=== PATIENT | female | born 1945 | race Caucasian/White ===

== ENCOUNTER 2020-05-26 14:15 | Outpatient (CLI) | payer MEDICARE, OTHER, SELFPAY ==
[2020-05-26 15:02] LABS: Basophils Absolute Auto 0.1 K/mm3 (0.0-0.1); Basophils Percent Auto 0.6 % (0.2-1.2); Eosinophils Absolute Auto 0.7 K/mm3 (0-0.3); Hematocrit 38.2 % (37.0-47.0); Hemoglobin 12.1 g/dL (12.0-15.0); Immature Granulocyte Absolute 0.02 K/mm3 (0.00-0.031); Immature Granulocyte Percent A 0.2 % (0-0.5); Lymphocytes Absolute Auto 1.88 K/mm3 (0.9-3.2); Lymphocytes Percent Auto 23.2 % (18.3-44.2); Mean Corpuscular HGB Conc 31.7 g/dl (32-36); Mean Corpuscular Hemoglobin 29.1 pg (26-34); Mean Corpuscular Volume 91.8 fl (80-100); Mean Platelet Volume 11.5 fl (7.4-10.4); Monocytes Absolute Auto 0.8 K/mm3 (0.1-0.6); Monocytes Percent Auto 9.7 % (2.6-8.5); Neutrophils Absolute Auto 4.7 K/mm3 (1.3-6.7); Neutrophils Percent Auto 58.3 % (45.5-73.1); Platelet Count Result 219 k/mm3 (150-375); Red Blood Count 4.16 M/mm3 (4.2-5.4); Red Cell Distribution Width 13.7 % (11.5-14.5); White Blood Count 8.1 K/mm3 (4.5-10.0)
[2020-05-26 15:15] LABS: Alanine Aminotransferase 10 U/L (4-35); Albumin Level 4.1 g/dL (3.5-5.1); Alkaline Phosphatase 80 U/L (38-126); Anion Gap 7 mmol/L (8-16); Aspartate Amino Transferase 21 U/L (14-36); Bilirubin,Total 0.7 mg/dL (0.2-1.3); Blood Urea Nitrogen 14 mg/dL (7-17); Calcium 9.2 mg/dL (8.4-10.2); Carbon Dioxide 33 mmol/L (22-30); Chloride 105 mmol/L (98-107); Estimated Glomerular Filt Rate > 60; Glucose 92 mg/dL (65-105); Potassium 3.7 mmol/L (3.4-5.0); Sodium 145 mmol/L (137-145)
[2020-05-26 17:27] LABS: Vitamin D 25 Hydroxy 42.5 ng/mL
== END 2020-05-26 14:16 | disposition home or self-care (01) ==
PROVIDERS: PCP Family Medicine; Visit Provider Family Medicine
DX: R53.82 Chronic fatigue, unspecified (principal); N18.30 Chronic kidney disease, stage 3 unspecified; E55.9 Vitamin D deficiency, unspecified; F32.5 Major depressive disorder, single episode, in full remission; G93.49 Other encephalopathy
CPT/HCPCS: 36415; 80048; 80076; 82306; 84443; 85025

== ENCOUNTER 2020-09-17 13:20 | Emergency (ER) | payer MEDICARE, OTHER, SELFPAY ==
[2020-09-17] VITALS (13 sets, daily range): BP systolic 101–149; BP diastolic 52–82; PULSE 53–82; RESP 14–24; TEMP 36.3–36.9; O2SAT 95–99
--- NOTE | ~2020-09-17 | XR_ITS ---
XR hip RT 1V DATE: 09/17/2020 14:31 INDICATION: Right hip dislocation TECHNIQUE: Single AP view COMPARISON: 09/13/2020 right hip FINDINGS: The right femoral head component of the right total hip replacement is now properly seated in the acetabulum on AP view. Diffuse osteopenia. IMPRESSION: Reduction of dislocated right total hip arthroplasty Reviewed, dictated and finalized at location A.
--- NOTE | ~2020-09-17 | XR_ITS ---
XR hip RT min 3V w AP pelvis DATE: 09/17/2020 13:42 INDICATION: Fall in shower. Possible dislocation. TECHNIQUE: AP pelvis. AP and lateral views of right hip COMPARISON: None FINDINGS: The right femoral head prosthesis is dislocated superiorly at the right total hip arthropla sty. No associated fracture is evident. Normal alignment at the pubic symphysis and sacroiliac joints. Osteopenia. Dextro scoliosis and degenerative disc disease of the lumbar spine. IMPRESSION: Superior dislocation of right femoral head prosthesis at the right total hip arthroplasty Reviewed, dictated and finalized at location A.
--- NOTE | 2020-09-17 13:27 | ED.LOWEXIN ---
HPI - Extremity Injury (Lower) General Chief Complaint: Extremity Injury, Lower Stated Complaint: R HIP PAIN History of Present Illness HPI Narrative: 75 yo female w/ h/o hip replacement presents with hip injury. She reports that she was lying in bed today when she rolled over and felt a pop in the right hip. This was followed by severe pain and reduced ROM. This is the hip she previously had replaced. She has never had this happen before. Related Data Home Medications Medication Instructions Recorded Confirmed aspirin 81 mg PO DAILY 01/05/19 07/07/20 Allergies Allergy/AdvReac Type Severity Reaction Status Date / Time No Known Allergies Allergy Mild Verified 09/17/20 13:26 Review of Systems Review of Systems: All systems reviewed & are unremarkable except as noted in HPI and below Constitutional: Constitutional: Denies chills and Denies fever(s) Cardiovascular: Cardiovascular: Denies chest pain Respiratory: Respiratory: Denies dyspnea Gastrointestinal: Gastrointestinal: Denies nausea Genitourinary: Genitourinary: Reports no additional female genitourinary complaints Musculoskeletal: Musculoskeletal: Denies back pain Neurologic: Denies numbness and Denies weakness PMFSH Past Medical History Medical History Anxiety Arthritis Asthma BMI 33.0-33.9,adult BMI 34.0-34.9,adult Breast cancer Bronchitis CVA (cerebral vascular accident) DDD (degenerative disc disease) Depression Encephalopathy chronic Fibrous breast lumps Gall bladder disease GERD (gastroesophageal reflux disease) Heart murmur Hypercholesterolemia Hypertension Screen for colon cancer Sepsis due to urinary tract infection Sleep apnea TIA (transient ischemic attack) Surgical History Surgical History H/O breast biopsy H/O: hysterectomy History of cholecystectomy History of right hip replacement History of tonsillectomy Hx of tubal ligation Previous section Family History Family History Mother Hypertension Family history of pancreatic cancer Father Cerebrovascular accident Social History Social History Second hand tobacco smoke exposure: Yes Alcohol intake: current Gender identity (if verbalized by the patient): Female Exam Const: General: healthy appearing and alert Nutritional Appearance: well nourished Orientation/consciousness: patient oriented x3 HENMT: Head: normal to inspection Resp: Effort & Inspection: normal respiratory effort Auscultation: clear to auscultation bilaterally Cardio: Rate: regular rate Rhythm: regular rhythm GI: GI Palp: Yes Soft to palpation and No Tenderness to palpation present (GI) Skin: General skin exam: normal color Wounds: no wounds Neuro: General: moves all extremities, no focal motor deficits and CN's II-XI intact bilaterally Speech: normal speech Other: Distal motor and sensory intact in RLE Extrem: Other: right hip help in flexion with slight internal rotation. Course Vital Signs Vital signs: Vital Signs Temperature 36.8 C 09/17/20 13:19 Pulse Rate 58 L 09/17/20 13:19 Respiratory Rate 16 09/17/20 13:19 Blood Pressure 139/78 09/17/20 13:19 Pulse Oximetry 99 09/17/20 13:19 Temperature 36.3 C L 09/17/20 14:50 Pulse Rate 55 L 09/17/20 15:20 Respiratory Rate 16 09/17/20 15:20 Blood Pressure 101/52 L 09/17/20 15:20 Pulse Oximetry 96 09/17/20 15:20 Procedures Orthopedic Joint Reduction Joint #1: Orthopedic Joint Reduction Date: 09/17/20 Time Out Performed: Yes Side: right Joint Reduction Location: hip Analgesia: procedural sedation Technique used: traction/counter-traction Post-reduction neuro exam: intact Post-reduction vascular: intact
[2020-09-17] MEDS: MORPHINE SULFATE (*CRX) 4 MG/ML INJ IV PUSH (13:44)
[2020-09-17] MEDS: SODIUM CHLORIDE 0.9% IV 1,000 ML 999 ML (14:10)
[2020-09-17] MEDS: PROPOFOL IV EMULSION 200 MG/20 ML VIAL 100 MG IV PUSH (14:16)
--- NOTE | 2020-09-17 14:41 | PC.NURSE ---
consent signed and in chart propofal given in three doses, given by dr quispe 1416 propofal 50mg 1418 propofal 20mg 1420 propofal 30mg
== END 2020-09-17 17:16 ==
PROVIDERS: Emergency Provider Emergency Medicine; PCP Family Medicine
DX: T84.020A Dislocation of internal right hip prosthesis, initial encounter (principal); Z96.641 Presence of right artificial hip joint; M19.90 Unspecified osteoarthritis, unspecified site; J45.909 Unspecified asthma, uncomplicated; Z86.73 Personal history of transient ischemic attack (TIA), and cerebral infarction without residual deficits; K21.9 Gastro-esophageal reflux disease without esophagitis; E78.00 Pure hypercholesterolemia, unspecified; I10 Essential (primary) hypertension; F41.9 Anxiety disorder, unspecified; F32.9 Major depressive disorder, single episode, unspecified; Z87.440 Personal history of urinary (tract) infections; Z79.82 Long term (current) use of aspirin; Z77.22 Contact with and (suspected) exposure to environmental tobacco smoke (acute) (chronic)
CPT/HCPCS: 27266; 73501; 73502; 96374; 99285; J2270; J2704; J7030

== ENCOUNTER 2021-11-15 11:08 | Outpatient (RCR) | payer MEDICARE, OTHER, SELFPAY ==
[2021-11-15 12:15] VITALS: BMI 33.5
== END 2022-01-29 09:48 | disposition home or self-care (01) ==
LOC: ANHWOC 11:08
PROVIDERS: PCP Family Medicine; Visit Provider Nurse Practitioner Family
DX: L72.3 Sebaceous cyst (principal)
CPT/HCPCS: 99213; G0463

== ENCOUNTER 2022-01-30 11:54 | Emergency (ER) | payer MEDICARE, OTHER, SELFPAY ==
--- NOTE | ~2022-01-30 | XR_ITS ---
EXAMINATION: XR chest 2V DATE: 01/30/2022 12:21 INDICATION: One week of cough and congestion. Malaise. TECHNIQUE: frontal and lateral views of the chest were obtained. COMPARISON: Chest radiograph dated 01/05/2019 FINDINGS: Normal lung volumes. Bilateral mild perihilar bronchial wall thickening. No focal airspace opacities, pleural effusion or pneumothorax. The cardiomediastinal silhouette is normal. Mild thoracolumbar lev ocurvature. Cholecystectomy clips in the upper abdomen. IMPRESSION: 1. Mild perihilar bronchial wall thickening without focal airspace opacities which could be seen with bronchitis or reactive airway disease/asthma. Reviewed, dictated and finalized at location A. [employer] IMPRESSION: 1. Mild perihilar bronchial wall thickening without focal airspace opacities wh ich could be seen with bronchitis or reactive airway disease/asthma.
--- NOTE | 2022-01-30 12:01 | ED.URI ---
HPI - URI/Sore Throat General Chief Complaint: Upper Respiratory Infection Stated Complaint: congestion, wheezing Time Seen by Provider: 01/30/22 12:01 Source: patient, family and RN notes reviewed History of Present Illness HPI Narrative: Patient is a 76-year-old female who presents to Urgent Care with her daughter with complaints of cough, wheezing, congestion for 1 week. Patient currently lives in assisted living and has to have an order for on medications. States that her PCP got an order for p.r.n. guaifenesin which she has only been taking once a day. Denies any known fevers, nausea, vomiting. Reports shortness of breath. Patient appears fatigued but otherwise no acute distress noted. Patient and daughter aware of the plan of care. Some parts of this dictation were generated by voice recognition software and may contain typographical and/or grammatical inaccuracies. Related Data Home Medications Medication Instructions Recorded Confirmed umeclidinium 62.5 mcg-vilanterol 1 inh inhalation DAILY 02/20/21 01/30/22 25 mcg/actuation powdr for inhalation (Anoro Ellipta) atenolol 50 mg tablet 50 mg PO DAILY 11/08/21 01/30/22 Allergies Allergy/AdvReac Type Severity Reaction Status Date / Time No Known Allergies Allergy Mild Verified 01/30/22 12:08 Review of Systems Review of Systems: CONSTITUTIONAL: Denies fever, chills, or sweats. EYES: Denies visual changes, redness, or discharge. ENT: Reports of postnasal drainage and congestion CARDIOVASCULAR: Denies chest pain, palpitations, or edema. RESPIRATORY: Reports cough, wheezing, congestion GASTROINTESTINAL: Denies abdominal pain, nausea, vomiting, or diarrhea. GENITOURINARY: Denies dysuria or hematuria. SKIN: Denies rash or itching. MUSCULOSKELETAL: Denies back pain, joint pain, or myalgia. NEUROLOGIC: Denies headache, numbness, or weakness. All other systems reviewed are negative, except as documented in HPI. [facility] Past Medical History Medical History Anxiety Arthritis Asthma BMI 33.0-33.9,adult BMI 34.0-34.9,adult BMI over 35 Breast cancer Bronchitis CVA (cerebral vascular accident) DDD (degenerative disc disease) Depression Dermatitis Encephalopathy chronic Fibrous breast lumps Gall bladder disease GERD (gastroesophageal reflux disease) Heart murmur Hip pain, bilateral Hirsutism Hypercholesterolemia Hypertension Screen for colon cancer Sepsis due to urinary tract infection Sleep apnea TIA (transient ischemic attack) Surgical History Surgical History H/O breast biopsy H/O: hysterectomy History of cholecystectomy History of right hip replacement History of tonsillectomy Hx of tubal ligation Previous section Family History Family History Mother Hypertension Family history of pancreatic cancer Father Cerebrovascular accident Sibling Heart disease Hxjbi-Xgokyotgz-Xbwjl (WPW) syndrome A-fib Low O2 saturation Social History Social History Smoking status: Never smoker Second hand tobacco smoke exposure: Yes Alcohol intake: current Substance use: never Substance use type: does not use Gender identity (if verbalized by the patient): Female Comments At the time of my signature, I reviewed and agree with the nursing past medical, surgical, social, and family history. There is no relevant family history pertinent to the patient complaint. Exam Narrative: GENERAL: This is a well-nourished, well-developed patient. Appears fatigued HEAD: normocephalic, atraumatic. EYES: PERRL. Sclera clear/white. Vision is grossly intact. EARS: External ears normal, auditory canals clear and without drainage, TMs normal without perforation. Hearing grossly intact. NOSE: External nose no
[2022-01-30 12:08] VITALS: BP 130/102; PULSE 61; RESP 20; TEMP 37.6; O2SAT 94
[2022-01-30 12:10] VITALS: BP 130/102; PULSE 61; RESP 20; TEMP 37.6; O2SAT 94
== END 2022-01-30 12:50 | disposition home or self-care (01) ==
PROVIDERS: Emergency Provider Nurse Practitioner Family; PCP Family Medicine
DX: J40 Bronchitis, not specified as acute or chronic (principal); M19.90 Unspecified osteoarthritis, unspecified site; Z86.73 Personal history of transient ischemic attack (TIA), and cerebral infarction without residual deficits; K21.9 Gastro-esophageal reflux disease without esophagitis; R01.1 Cardiac murmur, unspecified; E78.00 Pure hypercholesterolemia, unspecified; I10 Essential (primary) hypertension; Z85.3 Personal history of malignant neoplasm of breast; Z96.641 Presence of right artificial hip joint
CPT/HCPCS: 71046; 99213; G0463

== ENCOUNTER 2022-05-25 06:12 | Emergency (ER) | payer MEDICARE, OTHER, SELFPAY ==
--- NOTE | ~2022-05-25 | CT_ITS ---
CT head without contrast Indication: Head injury COMPARISON: 01/05/2019 Technique: Serial scans were obtained through the brain without the administration of contrast. Dose reduction technique was used on this scan by utilizing automated exposure control and iterative recon struction technique. The dose-length product (DLP) was 1362.00 mGy-cm. Findings: There is no evidence of intracranial hemorrhage, mass lesion, or acute infarct. The ventri cles and subarachnoid spaces are dilated, consistent with moderate atrophy. Low attenuation regions are seen within the periventricular white matter bilaterally, likely representing changes from chroni c microvascular ischemic disease. There is no evidence of edema, mass effect or midline shift. The visualized paranasal sinuses and mastoid air cells are clear. Impression: No intracranial hemorrhage, mass, or acute infarct. Atrophy and chronic white matter changes, as above. Reviewed, dictated and finalized at location . Impression: No intracranial hemorrhage, mass, or acute infarct. Atrophy and chronic white matter changes, as above.
--- NOTE | ~2022-05-25 | XR_ITS ---
AP view of the pelvis and AP and lateral views of the right hip Clinical history: Pain Findings: No acute fracture or dislocation is seen.] Hip arthroplasty in place. No hardware convocati on evident. Soft tissues are unremarkable. Impression: No acute abnormality. Right hip arthroplasty. Reviewed, dictated and finalized at location . Impression: No acute abnormality. Right hip arthroplasty.
[2022-05-25 06:09] VITALS: PULSE 75; RESP 17; TEMP 37.6; O2SAT 97
[2022-05-25 06:22] VITALS: BP 114/58; PULSE 76; RESP 20; O2SAT 94
--- NOTE | 2022-05-25 06:38 | ED.GENADULT ---
HPI - General Adult General Chief complaint: Fall <Darci Causey MD - Last Filed: 05/25/22 18:58> Stated complaint: fall <Darci Causey MD - Last Filed: 05/25/22 18:58> Time Seen by Provider: 05/25/22 06:22 <Darci Causey MD - Last Filed: 05/25/22 18:58> History of Present Illness HPI narrative: 76-year-old female presented the emergency department for evaluation after having a suspected ground-level fall. Nursing staff states that the patient was on the floor. Patient did hit her alarm for assistance. EMS was called and patient was able to have some limited ambulation to the [facility]. Patient states that she is having some right hip pain but this feels similar to her chronic right hip pain which she states is sciatica and she has had for approximately 2 years. Patient does not recall being on the floor. Patient is also unsure if she had a ground-level fall and is unsure if she struck her head. Patient denies any other pain or injury. <Darci Causey MD - Last Filed: 05/25/22 18:58> Related Data Home medications: Home Medications Medication Instructions Recorded Confirmed umeclidinium 62.5 mcg-vilanterol 1 inh inhalation DAILY 02/20/21 03/13/22 25 mcg/actuation powdr for inhalation (Anoro Ellipta) atenolol 50 mg tablet 50 mg PO DAILY 11/08/21 03/13/22 doxycycline monohydrate 100 mg 100 mg PO BID 03/13/22 03/13/22 capsule <Darci Causey MD - Last Filed: 05/25/22 18:58> Allergies/adverse reactions: Allergies Allergy/AdvReac Type Severity Reaction Status Date / Time No Known Allergies Allergy Mild Verified 05/25/22 11:43 <Darci Causey MD - Last Filed: 05/25/22 18:58> Review of Systems Review of Systems: All systems reviewed & are unremarkable except as noted in HPI and below <Darci Causey MD - Last Filed: 05/25/22 18:58> PMFSH Past Medical History Medical History: Medical History Anxiety Arthritis Asthma BMI 31.0-31.9,adult BMI 33.0-33.9,adult BMI 34.0-34.9,adult BMI over 35 Breast cancer Bronchitis CVA (cerebral vascular accident) DDD (degenerative disc disease) Depression Dermatitis Encephalopathy chronic Fibrous breast lumps Gall bladder disease GERD (gastroesophageal reflux disease) Heart murmur Hip pain, bilateral Hirsutism Hypercholesterolemia Hypertension Screen for colon cancer Sepsis due to urinary tract infection Sleep apnea TIA (transient ischemic attack) <Darci Causey MD - Last Filed: 05/25/22 18:58> Surgical History Surgical History: Surgical History H/O breast biopsy H/O: hysterectomy History of cholecystectomy History of right hip replacement History of tonsillectomy Hx of tubal ligation Previous section <Darci Causey MD - Last Filed: 05/25/22 18:58> Family History Family History: Family History Mother Hypertension Family history of pancreatic cancer Father Cerebrovascular accident Sibling Heart disease Jjdrh-Sqxejxjeq-Llans (WPW) syndrome A-fib Low O2 saturation <Darci Causey MD - Last Filed: 05/25/22 18:58> Social History Social History: Social History Smoking status: Never smoker Second hand tobacco smoke exposure: Yes Alcohol intake: current Substance use: never Substance use type: does not use Lack of Transportation: No Lack of Food: Never True Current Housing: I Have Housing Concerned About Future Housing: No Difficulty Paying Gas/Electric Bills: No Difficulty Paying for Meds: No Currently Unemployed: No Education: Associate Degree Difficulty w/ Childcare or Family Care: No Living arrangements: alone Occupation/Education: retired Gender identity (if verbalized by
[2022-05-25 07:12] VITALS: BP 107/49; PULSE 76; RESP 24; O2SAT 97
[2022-05-25 07:16] VITALS: BP 105/50; PULSE 76; RESP 22; O2SAT 94
--- NOTE | 2022-05-25 08:13 | PC.NURSE ---
patient ambulated with a limp using a walker
[2022-05-25 09:25] VITALS: BP 106/50; PULSE 76; RESP 20; O2SAT 97
== END 2022-05-25 09:25 | disposition home or self-care (01) ==
PROVIDERS: Emergency Provider Emergency Medicine; PCP Family Medicine
DX: M25.551 Pain in right hip (principal); F41.9 Anxiety disorder, unspecified; M19.90 Unspecified osteoarthritis, unspecified site; J45.909 Unspecified asthma, uncomplicated; F32.A Depression, unspecified; K21.9 Gastro-esophageal reflux disease without esophagitis; I10 Essential (primary) hypertension; G47.30 Sleep apnea, unspecified
CPT/HCPCS: 70450; 73502; 99284

== ENCOUNTER 2022-05-25 11:01 | Emergency (ER) | payer MEDICARE, OTHER, SELFPAY ==
[2022-05-25 11:32] VITALS: BP 113/59; PULSE 66; RESP 16; O2SAT 96
--- NOTE | 2022-05-25 11:41 | ED.GENADULT ---
HPI - General Adult General Chief complaint: Unspecified Stated complaint: blood in brief Time Seen by Provider: 05/25/22 11:12 History of Present Illness HPI narrative: 76-year-old female presents to the emergency room for reevaluation from an injury that occurred earlier this morning. Patient was seen here for suspected ground-level fall and was complaining of some right hip pain. Patient states that she was lying on the floor at her assisted living facility when staff found her. Patient stated that she did not remember falling on the ground at that time. Imaging showed no acute injuries to her hip and pelvis. Head CT was performed showing no acute intracranial changes or injuries. Patient was found to have scant amount of blood in her diaper upon returning to assisted living. Daughter became concerned that she might be experiencing urinary tract infection or sepsis. Patient's not complaining of any vaginal ulcers or wounds. No wounds found to her right thigh. Denies dysuria, urinary frequency or urgency. Related Data Home Medications Medication Instructions Recorded Confirmed umeclidinium 62.5 mcg-vilanterol 1 inh inhalation DAILY 02/20/21 03/13/22 25 mcg/actuation powdr for inhalation (Anoro Ellipta) atenolol 50 mg tablet 50 mg PO DAILY 11/08/21 03/13/22 doxycycline monohydrate 100 mg 100 mg PO BID 03/13/22 03/13/22 capsule Allergies Allergy/AdvReac Type Severity Reaction Status Date / Time No Known Allergies Allergy Mild Verified 05/25/22 11:43 Review of Systems Review of Systems: CONSTITUTIONAL: Denies fever, chills, or sweats. EYES: Denies visual changes, redness, or discharge. ENT: Denies rhinorrhea, congestion, sore throat, or otalgia. CARDIOVASCULAR: Denies chest pain, palpitations, or edema. RESPIRATORY: Denies cough or dyspnea. GASTROINTESTINAL: Denies abdominal pain, nausea, vomiting, or diarrhea. GENITOURINARY: Denies dysuria or hematuria. SKIN: Denies rash or itching. MUSCULOSKELETAL: Denies back pain, joint pain, or myalgia. NEUROLOGIC: Denies headache, numbness, dizziness, or weakness. PSYCHIATRIC: Denies anxiety or depression. [facility] Past Medical History Medical History Anxiety Arthritis Asthma BMI 31.0-31.9,adult BMI 33.0-33.9,adult BMI 34.0-34.9,adult BMI over 35 Breast cancer Bronchitis CVA (cerebral vascular accident) DDD (degenerative disc disease) Depression Dermatitis Encephalopathy chronic Fibrous breast lumps Gall bladder disease GERD (gastroesophageal reflux disease) Heart murmur Hip pain, bilateral Hirsutism Hypercholesterolemia Hypertension Screen for colon cancer Sepsis due to urinary tract infection Sleep apnea TIA (transient ischemic attack) Surgical History Surgical History H/O breast biopsy H/O: hysterectomy History of cholecystectomy History of right hip replacement History of tonsillectomy Hx of tubal ligation Previous section Family History Family History Mother Hypertension Family history of pancreatic cancer Father Cerebrovascular accident Sibling Heart disease Mnbmd-Izwtmlsmh-Acfzq (WPW) syndrome A-fib Low O2 saturation Social History Social History Smoking status: Never smoker Second hand tobacco smoke exposure: Yes Alcohol intake: current Substance use: never Substance use type: does not use Lack of Transportation: No Lack of Food: Never True Current Housing: I Have Housing Concerned About Future Housing: No Difficulty Paying Gas/Electric Bills: No Difficulty Paying for Meds: No Currently Unemployed: No Education: Associate Degree Difficulty w/ Childcare or Family Care: No Living arrangements: alone Occupation/Education: retired Gender identity (
[2022-05-25 11:45] LABS: Appearance Urine Clear (Clear); Bilirubin Urine Negative (Negative); Blood Urine Negative (Negative); Color Urine Yellow (Yellow); Glucose Urine UA Negative (Negative); Ketones Urine Negative (Negative); Leukocyte Esterase Ur Negative LEU/UL (Negative); Nitrate Urine Negative (Negative); Protein Urine Negative (Negative); Specific Grav Ur 1.017 (1.001-1.035); Urobilinogen Urine 0.2 mg/dL (<2.0); pH Urine 5.5 (5.0-9.0)
[2022-05-25 11:58] LABS: Add Urine Microscopic? NO
== END 2022-05-25 12:47 | disposition home or self-care (01) ==
LOC: ANHED 12:12
PROVIDERS: Emergency Provider Nurse Practitioner Family; PCP Family Medicine
DX: R31.9 Hematuria, unspecified (principal); F41.9 Anxiety disorder, unspecified; M19.90 Unspecified osteoarthritis, unspecified site; J45.909 Unspecified asthma, uncomplicated; F32.A Depression, unspecified; K21.9 Gastro-esophageal reflux disease without esophagitis; I10 Essential (primary) hypertension; G47.30 Sleep apnea, unspecified
CPT/HCPCS: 81003; 99282

== ENCOUNTER 2022-10-11 10:28 | Outpatient (CLI) | payer MEDICARE, OTHER, SELFPAY ==
--- NOTE | ~2022-10-11 | MR_ITS ---
EXAMINATION: MR brain/brain stem wo con DATE: 10/11/2022 11:35 INDICATION: Other amnesia. TECHNIQUE: Magnetic resonance imaging (MRI) of the brain and brainstem was performed without intraven ous contrast. COMPARISON: Brain MRI 02/16/2017, head CT 05/25/2022 FINDINGS: There are scattered areas of nonspecific increased T2-weighted signal intensity in the cere bral white matter and [place]. There is no intracranial hemorrhage, acute infarction, or abnormal intrac ranial mass lesion. The ventricles are normal in size. The orbits are normal. The paranasal sinuses a re clear. The mastoid air cells are normal. IMPRESSION: 1. Moderate nonspecific cerebral white matter disease and pontine disease, which likely represents ch ronic small vessel ischemic disease, worsened from 02/16/2017. Reviewed, dictated and finalized at location A. IMPRESSION: 1. Moderate nonspecific cerebral white matter disease and pontine disease, whic h likely represents chronic small vessel ischemic disease, worsened from 2016.
== END 2022-10-11 10:29 | disposition home or self-care (01) ==
LOC: ANHIMG 10:31
PROVIDERS: PCP Family Medicine; Visit Provider Nurse Practitioner Family
DX: R41.3 Other amnesia (principal); R68.89 Other general symptoms and signs
CPT/HCPCS: 70551

== ENCOUNTER 2022-11-16 15:41 | Emergency (ER) | payer MEDICARE, OTHER, SELFPAY ==
--- NOTE | ~2022-11-16 | CT_ITS ---
EXAMINATION: CT brain wo con DATE: 11/16/2022 17:48 INDICATION: Hallucinations for 3 days. Altered mental state. TECHNIQUE: Computed tomography (CT) of the head was performed without intravenous contrast. The mA wa s adjusted according to patient size. Iterative reconstruction technique was employed. Exam dose: 60 5.33 mGy-cm total exam DLP. COMPARISON: 10/11/2022 MRI brain/brainstem FINDINGS: There is central and cortical cerebral atrophy. Moderate cerebral volume loss. No intracranial mass lesion or hemorrhage, midline shift or mass effect is detected. Bilateral carotid siphon internal carotid artery calcifications are noted. There is nonspecific dimin ished attenuation of the cerebral white matter, which may be due to chronic small vessel ischemic murphy nges. No subdural or epidural hematoma. No fracture or bone destruction of the cranial vault. Included paranasal sinuses and mastoid air cells IMPRESSION: Cerebral and cerebellar atrophy; no acute intracranial finding Cerebral atherosclerosis and chronic small vessel ischemic changes of the cerebral white matter Reviewed, dictated and finalized at [facility]. Reviewed, dictated and finalized at location A. IMPRESSION: Cerebral and cerebellar atrophy; no acute intracranial finding Cerebral atherosclerosis and chronic small vessel ischemic changes of the cereb ral white matter
[2022-11-16 15:41] VITALS: BP 108/54; PULSE 56; RESP 18; O2SAT 100
[2022-11-16 15:49] VITALS: BP 108/54; PULSE 63; RESP 18; O2SAT 98
[2022-11-16 16:01] VITALS: BP 111/54; PULSE 66; RESP 18; O2SAT 100
[2022-11-16 16:25] LABS: Basophils Percent Auto 0.4 % (0.2-1.2); Eosinophils Absolute Auto 0.2 K/mm3 (0-0.3); Eosinophils Percent Auto 4.5 % (0-4.4); Hematocrit 38.7 % (37.0-47.0); Hemoglobin 11.7 g/dL (12.0-15.0); Immature Granulocyte Absolute 0.02 K/mm3 (0.00-0.031); Immature Granulocyte Percent A 0.4 % (0-0.5); Lymphocytes Absolute Auto 0.92 K/mm3 (0.9-3.2); Lymphocytes Percent Auto 17.2 % (18.3-44.2); Mean Corpuscular HGB Conc 30.2 g/dl (32-36); Mean Corpuscular Hemoglobin 28.5 pg (26-34); Mean Corpuscular Volume 94.4 fl (80-100); Mean Platelet Volume 10.9 fl (7.4-10.4); Monocytes Absolute Auto 0.6 K/mm3 (0.1-0.6); Monocytes Percent Auto 11.4 % (2.6-8.5); Neutrophils Absolute Auto 3.5 K/mm3 (1.3-6.7); Neutrophils Percent Auto 66.1 % (45.5-73.1); Platelet Count Result 123 k/mm3 (150-375); Red Cell Distribution Width 13.9 % (11.5-14.5); White Blood Count 5.3 K/mm3 (4.5-10.0)
[2022-11-16 16:26] LABS: Appearance Urine Clear (Clear); Bilirubin Urine Negative (Negative); Blood Urine Negative (Negative); Color Urine Yellow (Yellow); Glucose Urine UA Negative (Negative); Ketones Urine Negative (Negative); Leukocyte Esterase Ur Negative LEU/UL (Negative); Nitrate Urine Negative (Negative); Protein Urine Negative (Negative); Specific Grav Ur 1.011 (1.001-1.035); Urobilinogen Urine 0.2 mg/dL (<2.0); pH Urine 5.5 (5.0-9.0)
[2022-11-16 16:36] LABS: Alanine Aminotransferase 23 U/L (6-35); Albumin Level 3.8 g/dL (3.5-5.1); Alkaline Phosphatase 70 U/L (38-126); Anion Gap 6 mmol/L (8-16); Aspartate Amino Transferase 30 U/L (14-36); Bilirubin,Total 0.9 mg/dL (0.2-1.3); Blood Urea Nitrogen 18 mg/dL (7-17); Calcium 9.6 mg/dL (8.4-10.2); Carbon Dioxide 33 mmol/L (22-30); Chloride 101 mmol/L (98-107); Estimated CRCL calculation 55 ml/min; Estimated Glomerular Filt Rate > 60; Glucose 82 mg/dL (65-110); Sodium 140 mmol/L (137-145)
[2022-11-16 16:53] LABS: Add Urine Microscopic? NO
[2022-11-16 18:55] LABS: Influenza A QL RT-PCR Negative (Negative); Influenza B QL RT-PCR Negative (Negative); RSV RNA, RT-PCR Negative (Negative); SARS-CoV-2 RNA PCR Negative (Negative)
--- NOTE | 2022-11-16 19:04 | ED.GENADULT ---
HPI - General Adult General Chief complaint: Psychiatric Symptoms Stated complaint: AMS FR 3DAYS Time Seen by Provider: 11/16/22 16:17 History of Present Illness HPI narrative: 77-year-old female with history of vascular dementia presented to the ED for evaluation of increased confusion and hallucinations. Patient also stating that her son from [place] was in town. Patient now states that she is aware this was hallucination and is aware that her son is currently at a base in [place]. Patient's daughter is present with her. Related Data Allergies Allergy/AdvReac Type Severity Reaction Status Date / Time No Known Allergies Allergy Mild Verified 10/02/22 11:13 Review of Systems Review of Systems: All systems reviewed & are unremarkable except as noted in HPI and below PMFSH Past Medical History Medical History Acute bronchitis Anxiety Arthritis Asthma BMI 30.0-30.9,adult BMI 31.0-31.9,adult BMI 33.0-33.9,adult BMI 34.0-34.9,adult BMI over 35 Breast cancer Bronchitis CVA (cerebral vascular accident) DDD (degenerative disc disease) Depression Dermatitis Encephalopathy chronic Fibrous breast lumps Gall bladder disease GERD (gastroesophageal reflux disease) Heart murmur Hip pain, bilateral Hirsutism Hypercholesterolemia Hypertension Screen for colon cancer Sepsis due to urinary tract infection Sleep apnea TIA (transient ischemic attack) Surgical History Surgical History H/O breast biopsy H/O: hysterectomy History of cholecystectomy History of right hip replacement History of tonsillectomy Hx of tubal ligation Previous section Family History Family History Mother Hypertension Family history of pancreatic cancer Father Cerebrovascular accident Sibling Heart disease Gjohq-Nkfyimmjb-Cvmtm (WPW) syndrome A-fib Low O2 saturation Social History Social History Smoking status: Never smoker Second hand tobacco smoke exposure: Yes Alcohol intake: current Substance use: never Substance use type: does not use Lack of Transportation: No Lack of Food: Never True Current Housing: I Have Housing Concerned About Future Housing: No Difficulty Paying Gas/Electric Bills: No Difficulty Paying for Meds: No Currently Unemployed: No Education: Associate Degree Difficulty w/ Childcare or Family Care: No Living arrangements: alone Occupation/Education: retired Gender identity (if verbalized by the patient): Female Exam Narrative: APPEARANCE: Well appearing, no pain, no distress, well-nourished. HEAD: normocephalic, atraumatic. EYES: PERRLA/EOMI, conjunctivae clear. NOSE: Normal no drainage NECK: Supple. No adenopathy, no masses. RESPIRATORY: Airway patent, respirations nonlabored. Clear to auscultation bilaterally, no rales, rhonchi, wheezing. CARDIOVASCULAR: Regular rate and rhythm without murmurs rubs or gallops. ABDOMINAL: Soft, nontender, nondistended, normal bowel sounds MUSCULOSKELETAL: Moves all extremities. Strength/ROM intact, No edema, No calf tenderness. NEURO: Alert. Cranial nerves II through XII intact. SKIN: Warm, dry. Normal Color Grossly intact Course Course Emergency Course: 69-year-old female history of vascular dementia presented the ED for evaluation of hallucinations. Patient is afebrile with no leukocytosis and a stable hemoglobin. Patient has no significant abnormalities on her CMP. UA shows no evidence of infection and patient was negative for COVID RSV and influenza. Patient did have chronic changes on her brain CT with no acute findings. Patient's hallucinations could be secondary to the new trazodone that she started or could be secondary to worsening of the patient's vascular dementia. Patient did
[2022-11-16 19:22] VITALS: BP 140/88; PULSE 66; RESP 18; TEMP 36.7; O2SAT 100
== END 2022-11-16 19:24 ==
PROVIDERS: Emergency Provider Emergency Medicine; PCP Family Medicine
DX: F01.50 Vascular dementia, unspecified severity, without behavioral disturbance, psychotic disturbance, mood disturbance, and anxiety (principal); R44.1 Visual hallucinations; Z20.822 Contact with and (suspected) exposure to COVID-19; J45.909 Unspecified asthma, uncomplicated; E78.00 Pure hypercholesterolemia, unspecified; I10 Essential (primary) hypertension; K21.9 Gastro-esophageal reflux disease without esophagitis; M19.90 Unspecified osteoarthritis, unspecified site; Z96.641 Presence of right artificial hip joint; Z85.3 Personal history of malignant neoplasm of breast; Z86.73 Personal history of transient ischemic attack (TIA), and cerebral infarction without residual deficits; Z90.710 Acquired absence of both cervix and uterus; Z90.49 Acquired absence of other specified parts of digestive tract; Z77.22 Contact with and (suspected) exposure to environmental tobacco smoke (acute) (chronic); I67.2 Cerebral atherosclerosis
CPT/HCPCS: 36415; 70450; 80053; 81003; 85025; 87637; 99284

== ENCOUNTER 2022-11-19 09:06 | Inpatient (IN) | payer MEDICARE, OTHER, SELFPAY ==
[2022-11-19] VITALS (7 sets, daily range): BP systolic 114–147; BP diastolic 58–92; PULSE 65–73; RESP 17–20; TEMP 36.7; O2SAT 93–100; BMI 31.8
--- NOTE | ~2022-11-19 | XR_ITS ---
XR chest 1V portable 11/21/2022 12:12 Indication: Cough and shortness of breath Procedure: AP portable chest Comparison: 11/19/2022 and 01/30/2022 Findings: Significant improvement of diffuse bilateral airspace disease with residual irregular nodul arity left mid thorax. Follow-up CT chest recommended to exclude parenchymal mass. No pleural effusio n. No pneumothorax. No acute osseous abnormality. Impression: 1: Irregular soft tissue nodule left mid thorax. Recommend follow-up CT chest to assess for parenchym al nodule/mass. 2: Near complete resolution of diffuse bilateral interstitial infiltrates, likely resolving edema. Reviewed, dictated and finalized at location B. Impression: 1: Irregular soft tissue nodule left mid thorax. Recommend follow-up CT chest t o assess for parenchymal nodule/mass. 2: Near complete resolution of diffuse bilateral interstitial infiltrates, lik reginaldo resolving edema.
--- NOTE | ~2022-11-19 | CT_ITS ---
EXAMINATION: CTA chest DATE: 11/21/2022 15:10 INDICATION: Shortness of breath and cough, possible mass TECHNIQUE: Computed tomographic angiography (CTA) of the chest was performed with 100 mL Omnipque-350 intravenous contrast. Maximum intensity projection 3D-reconstructions of the aorta and other arterie s were constructed by the technologist on a separate workstation. The dose-length product (DLP) was 7 90.58 mGy-cm. Automated exposure control and iterative reconstruction technique were employed. COMPARISON: 05/17/2018 FINDINGS: No aneurysm or dissection of the thoracic aorta. Coronary artery atherosclerosis is noted. There is mild atherosclerosis of the aorta without hemodynamically significant stenosis. There is mil d atherosclerosis at the origin of the left subclavian artery without hemodynamically significant meli nosis. There is a left hilar masslike opacity with airspace opacity extending peripherally into the left low er lobe. There is bronchial wall thickening in the proximal aspect of the left lower lobe. There are trace pleural effusions. No pneumothorax is identified. The heart size is normal. There is moderate t horacic spondylosis. There is a 1.8 cm cystic lesion in the body of the pancreas with indeterminate c ommunication with the main pancreatic duct which is unchanged since the comparison examination. There is advanced osteoarthritis of the shoulders. IMPRESSION: 1. Left perihilar mass which could be infection/inflammation versus malignancy. Consider bronchoscopy . 2. No aneurysm or dissection of the thoracic aorta. 3. Cystic lesion in the body of the pancreas. The differential diagnosis includes pseudocyst, intradu ctal papillary mucinous neoplasm (IPMN), mucinous cystic neoplasm (MCN), and the less common serous c ystadenoma and neuroendocrine tumor. Correlate for history of pancreatitis. Follow-up pancreas protoc ol CT or MRI in two years is recommended. Reviewed, dictated and finalized at location F. IMPRESSION: 1. Left perihilar mass which could be infection/inflammation versus malignancy. Consider bronchoscopy. 2. No aneurysm or dissection of the thoracic aorta. 3. Cystic lesion in the body of the pancreas. The differential diagnosis includ es pseudocyst, intraductal papillary mucinous neoplasm (IPMN), mucinous cystic neoplasm (MCN), and the less common serous cystadenoma and neuroendocrine tumor . Correlate for history of pancreatitis. Follow-up pancreas protocol CT or MRI in two years is recommended.
--- NOTE | ~2022-11-19 | XR_ITS ---
XR ankle RT min 3V, XR tibia fibula RT 2V 11/19/2022 09:55 Indication: Right ankle pain after fall Procedure: 4 views right ankle and 2 views right tibia/fibula Comparison: No prior studies for comparison. Findings: Osteopenia. There are bimalleolar fractures with oblique fracture of the distal fibular met adiaphysis with approximately one cortical bone width lateral displacement. No significant angulation . There is a medial malleolus malleolar fracture with lateral displacement. Talar dome is unremarkabl e. Moderate diffuse soft tissue swelling. There are degenerative calcaneal enthesophytes. Impression: 1: Displaced bimalleolar fracture. Reviewed, dictated and finalized at location B. Impression: 1: Displaced bimalleolar fracture. Impression: 1: Displaced bimalleolar fracture.
--- NOTE | ~2022-11-19 | XR_ITS ---
EXAMINATION: XR chest 2V DATE: 11/27/2022 13:38 INDICATION: Pneumonia TECHNIQUE: frontal view of the chest was obtained. COMPARISON: Chest radiograph dated 11/21/2022 FINDINGS: Near complete interval resolution of prior patchy consolidation in the left mid to lower lung zone co nsistent with improving pneumonia. No new airspace opacities, pulmonary edema, pleural effusion or pn eumothorax. The cardiomediastinal silhouette is normal accounting for mild leftward rotation of the p atient. Severe thoracic spondylosis and mild thoracolumbar levocurvature. IMPRESSION: 1. Near complete resolution of prior patchy opacities in the left mid to lower lung zone consistent w ith improving pneumonia. Reviewed, dictated and finalized at location A. IMPRESSION: 1. Near complete resolution of prior patchy opacities in the left mid to lower lung zone consistent with improving pneumonia.
--- NOTE | ~2022-11-19 | XR_ITS ---
XR chest 1V portable 11/19/2022 16:26 Indication: Preop chest x-ray. Cough. Procedure: AP portable chest Comparison: Comparison to multiple prior studies sequentially, with oldest reviewed study dated 05/17. Findings: Heart size upper normal. There is diffuse bilateral interstitial infiltrates with peribronc hial thickening. No pleural effusion or pneumothorax. Impression: 1: Diffuse bilateral airspace disease which may represent edema or pneumonia. Reviewed, dictated and finalized at location B. Impression: 1: Diffuse bilateral airspace disease which may represent edema or pneumonia.
--- NOTE | 2022-11-19 09:28 | ED.FALL ---
HPI - Fall General Chief Complaint: Fall Stated Complaint: GLF, right ankle pain Time Seen by Provider: 11/19/22 09:08 Source: patient and EMS Mode of arrival: ambulatory Limitations: no limitations History of Present Illness HPI Narrative: Loree is a 77-year-old female patient presenting to the ER via ambulance for a ground level fall, right ankle pain, right lower leg pain that occurred sometime this morning. Last known well time was around 245 this morning. Patient was found this morning laying on the ground and EMS was called. Patient does not recall how she had fallen however she does report she is having some right lower leg and ankle pain. EMS reports that she is alert and oriented x2 this is patient has normal mental status. She denies any knowledge of hitting her head or denies any head pain or neck pain. Does not report any pain other than the distal right leg and the right ankle Related Data Allergies Allergy/AdvReac Type Severity Reaction Status Date / Time No Known Allergies Allergy Mild Verified 11/19/22 09:16 Review of Systems Review of Systems: Pertinent positives per HPI. Patient denies any fever, chills, rash, headache, visual changes, dizziness, cough, runny nose, sore throat, shortness of breath, chest pain, palpitations, nausea, vomiting, diarrhea, constipation, abdominal pain, or any urinary issues. [facility] Past Medical History Medical History (Updated 11/19/22 @ 15:42 by Jasmin Esparza PA-C) Anxiety Arthritis Asthma Chronic kidney disease, stage 3 Degenerative disc disease Dementia Depression Gastroesophageal reflux disease Hyperlipidemia Hypertension Obstructive sleep apnea No longer using CPAP following weight loss. Pulmonary emphysema Transient ischemic attack Surgical History Surgical History (Updated 11/19/22 @ 14:56 by Jasmin Esparza PA-C) History of benign breast biopsy History of cardiac catheterization (2011) Reportedly unremarkable. History of section History of cholecystectomy History of hysterectomy History of right hip replacement History of tonsillectomy History of tubal ligation Family History Family History Mother Hypertension Family history of pancreatic cancer Father Cerebrovascular accident Sibling Heart disease Zgdiu-Locsodlpq-Gpdmk (WPW) syndrome A-fib Low O2 saturation Social History Social History (Updated 11/19/22 @ 15:07 by Jasmin G Gerling, PA-C) Social History: Surrogate medical decision maker: Misael Hayes (son) or Mini Bledsoe (daughter). Code status: Full code. Smoking status: Never smoker Second hand tobacco smoke exposure: Yes Alcohol intake: never Alcohol use details: No alcohol since around age 29. Substance use: never Substance use type: does not use Lack of Transportation: No Lack of Food: Never True Current Housing: I Have Housing Concerned About Future Housing: No Difficulty Paying Gas/Electric Bills: No Difficulty Paying for Meds: No Currently Unemployed: No Education: Associate Degree Difficulty w/ Childcare or Family Care: No Additional living arrangements comments: . Lives in assisted living. She has 7 children, 5 biologic and 2 adopted. 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 Comments At the time of my signature, I reviewed and agree with the nursing past medical, surgical, social, and family history. There is no relevant family history pertinent to the patient complaint. Exam Narrative: General: Well-developed, well nourished, in no apparent distress Head: Normocephalic, atraumatic. Cardio: Regular rate and rhythm, s1 and s2 normal, no murmur appreciated. Resp: Clear to auscultation bilaterally, no rhonchi, rales, wheezing or rubs. Musculoskeletal: No deformity, bruising and swelling noted
--- NOTE | 2022-11-19 09:29 | ECG_ITS ---
Measurements Intervals [place] Rate: 63 P: -34 PA: 113 QRS: 73 QRSD: 92 T: 61 QT: 375 QTc: 385 Interpretive Statements SINUS RHYTHM WITH SHORT PA INTERVAL BORDERLINE ST-T WAVE ABNORMALITY- DIFFUSE LEADS BASELINE ARTIFACT- I, II, III, AVR, AVL, AVF, V1-V6 BORDERLINE ECG COMPARED TO ECG 01/05/2019 13:11:31 NO SIGNIFICANT CHANGES Electronically Signed On 11-19-2022 11:21:01 CDT by Jonh Peters D.O.
[2022-11-19 10:30] LABS: Basophils Percent Auto 0.4 % (0.2-1.2); Eosinophils Absolute Auto 0.2 K/mm3 (0-0.3); Eosinophils Percent Auto 2.4 % (0-4.4); Hematocrit 43.1 % (37.0-47.0); Hemoglobin 13.1 g/dL (12.0-15.0); Immature Granulocyte Absolute 0.02 K/mm3 (0.00-0.031); Immature Granulocyte Percent A 0.3 % (0-0.5); Immature Platelet Fraction Pct 7.3 % (0.9-11.2); Lymphocytes Absolute Auto 0.84 K/mm3 (0.9-3.2); Lymphocytes Percent Auto 11.4 % (18.3-44.2); Mean Corpuscular HGB Conc 30.4 g/dl (32-36); Mean Corpuscular Volume 95.4 fl (80-100); Mean Platelet Volume 11.4 fl (7.4-10.4); Monocytes Absolute Auto 0.7 K/mm3 (0.1-0.6); Monocytes Percent Auto 9.1 % (2.6-8.5); Neutrophils Absolute Auto 5.6 K/mm3 (1.3-6.7); Neutrophils Percent Auto 76.4 % (45.5-73.1); Platelet Count Result 118 k/mm3 (150-375); Red Blood Count 4.52 M/mm3 (4.2-5.4); Red Cell Distribution Width 13.9 % (11.5-14.5); White Blood Count 7.4 K/mm3 (4.5-10.0)
[2022-11-19 10:38] LABS: Alanine Aminotransferase 23 U/L (6-35); Albumin Level 4.2 g/dL (3.5-5.1); Alkaline Phosphatase 88 U/L (38-126); Anion Gap 4 mmol/L (8-16); Aspartate Amino Transferase 34 U/L (14-36); Bilirubin,Total 1.3 mg/dL (0.2-1.3); Blood Urea Nitrogen 20 mg/dL (7-17); Calcium 9.3 mg/dL (8.4-10.2); Carbon Dioxide 32 mmol/L (22-30); Chloride 101 mmol/L (98-107); Estimated CRCL calculation 55 ml/min; Estimated Glomerular Filt Rate > 60; Glucose 103 mg/dL (65-110); Potassium 4.1 mmol/L (3.4-5.0); Sodium 137 mmol/L (137-145)
[2022-11-19 11:36] LABS: Free T4 Free Thyroxine 1.24 ng/mL (0.78-2.19)
[2022-11-19 12:09] LABS: Appearance Urine Clear (Clear); Bilirubin Urine Negative (Negative); Blood Urine Negative (Negative); Color Urine Yellow (Yellow); Glucose Urine UA Negative (Negative); Ketones Urine Negative (Negative); Leukocyte Esterase Ur Negative LEU/UL (Negative); Nitrate Urine Negative (Negative); Protein Urine Negative (Negative); Specific Grav Ur 1.011 (1.001-1.035); Urobilinogen Urine 0.2 mg/dL (<2.0)
[2022-11-19 12:20] LABS: Add Urine Microscopic? NO
--- NOTE | 2022-11-19 14:51 | PM.IMHP ---
H&P: HPI History of Present Illness Date/Time: 11/19/22 13:00 Chief Complaint: Right ankle pain after unwitnessed fall. Narrative: This is a 77-year-old female with dementia, hypertension, dyslipidemia, depression, and anxiety who presented to the emergency department via EMS from [facility] for evaluation of right ankle pain after an unwitnessed fall. She is not a great historian and thus some of the following is supplemented via a review of her EMR. Staff found her at about 03:00 on the floor complaining of ankle pain. Imaging on arrival to the ED showed a bimalleolar fracture. Initially family members wanted transfer to [facility] where her orthopedic surgeon is however they declined. She is being admitted in this setting for pain control and orthopedic consultation with Dr. Parekh with plans for repair, possibly on Saturday. She reports no loss of consciousness or head trauma in the fall and has no other complaints aside from mild discomfort in the right ankle. She denies numbness and tingling in the right foot. Review of Systems Review of Systems: 12 systems were reviewed. No syncope or near syncope. She denies headache and neck pain. No fever, chills, or sweats. No recent cold or flu symptoms though she endorses a mild cough. No chest pain or shortness of breath. No nausea, vomiting, diarrhea, or dysuria. Except as documented, all other systems were reviewed and are negative. [facility] Past Medical History Medical History Anxiety Arthritis Asthma Chronic kidney disease, stage 3 Degenerative disc disease Dementia Depression Gastroesophageal reflux disease Hyperlipidemia Hypertension Obstructive sleep apnea No longer using CPAP following weight loss. Pulmonary emphysema Transient ischemic attack Surgical History Surgical History History of benign breast biopsy History of cardiac catheterization (2011) Reportedly unremarkable. History of section History of cholecystectomy History of hysterectomy History of right hip replacement History of tonsillectomy History of tubal ligation Family History Family History Mother Hypertension Family history of pancreatic cancer Father Cerebrovascular accident Sibling Heart disease Utans-Tliyvurew-Jmqdo (WPW) syndrome A-fib Low O2 saturation Social History Social History Social History: Surrogate medical decision maker: Misael Hayes (son) or Mini Bledsoe (daughter). Code status: Full code. Smoking status: Never smoker Second hand tobacco smoke exposure: Yes Alcohol intake: never Alcohol use details: No alcohol since around age 29. Substance use: never Substance use type: does not use Lack of Transportation: No Lack of Food: Never True Current Housing: I Have Housing Concerned About Future Housing: No Difficulty Paying Gas/Electric Bills: No Difficulty Paying for Meds: No Currently Unemployed: No Education: Associate Degree Difficulty w/ Childcare or Family Care: No Additional living arrangements comments: . Lives in assisted living. She has 7 children, 5 biologic and 2 adopted. 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 Spiritual care concerns: No Meds Home Medications and Allergies Home Medications Medication Instructions Recorded Confirmed Type acetaminophen 500 mg tablet 1,000 mg PO Q8H PRN fever or pain 08/04/20 11/19/22 Rx (Tylenol Extra Strength) #90 tabs albuterol sulfate 90 mcg/actuation 2 puff inhalation QID PRN 01/30/22 11/19/22 Rx aerosol inhaler shortness of breath or wheezing #8 grams sertraline 100 mg tablet 100 mg PO DAILY #90 tabs 02/25
[2022-11-19] MEDS: SODIUM CHLORIDE 0.9% IV 1,000 ML 125 ML IV CONT ×2 (15:14→22:36)
--- NOTE | 2022-11-19 15:44 | ECG_ITS ---
Measurements Intervals [place] Rate: 71 P: 89 MI: 161 QRS: 82 QRSD: 83 T: 70 QT: 357 QTc: 389 Interpretive Statements SINUS RHYTHM ST-T WAVE ABNORMALITY IN ANTERIOR LEADS- CONSIDER ISCHEMIA BASELINE ARTIFACT- I, II, III, AVR ABNORMAL ECG COMPARED TO ECG 11/19/2022 10:42:09 NO SIGNIFICANT CHANGES Electronically Signed On 11-19-2022 18:50:07 CDT by Jonh Peters D.O.
--- NOTE | 2022-11-19 16:43 | ADMGEN ---
This patient, Loree Hayes, was admitted to 2 Medical Room 256-01. Patient/family oriented to hospital policies and general routines including ID bracelet, bed and alarms, visiting hours, pain management, procedures, bathroom and other care routines, personal items, smoking policy, room service/diet, and visiting hours. Information on how to activate the Rapid Response Team has been discussed. Patient/Family are encouraged to report perceived risks to care and to ask questions if they do not understand what they are told or what they should do.
[2022-11-19] MEDS: ACETAMINOPHEN 325 MG TABLET 650 MG PO (16:51)
[2022-11-19] MEDS: GABAPENTIN 300 MG CAPSULE PO (20:00)
[2022-11-19] MEDS: buPROPion HCL 100 MG TABLET PO (20:00)
[2022-11-20] VITALS (7 sets, daily range): BP systolic 100–120; BP diastolic 52–78; PULSE 67–73; RESP 18–20; TEMP 36.4–36.8; O2SAT 93–99
[2022-11-20] MEDS: SODIUM CHLORIDE 0.9% IV 1,000 ML 125 ML IV CONT (04:49)
--- NOTE | 2022-11-20 08:02 | PM.IMPN ---
Progress Note: A&P Assessment and Plan (1) Closed bimalleolar fracture of right ankle: Code(s): S82.841A - Displaced bimalleolar fracture of right lower leg, initial encounter for closed fracture Status: Acute Assessment and Plan: Ankle XR, right Displaced bimalleolar fracture after unwitnessed fall RLE casted Orthopedics consult is appreciated Possible repair scheduled for Saturday Bed rest for now Will need PT/OT orders post op DVT prophylaxis enoxaparin--on hold per ortho for surgery, however now we are hearing that the family does not want surgery. NPO at [place] Family states they are not interested in surgical intervention. They would like to discuss non-surgical options with orthopedics. (2) Unwitnessed fall: Code(s): R29.6 - Repeated falls Status: Acute Assessment and Plan: Fall precautions Bed alarm, chair alarm (3) Essential (primary) hypertension: Code(s): I10 - Essential (primary) hypertension Status: Acute Assessment and Plan: Blood pressures reviewed SBP ranging 140-110/50-60, HR 70's Atenolol restarted (4) Chronic kidney disease, stage 3: Code(s): N18.30 - Chronic kidney disease, stage 3 unspecified Status: Acute Assessment and Plan: Cr baseline is essentially normal at 0.8-1.0 Cr 0.9 on admission. GFR >60 with estimated CC of 55. (5) Dementia: Code(s): F03.90 - Unspecified dementia, unspecified severity, without behavioral disturbance, psychotic disturbance, mood disturbance, and anxiety Status: Acute Assessment and Plan: Alert and orientated 2-3 at baseline but daughter states her dementia has been getting worse. She has been hallucinating and sometimes forgetting who certain family members are. Lives at [facility] Does not appear to be on any pharmacological agents. 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 Plan Feeding:Regular diet and NPO at [place] Analgesia:Acetaminophen Thromboembolic prophylaxis: Lovenox---holding Ulcer prophylaxis: N/a Glycemic control: N/a Bowel regimen: Miralax BID scheduled Lines: PIV Antibiotics: N/A Subjective Date/time seen: 11/20/22 08:02 Interval history: HPI obtained from chart, This is a 77-year-old female with dementia, hypertension, dyslipidemia, depression, and anxiety who presented to the emergency department via EMS from [facility] for evaluation of right ankle pain after an unwitnessed fall. She is not a great historian and thus some of the following is supplemented via a review of her EMR. Staff found her at about 03:00 on the floor complaining of ankle pain. Imaging on arrival to the ED showed a bimalleolar fracture. Initially family members wanted transfer to [facility] where her orthopedic surgeon is however they declined due to their facility being nearly full. She is being admitted in this setting for pain control and orthopedic consultation with Dr. Parekh with plans for repair, possibly on Saturday. She reports no loss of consciousness or head trauma no fall and has no other complaints aside from mild discomfort in the right ankle. She also denies numbness and tingling in the right foot. 11/20-I spoke with daughter at bedside today regarding Mrs Hayes. The daughter tells me that the family will like to discuss nonsurgical options for her right ankle fracture. They are not entertaining surgery at this time. Apparently the patient only transfers to wheelchair at baseline and is not ambulatory. I discussed with the daughter patient's baseline orientation. She says that normally she knows where she is but she does not know the date. She has periods of intermittent confusion and needs reorientate. For my exam she can tell me her name, date of , and that she is at [place]. However she thinks that the month is February and she thinks that the president is Josemanuel Live. Over the last couple weeks th
[2022-11-20 08:58] LABS: Troponin I < 0.012 ng/mL (0.000-0.034)
--- NOTE | 2022-11-20 09:21 | PM.CNOR ---
Assessment and Plan Assessment and plan (1) Closed bimalleolar fracture of right ankle: Qualifiers: Encounter type: initial encounter Qualified Code(s): S82.841A - Displaced bimalleolar fracture of right lower leg, initial encounter for closed fracture Code(s): S82.841A - Displaced bimalleolar fracture of right lower leg, initial encounter for closed fracture Status: Acute Assessment and Plan: History, exam and radiographs reviewed with the patient. Radiographs of the right ankle reveal a displaced bimalleolar ankle fracture. The fracture type and injury as well as radiographs discussed with the patient. Operative and nonoperative treatment options reviewed. The patients questions were answered. The patient desires operative treatment. Discussed ORIF Right Ankle Fracture Risks of surgery including but not limited to neurovascular damage, wound complications, blood clot, pulmonary embolus, stroke, myocardial infarction, anesthetic risks up to and including were reviewed. Continued pain and possible dysfunction were explained. No guarantees were offered. The patient understands and wishes to proceed. Plan: ORIF Right Ankle Fracture Obtain Consent. Pain control. Ice. Elevate RLE. HOLD Anticoagulation. Incentive spirometry. Dispo: Patient may require more assistance postoperatively than Assisted Living can provide. Would recommend CC consult for possible rehab placement. (2) Unwitnessed fall: Code(s): R29.6 - Repeated falls Status: Acute Plan Reviewed history, exam and radiographic findings with attending physician consult to surgeon, Dr. Parekh. Agrees with current plan as indicated above. No further recommendations at this time. History of Present Illness HPI Consult date: 11/20/22 Chief complaint: Altered Mental Status/Right Bimallelar Ankle Fract Narrative: 77-year-old female admitted after a ground level fall with right lower extremity pain. Patient lives in an assisted living facility and was found on the ground. She is a poor historian regards to the nature of her fall. Radiographic findings in the emergency room revealed a bimalleolar right ankle fracture. Patient was admitted for further evaluation and possible surgical intervention. Orthopedic consult requested by the emergency room physician. To note, the patient has a history of vascular dementia and was in the emergency room the day prior to the fall with hallucinations. She has an appointment upcoming with the [facility] neurologist. Review of Systems Constitutional: Constitutional: Denies chills, Denies fatigue, Denies fever(s) and Denies headache(s) Eyes: Eyes: Denies change in vision ENT: Reports Normal hearing present and Denies headache(s) Cardiovascular: Cardiovascular: Denies chest pain and Denies dyspnea Respiratory: Respiratory: Denies cough, Denies dyspnea and Denies wheezing Gastrointestinal: Gastrointestinal: Denies constipation, Denies diarrhea, Denies nausea and Denies vomiting Genitourinary: Genitourinary: Denies hematuria, Denies dysuria and Denies urinary urgency Musculoskeletal: Musculoskeletal: Reports as per HPI, Denies numbness and Denies tingling Integumentary/Breasts: Skin/Breast: Reports as per HPI Neurologic: Reports as per HPI, Reports Normal hearing present, Denies headache(s), Denies numbness, Denies tingling and Denies weakness Psychiatric: Psychiatric: Reports no additional psychiatric complaints Endocrine: Endocrine: Reports no additional endocrine complaints and Denies fatigue Hematologic/Lymphatic: Hematologic/Lymphatic: Reports no additional hematologic/lymphatic complaints Allergic/Immunologic: Allergic/Immunologic: Reports no additional allergic/immunologic complaints and Denies wheezing [facility] Past Medical History Medical History Anxiety Arthritis Asthma Chronic kidney disease, stage 3
[2022-11-20] MEDS: SERTRALINE HCL 50 MG TABLET 100 MG PO (09:55)
[2022-11-20] MEDS: ENOXAPARIN 40 MG/0.4 ML SYRINGE SUB-Q (09:56)
[2022-11-20] MEDS: atenoloL 50 MG TABLET PO (09:56)
[2022-11-20] MEDS: GABAPENTIN 300 MG CAPSULE PO ×2 (09:56→17:00)
[2022-11-20] MEDS: ATORVASTATIN 20 MG TABLET BY MOUTH (09:56)
[2022-11-20] MEDS: buPROPion HCL 100 MG TABLET PO ×2 (09:56→17:01)
[2022-11-20] MEDS: polyethylene glycoL 3350 17 GM POWD.PACK PO (09:56)
[2022-11-20 11:41] LABS: Troponin I < 0.012 ng/mL (0.000-0.034)
[2022-11-20] MEDS: ACETAMINOPHEN 325 MG TABLET 650 MG PO (11:48)
--- NOTE | 2022-11-20 14:11 | PC.NURSE ---
On 11/20/22, the student, [Natali Hays], provided care and completed [facility] documentation on this patient. I have reviewed the student's documentation and agree with the findings.
[2022-11-20 14:52] LABS: Troponin I < 0.012 ng/mL (0.000-0.034)
[2022-11-20] MEDS: SODIUM CHLORIDE 0.9% IV 1,000 ML 50 ML IV CONT (17:02)
[2022-11-21 05:22] VITALS: BP 119/78; PULSE 75; RESP 18; TEMP 36.7; O2SAT 97
[2022-11-21 06:43] LABS: Basophils Percent Auto 0.3 % (0.2-1.2); Eosinophils Absolute Auto 0.2 K/mm3 (0-0.3); Eosinophils Percent Auto 3.1 % (0-4.4); Hematocrit 35.1 % (37.0-47.0); Hemoglobin 10.7 g/dL (12.0-15.0); Immature Granulocyte Absolute 0.02 K/mm3 (0.00-0.031); Immature Granulocyte Percent A 0.3 % (0-0.5); Immature Platelet Fraction Pct 7.3 % (0.9-11.2); Lymphocytes Absolute Auto 1.01 K/mm3 (0.9-3.2); Mean Corpuscular HGB Conc 30.5 g/dl (32-36); Mean Corpuscular Hemoglobin 28.8 pg (26-34); Mean Corpuscular Volume 94.4 fl (80-100); Mean Platelet Volume 11.9 fl (7.4-10.4); Monocytes Absolute Auto 0.7 K/mm3 (0.1-0.6); Monocytes Percent Auto 10.4 % (2.6-8.5); Neutrophils Absolute Auto 4.8 K/mm3 (1.3-6.7); Neutrophils Percent Auto 70.9 % (45.5-73.1); Platelet Count Result 112 k/mm3 (150-375); Red Blood Count 3.72 M/mm3 (4.2-5.4); White Blood Count 6.7 K/mm3 (4.5-10.0)
[2022-11-21 06:52] LABS: Alanine Aminotransferase 19 U/L (6-35); Albumin Level 3.7 g/dL (3.5-5.1); Alkaline Phosphatase 74 U/L (38-126); Anion Gap 6 mmol/L (8-16); Aspartate Amino Transferase 27 U/L (14-36); Bilirubin,Total 1.1 mg/dL (0.2-1.3); Blood Urea Nitrogen 15 mg/dL (7-17); Calcium 8.7 mg/dL (8.4-10.2); Carbon Dioxide 27 mmol/L (22-30); Chloride 105 mmol/L (98-107); Estimated CRCL calculation 61 ml/min; Estimated Glomerular Filt Rate > 60; Glucose 96 mg/dL (65-110); Phosphorus 3.1 mg/dL (2.5-4.5); Potassium 3.8 mmol/L (3.4-5.0); Sodium 138 mmol/L (137-145)
[2022-11-21 06:53] LABS: INR 1.1; Prothrombin Time 14.8 Seconds (11.1-14.7)
[2022-11-21 06:54] LABS: Partial Thromboplastin Time 38.5 SECONDS (22.3-36.8)
--- NOTE | 2022-11-21 07:16 | WPDHPUPDATE1 ---
History and Physical Update Update Date/Time: 11/21/22 07:16 History and Physical has been reviewed, including an updated exam of the patient. There are NO changes in the patient's condition. Risks, benefits, and alternatives have been discussed and questions answered. Patient agrees to proceed with procedure.
[2022-11-21 08:00] VITALS: PULSE 100; RESP 18; O2SAT 97
[2022-11-21 09:16] VITALS: PULSE 100
[2022-11-21] MEDS: ATORVASTATIN 20 MG TABLET BY MOUTH (09:16)
[2022-11-21] MEDS: GABAPENTIN 300 MG CAPSULE PO ×2 (09:16→17:44)
[2022-11-21] MEDS: atenoloL 50 MG TABLET PO (09:16)
[2022-11-21] MEDS: SERTRALINE HCL 50 MG TABLET 100 MG PO (09:16)
[2022-11-21] MEDS: polyethylene glycoL 3350 17 GM POWD.PACK PO ×2 (09:17→17:44)
[2022-11-21] MEDS: buPROPion HCL 100 MG TABLET PO ×2 (09:17→17:44)
[2022-11-21 14:00] VITALS: BP 127/64; PULSE 57; RESP 12; TEMP 36.8; O2SAT 96
--- NOTE | 2022-11-21 14:04 | PM.IMPN ---
Progress Note: A&P Assessment and Plan (1) Closed bimalleolar fracture of right ankle: Qualifiers: Encounter type: initial encounter Qualified Code(s): S82.841A - Displaced bimalleolar fracture of right lower leg, initial encounter for closed fracture Code(s): S82.841A - Displaced bimalleolar fracture of right lower leg, initial encounter for closed fracture Status: Acute Assessment and Plan: Ankle XR, right displaced bimalleolar fracture after unwitnessed fall RLE casted Orthopedics consult is appreciated Bed rest for now Will need PT/OT orders post op DVT prophylaxis enoxaparin--on hold per ortho for surgery, however now we are hearing that the family does not want surgery. (2) Unwitnessed fall: Code(s): R29.6 - Repeated falls Status: Acute Assessment and Plan: Fall precautions Bed alarm, chair alarm (3) Essential (primary) hypertension: Code(s): I10 - Essential (primary) hypertension Status: Acute Assessment and Plan: Blood pressures reviewed SBP ranging 140-110/50-60, HR 70's Atenolol restarted (4) Chronic kidney disease, stage 3: Code(s): N18.30 - Chronic kidney disease, stage 3 unspecified Status: Acute Assessment and Plan: Cr baseline is essentially normal at 0.8-1.0 Cr 0.9 on admission. GFR >60 with estimated CC of 55. (5) Dementia: Code(s): F03.90 - Unspecified dementia, unspecified severity, without behavioral disturbance, psychotic disturbance, mood disturbance, and anxiety Status: Acute Assessment and Plan: Alert and orientated 2-3 at baseline but daughter states her dementia has been getting worse. She has been hallucinating and sometimes forgetting who certain family members are. Lives at [place] Does not appear to be on any pharmacological agents. 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 Plan Subjective Date/time seen: 11/21/22 14:04 Interval history: Patient doing well today with no new complaints at this time. She denies any right ankle pain. Doing member still trying to make decision on surgery. They are awaiting further discussion with orthopedic surgeon. Patient is resting comfortably although she does mention that she would prefer the surgery. She is a and O x2. Exam Narrative: GENERAL: Comfortable, no acute distress HENMT: moist mucous membranes EYES: EOM intact b/l NECK: no lymphadenopathy RESPIRATORY: Diffuse crackles CARDIO: RRR GI: soft, nontender, bowel sounds present SKIN: no rashes EXTREMITIES: Right ankle fracture with cast in place Objective Data Vital Signs Vital Signs: Vital Signs - 24 hr 11/20/22 20:47 11/20/22 20:00 11/21/22 05:22 Temperature 97.7 F 98.1 F Pulse Rate 73 75 Respiratory Rate 18 18 Blood Pressure 120/56 L 119/78 Pulse Oximetry 97 97 Oxygen Delivery Room Air 11/21/22 09:16 Temperature Pulse Rate 100 Respiratory Rate Blood Pressure Pulse Oximetry Oxygen Delivery Intake/Output Intake/Output: Intake & Output 11/18/22 11/19/22 11/20/22 11/21/22 23:59 23:59 23:59 23:59 Intake Total 1150 2720 Output Total 950 Balance 1150 1770 Meds/Results Medications: Active Medications Generic Name Dose Route Start Last Admin Trade Name Freq PRN Reason Stop Dose Admin Acetaminophen 650 mg 11/19/22 15:44 11/20/22 11:48 Acetaminophen 325 Mg Tablet PO 650 mg Q6H PRN Administration Mild Pain (1-3) or Fever Albuterol 2 puff 11/19/22 17:56 Albuterol Sulfate (*Sp) Aerosol 1 Puff INHALATION QID PRN shortness of breath or wheezing Atenolol 50 mg 11/20/22 09:00 11/21/22 09:16 Atenolol 50 Mg Tablet PO 50 mg DAILY MARGARET Administration Atorvastatin Calcium 20 mg 11/20/22 09:00 11/21/22 09:16 Atorvastatin 20 Mg Tablet BY MOUTH 20 mg DAILY MARGARET Administration B
--- NOTE | 2022-11-21 17:11 | PM.PNORT ---
Progress Note: A&P Assessment and Plan (1) Closed bimalleolar fracture of right ankle: Qualifiers: Encounter type: initial encounter Qualified Code(s): S82.841A - Displaced bimalleolar fracture of right lower leg, initial encounter for closed fracture Code(s): S82.841A - Displaced bimalleolar fracture of right lower leg, initial encounter for closed fracture Status: Acute Assessment and Plan: S/P RIGHT ANKLE BIMALLEOLAR FRACTURE WITH SWELLING AND THE INITIAL SIGNS OF FRACTURE BLISTERING. I HAD A LONG CONVERSATION WITH THE FAMILY REGARDING THE OPTIONS OR NON OPERATIVE TREATMENT VS OPERATIVE TREATMENT. WE DISCUSSED THE COMPLICATIONS OF NON UNION AND MAL UNION WITH EVENTUAL COLLAPSE OF THE ANKLE JOINT MAKING IT MUCH MORE DIFFICULT TO AMBULATE. SHE IS CURRENTLY A WHEEL CHAIR AMBULATOR ACCORDING TO FAMILY BUT SHE DOES GET UP TO THE BATHROOM WITH THE USE OF A WALKER AND LIMITED DISTANCE. THE FAMILY IS CONCERNED ABOUT THE PATIENT RECEIVING GENERAL ANESTHESIA. SHE MAY NOT BE A CANDIDATE FOR SPINAL ANESTHESIA DUE TO HER SEVERE LOWER LUMBAR ARTHRITIS AND STENOSIS. CURRENTLY SHE IS NOT A CANDIDATE FOR SURGERY UNTIL HER SWELLING AND ECCHYMOSIS IMPROVES. SHE ALSO HAS A HISTORY OF CHRONIC KIDNEY DISEASE 9WHICH MAY ALSO CONTRIBUTE TO POSTOPERATIVE COMPLICATIONS AND PROBLEMS WITH ANESTHESIA. PLAN IS TO HAVE HER F/U IN 1 WEEK FOR INSPECTION OF THE SKIN AND FOR MORE DISCUSSION REGARDING SURGICAL VS NON SURGICAL TREATMENT. DISCUSSED NONOPERATIVE AND OPERATIVE TREATMENT OPTIONS WITH THE PATIENT. THE PATIENT'S QUESTIONS WERE ANSWERED. THE PATIENT DESIRES OPERATIVE TREATMENT. RISKS OF SURGERY INCLUDING BUT NOT LIMITED TO NEUROVASCULAR DAMAGE, WOUND COMPLICATIONS, BLOOD CLOT, PULMONARY EMBOLUS, STROKE, UT, ANESTHETIC RISKS UP TO AND INCLUDING WERE REVIEWED. CONTINUED PAIN AND POSSIBLE DYSFUNCTION WERE EXPLAINED. NO GUARANTEES WERE OFFERED. THE PATIENT AND FAMILY UNDERSTAND. THEY WILL SEE ME IN THE OFFICE FOR MORE DISCUSSION IN 1 WEEK. Subjective Subjective Date/Time Seen: 11/21/22 17:11 Interval history: S/P RIGHT BIMALLEOLAR ANKLE FRACTURE. HER PAIN IS WELL CONTROLLED. SHE IS TRANSFERRING BED TO CHAIR. SHE DENIES ANY OTHER INJURIES AT THIS TIME. FAMILY WAS PRESENT FOR DISCUSSION REGARDING TREATMENT OPTIONS. SHE DENIES ANY CALF KNEE, OR HIP PAIN. SHE DENIES ANY NEW BACK PROBLEMS. PATIENT IS ADMITTED FOR NEW ONSET DELIRIUM WELL. HER SYMPTOMS HAVE IMPROVED. SHE IS OX3. SHE UNDERSTANDS ALL. SHE SPEAKS APPROPRIATELY. Exam Extrem: Right lower extremity: hip/thigh Details: normal to inspection and normal ROM; no tenderness and no swelling, knee Details: normal to inspection and normal ROM; no tenderness and no swelling, lower leg Details: normal to inspection and palpable cord; no tenderness, ankle Details: abnormal to inspection, tenderness, swelling, edema, abnormal ROM, warmth, ecchymosis and crepitus; no abrasions, no lacerations and no penetrating wound and foot Details: normal capillary refill, toes with normal ROM, vascular exam Details: dorsalis pedis pulse present and posterior tibial pulse present, tendon exam Details: active flexion normal and active extension normal and motor-sensory exam Details: light-touch normal; no tenderness Other: RIGHT ANKLE SPLINT REMOVED. THE MEDIAL SIDE OF THE ANKLE HAS ECCHYMOSIS AND THE BEGINNING OF FRACTURE BLISTERING MAY BE OBSERVED. THE LATERAL SKIN IS INTACT WITHOUT BLISTERING Psych: Appearance: grossly normal Mental Status: mental status grossly normal Speech and movement: Normal speech and movement present Affect: normal affect Attitude: cooperative Thought process: Normal thought process present Thought content: Yes Normal thought content present Insight: Good insight present (Psych) Judgement: Good judgement present (Psych) Objective Data Vital Signs Vital Signs: Vital Signs - 24 hr 11/20/22 20:47 11/20/22 20:00 11/21/22 05:22 Temperature 36.5 C 36.7 C Pu
[2022-11-21] MEDS: SODIUM CHLORIDE 0.9% IV 1,000 ML 50 ML IV CONT (17:45)
[2022-11-21 20:30] VITALS: BP 117/59; PULSE 61; RESP 18; TEMP 36.7; O2SAT 96
[2022-11-21 23:48] VITALS: O2SAT 96
[2022-11-22] VITALS (13 sets, daily range): BP systolic 109–139; BP diastolic 52–80; PULSE 58–127; RESP 16–18; TEMP 36.4–37.1; O2SAT 92–99
[2022-11-22 05:36] LABS: Basophils Percent Auto 0.4 % (0.2-1.2); Eosinophils Absolute Auto 0.3 K/mm3 (0-0.3); Eosinophils Percent Auto 5.3 % (0-4.4); Hematocrit 33.2 % (37.0-47.0); Hemoglobin 10.3 g/dL (12.0-15.0); Immature Granulocyte Absolute 0.02 K/mm3 (0.00-0.031); Immature Granulocyte Percent A 0.4 % (0-0.5); Immature Platelet Fraction Pct 5.9 % (0.9-11.2); Lymphocytes Absolute Auto 1.01 K/mm3 (0.9-3.2); Lymphocytes Percent Auto 19.2 % (18.3-44.2); Mean Corpuscular Hemoglobin 29.1 pg (26-34); Mean Corpuscular Volume 93.8 fl (80-100); Mean Platelet Volume 10.8 fl (7.4-10.4); Monocytes Absolute Auto 0.5 K/mm3 (0.1-0.6); Monocytes Percent Auto 9.5 % (2.6-8.5); Neutrophils Absolute Auto 3.4 K/mm3 (1.3-6.7); Neutrophils Percent Auto 65.2 % (45.5-73.1); Platelet Count Result 122 k/mm3 (150-375); Red Blood Count 3.54 M/mm3 (4.2-5.4); Red Cell Distribution Width 13.9 % (11.5-14.5); White Blood Count 5.3 K/mm3 (4.5-10.0)
[2022-11-22 05:53] LABS: Alanine Aminotransferase 18 U/L (6-35); Albumin Level 3.5 g/dL (3.5-5.1); Alkaline Phosphatase 70 U/L (38-126); Anion Gap 3 mmol/L (8-16); Aspartate Amino Transferase 26 U/L (14-36); Bilirubin,Total 1.1 mg/dL (0.2-1.3); Blood Urea Nitrogen 16 mg/dL (7-17); Calcium 9.2 mg/dL (8.4-10.2); Carbon Dioxide 30 mmol/L (22-30); Chloride 104 mmol/L (98-107); Estimated CRCL calculation 55 ml/min; Estimated Glomerular Filt Rate > 60; Glucose 98 mg/dL (65-110); Potassium 3.9 mmol/L (3.4-5.0); Sodium 137 mmol/L (137-145)
[2022-11-22] MEDS: ATORVASTATIN 20 MG TABLET BY MOUTH (09:17)
[2022-11-22] MEDS: buPROPion HCL 100 MG TABLET PO ×2 (09:17→17:49)
[2022-11-22] MEDS: GABAPENTIN 300 MG CAPSULE PO ×2 (09:17→17:47)
[2022-11-22] MEDS: ENOXAPARIN 40 MG/0.4 ML SYRINGE SUB-Q (09:19)
[2022-11-22] MEDS: polyethylene glycoL 3350 17 GM POWD.PACK PO ×2 (09:26→17:47)
[2022-11-22] MEDS: SERTRALINE HCL 50 MG TABLET 100 MG PO (09:26)
--- NOTE | 2022-11-22 09:34 | PM.CNPUL ---
Assessment and Plan Assessment and plan (1) Lung nodule: Code(s): R91.1 - Solitary pulmonary nodule Status: Acute Assessment and Plan: I reviewed the CT scan with Radiology and the patient has a left lower lobe nodule level of superior segment with infiltrate/mass distally. There is no mediastinal, subcarinal, paratracheal, subclavian nodes. No liver or adrenal masses. Low yield for percutaneous biopsy. Patient does have cough, production of green phlegm at this time. I spoke with the JEFF Bledsoe and explained that the etiology of this nodule could be infection, mucus or cancer. At this time family will decide how aggressive to be with obtaining a diagnosis. Options at this time include treating for infection and repeat imaging in 4-6 weeks to reassess the nodule, bronchoscopic biopsy which ideally would be performed with an EBUS procedure which cannot be performed at [facility]. Bronchoscopy would require sedation and/or general anesthesia and the family is concerned about general anesthesia because in her words a takes the patient forever to wake up and she is very delirious for after any type of anesthesia. She will discuss with the 6 other siblings and let us know the family's plans later. I would treat aggressively for postobstructive pneumonia with Zosyn and Levaquin while she is in the hospital. On discharge would complete 14 days treatment with Augmentin and Levaquin. Will follow with you. (2) Asthma: Code(s): J45.909 - Unspecified asthma, uncomplicated Status: Acute Assessment and Plan: The daughter tells me that for the last 50 years the patient has had bronchitis-breathing issues. She has been on an albuterol for approximately 30 years with a questionable history of asthma. Today she has rhonchorous breath sounds with a few end-expiratory wheezes and I will initiate albuterol, ipratropium and inhaled budesonide. I will avoid systemic steroids as I am treating for an infection as above. History of Present Illness History of Present Illness Consult date: 11/22/22 Chief complaint: Altered Mental Status/Right Bimallelar Ankle Fract Narrative: 11/22/2022: This is a new pulmonary consult for left lung mass. 77-year-old with a history of hypertension, hyperlipidemia, TIA, vascular dementia, and asthma. PCP note on 10/02/2022 lists that she has asthma. The patient is on albuterol p.r.n.. Her room air saturations were 96%. Patient had a fall on 05/25/2022. Patient was recently seen in the emergency room on 11/16/2022 for hallucinations with room air saturations 100%. Etiology was thought to be related to trazodone. On 11/19/2022 the patient was found at her [place] facility on the ground after a fall complaining of right ankle pain. She presented to the emergency room with room air saturations 98-100%, her lungs were clear to auscultation with admission H&P stating she had expiratory rhonchi. Her creatinine was 0.9, white blood cell count was 7.4 with 2.4% eosinophils. Chest x-ray on 11/19 demonstrated diffuse bilateral airspace disease. Patient had a by malleolar fracture and was placed in a cast. Orthopedic surgery was consulted and recommended general anesthesia for surgical repair but the family was hesitant with administration of general anesthesia. 11/21/22: Patient was seen by Orthopedic surgery and states she was not a surgical candidate due to swelling and ecchymosis and that she would follow-up in the office in 1 week. Patient had a repeat chest x-ray demonstrating a left mid lung opacity and a CT scan of the chest showed a left perihilar mass extending to the left lower lobe. Previous chest x-ray on 01/30/2022 demonstrated no left mid lung field opacity. 11/22/22: Patient is unable to tell me her name and spell her last name, she does not know what building she is in, she knows that is October 2022 and states the [place] part of the month. She knows president tamia is a
[2022-11-22] MEDS: HYDROcodone/acetaminophen (*CRX) 5-325 MG TABLET 1 TAB PO (11:33)
[2022-11-22] MEDS: levoFLOXacin 750 MG/D5W 150 ML 750 MG/150 ML BAG 100 MG IVPB (11:35)
[2022-11-22] MEDS: IPRATROPIUM BR 0.02% INH SOLN 0.5 MG/2.5 ML VIAL INHALATION ×3 (12:03→20:08)
[2022-11-22] MEDS: ALBUTEROL SULFATE NEB 2.5 MG/3 ML INH INHALATION ×3 (12:03→20:08)
[2022-11-22] MEDS: BUDESONIDE RESPULE NEB 0.5 MG/2 ML AMP INHALATION ×2 (12:03→20:08)
[2022-11-22] MEDS: PIPERACILLN/TAZ 3.375GM/NS50ML 3.375 GM/50 ML BAG IVPB ×2 (13:18→17:49)
--- NOTE | 2022-11-22 13:52 | PM.IMPN ---
Progress Note: A&P Assessment and Plan (1) Closed bimalleolar fracture of right ankle: Qualifiers: Encounter type: initial encounter Qualified Code(s): S82.841A - Displaced bimalleolar fracture of right lower leg, initial encounter for closed fracture Code(s): S82.841A - Displaced bimalleolar fracture of right lower leg, initial encounter for closed fracture Status: Acute Assessment and Plan: Ankle XR, right displaced bimalleolar fracture after unwitnessed fall RLE casted Orthopedics consult is appreciated Bed rest for now Will need PT/OT orders post op DVT prophylaxis enoxaparin--on hold per ortho for surgery, however now we are hearing that the family does not want surgery. Plan to follow up with Izabella in 1 week. (2) Unwitnessed fall: Code(s): R29.6 - Repeated falls Status: Acute Assessment and Plan: Fall precautions Bed alarm, chair alarm (3) Essential (primary) hypertension: Code(s): I10 - Essential (primary) hypertension Status: Acute Assessment and Plan: Blood pressures reviewed SBP ranging 140-110/50-60, HR 70's Atenolol restarted (4) Chronic kidney disease, stage 3: Code(s): N18.30 - Chronic kidney disease, stage 3 unspecified Status: Acute Assessment and Plan: Cr baseline is essentially normal at 0.8-1.0 Cr 0.9 on admission. GFR >60 with estimated CC of 55. (5) Dementia: Code(s): F03.90 - Unspecified dementia, unspecified severity, without behavioral disturbance, psychotic disturbance, mood disturbance, and anxiety Status: Acute Assessment and Plan: Alert and orientated 2-3 at baseline but daughter states her dementia has been getting worse. She has been hallucinating and sometimes forgetting who certain family members are. Lives at [place] Does not appear to be on any pharmacological agents. 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 (6) Lung nodule: Code(s): R91.1 - Solitary pulmonary nodule Status: Acute Assessment and Plan: Chest x-ray performed due to patient having persistent cough. Patient had chest x-ray that was concerning for a pulmonary nodule. CTA performed and this showed a left perihilar mass which could be infection/ inflammation versus malignancy. Pulmonology consulted. Patient started on Zosyn and Levaquin for possible infection. Nebulizer/ inhaler treatment initiated Recommending repeat CT scan in 6 months. Patient may need possible bronchoscopy. Plan Subjective Date/time seen: 11/22/22 13:52 Interval history: Patient doing well today. They have decided to go nonsurgical route for now enter going to follow-up with orthopedic surgery and 1 week. Patient was evaluated by pulmonology due to lung nodule seen on chest CT. Plan to treat patient for infection for right now and repeat scan in approximately 6 months. She continues to have cough but does not require any oxygen. Exam Narrative: GENERAL: Comfortable, no acute distress HENMT: moist mucous membranes EYES: EOM intact b/l NECK: no lymphadenopathy RESPIRATORY: Diffuse expiratory crackles CARDIO: RRR GI: soft, nontender, bowel sounds present SKIN: no rashes EXTREMITIES: Right ankle fracture with cast in place Objective Data Vital Signs Vital Signs: Vital Signs - 24 hr 11/21/22 14:00 11/21/22 20:00 11/21/22 20:30 Temperature 98.3 F 98.0 F Pulse Rate 57 L 61 Respiratory Rate 12 18 Blood Pressure 127/64 117/59 L Pulse Oximetry 96 96 Oxygen Delivery Room Air 11/21/22 23:48 11/22/22 05:29 11/22/22 09:14 Temperature 98.8 F Pulse Rate 63 63 Respiratory Rate 17 Blood Pressure 131/80 118/52 L Pulse Oximetry 96 95 Oxygen Delivery Room Air 11/22/22 09:27 11/22/22 12:06 11/22/22 12:07 Temperature Pulse Rate 63 68 68 Respiratory Rate 16 16 Bloo
[2022-11-22] MEDS: ASPIRIN 81 MG CHEWABLE TABLET PO (17:47)
[2022-11-23] VITALS (16 sets, daily range): BP systolic 110–140; BP diastolic 56–78; PULSE 68–87; RESP 16–20; TEMP 36.4–36.8; O2SAT 92–99
[2022-11-23] MEDS: PIPERACILLN/TAZ 3.375GM/NS50ML 3.375 GM/50 ML BAG IVPB ×4 (00:44→17:38)
[2022-11-23] MEDS: ALBUTEROL SULFATE NEB 2.5 MG/3 ML INH INHALATION ×5 (03:27→19:56)
[2022-11-23] MEDS: IPRATROPIUM BR 0.02% INH SOLN 0.5 MG/2.5 ML VIAL INHALATION ×5 (03:27→19:56)
[2022-11-23] MEDS: HYDROcodone/acetaminophen (*CRX) 5-325 MG TABLET 1 TAB PO (04:40)
--- NOTE | 2022-11-23 07:45 | PM.PNPUL ---
Progress Note: A&P Assessment and Plan (1) Lung nodule: Code(s): R91.1 - Solitary pulmonary nodule Status: Acute Assessment and Plan: 11/22/22: I reviewed the CT scan with Radiology and the patient has a left lower lobe nodule level of superior segment with infiltrate/mass distally. There is no mediastinal, subcarinal, paratracheal, subclavian nodes. No liver or adrenal masses. Low yield for percutaneous biopsy. Patient does have cough, production of green phlegm at this time. I spoke with the POAsim Bledsoe and explained that the etiology of this nodule could be infection, mucus or cancer. At this time family will decide how aggressive to be with obtaining a diagnosis. Options at this time include treating for infection and repeat imaging in 4-6 weeks to reassess the nodule, bronchoscopic biopsy which ideally would be performed with an EBUS procedure which cannot be performed at [facility]. Bronchoscopy would require sedation and/or general anesthesia and the family is concerned about general anesthesia because in her words a takes the patient forever to wake up and she is very delirious for after any type of anesthesia. She will discuss with the 6 other siblings and let us know the family's plans later. I would treat aggressively for postobstructive pneumonia with Zosyn and Levaquin while she is in the hospital. On discharge would complete 14 days treatment with Augmentin and Levaquin. 11/23 patient says she slept last night. States she is breathing normally. States the nebulizers help her but is unable to state how they help her. Room air saturations currently 93%. Coarse breath sounds have improved and there is no wheezing today. I spoke with the daughters JEFF Hayes ([phone]) and Nellie Bledsoe ([phone]) and at this time the family wishes for treatment of infection and repeat a CT scan in 6-8 weeks to reassess the pulmonary nodule. Plan: Patient states she is improved on nebulized albuterol, ipratropium and budesonide. Today is day 2 of Zosyn and Levaquin. From a pulmonary perspective patient is ready to be discharged on these pulmonary medications: Levaquin 750 mg p.o. q.day times 12 days. Augmentin 875-125 at 1 tab b.i.d. times 12 days Long-acting beta agonist and inhaled corticosteroid (Advair discus 500/50 at 1 puff BID, Advair HFA 230/21 at 2 puffs BID, Breo Ellipts 200/25 at 1 puff Q day, Dulera 200/5 at 2 puffs BID, or symbicort 160/4.5 at 2 puffs BID whichever insurance will cover). Rescue albuterol 2 puffs q.4 hours p.r.n. shortness of breath or wheezing. Follow-up in the Pulmonary Clinic in 4 weeks. I gave the patient our business card and the phone numbers to her POA. Discussed with Mirella James, will sign off (2) Asthma: Code(s): J45.909 - Unspecified asthma, uncomplicated Status: Acute Assessment and Plan: 11/22: The daughter tells me that for the last 50 years the patient has had bronchitis-breathing issues. She has been on an albuterol for approximately 30 years with a questionable history of asthma. Today she has rhonchorous breath sounds with a few end-expiratory wheezes and I will initiate albuterol, ipratropium and inhaled budesonide. I will avoid systemic steroids as I am treating for an infection as above. 08/13/2014: PFTs demonstrate a moderate obstructive abnormality (FEV1 1.58, 67% predicted, FEV1: FVC ratio 66%), no bronchodilator response, normal lung volumes and DLCO that normalizes when adjusted for alveolar volume. 11/23 States the nebulizers help her but is unable to state how they help her. When prompted she said that the nebulizers help her cough, expectorates and take deeper breaths. Coarse breath sounds have improved and there is no wheezing today. Plan: I will treat patient for possible asthma and will initiate step 5 therapy with a long-acting beta agonist and inhaled corticosteroid (Advair discus 500/50 at 1 puff BID, Advair HFA 230/
[2022-11-23] MEDS: BUDESONIDE RESPULE NEB 0.5 MG/2 ML AMP INHALATION ×2 (07:54→19:55)
--- NOTE | 2022-11-23 09:46 | PM.PNORT ---
Progress Note: A&P Assessment and Plan (1) Closed bimalleolar fracture of right ankle: Qualifiers: Encounter type: initial encounter Qualified Code(s): S82.841A - Displaced bimalleolar fracture of right lower leg, initial encounter for closed fracture Code(s): S82.841A - Displaced bimalleolar fracture of right lower leg, initial encounter for closed fracture Status: Acute Assessment and Plan: Patient resplinted by Dr. Parekh. Unable to perform surgery due to family concerns with general anesthesia and significant ecchymosis. Follow up appt scheduled in the outpatient orthopedic clinic for 1 week. Pain control. DVT prophylaxis resumed. PT/OT. NWB RLE. (2) Lung nodule: Code(s): R91.1 - Solitary pulmonary nodule Status: Acute Assessment and Plan: Following with Pulmonolgy. Subjective Subjective Date/Time Seen: 11/23/22 09:46 Interval history: Patient sitting up in chair. States her right ankle pain is better than yesterday but in general she feels out of it today . No new concerns regarding her ankle. Review of Systems Review of Systems: ROS unobtainable: Yes unobtainable due to mental status Exam Const: General: comfortable and no acute distress HENMT: Mouth: Yes moist mucous membranes Eyes: General: appearance normal, both eyes and all related structures Neck: Neck: supple and no JVD Resp: Effort & Inspection: normal respiratory effort Cardio: Rate: regular rate Rhythm: regular rhythm GI: Inspection: non-distended GI Palp: Yes Soft to palpation and No Tenderness to palpation present (GI) Neuro: General: gait normal Speech: normal speech Extrem: Right lower extremity: normal to inspection ( splint in place), hip/thigh Details: normal to inspection and normal ROM; no tenderness and no swelling, knee Details: normal to inspection and normal ROM; no tenderness and no swelling, ankle ( Splint material in place from below the knee to the toes, unable to asses) and foot ( moves toes, sensation intact) Details: normal capillary refill; no cyanosis Psych: Affect: normal affect Objective Data Vital Signs Vital Signs: Vital Signs - 24 hr 11/22/22 12:06 11/22/22 12:07 11/22/22 12:18 Temperature Pulse Rate 68 68 72 Respiratory Rate 16 16 16 Blood Pressure Pulse Oximetry 92 Oxygen Delivery Room Air 11/22/22 14:00 11/22/22 16:25 11/22/22 16:34 Temperature 36.4 C Pulse Rate 92 69 72 Respiratory Rate 16 16 16 Blood Pressure 139/71 Pulse Oximetry 99 Oxygen Delivery 11/22/22 20:01 11/22/22 20:08 11/22/22 20:39 Temperature 36.4 C Pulse Rate 58 L 127 H 127 H Respiratory Rate 18 18 Blood Pressure 109/60 Pulse Oximetry 94 92 Oxygen Delivery Room Air 11/22/22 20:40 11/23/22 03:28 11/22/22 22:10 Temperature Pulse Rate 116 H 81 Respiratory Rate 18 18 Blood Pressure Pulse Oximetry Oxygen Delivery Room Air 11/23/22 04:34 11/23/22 07:54 11/23/22 07:57 Temperature 36.4 C Pulse Rate 87 71 71 Respiratory Rate 20 16 16 Blood Pressure 121/56 L Pulse Oximetry 95 92 Oxygen Delivery Room Air 11/23/22 08:08 11/23/22 08:19 Temperature Pulse Rate 78 Respiratory Rate 16 Blood Pressure Pulse Oximetry Oxygen Delivery Room Air Intake/Output Intake/Output: Intake & Output 11/20/22 11/21/22 11/22/22 11/23/22 23:59 23:59 23:59 23:59 Intake Total 2720 1270 1093 630 Output Total 452 205 4203 800 Balance 9404 238 -4 -449 Meds/Results Medications: Active Medications Generic Name Dose Route Start Last Admin Trade Name Freq PRN Reason Stop Dose Admin Acetaminophen 650 mg 11/19/22 15:44 11/20/22 11:48 Acetaminophen 325 Mg Tablet PO 650 mg Q6H PRN Administration Mild Pain (1-3) or Fever Hydrocodone Bitart/Acetaminophen 1 tab 11/21/22 16:34 11/23/22 04:40 Hydrocodone/Acetaminophen (*Crx) 5-325 Mg Tablet PO 1 tab Q6H PRN Administration Pain R
[2022-11-23] MEDS: buPROPion HCL 100 MG TABLET PO ×2 (10:16→17:38)
[2022-11-23] MEDS: ASPIRIN 81 MG CHEWABLE TABLET PO (10:16)
[2022-11-23] MEDS: GABAPENTIN 300 MG CAPSULE PO ×2 (10:16→17:38)
[2022-11-23] MEDS: atenoloL 50 MG TABLET PO (10:16)
[2022-11-23] MEDS: ATORVASTATIN 20 MG TABLET BY MOUTH (10:16)
[2022-11-23] MEDS: ENOXAPARIN 40 MG/0.4 ML SYRINGE SUB-Q (10:16)
[2022-11-23] MEDS: SERTRALINE HCL 50 MG TABLET 100 MG PO (10:16)
[2022-11-23] MEDS: polyethylene glycoL 3350 17 GM POWD.PACK PO ×2 (10:16→17:39)
[2022-11-23] MEDS: levoFLOXacin 750 MG/D5W 150 ML 750 MG/150 ML BAG 100 MG IVPB (11:44)
--- NOTE | 2022-11-23 14:05 | PM.IMPN ---
Progress Note: A&P Assessment and Plan (1) Closed bimalleolar fracture of right ankle: Qualifiers: Encounter type: initial encounter Qualified Code(s): S82.841A - Displaced bimalleolar fracture of right lower leg, initial encounter for closed fracture Code(s): S82.841A - Displaced bimalleolar fracture of right lower leg, initial encounter for closed fracture Status: Acute Assessment and Plan: Ankle XR, right displaced bimalleolar fracture after unwitnessed fall RLE casted Orthopedics consult is appreciated Bed rest for now Will need PT/OT orders post op DVT prophylaxis enoxaparin--on hold per ortho for surgery, however now we are hearing that the family does not want surgery. Plan to follow up with [facility] in 1 week. (2) Unwitnessed fall: Code(s): R29.6 - Repeated falls Status: Acute Assessment and Plan: Fall precautions Bed alarm, chair alarm (3) Essential (primary) hypertension: Code(s): I10 - Essential (primary) hypertension Status: Acute Assessment and Plan: Blood pressures reviewed SBP ranging 140-110/50-60, HR 70's Atenolol restarted (4) Chronic kidney disease, stage 3: Code(s): N18.30 - Chronic kidney disease, stage 3 unspecified Status: Acute Assessment and Plan: Cr baseline is essentially normal at 0.8-1.0 Cr 0.9 on admission. GFR >60 with estimated CC of 55. (5) Dementia: Code(s): F03.90 - Unspecified dementia, unspecified severity, without behavioral disturbance, psychotic disturbance, mood disturbance, and anxiety Status: Acute Assessment and Plan: Alert and orientated 2-3 at baseline but daughter states her dementia has been getting worse. She has been hallucinating and sometimes forgetting who certain family members are. Lives at [place] Does not appear to be on any pharmacological agents. 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 (6) Lung nodule: Code(s): R91.1 - Solitary pulmonary nodule Status: Acute Assessment and Plan: Chest x-ray performed due to patient having persistent cough. Patient had chest x-ray that was concerning for a pulmonary nodule. CTA performed and this showed a left perihilar mass which could be infection/ inflammation versus malignancy. Pulmonology consulted. Patient started on Zosyn and Levaquin for possible infection. Treat for 14 days. Nebulizer/ inhaler treatment initiated Recommending repeat CT scan in 6 months. Pulmonology recommending follow-up with them in 4, repeat scan in 6-8 weeks Plan Subjective Date/time seen: 11/23/22 14:05 Interval history: patient stable at this time and no new complaints. Awaiting on place. Exam Narrative: GENERAL: Comfortable, no acute distress HENMT: moist mucous membranes EYES: EOM intact b/l NECK: no lymphadenopathy RESPIRATORY: Diffuse expiratory crackles CARDIO: RRR GI: soft, nontender, bowel sounds present SKIN: no rashes EXTREMITIES: Right ankle fracture with cast in place Objective Data Vital Signs Vital Signs: Vital Signs - 24 hr 11/22/22 16:25 11/22/22 16:34 11/22/22 20:01 Temperature 97.6 F Pulse Rate 69 72 58 L Respiratory Rate 16 16 18 Blood Pressure 109/60 Pulse Oximetry 94 Oxygen Delivery 11/22/22 20:08 11/22/22 20:39 11/22/22 20:40 Temperature Pulse Rate 127 H 127 H 116 H Respiratory Rate 18 18 Blood Pressure Pulse Oximetry 92 Oxygen Delivery Room Air 11/23/22 03:28 11/22/22 22:10 11/23/22 04:34 Temperature 97.6 F Pulse Rate 81 87 Respiratory Rate 18 20 Blood Pressure 121/56 L Pulse Oximetry 95 Oxygen Delivery Room Air 11/23/22 07:54 11/23/22 07:57 11/23/22 08:08 Temperature Pulse Rate 71 71 78 Respiratory Rate 16 16 16 Blood Pressure Pulse Oximetry 92 Oxygen Delivery Room Air 11/23/22 08
[2022-11-24] VITALS (16 sets, daily range): BP systolic 108–121; BP diastolic 52–65; PULSE 64–82; RESP 16–18; TEMP 36.4–37.4; O2SAT 90–98
[2022-11-24] MEDS: PIPERACILLN/TAZ 3.375GM/NS50ML 3.375 GM/50 ML BAG IVPB ×5 (00:09→23:59)
[2022-11-24] MEDS: IPRATROPIUM BR 0.02% INH SOLN 0.5 MG/2.5 ML VIAL INHALATION ×6 (03:22→22:53)
[2022-11-24] MEDS: ALBUTEROL SULFATE NEB 2.5 MG/3 ML INH INHALATION ×6 (03:23→22:53)
[2022-11-24 05:47] LABS: Basophils Percent Auto 0.6 % (0.2-1.2); Eosinophils Absolute Auto 0.1 K/mm3 (0-0.3); Eosinophils Percent Auto 3.3 % (0-4.4); Hematocrit 33.7 % (37.0-47.0); Hemoglobin 10.4 g/dL (12.0-15.0); Immature Granulocyte Absolute 0.02 K/mm3 (0.00-0.031); Immature Granulocyte Percent A 0.6 % (0-0.5); Lymphocytes Absolute Auto 0.68 K/mm3 (0.9-3.2); Lymphocytes Percent Auto 20.5 % (18.3-44.2); Mean Corpuscular HGB Conc 30.9 g/dl (32-36); Mean Corpuscular Hemoglobin 28.8 pg (26-34); Mean Corpuscular Volume 93.4 fl (80-100); Mean Platelet Volume 11.2 fl (7.4-10.4); Monocytes Absolute Auto 0.6 K/mm3 (0.1-0.6); Monocytes Percent Auto 16.6 % (2.6-8.5); Neutrophils Absolute Auto 1.9 K/mm3 (1.3-6.7); Neutrophils Percent Auto 58.4 % (45.5-73.1); Platelet Count Result 156 k/mm3 (150-375); Red Blood Count 3.61 M/mm3 (4.2-5.4); Red Cell Distribution Width 14.1 % (11.5-14.5); White Blood Count 3.3 K/mm3 (4.5-10.0)
[2022-11-24 05:52] LABS: Alanine Aminotransferase 19 U/L (6-35); Albumin Level 3.6 g/dL (3.5-5.1); Alkaline Phosphatase 60 U/L (38-126); Anion Gap 6 mmol/L (8-16); Aspartate Amino Transferase 35 U/L (14-36); Bilirubin,Total 1.3 mg/dL (0.2-1.3); Blood Urea Nitrogen 20 mg/dL (7-17); Calcium 9.3 mg/dL (8.4-10.2); Carbon Dioxide 28 mmol/L (22-30); Chloride 103 mmol/L (98-107); Estimated CRCL calculation 45 ml/min; Estimated Glomerular Filt Rate 48; Glucose 91 mg/dL (65-110); Sodium 137 mmol/L (137-145)
[2022-11-24] MEDS: BUDESONIDE RESPULE NEB 0.5 MG/2 ML AMP INHALATION ×2 (07:20→20:46)
[2022-11-24] MEDS: atenoloL 50 MG TABLET PO (09:04)
[2022-11-24] MEDS: buPROPion HCL 100 MG TABLET PO ×2 (09:05→18:55)
[2022-11-24] MEDS: ASPIRIN 81 MG CHEWABLE TABLET PO (09:05)
[2022-11-24] MEDS: GABAPENTIN 300 MG CAPSULE PO ×2 (09:05→18:55)
[2022-11-24] MEDS: SERTRALINE HCL 50 MG TABLET 100 MG PO (09:05)
[2022-11-24] MEDS: polyethylene glycoL 3350 17 GM POWD.PACK PO ×2 (09:05→18:55)
[2022-11-24] MEDS: ATORVASTATIN 20 MG TABLET BY MOUTH (09:05)
[2022-11-24] MEDS: ENOXAPARIN 40 MG/0.4 ML SYRINGE SUB-Q (09:05)
[2022-11-24] MEDS: levoFLOXacin 750 MG/D5W 150 ML 750 MG/150 ML BAG 100 MG IVPB (11:52)
[2022-11-24] MEDS: HYDROcodone/acetaminophen (*CRX) 5-325 MG TABLET 1 TAB PO (12:55)
--- NOTE | 2022-11-24 13:04 | PM.IMPN ---
Progress Note: A&P Assessment and Plan (1) Closed bimalleolar fracture of right ankle: Qualifiers: Encounter type: initial encounter Qualified Code(s): S82.841A - Displaced bimalleolar fracture of right lower leg, initial encounter for closed fracture Code(s): S82.841A - Displaced bimalleolar fracture of right lower leg, initial encounter for closed fracture Status: Acute Assessment and Plan: Ankle XR, right displaced bimalleolar fracture after unwitnessed fall RLE casted Orthopedics consult is appreciated Bed rest for now Will need PT/OT orders post op DVT prophylaxis enoxaparin--on hold per ortho for surgery, however now we are hearing that the family does not want surgery. Plan to follow up with [facility] in 1 week. (2) Unwitnessed fall: Code(s): R29.6 - Repeated falls Status: Acute Assessment and Plan: Fall precautions Bed alarm, chair alarm (3) Essential (primary) hypertension: Code(s): I10 - Essential (primary) hypertension Status: Acute Assessment and Plan: Blood pressures reviewed SBP ranging 140-110/50-60, HR 70's Atenolol restarted (4) Chronic kidney disease, stage 3: Code(s): N18.30 - Chronic kidney disease, stage 3 unspecified Status: Acute Assessment and Plan: Cr baseline is essentially normal at 0.8-1.0 Cr 0.9 on admission. GFR >60 with estimated CC of 55. (5) Dementia: Code(s): F03.90 - Unspecified dementia, unspecified severity, without behavioral disturbance, psychotic disturbance, mood disturbance, and anxiety Status: Acute Assessment and Plan: Alert and orientated 2-3 at baseline but daughter states her dementia has been getting worse. She has been hallucinating and sometimes forgetting who certain family members are. Lives at [place] Does not appear to be on any pharmacological agents. 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 (6) Lung nodule: Code(s): R91.1 - Solitary pulmonary nodule Status: Acute Assessment and Plan: Chest x-ray performed due to patient having persistent cough. Patient had chest x-ray that was concerning for a pulmonary nodule. CTA performed and this showed a left perihilar mass which could be infection/ inflammation versus malignancy. Pulmonology consulted. Patient started on Zosyn and Levaquin for possible infection. Treat for 14 days. Nebulizer/ inhaler treatment initiated Recommending repeat CT scan in 6 months. Pulmonology recommending follow-up with them in 4, repeat scan in 6-8 weeks Subjective Date/time seen: 11/24/22 13:04 Interval history: Continue to wait for placement. Patient stable at this time. Exam Narrative: GENERAL: Comfortable, no acute distress HENMT: moist mucous membranes EYES: EOM intact b/l NECK: no lymphadenopathy RESPIRATORY: Diffuse expiratory crackles CARDIO: RRR GI: soft, nontender, bowel sounds present SKIN: no rashes EXTREMITIES: Right ankle fracture with cast in place Objective Data Vital Signs Vital Signs: Vital Signs - 24 hr 11/23/22 13:21 11/23/22 13:33 11/23/22 14:35 Temperature 98.3 F Pulse Rate 68 74 73 Respiratory Rate 16 16 19 Blood Pressure 110/78 Pulse Oximetry 99 Oxygen Delivery Fraction of Inspired Oxygen 11/23/22 16:25 11/23/22 16:39 11/23/22 19:56 Temperature Pulse Rate 70 71 75 Respiratory Rate 16 16 16 Blood Pressure Pulse Oximetry Oxygen Delivery Fraction of Inspired Oxygen 11/23/22 19:59 11/23/22 20:07 11/23/22 20:15 Temperature 97.8 F Pulse Rate 75 76 73 Respiratory Rate 16 16 Blood Pressure 140/58 L Pulse Oximetry 93 93 Oxygen Delivery Room Air Fraction of Inspired Oxygen 11/23/22 21:32 11/24/22 03:23 11/24/22 03:31 Temperature Pulse Rate 77 74 Respiratory Rate 16 16 Blood Pressure Pulse O
[2022-11-25] VITALS (18 sets, daily range): BP systolic 102–115; BP diastolic 58–61; PULSE 66–80; RESP 16–20; TEMP 36.2–37.1; O2SAT 91–100
[2022-11-25] MEDS: IPRATROPIUM BR 0.02% INH SOLN 0.5 MG/2.5 ML VIAL INHALATION ×6 (04:30→23:02)
[2022-11-25] MEDS: ALBUTEROL SULFATE NEB 2.5 MG/3 ML INH INHALATION ×6 (04:30→23:02)
[2022-11-25] MEDS: HYDROcodone/acetaminophen (*CRX) 5-325 MG TABLET 1 TAB PO ×3 (04:32→17:16)
[2022-11-25] MEDS: PIPERACILLN/TAZ 3.375GM/NS50ML 3.375 GM/50 ML BAG IVPB ×4 (05:01→23:13)
[2022-11-25 05:41] LABS: Hematocrit 33.8 % (37.0-47.0); Hemoglobin 10.6 g/dL (12.0-15.0); Mean Corpuscular HGB Conc 31.4 g/dl (32-36); Mean Corpuscular Volume 92.6 fl (80-100); Platelet Count Result 159 k/mm3 (150-375); Red Blood Count 3.65 M/mm3 (4.2-5.4); Red Cell Distribution Width 14.4 % (11.5-14.5)
[2022-11-25 05:50] LABS: Anion Gap 7 mmol/L (8-16); Blood Urea Nitrogen 19 mg/dL (7-17); Carbon Dioxide 27 mmol/L (22-30); Chloride 103 mmol/L (98-107); Estimated CRCL calculation 45 ml/min; Estimated Glomerular Filt Rate 48; Glucose 102 mg/dL (65-110); Potassium 3.8 mmol/L (3.4-5.0); Sodium 137 mmol/L (137-145)
[2022-11-25] MEDS: BUDESONIDE RESPULE NEB 0.5 MG/2 ML AMP INHALATION ×2 (07:48→19:36)
[2022-11-25] MEDS: ATORVASTATIN 20 MG TABLET BY MOUTH (08:26)
[2022-11-25] MEDS: ASPIRIN 81 MG CHEWABLE TABLET PO (08:26)
[2022-11-25] MEDS: SERTRALINE HCL 50 MG TABLET 100 MG PO (08:26)
[2022-11-25] MEDS: GABAPENTIN 300 MG CAPSULE PO ×2 (08:26→17:15)
[2022-11-25] MEDS: polyethylene glycoL 3350 17 GM POWD.PACK PO ×2 (08:26→17:15)
[2022-11-25] MEDS: atenoloL 50 MG TABLET PO (08:28)
[2022-11-25] MEDS: buPROPion HCL 100 MG TABLET PO ×2 (08:30→17:18)
[2022-11-25] MEDS: ENOXAPARIN 40 MG/0.4 ML SYRINGE SUB-Q (08:30)
[2022-11-25] MEDS: ACETAMINOPHEN 325 MG TABLET 650 MG PO (09:19)
[2022-11-25] MEDS: levoFLOXacin 750 MG/D5W 150 ML 750 MG/150 ML BAG 100 MG IVPB (10:34)
--- NOTE | 2022-11-25 12:44 | PM.IMPN ---
Progress Note: A&P Assessment and Plan (1) Closed bimalleolar fracture of right ankle: Qualifiers: Encounter type: initial encounter Qualified Code(s): S82.841A - Displaced bimalleolar fracture of right lower leg, initial encounter for closed fracture Code(s): S82.841A - Displaced bimalleolar fracture of right lower leg, initial encounter for closed fracture Status: Acute Assessment and Plan: Ankle XR, right displaced bimalleolar fracture after unwitnessed fall RLE casted Orthopedics consult is appreciated Nonweightbearing on right foot Will need PT/OT orders post op DVT prophylaxis enoxaparin--on hold per ortho for surgery, however now we are hearing that the family does not want surgery. 11/21 Plan to follow up with Izabella in 1 week. (2) Unwitnessed fall: Code(s): R29.6 - Repeated falls Status: Acute Assessment and Plan: Fall precautions Bed alarm, chair alarm (3) Essential (primary) hypertension: Code(s): I10 - Essential (primary) hypertension Status: Acute Assessment and Plan: Blood pressures reviewed SBP ranging 140-110/50-60, HR 70's Atenolol restarted (4) Chronic kidney disease, stage 3: Code(s): N18.30 - Chronic kidney disease, stage 3 unspecified Status: Acute Assessment and Plan: Cr baseline is essentially normal at 0.8-1.0 Cr 0.9 on admission. GFR >60 with estimated CC of 55. (5) Dementia: Code(s): F03.90 - Unspecified dementia, unspecified severity, without behavioral disturbance, psychotic disturbance, mood disturbance, and anxiety Status: Acute Assessment and Plan: Alert and orientated 2-3 at baseline but daughter states her dementia has been getting worse. She has been hallucinating and sometimes forgetting who certain family members are. Lives at [place] Does not appear to be on any pharmacological agents. 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 (6) Lung nodule: Code(s): R91.1 - Solitary pulmonary nodule Status: Acute Assessment and Plan: Chest x-ray performed due to patient having persistent cough. Patient had chest x-ray that was concerning for a pulmonary nodule. CTA performed and this showed a left perihilar mass which could be infection/ inflammation versus malignancy. Pulmonology consulted. Patient started on Zosyn and Levaquin for possible infection. Treat for 14 days. Nebulizer/ inhaler treatment initiated Recommending repeat CT scan in 6 months. Pulmonology recommending follow-up with them in 4, repeat scan in 6-8 weeks Subjective Date/time seen: 11/25/22 12:44 Interval history: Patient is stable. Waiting on placement. Exam Narrative: GENERAL: Comfortable, no acute distress HENMT: moist mucous membranes EYES: EOM intact b/l NECK: no lymphadenopathy RESPIRATORY: Diffuse expiratory crackles CARDIO: RRR GI: soft, nontender, bowel sounds present SKIN: no rashes EXTREMITIES: Right ankle fracture with cast in place Objective Data Vital Signs Vital Signs: Vital Signs - 24 hr 11/24/22 14:31 11/24/22 16:16 11/24/22 16:29 Temperature 98.8 F Pulse Rate 65 68 67 Respiratory Rate 18 18 18 Blood Pressure 118/52 L Pulse Oximetry 90 Oxygen Delivery 11/24/22 20:39 11/24/22 20:49 11/24/22 20:49 Temperature 99.3 F Pulse Rate 82 67 Respiratory Rate 16 16 Blood Pressure 108/65 Pulse Oximetry 98 94 Oxygen Delivery Room Air 11/24/22 20:59 11/24/22 22:55 11/24/22 21:28 Temperature Pulse Rate 70 77 Respiratory Rate 16 18 Blood Pressure Pulse Oximetry Oxygen Delivery Room Air 11/25/22 04:32 11/25/22 04:48 11/24/22 23:05 Temperature Pulse Rate 74 75 78 Respiratory Rate 16 16 18 Blood Pressure Pulse Oximetry Oxygen Delivery 11/25/22 05:17 11/25/22 07:48 11/25/22 07:48 Temperat
--- NOTE | 2022-11-25 23:33 | PM.EVENT ---
Event Note Event Note Event Note: Cross Coverage Patient complained of lower abdominal pain despite urinating to staff. Post void residual was measured. Patient was still retaining 465 mL of urine. Andrade ordered and placed. Per chart review no prior history of urinary retention.
[2022-11-26] VITALS (12 sets, daily range): BP systolic 90–116; BP diastolic 54–66; PULSE 64–80; RESP 16–18; TEMP 35.8–36.8; O2SAT 93–97
[2022-11-26] MEDS: PIPERACILLN/TAZ 3.375GM/NS50ML 3.375 GM/50 ML BAG IVPB ×4 (05:02→23:05)
[2022-11-26] MEDS: IPRATROPIUM BR 0.02% INH SOLN 0.5 MG/2.5 ML VIAL INHALATION ×5 (05:06→19:55)
[2022-11-26] MEDS: ALBUTEROL SULFATE NEB 2.5 MG/3 ML INH INHALATION ×5 (05:07→19:56)
[2022-11-26 05:45] LABS: Hematocrit 33.2 % (37.0-47.0); Hemoglobin 10.3 g/dL (12.0-15.0); Mean Corpuscular Hemoglobin 28.9 pg (26-34); Platelet Count Result 146 k/mm3 (150-375); Red Blood Count 3.57 M/mm3 (4.2-5.4); Red Cell Distribution Width 14.3 % (11.5-14.5); White Blood Count 3.3 K/mm3 (4.5-10.0)
[2022-11-26 05:56] LABS: Alanine Aminotransferase 19 U/L (6-35); Albumin Level 3.3 g/dL (3.5-5.1); Alkaline Phosphatase 62 U/L (38-126); Anion Gap 4 mmol/L (8-16); Aspartate Amino Transferase 34 U/L (14-36); Bilirubin,Total 0.9 mg/dL (0.2-1.3); Blood Urea Nitrogen 16 mg/dL (7-17); Calcium 8.7 mg/dL (8.4-10.2); Carbon Dioxide 31 mmol/L (22-30); Chloride 106 mmol/L (98-107); Estimated CRCL calculation 45 ml/min; Estimated Glomerular Filt Rate 48; Glucose 99 mg/dL (65-110); Potassium 3.6 mmol/L (3.4-5.0); Sodium 141 mmol/L (137-145)
[2022-11-26] MEDS: BUDESONIDE RESPULE NEB 0.5 MG/2 ML AMP INHALATION ×2 (08:17→19:55)
[2022-11-26] MEDS: ASPIRIN 81 MG CHEWABLE TABLET PO (08:55)
[2022-11-26] MEDS: ATORVASTATIN 20 MG TABLET BY MOUTH (08:55)
[2022-11-26] MEDS: GABAPENTIN 300 MG CAPSULE PO ×2 (08:55→16:53)
[2022-11-26] MEDS: buPROPion HCL 100 MG TABLET PO ×2 (08:56→16:59)
[2022-11-26] MEDS: polyethylene glycoL 3350 17 GM POWD.PACK PO ×2 (08:56→16:54)
[2022-11-26] MEDS: ENOXAPARIN 40 MG/0.4 ML SYRINGE SUB-Q (08:56)
[2022-11-26] MEDS: SERTRALINE HCL 50 MG TABLET 100 MG PO (08:56)
[2022-11-26] MEDS: atenoloL 50 MG TABLET PO (08:56)
[2022-11-26] MEDS: HYDROcodone/acetaminophen (*CRX) 5-325 MG TABLET 1 TAB PO (10:20)
[2022-11-26] MEDS: levoFLOXacin 750 MG/D5W 150 ML 750 MG/150 ML BAG 100 MG IVPB (10:37)
--- NOTE | 2022-11-26 10:50 | PCNWS ---
Weekly nutritional screen. Patient is tolerating current Regular diet with adequate intake most meals at 50+-100%, also noted Ensure compact ordered TID for supplementation. No weight loss reported. Waiting on placement. No nutritional recommendations at this time.
--- NOTE | 2022-11-26 13:14 | PM.IMPN ---
Progress Note: A&P Assessment and Plan (1) Closed bimalleolar fracture of right ankle: Qualifiers: Encounter type: initial encounter Qualified Code(s): S82.841A - Displaced bimalleolar fracture of right lower leg, initial encounter for closed fracture Code(s): S82.841A - Displaced bimalleolar fracture of right lower leg, initial encounter for closed fracture Status: Acute Assessment and Plan: Ankle XR, right displaced bimalleolar fracture after unwitnessed fall RLE casted Orthopedics consult is appreciated Nonweightbearing on right foot Will need PT/OT orders post op DVT prophylaxis enoxaparin--on hold per ortho for surgery, however now we are hearing that the family does not want surgery. 11/21 Plan to follow up with Izabella in 1 week. (2) Unwitnessed fall: Code(s): R29.6 - Repeated falls Status: Acute Assessment and Plan: Fall precautions Bed alarm, chair alarm (3) Essential (primary) hypertension: Code(s): I10 - Essential (primary) hypertension Status: Acute Assessment and Plan: Blood pressures reviewed SBP ranging 140-110/50-60, HR 70's Atenolol restarted (4) Chronic kidney disease, stage 3: Code(s): N18.30 - Chronic kidney disease, stage 3 unspecified Status: Acute Assessment and Plan: Cr baseline is essentially normal at 0.8-1.0 Cr 0.9 on admission. GFR >60 with estimated CC of 55. (5) Dementia: Code(s): F03.90 - Unspecified dementia, unspecified severity, without behavioral disturbance, psychotic disturbance, mood disturbance, and anxiety Status: Acute Assessment and Plan: Alert and orientated 2-3 at baseline but daughter states her dementia has been getting worse. She has been hallucinating and sometimes forgetting who certain family members are. Lives at [place] Does not appear to be on any pharmacological agents. 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 (6) Lung nodule: Code(s): R91.1 - Solitary pulmonary nodule Status: Acute Assessment and Plan: Chest x-ray performed due to patient having persistent cough. Patient had chest x-ray that was concerning for a pulmonary nodule. CTA performed and this showed a left perihilar mass which could be infection/ inflammation versus malignancy. Pulmonology consulted. Patient started on Zosyn and Levaquin for possible infection. Treat for 14 days. Nebulizer/ inhaler treatment initiated Recommending repeat CT scan in 6 months. Pulmonology recommending follow-up with them in 4, repeat scan in 6-8 weeks Subjective Date/time seen: 11/26/22 13:14 Interval history: Waiting on placement. Patient is stable at this time. Exam Narrative: GENERAL: Comfortable, no acute distress HENMT: moist mucous membranes EYES: EOM intact b/l NECK: no lymphadenopathy RESPIRATORY: Diffuse expiratory crackles CARDIO: RRR GI: soft, nontender, bowel sounds present SKIN: no rashes EXTREMITIES: Right ankle fracture with cast in place Objective Data Vital Signs Vital Signs: Vital Signs - 24 hr 11/25/22 14:00 11/25/22 15:39 11/25/22 15:55 Temperature 97.2 F L Pulse Rate 66 72 76 Respiratory Rate 20 18 18 Blood Pressure 102/58 L Pulse Oximetry 91 Oxygen Delivery Fraction of Inspired Oxygen 11/25/22 19:38 11/25/22 19:39 11/25/22 19:49 Temperature Pulse Rate 74 76 Respiratory Rate 18 18 Blood Pressure Pulse Oximetry 94 Oxygen Delivery Room Air Fraction of Inspired Oxygen 11/25/22 20:31 11/25/22 20:15 11/25/22 23:05 Temperature 97.8 F Pulse Rate 72 78 Respiratory Rate 18 18 Blood Pressure 114/59 L Pulse Oximetry 100 Oxygen Delivery Room Air Fraction of Inspired Oxygen 11/25/22 23:09 11/26/22 05:09 11/26/22 05:33 Temperature 97.7 F Pulse Rate 78 80 64 Respiratory Rate 18 18 18
--- NOTE | 2022-11-26 20:13 | PC.NURSE ---
Spoke with daughter Zonia today RE: patient's discharge & surgical clearance with shipping associate, Dr Berger. Zonia requested that I speak with Dr Berger's office to have them provide pulmonary clearance in a physician's note, so that patient may have ankle surgery with Dr Parekh. I tried to explain to Zonia that Dr Berger gives clearance based on his specialty expertise, not when I call him. She said that she wants her to have Dr Berger clear her mother for surgery before she is discharged, so that she will not have to come back to his office for clearance. Another person from the care team stated that Ms. Hayes wasn't cleared because she didn't tolerate anesthesia on a prior surgery and that was the reason she was not cleared. By the time I had a chance to call the pulmonology office to speak about the aforementioned issues (which Zonia had already talked with them about), the office was closed. I was not able to speak with anyone to resolve her wishes.
[2022-11-27] VITALS (11 sets, daily range): BP systolic 104–106; BP diastolic 50–65; PULSE 68–75; RESP 16–18; TEMP 37–37.1; O2SAT 94–97
[2022-11-27] MEDS: ALBUTEROL SULFATE NEB 2.5 MG/3 ML INH INHALATION ×4 (00:17→19:41)
[2022-11-27] MEDS: IPRATROPIUM BR 0.02% INH SOLN 0.5 MG/2.5 ML VIAL INHALATION ×4 (00:17→19:40)
[2022-11-27] MEDS: PIPERACILLN/TAZ 3.375GM/NS50ML 3.375 GM/50 ML BAG IVPB ×2 (05:03→14:42)
[2022-11-27 05:48] LABS: Hematocrit 33.6 % (37.0-47.0); Hemoglobin 10.4 g/dL (12.0-15.0); Mean Corpuscular Hemoglobin 29.1 pg (26-34); Mean Corpuscular Volume 93.9 fl (80-100); Mean Platelet Volume 10.8 fl (7.4-10.4); Platelet Count Result 159 k/mm3 (150-375); Red Blood Count 3.58 M/mm3 (4.2-5.4); Red Cell Distribution Width 14.2 % (11.5-14.5)
[2022-11-27 05:55] LABS: Anion Gap 8 mmol/L (8-16); Blood Urea Nitrogen 14 mg/dL (7-17); Calcium 8.8 mg/dL (8.4-10.2); Carbon Dioxide 27 mmol/L (22-30); Chloride 104 mmol/L (98-107); Estimated CRCL calculation 49 ml/min; Estimated Glomerular Filt Rate 54; Glucose 111 mg/dL (65-110); Potassium 3.4 mmol/L (3.4-5.0); Sodium 139 mmol/L (137-145)
[2022-11-27] MEDS: BUDESONIDE RESPULE NEB 0.5 MG/2 ML AMP INHALATION ×2 (07:42→19:41)
[2022-11-27 07:50] LABS: Amorphous Sediment Urine Present; Appearance Urine Turbid (Clear); Bacteria Urine None Seen /hpf; Bilirubin Urine Negative (Negative); Blood Urine 3+ (Negative); Calcium Oxalate Crystals Urine Present /hpf; Glucose Urine UA Negative (Negative); Ketones Urine Negative (Negative); Leukocyte Esterase Ur 2+ LEU/UL (Negative); Nitrate Urine Negative (Negative); Protein Urine 1+ mg/dL (Negative); RBC Urine >100 /hpf (0-2); Squamous Epithelial Cell Urine None seen /hpf (Few); Urobilinogen Urine 0.2 mg/dL (<2.0); pH Urine 6.5 (5.0-9.0)
--- NOTE | 2022-11-27 07:51 | PM.DS ---
DS: Admitting Diagnosis Discharge Date 11/27/22 Admitting Diagnosis Right ankle fracture DS: Discharge Diagnosis Discharge Diagnosis (1) Closed bimalleolar fracture of right ankle: Qualifiers: Encounter type: initial encounter Qualified Code(s): S82.841A - Displaced bimalleolar fracture of right lower leg, initial encounter for closed fracture Code(s): S82.841A - Displaced bimalleolar fracture of right lower leg, initial encounter for closed fracture Status: Acute (2) Unwitnessed fall: Code(s): R29.6 - Repeated falls Status: Acute (3) Essential (primary) hypertension: Code(s): I10 - Essential (primary) hypertension Status: Acute (4) Chronic kidney disease, stage 3: Code(s): N18.30 - Chronic kidney disease, stage 3 unspecified Status: Acute (5) Dementia: Code(s): F03.90 - Unspecified dementia, unspecified severity, without behavioral disturbance, psychotic disturbance, mood disturbance, and anxiety Status: Acute (6) Lung nodule: Code(s): R91.1 - Solitary pulmonary nodule Status: Acute DS: Summary Hospital Course Hospital Course: This is a 77-year-old female with a past medical history of dementia, hypertension, dyslipidemia, depression anxiety the presented to the ED on 11/19/2022 due to right ankle pain after an unwitnessed fall. Imaging in the ED showed by malleolar fracture. Orthopedics consulted and patient was admitted for pain control and possible surgery. Family was worried about surgery due to patient undergoing anesthesia. Decision to undergo surgery was delayed and by that time patient's foot had too much edema to perform surgery. Orthopedics recommended that patient follow-up in their office and possibly undergo surgery after edema has improved. Patient had developed a cough in her lung sounds were quite coarse and a chest x-ray was performed. Chest x-ray revealed irregular soft tissue nodule in the mid thorax and CT was recommended. There was diffuse bilateral interstitial Infiltrates likely resolving edema. CT of the chest performed revealing a perihilar mass which could be infections /Inflammation versus malignancy. pulmonology consulted and recommended 2 weeks worth Of aggressive antibiotic therapy. Patient's symptoms slightly improved with antibiotic therapy. Patient never required any increased oxygen Demand. Pulmonology recommend following up with a repeat scan in 4 weeks and following up with them in the office in 6-8. Is discussed with the family that her cough and breath sounds potentially not improve. Patient was accepted to facility until she can undergo possible ankle surgery. on day of discharge patient COVID swab which came back positive. Patient's overall health has not changed since she was admitted into the facility. It is hard to say whether she was COVID positive prior to ED presentation, Although she did have a cough present at that time. Her labs and vital signs are stable and she is medically clear for discharge at this time Time Spent with Patient Time attestation: Total time spent providing and/or coordinating discharge services: Exam Narrative: GENERAL: Comfortable, no acute distress HENMT: moist mucous membranes EYES: EOM intact b/l NECK: no lymphadenopathy RESPIRATORY: Diffuse expiratory crackles CARDIO: RRR GI: soft, nontender, bowel sounds present SKIN: no rashes EXTREMITIES: Right ankle fracture with cast in place DS: Data Data Completed and Pending Labs on day of discharge: Labs from last 24 hours 11/27/22 11/27/22 07:32 05:15 WBC 5.0 RBC 3.58 L Hgb 10.4 L Hct 33.6 L MCV 93.9 MCH 29.1 MCHC 31.0 L RDW 14.2 Plt Count 159 MPV 10.8 H Sodium 139 Potassium 3.4 Chloride 104 Carbon Dioxide 27 Anion Gap 8 BUN 14 Creatinine 1.00 Estim Creat Clear Calc 49 Estimated GFR 54 L Glucose 111 H Calcium 8.8 Urine Color Pending Ur
[2022-11-27 07:53] LABS: Add Urine Microscopic? YES; Color Urine Light Orange (Yellow)
[2022-11-27] MEDS: SERTRALINE HCL 50 MG TABLET 100 MG PO (08:16)
[2022-11-27] MEDS: atenoloL 50 MG TABLET PO (08:17)
[2022-11-27] MEDS: polyethylene glycoL 3350 17 GM POWD.PACK PO (08:19)
[2022-11-27] MEDS: ATORVASTATIN 20 MG TABLET BY MOUTH (08:19)
[2022-11-27] MEDS: buPROPion HCL 100 MG TABLET PO ×2 (08:19→18:27)
[2022-11-27] MEDS: GABAPENTIN 300 MG CAPSULE PO ×2 (08:19→18:27)
[2022-11-27] MEDS: ASPIRIN 81 MG CHEWABLE TABLET PO (08:19)
[2022-11-27] MEDS: ENOXAPARIN 40 MG/0.4 ML SYRINGE SUB-Q (08:20)
[2022-11-27 10:24] LABS: SARS-CoV-2 RNA PCR Positive (Negative)
--- NOTE | 2022-11-27 13:45 | PC.NURSE ---
On 11/27/22, the student, [Magda Olmos], provided care and completed [facility] documentation on this patient. I have reviewed the student's documentation and agree with the findings.
[2022-11-28] VITALS (14 sets, daily range): BP systolic 98–112; BP diastolic 54–80; PULSE 60–77; RESP 16–18; TEMP 36.5–36.8; O2SAT 90–100
[2022-11-28] MEDS: PIPERACILLN/TAZ 3.375GM/NS50ML 3.375 GM/50 ML BAG IVPB ×4 (00:01→18:23)
[2022-11-28] MEDS: IPRATROPIUM BR 0.02% INH SOLN 0.5 MG/2.5 ML VIAL INHALATION ×3 (08:13→20:44)
[2022-11-28] MEDS: ALBUTEROL SULFATE NEB 2.5 MG/3 ML INH INHALATION ×2 (08:13→13:52)
[2022-11-28] MEDS: BUDESONIDE RESPULE NEB 0.5 MG/2 ML AMP INHALATION ×2 (08:14→20:44)
[2022-11-28] MEDS: SERTRALINE HCL 50 MG TABLET 100 MG PO (09:24)
[2022-11-28] MEDS: ASPIRIN 81 MG CHEWABLE TABLET PO (09:24)
[2022-11-28] MEDS: ATORVASTATIN 20 MG TABLET BY MOUTH (09:24)
[2022-11-28] MEDS: GABAPENTIN 300 MG CAPSULE PO ×2 (09:24→17:34)
[2022-11-28] MEDS: atenoloL 50 MG TABLET PO (09:25)
[2022-11-28] MEDS: buPROPion HCL 100 MG TABLET PO ×2 (09:28→17:34)
[2022-11-28] MEDS: ENOXAPARIN 40 MG/0.4 ML SYRINGE SUB-Q (09:28)
--- NOTE | 2022-11-28 10:19 | PM.IMPN ---
Progress Note: A&P Assessment and Plan (1) Closed bimalleolar fracture of right ankle: Qualifiers: Encounter type: initial encounter Qualified Code(s): S82.841A - Displaced bimalleolar fracture of right lower leg, initial encounter for closed fracture Code(s): S82.841A - Displaced bimalleolar fracture of right lower leg, initial encounter for closed fracture Status: Acute Assessment and Plan: Ankle XR, right displaced bimalleolar fracture after unwitnessed fall RLE splinted Orthopedics consult is appreciated Nonweightbearing on right foot Will need PT/OT orders post op DVT prophylaxis enoxaparin--on hold per ortho for surgery, however now we are hearing that the family does not want surgery. Patient to follow-up with Dr. Kelly after discharge (2) Unwitnessed fall: Code(s): R29.6 - Repeated falls Status: Acute Assessment and Plan: Fall precautions Bed alarm, chair alarm (3) Essential (primary) hypertension: Code(s): I10 - Essential (primary) hypertension Status: Acute Assessment and Plan: Blood pressures reviewed SBP ranging 140-110/50-60, HR 70's Atenolol restarted 11/28: Blood pressure on the lower side last pressure 101/59, asymptomatic (4) Chronic kidney disease, stage 3: Code(s): N18.30 - Chronic kidney disease, stage 3 unspecified Status: Acute Assessment and Plan: 11/28: Estimated gFR 54 creatinine 1 BUN 14 estimated creatinine clearance 49 (5) Dementia: Code(s): F03.90 - Unspecified dementia, unspecified severity, without behavioral disturbance, psychotic disturbance, mood disturbance, and anxiety Status: Acute Assessment and Plan: Alert and orientated 2-3 at baseline but daughter states her dementia has been getting worse. She has been hallucinating and sometimes forgetting who certain family members are. Lives at [place] Does not appear to be on any pharmacological agents. 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 (6) Lung nodule: Code(s): R91.1 - Solitary pulmonary nodule Status: Acute Assessment and Plan: Chest x-ray performed due to patient having persistent cough. Patient had chest x-ray that was concerning for a pulmonary nodule. CTA performed and this showed a left perihilar mass which could be infection/ inflammation versus malignancy. Pulmonology consulted. Patient started on Zosyn and Levaquin for possible infection. Treat for 14 days. Nebulizer/ inhaler treatment initiated Recommending repeat CT scan in 6 months. Pulmonology recommending follow-up with them in 4, repeat scan in 6-8 weeks Plan Patient should discharge tomorrow to [place] [facility] Time Spent With Patient Time with patient: 25 - 35 minutes Subjective Date/time seen: 11/28/22 10:19 Interval history: Waiting on placement. Patient is stable at this time. She only complains of feeling like the splint on her right leg is a little tight. Patient did have to be placed on 0.5 liter/minute nasal cannula for room air saturation of 88% but was taken back to room air at 90%. No dyspnea. Mild cough. Review of Systems Review of Systems: All systems reviewed & are unremarkable except as noted in HPI and below Exam Narrative: GENERAL: Comfortable, no acute distress HENMT: moist mucous membranes EYES: EOM intact b/l NECK: no lymphadenopathy RESPIRATORY: Diffuse expiratory crackles CARDIO: RRR GI: soft, nontender, bowel sounds present SKIN: no rashes EXTREMITIES: Right ankle fracture with cast in place Objective Data Vital Signs Vital Signs: Vital Signs - 24 hr 11/27/22 13:46 11/27/22 15:07 11/27/22 19:41 Temperature 37.0 C Pulse Rate 74 70 69 Respiratory Rate 18 16 18 Blood Pressure 106/65 Pulse Oximetry 95 Oxygen Delivery 11/27/22 21:24 11/27/22 20:00 11/28/22 01
[2022-11-28] MEDS: levoFLOXacin 750 MG TABLET PO (11:13)
[2022-11-29] VITALS (12 sets, daily range): BP systolic 108–115; BP diastolic 51–75; PULSE 67–77; RESP 14–18; TEMP 36.9–37; O2SAT 90–94
[2022-11-29] MEDS: PIPERACILLN/TAZ 3.375GM/NS50ML 3.375 GM/50 ML BAG IVPB ×3 (00:24→12:08)
[2022-11-29] MEDS: ALBUTEROL SULFATE NEB 2.5 MG/3 ML INH INHALATION ×3 (02:24→12:41)
[2022-11-29] MEDS: IPRATROPIUM BR 0.02% INH SOLN 0.5 MG/2.5 ML VIAL INHALATION ×3 (02:24→12:41)
[2022-11-29] MEDS: BUDESONIDE RESPULE NEB 0.5 MG/2 ML AMP INHALATION (07:57)
--- NOTE | 2022-11-29 08:23 | PM.DS ---
DS: Admitting Diagnosis Discharge Date 11/29/2022 Admitting Diagnosis right ankle fracture DS: Discharge Diagnosis Discharge Diagnosis (1) Closed bimalleolar fracture of right ankle: Qualifiers: Encounter type: initial encounter Qualified Code(s): S82.841A - Displaced bimalleolar fracture of right lower leg, initial encounter for closed fracture Code(s): S82.841A - Displaced bimalleolar fracture of right lower leg, initial encounter for closed fracture Status: Acute (2) Unwitnessed fall: Code(s): R29.6 - Repeated falls Status: Acute (3) Essential (primary) hypertension: Code(s): I10 - Essential (primary) hypertension Status: Acute (4) Chronic kidney disease, stage 3: Code(s): N18.30 - Chronic kidney disease, stage 3 unspecified Status: Acute (5) Dementia: Code(s): F03.90 - Unspecified dementia, unspecified severity, without behavioral disturbance, psychotic disturbance, mood disturbance, and anxiety Status: Acute (6) Lung nodule: Code(s): R91.1 - Solitary pulmonary nodule Status: Acute (7) COVID: Code(s): U07.1 - COVID-19 Status: Acute DS: Summary Hospital Course Hospital Course: This is a 77-year-old female with a past medical history of dementia, hypertension, dyslipidemia, depression anxiety the presented to the ED on 11/19/2022 due to right ankle pain after an unwitnessed fall.? Imaging in the ED showed displaced bimalleolar fracture.? Orthopedics consulted and patient was admitted for pain control and possible surgery.? Family was worried about surgery due to patient undergoing anesthesia.? Decision to undergo surgery was delayed and by that time patient's foot had too much edema to perform surgery.? Orthopedics recommended that patient follow-up in their office and possibly undergo surgery after edema has improved.? Patient had developed a cough in her lung sounds were quite coarse and a chest x-ray was performed.? Chest x-ray revealed irregular soft tissue nodule in the mid thorax and CT was recommended.? There was? diffuse bilateral interstitial ? Infiltrates likely resolving edema. CT of the chest performed revealing a perihilar mass which could be infections /Inflammation versus malignancy. pulmonology consulted and recommended 2 weeks worth? Of aggressive antibiotic therapy.? Patient's symptoms slightly improved with antibiotic therapy.? Pulmonology recommend following up with a repeat scan in 4 weeks and following up with them in the office in 6-8.? Is discussed with the family that her cough and breath sounds potentially not improve.? Patient was accepted to facility until she can undergo possible ankle surgery.? on day of anticipated discharge patient's COVID swab which came back positive.? Patient's overall health has not changed since she was admitted into the facility.? It is hard to say whether she was COVID positive prior to ED presentation,? Although she did have a cough present at that time. Her labs and vital signs are stable. She did require oxygen at 0.5 liters/minute which will be continued at SNF. Status at Discharge Cognitive/behavioral status at discharge: awake, alert, confused per baseline Functional status at discharge: wheelchair bound Overall status at discharge: patient is not back to baseline Time Spent with Patient Time attestation: Total time spent providing and/or coordinating discharge services: 35 Time spent: Greater than 30 minutes Exam Narrative: GENERAL: Comfortable, no acute distress HENMT: moist mucous membranes EYES: EOM intact b/l NECK: no lymphadenopathy RESPIRATORY: Diffuse expiratory crackles, periodic cough, supplemental oxygen in place CARDIO: RRR GI: soft, nontender, bowel sounds present SKIN: no rashes EXTREMITIES: Right ankle fracture with splint in place, toes warm to touch with adequate capillary refill. DS: Data Procedures/Treatments: Splint replacement by Orthopedic
[2022-11-29] MEDS: GABAPENTIN 300 MG CAPSULE PO (09:40)
[2022-11-29] MEDS: buPROPion HCL 100 MG TABLET PO (09:40)
[2022-11-29] MEDS: ENOXAPARIN 40 MG/0.4 ML SYRINGE SUB-Q (09:40)
[2022-11-29] MEDS: ASPIRIN 81 MG CHEWABLE TABLET PO (09:40)
[2022-11-29] MEDS: ATORVASTATIN 20 MG TABLET BY MOUTH (09:41)
[2022-11-29] MEDS: SERTRALINE HCL 50 MG TABLET 100 MG PO (09:41)
[2022-11-29] MEDS: atenoloL 50 MG TABLET PO (09:41)
--- NOTE | 2022-11-29 13:04 | PCOTNOTE ---
Attempted to see Patient for OT treatment session. Patient declined, stating she is waiting on her boot to arrive and then she will be discharged.
--- NOTE | 2022-11-29 13:06 | PC.NURSE ---
On 11/29/22, the student, [Fidel Ingram], provided care and completed [facility] documentation on this patient. I have reviewed the student's documentation and agree with the findings.
== END 2022-11-29 18:25 | DRG 562 ==
LOC: ANHED 14:29 → ANH2MED 15:39
PROVIDERS: Internal Medicine Critical Care Medicine; Nurse Practitioner Acute Care; Admitting Provider Internal Medicine; Emergency Provider Nurse Practitioner Family; PCP Family Medicine; Visit Provider Nurse Practitioner
DX: S82.841A Displaced bimalleolar fracture of right lower leg, initial encounter for closed fracture (principal); J18.9 Pneumonia, unspecified organism; U07.1 COVID-19; I12.9 Hypertensive chronic kidney disease with stage 1 through stage 4 chronic kidney disease, or unspecified chronic kidney disease; N18.30 Chronic kidney disease, stage 3 unspecified; J43.9 Emphysema, unspecified; J45.909 Unspecified asthma, uncomplicated; K21.9 Gastro-esophageal reflux disease without esophagitis; E78.5 Hyperlipidemia, unspecified; M19.90 Unspecified osteoarthritis, unspecified site; R91.1 Solitary pulmonary nodule; G47.33 Obstructive sleep apnea (adult) (pediatric); F41.9 Anxiety disorder, unspecified; F32.A Depression, unspecified; W19.XXXA Unspecified fall, initial encounter; Z96.641 Presence of right artificial hip joint; Z86.73 Personal history of transient ischemic attack (TIA), and cerebral infarction without residual deficits; Z79.82 Long term (current) use of aspirin; Z99.3 Dependence on wheelchair
CPT/HCPCS: 36415; 70450; 71045; 71046; 71275; 73590; 73610; 80048; 80053; 81001; 81003; 82607; 84100; 84439; 84443; 84484; 85025; 85027; 85055; 85610; 85730; 87086; 87635; 87637; 93005; 94640; 96360; 96361; 97110; 97161; 97165; 97530; 97535; 99285; A9270; J1650; J1956; J2543; J7030; Q9967

== ENCOUNTER 2023-01-09 12:36 | Outpatient (CLI) | payer MEDICARE, OTHER, SELFPAY ==
--- NOTE | ~2023-01-09 | CT_ITS ---
CT Scan of the Chest without Contrast: Clinical Indication: Pulmonary nodule Technique: Contiguous sections were acquired throughout the chest without intravenous contrast. Dose reduction technique was used on this scan by utilizing automated exposure control and iterative recon struction technique. The dose-length product (DLP) was 138.15 mGy-cm. COMPARISON: 11/21/2022 Findings: There is no evidence of any significant mediastinal, hilar or axillary lymphadenopathy. The mediastin al soft tissues appear normal. There is no evidence of pleural or pericardial effusion. Previously noted left perihilar patchy consolidation/masslike lesion is essentially completely resolv ed. There is a residual circumscribed 5 mm left lower lobe pulmonary nodule (axial image 45). There i s minimal residual focal groundglass opacities in this region, compatible residual postinflammatory c hange. Images through the upper abdomen reveal no abnormalities. Impression: Previously noted left perihilar consolidation is nearly completely resolved, consistent with near com plete interval resolution of infectious/inflammatory process. Residual 5 mm circumscribed left lower lobe pulmonary nodule and minimal groundglass opacities present. Cystic lesion of the pancreas seen on prior exam is not well appreciated on the current noncontrast e xam. Reviewed, dictated and finalized at location . RUMENT STERILIZER Impression: Previously noted left perihilar consolidation is nearly completely resolved, co nsistent with near complete interval resolution of infectious/inflammatory proc ess. Residual 5 mm circumscribed left lower lobe pulmonary nodule and minimal g roundglass opacities present. Cystic lesion of the pancreas seen on prior exam is not well appreciated on the current noncontrast exam.
--- NOTE | 2023-01-09 13:36 | PCRCNOTE ---
PT CAME IN FOR PFT, PT IS NON WEIGHT BEARING. UNABLE TO GET PT INTO BODY BOX. HER WHEELCHAIR WAS TOO WIDE AND THE MOUTHPIECE WOULD NOT LOWER ENOUGH FOR PT TO DO TESTING OUTSIDE OF THE BOX. PT TO RESCHEDULE WHEN SHE IS WEIGHT BEARING. CAIT AT DR. HO OFFICE NOTIFIED.
== END 2023-01-09 12:37 | disposition home or self-care (01) ==
PROVIDERS: PCP Family Medicine; Visit Provider Internal Medicine Pulmonary Disease
DX: R91.1 Solitary pulmonary nodule (principal); K86.2 Cyst of pancreas
CPT/HCPCS: 71250

== ENCOUNTER 2023-01-18 12:10 | Emergency (ER) | payer MEDICARE, OTHER, SELFPAY ==
--- NOTE | ~2023-01-18 | CT_ITS ---
EXAMINATION: CT cervical spine wo con DATE: 01/18/2023 13:00 INDICATION: Head injury TECHNIQUE: Computed tomography (CT) of the cervical spine was performed without intravenous contrast. The dose-length product (DLP) was 448.83 mGy-cm. Automated exposure control and iterative reconstruc tion technique were employed. COMPARISON: None FINDINGS: There are 2 mm of retrolisthesis of C6 on C7. The vertebral body heights are maintained. Th ere is moderate loss of intervertebral disc space height at C3-4, C4-5, and C5-6. The odontoid proces s is intact. Small degenerative osteophytes project from the anterior endplates of multiple vertebral bodies. There is multilevel severe facet and uncovertebral joint osteoarthritis. IMPRESSION: 1. Severe cervical spondylosis without acute findings. Reviewed, dictated and finalized at location F. GN ENGINEERING MANAGER
--- NOTE | ~2023-01-18 | CT_ITS ---
EXAMINATION: CT brain wo con INDICATION: Head injury COMPARISON: 11/16/2022 TECHNIQUE: Standard unenhanced head CT. The dose-length product (DLP) was 681.00 mGy-cm. The mA was a djusted according to patient size. Iterative reconstruction technique was employed. FINDINGS: No acute intraparenchymal hemorrhage. No evidence of mass lesion. No evidence of acute infa rction. There is mild periventricular and subcortical hypodensity probably related to small vessel is chemic disease. There is moderate prominence of the sulci and ventricles related to cerebral atrophy. Intracranial calcified cerebral atherosclerosis is noted. No extra-axial collections. No mass effect or midline shift. The orbits are unremarkable. There are a left posterior scalp hematoma and lacerat ion. There is mild mucosal thickening of the paranasal sinuses. IMPRESSION: 1. Left posterior scalp hematoma and laceration without acute intracranial abnormality. 2. Age related findings. Reviewed, dictated and finalized at location F. CTOR OF PLANNING IMPRESSION: 1. Left posterior scalp hematoma and laceration without acute intracranial abno rmality. 2. Age related findings.
[2023-01-18 12:12] VITALS: BP 113/56; PULSE 58; RESP 18; TEMP 36.4; O2SAT 100
--- NOTE | 2023-01-18 13:27 | ED.FALL ---
HPI - Fall General Chief Complaint: Fall Stated Complaint: fall Time Seen by Provider: 01/18/23 12:40 Source: patient Mode of arrival: EMS Limitations: no limitations History of Present Illness HPI Narrative: Patient is a 77 y/o female who presents to the ED via EMS with report of a fall. Patient is currently residing at [facility] for rehab. She recently underwent surgery for a bimalleolar right ankle fracture. She is currently in a walking boot and unable to bear full weight on her right leg. She attempted to ambulate and transfer by herself in the bathroom today and fell. She fell backwards, hitting her posterior head on the ground. She sustained a small lac to her posterior scalp. Denied any LOC. Denies any other areas of pain. Tetanus unknown. Related Data Allergies Allergy/AdvReac Type Severity Reaction Status Date / Time No Known Allergies Allergy Mild Verified 01/18/23 12:26 Review of Systems Review of Systems: CONSTITUTIONAL: Denies fever, chills, or sweats. SKIN: See HPI. MUSCULOSKELETAL: See HPI. NEUROLOGIC: See HPI. All systems reviewed & are unremarkable except as noted in HPI and below PMFSH Past Medical History Medical History Anxiety Arthritis Asthma Chronic kidney disease, stage 3 Degenerative disc disease Dementia Depression Gastroesophageal reflux disease Hyperlipidemia Hypertension Obstructive sleep apnea No longer using CPAP following weight loss. Pulmonary emphysema Transient ischemic attack Surgical History Surgical History History of benign breast biopsy History of cardiac catheterization (2011) Reportedly unremarkable. History of section History of cholecystectomy History of hysterectomy History of right hip replacement History of tonsillectomy History of tubal ligation Family History Family History Mother Hypertension Family history of pancreatic cancer Father Cerebrovascular accident Sibling Heart disease Jpoay-Ciuoeecwl-Wvxpx (WPW) syndrome A-fib Low O2 saturation Social History Social History Social History: Surrogate medical decision maker: Misael Hayes (son) or Mini Bledsoe (daughter). Code status: Full code. Smoking status: Never smoker Second hand tobacco smoke exposure: Yes Alcohol intake: never Alcohol use details: No alcohol since around age 29. Substance use: never Substance use type: does not use Lack of Transportation: No Lack of Food: Never True Current Housing: I Have Housing Concerned About Future Housing: No Difficulty Paying Gas/Electric Bills: No Difficulty Paying for Meds: No Currently Unemployed: No Education: Associate Degree Difficulty w/ Childcare or Family Care: No Additional living arrangements comments: . Lives in assisted living. She has 7 children, 5 biologic and 2 adopted. 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 Spiritual care concerns: No Exam Narrative: GENERAL: Well appearing, obese with BMI of 33.4, non-toxic, in no acute distress. HEAD: Normocephalic. 1.5 cm linear laceration to the left posterior scalp, no active bleeding. No significant surrounding contusion. NECK: Supple. No adenopathy, no masses. No midline cervical spinal tenderness. RESPIRATORY: Airway patent, respirations nonlabored. Clear to auscultation bilaterally, no rales, rhonchi, wheezing. CARDIOVASCULAR: Regular rate and rhythm without murmurs, rubs, or gallops. Radial pulses 2+ and equal bilaterally. MUSCULOSKELETAL: Moves all extremities. Strength/ROM intact without gross deformities. Right lower leg in long walking boot. Good capillary refill. Able to wiggle toes.
[2023-01-18] MEDS: TETANUS,DIPHTHERIA,AC PERTUSSIS ADULT (0.5 ML) BOOSTRIX IM (14:28)
[2023-01-18 15:00] VITALS: BP 104/80; PULSE 60; RESP 18; TEMP 36.6; O2SAT 99
== END 2023-01-18 15:21 ==
PROVIDERS: Emergency Provider Physician Assistant; PCP Family Medicine
DX: S01.01XA Laceration without foreign body of scalp, initial encounter (principal); Z23 Encounter for immunization; S82.841D Displaced bimalleolar fracture of right lower leg, subsequent encounter for closed fracture with routine healing; I12.9 Hypertensive chronic kidney disease with stage 1 through stage 4 chronic kidney disease, or unspecified chronic kidney disease; N18.30 Chronic kidney disease, stage 3 unspecified; F03.90 Unspecified dementia, unspecified severity, without behavioral disturbance, psychotic disturbance, mood disturbance, and anxiety; J43.9 Emphysema, unspecified; J45.909 Unspecified asthma, uncomplicated; E78.5 Hyperlipidemia, unspecified; G47.33 Obstructive sleep apnea (adult) (pediatric); K21.9 Gastro-esophageal reflux disease without esophagitis; M19.90 Unspecified osteoarthritis, unspecified site; Z96.641 Presence of right artificial hip joint; Z86.73 Personal history of transient ischemic attack (TIA), and cerebral infarction without residual deficits; Z90.49 Acquired absence of other specified parts of digestive tract; Z90.710 Acquired absence of both cervix and uterus; W18.39XA Other fall on same level, initial encounter; X58.XXXD Exposure to other specified factors, subsequent encounter
CPT/HCPCS: 12001; 70450; 72125; 90471; 90715; 99284

== ENCOUNTER 2023-07-10 09:40 | Outpatient (CLI) | payer MEDICARE, OTHER, SELFPAY ==
--- NOTE | ~2023-07-10 | CT_ITS ---
CT Scan of the Chest without Contrast: Clinical Indication: Pulmonary nodule Technique: Contiguous sections were acquired throughout the chest without intravenous contrast. Dose reduction technique was used on this scan by utilizing automated exposure control and iterative recon struction technique. The dose-length product (DLP) was 234.29 mGy-cm. COMPARISON: 01/09/2023 Findings: There is no evidence of any significant mediastinal, hilar or axillary lymphadenopathy. The mediastin al soft tissues appear normal. There is no evidence of pleural or pericardial effusion. Stable 6 mm left lower lobe pulmonary nodule. Stable focal scarring left upper lobe. Images through the upper abdomen reveal cholecystectomy clips. Impression: Stable 6 mm left lower lobe pulmonary nodule. Reviewed, dictated and finalized at location . Impression: Stable 6 mm left lower lobe pulmonary nodule.
== END 2023-07-10 09:41 | disposition home or self-care (01) ==
PROVIDERS: PCP Family Medicine; Visit Provider Internal Medicine Pulmonary Disease
DX: R91.1 Solitary pulmonary nodule (principal)
CPT/HCPCS: 71250

== ENCOUNTER 2024-06-11 14:15 | Outpatient (CLI) | payer MEDICARE, OTHER, SELFPAY ==
--- NOTE | ~2024-06-11 | CT_ITS ---
CT of the Abdomen and Pelvis: Indication: Hematuria Technique: 2.5 mm axial scans were obtained through the abdomen and pelvis prior to and following in travenous administration of 130 cc of Omnipaque 350. Dose reduction technique was used on this scan b y utilizing automated exposure control and iterative reconstruction technique. The dose-length produc t (DLP) was 2452.55 mGy-cm. Findings: Scans through the lung bases are unremarkable. The liver, spleen, pancreas, adrenals and kidneys are within normal limits. Cholecystectomy clips are present. There are atherosclerotic calcifications of the aorta. No lymphadenopathy. No bowel obstruction or bowel wall thickening. There is no evidence to suggest acute appendicitis. Images through the pelvis were performed. Possible mild urinary bladder wall thickening. No pelvic ma ss seen. No ascites. There is advanced degenerative spondylosis throughout the visualized thoracolumbar spine. Impression: Possible cystitis. Correlate with urinalysis. Reviewed, dictated and finalized at [facility]. Impression: Possible cystitis. Correlate with urinalysis.
--- OUTSIDE RECORDS SUMMARY | 2024-06-11 14:31 | XMS_ITS ---
Author Name [place], Cindy Woodruff Address [address] [place] [address] Phone [phone] Organization [facility] Address [address] [place] [address] Phone [phone] Care Team Providers Care Music Educator Name Role Phone Jordin Maherdhaval Woodruff Unavailable Jim Lu Unavailable [phone] Newton Lee Unavailable Functional Status No Results Mental Status No Results Allergies and Intolerances Name Onset Date Reaction Severity No Known Allergies (Allergy) SatNov 29 15:47:00 EDT 2022 Encounters Program Name Primary Diagnosis Admission Date/Time Dis charge Date/Time [facility] SatMar 10 19:00:00 EST 2023 Assisted Living Area Emphysema, unspecified SatJan 18 11:00:00 EST 2022 Immunizations Name Dates Status influenza, trivalent, adjuvanted Massiel Dec 04 01:0 0:00 EDT 2023 Completed Medications Medication Directions Start Date End Date Acidophilus capsule 1 capsule CAPSULE Or al 1 Time Daily Indication: diarrhea [employer]ER supervision x2 SatMay 20 23:46:00 EDT 2024 Acidophilus capsule 1 capsule CAPSULE Or al 1 Time Daily Indication: diarrhea [employer]ER supervision x1 SatMay 19 01:00:00 EDT 2024May 20 23:48:00 EDT 2024 loperamide 2 mg tablet 1 TABLET Oral PRN Indication: diarrhea 1 tab PO after each episode of diarrhea, not to exceed 16mg in a 24-hour period SatMar 23 01:00:00 EST 2024 gabapentin 300 mg capsule 1 capsule CAPS ULE Oral 3 Times Daily Indication: neuropathy [employer] DES[employer]ER supervision 0800, 1600, & 0000 SatFeb 17 07:00:00 EST 2023 Blood Pressure Kit na KIT Other 2 Times Daily for 5 Days Indication: COVID symptom COVID monitoring SatDec 08 14:00:00 EDT 2023Dec 13 13:59:00 EDT 2023 Fluad Triv (65y up)(PF) 45 mcg (15 mcg x 3)/0.5 mL IM syringe 1 SYRINGE (ML) Intramuscular 1 Time Daily for 1 Day Indication: Vaccine SatDec 04 01:00:00 EDT 2023Dec 05 00:59:00 EDT 2023 ibuprofen 600 mg tablet 1 TABLET Oral WA N Every 6 Hours Indication: Pain/ discomfort [employer]ER supervision Sun Nov 16 01:00:00 EDT 2023 estradioL 0.01% (0.1 mg/gram) vaginal cream thin layer CREAM WITH APPLICATOR Topical 3 Times Weekly Indication: vaginal atrophy Apply cream externally to labia in a thin layer. SatOct 08 01:00:00 EDT 2023 nitrofurantoin monohydrate/macrocrystals 100 mg capsule 1 capsule CAPSULE Oral 2 Times Daily for 7 Days Indication: UTI [employer]ER supervision x1, x4 SatApr 26 17:30:00 EST 2023May 03 17:29:00 EST 2023 buPROPion HCL 100 mg tablet 1 tablet TABLET Oral 2 Times Daily Indication: Depression [employer] DES[employer]ER supervision x2, x4 SatApr 04 06:30:00 EST 2023 gabapentin 300 mg capsule 1 capsule CAPS ULE Oral 2 Times Daily Indication: Neuropathy [employer] DES[employer]ER supervision x2, x4 SatApr 04 06:34:00 EST 2023Feb 17 05:04:00 EST 2023 Daily Multivitamin-Minerals tablet 1 tab TABLET Oral 1 Time Daily Indication: MVI P[employer] DESIGNER Supervision x2 SatApr 04 06:40:00 EST 2023May 18 11:01:00 EDT 2024 aspirin 325 mg tablet 1 tablet TABLET Or al 1 Time Daily Indication: DVT prophCNA supervision x2 SatApr 04 06:41:00 EST 2023 atenoloL 50 mg tablet 1 tablet TABLET Or al 1 Time Daily Indication: HTN [employer]ER supervision x2 SatApr 04 06:41:00 EST 2023 Vitamin D3 125 mcg (5,000 unit) tablet 1 tablet TABLET Oral 1 Time Daily Indication: vitamin d deficiency [employer]ER supervision x2 SatApr 04 06:43:00 EST 2023 doxycycline hyclate 100 mg capsule 1 cap CAPSULE Oral 2 Times Daily for 65 Days Indication: ABT for MRSA wound [employer] DES[employer]ER Supervision X2 X4 SatApr 04 01:00:00 EST 2023Jun 07 00:59:00 EDT 2023 Acidophilus capsule 1 cap CAPSULE Oral 2 Times Daily for 70 Days Indication: ProbioticCNA Supervision x2 x4 SatApr 04 01:00:00 EST 2023Jun 12 00:59:00 EDT 2023 sertraline 100 mg tablet 1 tablet TABLET Oral 1 Time Daily Indication: Depression [employer]ER supervision x4 SatApr 04 01:00:00 EST 2023 tamsulosin 0.4 mg capsule 1 capsule CAPS ULE Oral 1 Time Daily Indication: urinary retention [employer] DES[employer]ER supervision x2 SatApr 03 18:40:00 EST 2023 Vitamin D3 125 mcg (5,000 unit) tablet 1 tablet TABLET Oral 1 Time Daily Indication: vitamin d deficiency [employer]ER supervision x1 SatMar 21 13:30:00 EST 2023Apr 04 06:45:00 EST 2023 Mucinex 600 mg tablet, extended release 1 tablet TABLET, EXTENDED RELEASE 12 HR Oral 2 Times Daily for 7 Days Indication: congestion [employer]ER supervision x1, x4 SatMar 19 13:00:00 EST 2023Mar 26 12:59:00 EST 2023 Acidophilus capsule 1 cap CAPSULE Oral 2 Times Daily for 90 Days Indication: Probiotic [employer] DESIGNER Supervision x1 x4 SatMar 15 01:00:00 EST 2023Apr 04 10:10:00 EST 2023 atenoloL 50 mg tablet 1 tablet TABLET Or al 1 Time Daily Indication: HTN [employer] DES[employer]ER supervision x1 SatMar 10 01:00:00 EST 2023Apr 04 06:43:00 EST 2023 doxycycline hyclate 100 mg capsule 1 cap CAPSULE Oral 2 Times Daily for 90 Days Indication: ABT for MRSA wound P[employer] DES[employer]ER Supervision X1 X4 SatMar 10 01:00:00 EST 2023Apr 04 10:08:00 EST 2023 acetaminophen 500 mg tablet 1 tablet TABLET Oral Every 8 Hours Indication: pain Do not exceed 3GM in a day.PLASTIC PARTS DESIGNER supervision 8am , 4pm, 12 am SatMar 09 15:46:00 2023 aspirin 325 mg tablet 1 tablet TABLET Or al 1 Time Daily Indication: DVT prophCNA supervision x1, SatMar 10 01:00:00 EST 2023Apr 04 06:42:00 2023 Pro-Stat AWC 17 gram-100 kcal/30 mL oral liquid in packet 30 cc LIQUID IN PACKET (ML) Oral 1 Time Daily Indication: For wound healing [employer] DESIGNER Supervision X1 SatMar 10 07:00:00 2023Apr 03 18:33:00 2023 Daily Multivitamin-Minerals tablet 1 tab TABLET Oral 1 Time Daily Indication: MVI P[employer] DES[employer]ER Supervision x1 SatMar 10 07:00:00 EST 2023Apr 04 06:41:00 2023 Arginaid 4.5 gram-156 mg/9.2 gram oral powder packet 1 packet POWDER IN PACKET (EA) Oral 1 Time Daily Indication: wound healingCNA Supervision x1 SatMar 10 07:00:00 2023Apr 03 18:33:00 2023 heparin lock flush (porcine) 10 unit/mL intravenous solution 5 mL VIAL (ML) Intravenous 2 Times Daily Indication: PICC flush SatFeb 27 00:00:00 2023Mar 09 01:00:00 2023 nystatin 100,000 unit/gram topical powder 1 APPLICATION POWDER (GRAM) Topical 2 Times Daily Indication: Cleanse abd folds, groin tyrone area and apply fungal powder. SatFeb 04 21:00:00 2022Mar 09 01:00:00 2023 heparin Lock Flush (Porcine) (PF) 10 unit/mL intravenous syringe 5 mL SYRINGE (ML) Intravenous 2 Times Daily Indication: PICC flush SatFeb 02 01:00:00 2022Feb 27 00:04:00 2023 Normal Saline Flush 0.9 % injection syringe 10 mL SYRINGE (ML) Intravenous 3 Times Daily Indication: PICC flush after medication admin SatFeb 02 01:00:00 2022Mar 09 01:00:00 2023 Pro-Stat AWC 17 gram-100 kcal/30 mL oral liquid 30 cc LIQUID (ML) Oral 1 Time Daily Indication: For wound healing SatFeb 01 19:00:00 2022Mar 09 01:00:00 2023 Daily Multivitamin-Minerals tablet 1 tab TABLET Oral 1 Time Daily Indication: MVI SatFeb 02 09:00:00 EST 2022Mar 09 01:00:00 EST 2023 Arginaid 4.5 gram-156 mg/9.2 gram oral powder packet as directed POWDER IN PACKET (EA) Oral 1 Time Daily Indication: wound healing SatFeb 02 09:00:00 EST 2022Mar 09 01:00:00 EST 2023 heparin Lock Flush (Porcine) (PF) 10 unit/mL intravenous syringe 5 mL SYRINGE (ML) Intravenous 2 Times Daily Indication: PICC flush SatFeb 01 21:00:00 EST 2022Feb 02:41:00 EST 2022 Normal Saline Flush 0.9 % injection syringe 10 mL SYRINGE (ML) Intravenous 2 Times Daily Indication: PICC flush SatFeb 01 21:00:00 EST 2022Feb 02 06:42:00 EST 2022 heparin Lock Flush (Porcine) (PF) 10 unit/mL intravenous syringe 5 mL SYRINGE (ML) Intravenous 1 Time Daily Indication: PICC flush after medication admin SatFeb 01 21:00:00 EST 2022Feb 02:41:00 EST 2022 Normal Saline Flush 0.9 % injection syringe 10 mL SYRINGE (ML) Intravenous 1 Time Daily Indication: PICC flush after medication admin SatFeb 01 21:00:00 EST 2022Feb 02:42:00 EST 2022 vancomycin 1.5 gram/250 mL in 0.9 % sodium chloride intravenous 244ML PLASTIC BAG, INJECTION (ML) Intravenous 1 Time Daily for 35 Days Indication: SKIN/SOFT TISSUEINFECTION INFUSE 244ML (1464MG) INTO A VENOUS CATHETER DAILYTOTAL 7,320 mL SatFeb 01 21:00:00 EST 2022Mar 08 20:59:00 EST 2023 tamsulosin 0.4 mg capsule 1 CAP CAPSULE Oral 1 Time Daily Indication: Urinary retention SatFeb 01 21:00:00 EST 2022Mar 09 01:00:00 EST 2023 vancomycin 1.5 gram/250 mL in 0.9 % sodium chloride intravenous 244ML PLASTIC BAG, INJECTION (ML) Intravenous 1 Time Daily for 37 Days Indication: SKIN/SOFT TISSUEINFECTION INFUSE 244ML (1464MG) INTO A VENOUS CATHETER DAILYTOTAL 7,320 mL SatJan 31 12:00:00 2022Feb 01 23:12:00 EST 2022 TubersoL 5 tub. unit/0.1 mL intradermal injection solution 0.1 ml VIAL (ML) Intradermal 1 Time Weekly for 2 Weeks Indication: TB 1st injection on admission, then one week after. Read between 48 and 72 hours SatJan 30 17:34:00 EST 2022Feb 13 17:33:00 EST 2022 TubersoL 5 tub. unit/0.1 mL intradermal injection solution Read Results VIAL (ML) Other 1 Time Weekly for 2 Weeks Indication: TB Read results between 48-72 hours after 1st and 2nd (1 week apart). If positive do chest x-ray. SatJan 30 09:00:00 EST 2022Feb 13 08:59:00 EST 2022 vancomycin 1.5 gram/250 mL in 0.9 % sodium chloride intravenous 244ML PLASTIC BAG, INJECTION (ML) Intravenous 1 Time Daily for 37 Days Indication: SKIN/SOFT TISSUEINFECTION INFUSE 244ML (1464MG) INTO A VENOUS CATHETER DAILYTOTAL 7,320 mL SatJan 30 11:00:00 EST 2022Jan 31 13:03:00 EST 2022 acetaminophen 500 mg tablet 1 TAB TABLET Oral Every 8 Hours Indication: Pain *DO NOT EXCEED 3GM/DAY APAP FROM ALL SOURCES* SatJan 30 11:00:00 EST 2022Mar 09 01:00:00 EST 2023 albuterol sulfate HFA 90 mcg/actuation aerosol inhaler 2 PUFFS HFA AEROSOL WITH ADAPTER (GRAM) Inhalation Every 6 Hours Indication: Asthma SatJan 30 11:00:00 EST 2022Jan 31 17:16:00 EST 2022 aspirin 325 mg tablet,delayed release 1 TAB TABLET, DELAYED RELEASE (ENTERIC COATED) Oral 1 Time Daily Indication: Blood thinner SatJan 30 11:00:00 EST 2022Mar 09 01:00:00 EST 2023 atenoloL 50 mg tablet 1 TAB TABLET Oral 1 Time Daily Indication: HTN SatJan 30 11:00:00 2022Mar 09 01:00:00 EST 2023 atorvastatin 40 mg tablet 1 TAB TABLET O ral 1 Time Daily Indication: HLD SatJan 30 11:00:00 EST 2022Mar 09 01:00:00 EST 2023 buPROPion HCL SR 100 mg tablet,12 hr sustained-release 1 TAB TABLET,SUSTAINED-RELEASE 12 HR Oral 2 Times Daily Indication: Depression SatJan 30 11:00:00 EST 2022Mar 09 01:00:00 EST 2023 fluticasone 500 mcg-salmeteroL 50 mcg/dose blistr powdr for inhalation 1 PUFF BLISTER, WITH INHALATION DEVICE Inhalation 2 Times Daily Indication: Asthma RINSE MOUTH WITH WATER AFTER USE. DO NOT SWALLOW SatJan 30 12:00:00 EST 2022Jan 31 17:16:00 EST 2022 gabapentin 300 mg capsule 1 TAB CAPSULE Oral 2 Times Daily Indication: Neuropathy SatJan 30 11:00:00 EST 2022Mar 09 01:00:00 EST 2023 HYDROcodone 5 mg-acetaminophen 325 mg tablet 1 TAB TABLET Oral PRN Every 4 Hours Indication: Pain *DO NOT EXCEED 3GM/DAY APAP FROM ALL SOURCES* SatJan 30 11:00:00 2022Mar 09 01:00:00 EST 2023 nystatin 100,000 unit/gram topical powder 1 APPLICATION POWDER (GRAM) Topical PRN 4 Times Daily Indication: Cleanse abd folds and groin. Apply powder as needed. SatJan 30 11:00:00 EST 2022Feb 04 14:58:00 EST 2022 sertraline 100 mg tablet 1 TAB TABLET Or al 1 Time Daily Indication: Depression SatJan 30 11:00:00 EST 2022Mar 09 01:00:00 EST 2023 tamsulosin 0.4 mg capsule 1 CAP CAPSULE Oral 1 Time Daily Indication: Urinary retention BEFORE BREAKFAST SatJan 30 11:00:00 EST 2022Feb 01 23:13:00 EST 2022 Normal Saline Flush 0.9 % injection syringe 1 flush SYRINGE (ML) Intravenous 2 Times Daily Indication: PICC Indication: PICC SatJan 30 08:00:00 EST 2022Feb 01 23:07:00 EST 2022 mupirocin 2 % topical ointment BID OINTMENT (GRAM) Topical 2 Times Daily for 7 Days Indication: surgical incision nurse admin x1 x4 for 7 days to RLE incision SatJan 20 01:00:00 EST 2022Jan 27 00:59:00 EST 2022 fluticasone 500 mcg-salmeteroL 50 mcg/dose blistr powdr for inhalation 1 puff BLISTER, WITH INHALATION DEVICE Inhalation 2 Times Daily Indication: Asthma Nurse to administer SatJan 18 17:00:00 EST 2022Mar 09 16:01:00 EST 2023 tamsulosin 0.4 mg capsule 1 capsule CAPS ULE Oral 1 Time Daily Indication: urinary retention P[employer] DESIGNER supervision x1 SatJan 18 17:00:00 EST 2022Apr 03 18:43:00 EST 2023 albuterol sulfate HFA 90 mcg/actuation aerosol inhaler 2 puffs HFA AEROSOL WITH ADAPTER (GRAM) Inhalation PRN 4 Times Daily Indication: Asthma Nurse to administer. SatJan 18 17:00:00 EST 2022 acetaminophen 500 mg tablet 2 tablets TABLET Oral PRN Every 8 Hours Indication: pain Do not exceed 3GM in a day.Nurse to administer. SatJan 18 17:00:00 EST 2022 atenoloL 50 mg tablet 1 tablet TABLET Or al 1 Time Daily Indication: HTN P[employer] DESIGNER supervision x1 SatJan 18 17:00:00 EST 2022Mar 10 10:25:00 EST 2023 buPROPion HCL 100 mg tablet 1 tablet TABLET Oral 2 Times Daily Indication: Depression P[employer] DESIGNER supervision x1, x4 SatJan 18 17:00:00 EST 2022Apr 04 06:34:00 EST 2023 gabapentin 300 mg capsule 1 capsule CAPS ULE Oral 2 Times Daily Indication: Neuropathy P[employer] DESIGNER supervision x1, x4 SatJan 18 17:00:00 EST 2022Apr 04 06:37:00 EST 2023 sertraline 100 mg tablet 1 tablet TABLET Oral 1 Time Daily Indication: Depression P[employer] DESIGNER supervision x1 SatJan 18 17:00:00 EST 2022Apr 03 18:36:00 EST 2023 HYDROcodone 5 mg-acetaminophen 325 mg tablet 1 tablet TABLET Oral PRN Every 4 Hours Indication: pain Nurse to administer. SatJan 18 17:00:00 EST 2022 aspirin 325 mg tablet 1 tablet TABLET Or al 2 Times Daily Indication: DVT prophCNA supervision x1, x4 SatJan 18 17:00:00 EST 2022Mar 09 15:49:00 EST 2023 atorvastatin 40 mg tablet 1 tablet TABLE T Oral 1 Time Daily Indication: HLD P[employer] DESIGNER supervision x4 SatJan 18 17:00:00 EST 2022 nystatin 100,000 unit/gram topical powder 1 application POWDER (GRAM) Topical PRN 4 Times Daily Indication: Fungal rash Apply powder to abdomen folds & groin. SatJan 18 17:00:00 EST 2022 Blood Pressure Kit 1 KIT Other 2 Times Monthly Indication: Vital signs P[employer]S DESIGNER to obtain. SatJan 18 17:00:00 EST 2022 aspirin 325 mg tablet 1 tablet TABLET Or al 2 Times Daily Indication: DVT proph SatDec 25 15:00:00 EDT 2022Jan 18 01:00:00 EST 2022 atorvastatin 40 mg tablet 1 tablet TABLE T Oral 1 Time Daily Indication: HLD SatDec 25 15:00:00 EDT 2022Jan 18 01:00:00 EST 2022 nystatin 100,000 unit/gram topical powder 1 application POWDER (GRAM) Topical 2 Times Daily Indication: Apply powder to abdomen folds & groin BID d/t fungal rash SatDec 25 16:00:00 EDT 2022Dec 26 00:42:00 EDT 2022 nystatin 100,000 unit/gram topical powder 1 application POWDER (GRAM) Topical PRN 4 Times Daily Indication: Apply powder to abdomen folds & groin BID d/t fungal rash SatDec 26 02:00:00 EDT 2022Jan 18 01:00:00 EST 2022 nystatin 100,000 unit/gram topical powder 1 powder POWDER (GRAM) Topical PRN Indication: antifungal Sun Dec 02 13:50:00 EDT 2022Dec 25 16:33:00 EDT 2022 TubersoL 5 tub. unit/0.1 mL intradermal injection solution 0.1 ml VIAL (ML) Intradermal 1 Time Weekly for 2 Weeks Indication: tb test 1st injection on admission, then one week after. Read between 48 and 72 hours SatNov 30 15:00:00 EDT 2022Dec 14 14:59:00 EDT 2022 TubersoL 5 tub. unit/0.1 mL intradermal injection solution Read Results VIAL (ML) Other 1 Time Weekly for 2 Weeks Indication: tb test Read results between 48-72 hours after 1st and 2nd (1 week apart). If positive do chest x-ray. SatNov 30 15:00:00 EDT 2022Dec 14 14:59:00 EDT 2022 amoxicillin 875 mg-potassium clavulanate 125 mg tablet 1 TABLET TABLET Oral Every 12 Hours for 9 Days Indication: Pneumonia SatNov 29 15:50:00 EDT 2022Dec 08 15:49:00 EDT 2022 fluticasone 500 mcg-salmeteroL 50 mcg/dose blistr powdr for inhalation 1 PUFF BLISTER, WITH INHALATION DEVICE Inhalation Every 12 Hours Indication: Asthma SatNov 29 15:50:00 EDT 2022Jan 18:00: EST 2022 tamsulosin 0.4 mg capsule 1 CAPSULE CAPS ULE Oral 1 Time Daily Indication: Urinary Retention SatNov 29 15:50:00 EDT 2022Jan 18:00: EST 2022 albuterol sulfate HFA 90 mcg/actuation aerosol inhaler 2 PUFFS HFA AEROSOL WITH ADAPTER (GRAM) Inhalation PRN 4 Times Daily Indication: Asthma SatNov 29 15:50:00 EDT 2022Jan 18:00:00 EST 2022 levoFLOXacin 750 mg tablet 1 TABLET TABL ET Oral 1 Time Daily for 4 Days Indication: Pneumonia Massiel Nov 29 15:50:00 EDT 2022Nov 29 18:37:00 EDT 2022 acetaminophen 500 mg tablet 2 TABLETS TABLET Oral PRN Every 8 Hours Indication: PAIN/FEVER (2TABLETS= 1000MG)*DO NOT EXCEED 3GM APAP/DAY FROM ALL SOURCES* SatNov 29 15:50:00 EDT 2022Jan 18:00:00 EST 2022 atenoloL 50 mg tablet 1 TABLET TABLET Or al 1 Time Daily Indication: HTN SatNov 29 15:50:00 EDT 2022Jan 18:00:00 EST 2022 aspirin 81 mg chewable tablet 1 TABLET TABLET,CHEWABLE Oral 1 Time Daily Indication: DVT prophylactic SatNov 29 15:50:00 EDT 2022Dec 18 07:07:00 EDT 2022 atorvastatin 20 mg tablet 1 TABLET TABLE T Oral 1 Time Daily Indication: Hyperlipidemia SatNov 29 15:50:00 EDT 2022Dec 25 15:58:00 EDT 2022 buPROPion HCL 100 mg tablet 1 TABLET TABLET Oral 2 Times Daily Indication: Depression SatNov 29 15:50:00 EDT 2022Jan 18:00:00 EST 2022 gabapentin 300 mg capsule 1 CAPSULE CAPS ULE Oral 2 Times Daily Indication: Neuropathy SatNov 29 15:50:00 EDT 2022Jan 18:00:00 EST 2022 sertraline 100 mg tablet 1 TABLET TABLET Oral 1 Time Daily Indication: Depression SatNov 29 15:50:00 EDT 2022Jan 18 01:00:00 EST 2022 levoFLOXacin 750 mg tablet 1 tablet TABL ET Oral Every 2 Days for 7 Days Indication: PNA SatNov 30 07:00:00 EDT 2022Dec 07 06:59:00 EDT 2022 HYDROcodone 5 mg-acetaminophen 325 mg tablet 5-325 mg TABLET Oral PRN Every 4 Hours Indication: Severe pain SatNov 30 00:30:00 EDT 2022Jan 18 01:00:00 2022 Problems Active Concerns * Presence of urogenital implants* Code: * Start Date: SatNov 29 00:00:00 EDT 2022 * End Date: * Text: * Retention of urine, unspecified* Code: * Start Date: SatNov 29 00:00:00 EDT 2022 * End Date: * Text: * Hyperlipidemia, unspecified* Code: * Start Date: SatNov 29 00:00:00 EDT 2022 * End Date: * Text: * Depression, unspecified* Code: * Start Date: SatNov 29 00:00:00 EDT 2022 * End Date: * Text: * Anxiety disorder, unspecified* Code: * Start Date: SatNov 29 00:00:00 EDT 2022 * End Date: * Text: * Chronic kidney disease, stage 3 unspecified* Code: * Start Date: SatNov 29 00:00:00 EDT 2022 * End Date: * Text: * Gastro-esophageal reflux disease without esophagitis* Code: * Start Date: SatNov 29 00:00:00 EDT 2022 * End Date: * Text: * Obstructive sleep apnea (adult) (pediatric)* Code: * Start Date: SatNov 29 00:00:00 EDT 2022 * End Date: * Text: * Emphysema, unspecified* Code: * Start Date: SatNov 29 00:00:00 EDT 2022 * End Date: * Text: * Personal history of transient ischemic attack (TIA), and cerebral infarction without residual deficits* Code: * Start Date: SatNov 29 00:00:00 EDT 2022 * End Date: * Text: * Presence of right artificial hip joint* Code: * Start Date: SatNov 29 00:00:00 EDT 2022 * End Date: * Text: * Hypertensive chronic kidney disease with stage 1 through stage 4 chronic kidney disease, or unspecified chronic kidney disease* Code: * Start Date: SatNov 29 00:00:00 EDT 2022 * End Date: * Text: * Presence of other bone and tendon implants* Code: * Start Date: SatNov 29 00:00:00 EDT 2022 * End Date: * Text: * Chronic obstructive pulmonary disease with (acute) lower respiratory infection * Code: * Start Date: SatNov 29 00:00:00 EDT 2022 * End Date: * Text: * Ataxia, unspecified* Code: * Start Date: SatNov 29 00:00:00 EDT 2022 * End Date: * Text: * Personal history of COVID-19* Code: * Start Date: SatDec 25 00:00:00 EDT 2022 * End Date: * Text: * retirement (current) use of aspirin* Code: * Start Date: SatDec 25 00:00:00 EDT 2022 * End Date: * Text: * Solitary pulmonary nodule* Code: * Start Date: SatDec 25 00:00:00 EDT 2022 * End Date: * Text: * Neuromuscular dysfunction of bladder, unspecified* Code: * Start Date: SatDec 25 00:00:00 EDT 2022 * End Date: * Text: * retirement (current) use of opiate analgesic* Code: * Start Date: SatDec 25 00:00:00 EDT 2022 * End Date: * Text: * Subluxation of left ankle joint, subsequent encounter* Code: * Start Date: SatJan 30 00:00:00 EST 2022 * End Date: * Text: * Other specified postprocedural states* Code: * Start Date: SatJan 30 00:00:00 EST 2022 * End Date: * Text: * retirement (current) use of antibiotics* Code: * Start Date: SatJan 30 00:00:00 EST 2022 * End Date: * Text: * Presence of other specified devices* Code: * Start Date: SatJan 30 00:00:00 EST 2022 * End Date: * Text: * Anemia, unspecified* Code: * Start Date: SatJan 30 00:00:00 EST 2022 * End Date: * Text: * Unspecified dementia, mild, with mood disturbance* Code: * Start Date: SatMar 09 00:00:00 EST 2023 * End Date: * Text: * Unspecified osteoarthritis, unspecified site* Code: * Start Date: SatMar 09 00:00:00 EST 2023 * End Date: * Text: * Postmenopausal atrophic vaginitis* Code: * Start Date: SatMar 09 00:00:00 EST 2023 * End Date: * Text: * Personal history of (healed) traumatic fracture* Code: * Start Date: SatMar 09 00:00:00 EST 2023 * End Date: * Text: Resolved Concerns * Problem Displaced bimalleolar fracture of right lower leg, subsequent encounter for closed fracturewith routine healing* Code: * Start Date: SatNov 29 00:00:00 EDT 2022 * End Date: SatFeb 09 00:00:00 EST 2023 * Problem Unspecified fall, subsequent encounter* Code: * Start Date: SatNov 29 00:00:00 EDT 2022 * End Date: SatFeb 09 00:00:00 EST 2023 * Problem Pneumonia, unspecified organism* Code: * Start Date: SatNov 29 00:00:00 EDT 2022 * End Date: SatFeb 09 00:00:00 EST 2023 * Problem Weakness* Code: * Start Date: SatNov 29 00:00:00 EDT 2022 * End Date: SatSep 09 00:00:00 EDT 2023 * Problem Polyneuropathy, unspecified* Code: * Start Date: SatDec 25 00:00:00 EDT 2022 * End Date: SatSep 09 00:00:00 EDT 2023 * Problem Infection following a procedure, other surgical site, subsequent encounter* Code: * Start Date: SatJan 30 00:00:00 EST 2022 * End Date: SatAug 24 00:00:00 EDT 2023 * Problem Methicillin resistant Staphylococcus aureus infection as the cause of diseases classified elsewhere* Code: * Start Date: SatJan 30 00:00:00 EST 2022 * End Date: SatFeb 09 00:00:00 EST 2023 * Problem Encounter for adjustment and management of vascular access device* Code: * Start Date: SatJan 30 00:00:00 EST 2022 * End Date: SatFeb 09 00:00:00 EST 2023 * Problem Unspecified dementia, unspecified severity, with mood disturbance* Code: * Start Date: SatJan 30 00:00:00 EST 2022 * End Date: SatFeb 09 00:00:00 EST 2023 * Problem Cellulitis of right lower limb* Code: * Start Date: SatJan 30 00:00:00 EST 2022 * End Date: SatFeb 09 00:00:00 EST 2023 * Problem Unspecified dementia, unspecified severity, with anxiety* Code: * Start Date: SatMar 09 00:00:00 EST 2023 * End Date: SatFeb 09 00:00:00 EST 2023 * Problem Pain in right hip* Code: * Start Date: SatMar 11 00:00:00 EST 2023 * End Date: SatFeb 09 00:00:00 EST 2023 * Problem Cognitive communication deficit* Code: * Start Date: SatMar 11 00:00:00 EST 2023 * End Date: SatFeb 09 00:00:00 EST 2023 * Problem Muscle weakness (generalized)* Code: * Start Date: SatMar 11 00:00:00 EST 2023 * End Date: SatFeb 09 00:00:00 EST 2023 * Problem Other fatigue* Code: * Start Date: SatMar 11 00:00:00 EST 2023 * End Date: SatFeb 09 00:00:00 EST 2023 * Problem Need for assistance with personal care* Code: * Start Date: SatMar 11 00:00:00 EST 2023 * End Date: SatFeb 09 00:00:00 EST 2023 Vital Signs Vital Sign Measurement Date Systolic Blood Pressure 144.00 mm[Hg] SatMay 29 14:22:59 EDT 2024 Diastolic Blood Pressure 85.00 mm[Hg] SatMay 29 14:22:59 EDT 2024 Body weight 221.60 [lb_av] SatMay 29 14:22 :59 EDT 2024 Heart Rate 77.00 /min SatMay 29 14:22 :59 EDT 2024 Body temperature 97.90 [degF] SatMay 29 14:2 2:59 EDT 2024 Respiratory rate 18.00 /min SatMay 29 14:2 2:59 EDT 2024 Systolic Blood Pressure 136.00 mm[Hg] SatMay 12 11:25:07 EDT 2024 Diastolic Blood Pressure 70.00 mm[Hg] SatMay 12 11:25:07 EDT 2024 Body weight 221.00 [lb_av] SatMay 12 11:25 :07 EDT 2024 Heart Rate 58.00 /min SatMay 12 11:25 :07 EDT 2024 Body temperature 97.50 [degF] SatMay 12 11:2 5:07 EDT 2024 Respiratory rate 18.00 /min SatMay 12 11:2 5:07 EDT 2024 Systolic Blood Pressure 113.00 mm[Hg] SatApr 28 15:43:00 EST 2024 Diastolic Blood Pressure 65.00 mm[Hg] SatApr 28 15:43:00 EST 2024 Heart Rate 70.00 /min SatApr 28 15:43 :00 EST 2024 Body temperature 97.30 [degF] SatApr 28 15:4 3:00 EST 2024 Respiratory rate 18.00 /min SatApr 28 15:4 3:00 EST 2024 Pulse Oximetry 92.00 % SatApr 28 15:43 :00 EST 2024 Systolic Blood Pressure 110.00 mm[Hg] SatApr 28 12:09:43 EST 2024 Diastolic Blood Pressure 60.00 mm[Hg] SatApr 28 12:09:43 EST 2024 Body weight 215.80 [lb_av] SatApr 28 12:09 :43 EST 2024 Heart Rate 64.00 /min SatApr 28 12:09 :43 EST 2024 Body temperature 97.90 [degF] SatApr 28 12:0 9:43 EST 2024 Respiratory rate 18.00 /min SatApr 28 12:0 9:43 EST 2024 Systolic Blood Pressure 131.00 mm[Hg] SatApr 20 13:51:00 EST 2024 Diastolic Blood Pressure 56.00 mm[Hg] SatApr 20 13:51:00 EST 2024 Heart Rate 62.00 /min SatApr 20 13:51 :00 EST 2024 Body temperature 97.60 [degF] SatApr 20 13:5 1:00 EST 2024 Respiratory rate 20.00 /min SatApr 20 13:5 1:00 EST 2024 Pulse Oximetry 97.00 % SatApr 20 13:51 :00 EST 2024 Systolic Blood Pressure 134.00 mm[Hg] Sat b 17:31:07 EST 2024 Diastolic Blood Pressure 72.00 mm[Hg] Sat b 22 17:31:07 EST 2024 Heart Rate 64.00 /min Sat b 22 17:31 :07 EST 2024 Body temperature 98.10 [degF] [facility] b 22 17:3 1:07 EST 2024 Respiratory rate 18.00 /min Sat b 17:3 1:07 EST 2024 Pulse Oximetry 95.00 % Sat b 17:31 :07 EST 2024 Systolic Blood Pressure 131.00 mm[Hg] Sat 18 11:35:04 EST 2024 Diastolic Blood Pressure 71.00 mm[Hg] e b 18 11:35:04 EST 2024 Body weight 222.20 [lb_av] Sat 18 11:35 :04 EST 2024 Heart Rate 61.00 /min Sat 18 11:35 :04 EST 2024 Body temperature 97.70 [degF] SatApr 14 11:3 5:04 EST 2024 Respiratory rate 18.00 /min SatApr 14 11:3 5:04 EST 2024 Systolic Blood Pressure 97.00 mm[Hg] Sun Apr 05 14:50:00 EST 2024 Diastolic Blood Pressure 54.00 mm[Hg] Sun Apr 05 14:50:00 EST 2024 Heart Rate 56.00 /min [place] Apr 05 14:50 :00 EST 2024 Body temperature 98.00 [degF] [place] Apr 05 14:5 0:00 EST 2024 Respiratory rate 18.00 /min [place] Apr 05 14:5 0:00 EST 2024 Pulse Oximetry 96.00 % [place] Apr 05 14:50 :00 EST 2024 Systolic Blood Pressure 147.00 mm[Hg] SatMar 31 11:13:10 EST 2024 Diastolic Blood Pressure 79.00 mm[Hg] SatMar 31 11:13:10 EST 2024 Body weight 219.20 [lb_av] SatMar 31 11:13 :10 EST 2024 Heart Rate 61.00 /min SatMar 31 11:13 :10 EST 2024 Body temperature 97.70 [degF] SatMar 31 11:1 3:10 EST 2024 Respiratory rate 18.00 /min SatMar 31 11:1 3:10 EST 2024 Systolic Blood Pressure 111.00 mm[Hg] Sat Mar 14 14:05:07 EST 2024 Diastolic Blood Pressure 66.00 mm[Hg] Sat Mar 14 14:05:07 EST 2024 Body weight 218.00 [lb_av] Sat Mar 14 14:05 :07 EST 2024 Heart Rate 59.00 /min SatMar 14 14:05 :07 EST 2024 Body temperature 97.20 [degF] SatMar 14 14:0 5:07 EST 2024 Respiratory rate 20.00 /min SatMar 14 14:0 5:07 EST 2024 Systolic Blood Pressure 105.00 mm[Hg] SatFeb 28 13:19:03 EST 2024 Diastolic Blood Pressure 57.00 mm[Hg] SatFeb 28 13:19:03 EST 2024 Body weight 214.60 [lb_av] [facility] Feb 28 13:19 :03 EST 2024 Heart Rate 59.00 /min SatFeb 28 13:19 :03 EST 2024 Body temperature 97.30 [degF] SatFeb 28 13:1 9:03 EST 2024 Respiratory rate 20.00 /min SatFeb 28 13:1 9:03 EST 2024 Systolic Blood Pressure 137.00 mm[Hg] SatJan 28 14:49:49 EST 2023 Diastolic Blood Pressure 82.00 mm[Hg] SatJan 28 14:49:49 EST 2023 Body weight 207.20 [lb_av] SatJan 28 14:49 :49 EST 2023 Heart Rate 64.00 /min SatJan 28 14:49 :49 EST 2023 Body temperature 98.40 [degF] SatJan 28 14:4 9:49 EST 2023 Respiratory rate 18.00 /min SatJan 28 14:4 9:49 EST 2023 Systolic Blood Pressure 122.00 mm[Hg] SatJan 12 15:22:38 EST 2023 Diastolic Blood Pressure 76.00 mm[Hg] SatJan 12 15:22:38 EST 2023 Body weight 201.80 [lb_av] SatJan 12 15:22 :38 EST 2023 Heart Rate 67.00 /min SatJan 12 15:22 :38 EST 2023 Body temperature 97.80 [degF] SatJan 12 15:2 2:38 EST 2023 Respiratory rate 18.00 /min SatJan 12 15:2 2:38 EST 2023 Systolic Blood Pressure 110.00 mm[Hg] SatDec 29 14:55:29 EST 2023 Diastolic Blood Pressure 58.00 mm[Hg] SatDec 29 14:55:29 EST 2023 Body weight 202.30 [lb_av] SatDec 29 14:55 :29 EST 2023 Heart Rate 57.00 /min SatDec 29 14:55 :29 EST 2023 Body temperature 98.30 [degF] SatDec 29 14:5 5:29 EST 2023 Respiratory rate 18.00 /min SatDec 29 14:5 5:29 EST 2023 Systolic Blood Pressure 134.00 mm[Hg] Sat Oct 19 14:39:36 EDT 2023 Diastolic Blood Pressure 69.00 mm[Hg] [facility] Oct 19 14:39:36 EDT 2023 Heart Rate 60.00 /min [facility] Oct 19 14:39 :36 EDT 2023 Body temperature 97.90 [degF] [facility] Oct 19 14:3 9:36 EDT 2023 Respiratory rate 18.00 /min [facility] 19 14:3 9:36 EDT 2023 Pulse Oximetry 95.00 % [facility] 19 14:39 :36 EDT 2023 Systolic Blood Pressure 137.00 mm[Hg] Fri Oct 18 22:17:19 EDT 2023 Diastolic Blood Pressure 84.00 mm[Hg] Fri Oct 18 22:17:19 EDT 2023 Heart Rate 55.00 /min Fri Oct 18 22:17 :19 EDT 2023 Body temperature 97.80 [degF] Fri Oct 18 22:1 7:19 EDT 2023 Respiratory rate 20.00 /min Fri Oct 18 22:1 7:19 EDT 2023 Pulse Oximetry 95.00 % Fri Oct 18 22:17 :19 EDT 2023 Systolic Blood Pressure 127.00 mm[Hg] Sat Oct 18 13:30:57 EDT 2023 Diastolic Blood Pressure 66.00 mm[Hg] Sat Oct 18 13:30:57 EDT 2023 Body weight 205.60 [lb_av] Sat Oct 18 13:30 :57 EDT 2023 Heart Rate 69.00 /min Sat Oct 18 13:30 :57 EDT 2023 Body temperature 97.60 [degF] Sat Oct 18 13:3 0:57 EDT 2023 Respiratory rate 20.00 /min Sat Oct 18 13:3 0:57 EDT 2023 Systolic Blood Pressure 127.00 mm[Hg] Sat Oct 18 13:25:09 EDT 2023 Diastolic Blood Pressure 66.00 mm[Hg] Sat Oct 18 13:25:09 EDT 2023 Heart Rate 69.00 /min Fri Oct 18 13:25 :09 EDT 2023 Body temperature 97.60 [degF] Fri Oct 18 13:2 5:09 EDT 2023 Respiratory rate 20.00 /min Fri Oct 18 13:2 5:09 EDT 2023 Pulse Oximetry 97.00 % Fri Oct 18 13:25 :09 EDT 2023 Systolic Blood Pressure 128.00 mm[Hg] [facility] Oct 17 14:33:06 EDT 2023 Diastolic Blood Pressure 58.00 mm[Hg] [facility] Oct 17 14:33:06 EDT 2023 Heart Rate 64.00 /min [facility] Oct 17 14:33 :06 EDT 2023 Body temperature 98.10 [degF] [facility] Oct 17 14:3 3:06 EDT 2023 Respiratory rate 18.00 /min [facility] Oct 17 14:3 3:06 EDT 2023 Pulse Oximetry 94.00 % [facility] Oct 17 14:33 :06 EDT 2023 Systolic Blood Pressure 127.00 mm[Hg] Wed Oct 16 21:01:40 EDT 2023 Diastolic Blood Pressure 53.00 mm[Hg] Wed Oct 16 21:01:40 EDT 2023 Systolic Blood Pressure 130.00 mm[Hg] Wed Oct 16 21:01:40 EDT 2023 Diastolic Blood Pressure 58.00 mm[Hg] Wed Oct 16 21:01:40 EDT 4 Heart Rate 57.00 /min Wed Oct 16 21:01 :40 EDT 4 Heart Rate 66.00 /min Wed Oct 16 21:01 :40 EDT 2023 Body temperature 98.10 [degF] Wed Oct 16 21:0 1:40 EDT 2023 Body temperature 98.40 [degF] Wed Oct 16 21:0 1:40 EDT 4 Respiratory rate 18.00 /min Wed Oct 16 21:0 1:40 EDT 4 Respiratory rate 18.00 /min Wed Oct 16 21:0 1:40 EDT 2023 Pulse Oximetry 96.00 % Wed Oct 16 21:01 :40 EDT 2023 Pulse Oximetry 93.00 % Wed Oct 16 21:01 :40 EDT 2023 Systolic Blood Pressure 109.00 mm[Hg] Wed Oct 16 01:18:40 EDT 2023 Diastolic Blood Pressure 56.00 mm[Hg] Wed Oct 16 01:18:40 EDT 2023 Heart Rate 57.00 /min Wed Oct 16 01:18 :40 EDT 2023 Body temperature 97.50 [degF] Wed Oct 16 01:1 8:40 EDT 4 Respiratory rate 18.00 /min [facility] Nov 16 01:1 8:40 EDT 2023 Pulse Oximetry 96.00 % [facility] 16 01:18 :40 EDT 2023 Systolic Blood Pressure 144.00 mm[Hg] [facility] 15 14:50:15 EDT 4 Diastolic Blood Pressure 82.00 mm[Hg] [facility] 15 14:50:15 EDT 2023 Heart Rate 77.00 /min [facility] 15 14:50 :15 EDT 2023 Body temperature 98.40 [degF] [facility] 15 14:5 0:15 EDT 2023 Pulse Oximetry 93.00 % [facility] 15 14:50 :15 EDT 2023 Respiratory rate 18.00 /min [facility] 15 14:4 8:59 EDT 2023 Systolic Blood Pressure 144.00 mm[Hg] [facility] 15 09:00:00 EDT 2023 Diastolic Blood Pressure 82.00 mm[Hg] [facility] 15 09:00:00 EDT 2023 Heart Rate 77.00 /min [facility] 15 09:00 :00 EDT 2023 Body temperature 98.40 [degF] [facility] 15 09:0 0:00 EDT 2023 Respiratory rate 18.00 /min [facility] 15 09:0 0:00 EDT 2023 Pulse Oximetry 93.00 % [facility] 15 09:00 :00 EDT 2023 Systolic Blood Pressure 102.00 mm[Hg] [facility] Nov 14 22:51:05 EDT 4 Diastolic Blood Pressure 51.00 mm[Hg] [facility] Nov 14 22:51:05 EDT 2023 Heart Rate 58.00 /min [facility] Nov 14 22:51 :05 EDT 2023 Body temperature 97.90 [degF] [facility] Nov 14 22:5 1:05 EDT 2023 Respiratory rate 18.00 /min [facility] Nov 14 22:5 1:05 EDT 2023 Pulse Oximetry 94.00 % [facility] Nov 14 22:51 :05 EDT 2023 Body temperature 97.80 [degF] [place] Oct 13 12:1 1:47 EDT 2023 Body temperature 97.30 [degF] [facility] Oct 12 16:1 3:35 EDT 2023 Body temperature 98.10 [degF] [facility] Nov 12 15:5 4:55 EDT 2023 Body temperature 97.50 [degF] SatDec 05 17:1 1:24 EDT 2023 Body temperature 98.10 [degF] SatDec 05 14:4 0:21 EDT 2023 Body temperature 98.30 [degF] SatDec 05 03:0 2:38 EDT 2023 Systolic Blood Pressure 130.00 mm[Hg] SatNov 28 13:13:01 EDT 2023 Diastolic Blood Pressure 68.00 mm[Hg] SatNov 28 13:13:01 EDT 2023 Body weight 207.60 [lb_av] SatNov 28 13:13 :01 EDT 2023 Heart Rate 58.00 /min SatNov 28 13:13 :01 EDT 2023 Body temperature 97.60 [degF] SatNov 28 13:1 3:01 EDT 2023 Respiratory rate 20.00 /min SatNov 28 13:1 3:01 EDT 2023 Systolic Blood Pressure 125.00 mm[Hg] Sat 18 11:53:30 EDT 2023 Diastolic Blood Pressure 69.00 mm[Hg] [facility] Oct 18 11:53:30 EDT 2023 Body weight 208.40 [lb_av] [facility] Oct 18 11:53 :30 EDT 2023 Heart Rate 59.00 /min [facility] Sep 18 11:53 :30 EDT 2023 Body temperature 98.10 [degF] [facility] Sep 18 11:5 3:30 EDT 2023 Respiratory rate 18.00 /min [facility] Sep 18 11:5 3:30 EDT 2023 Systolic Blood Pressure 133.00 mm[Hg] [facility] Sep 04 12:04:17 EDT 2023 Diastolic Blood Pressure 66.00 mm[Hg] [facility] Sep 04 12:04:17 EDT 2023 Body weight 210.60 [lb_av] [facility] Sep 04 12:04 :17 EDT 2023 Heart Rate 58.00 /min [facility] Sep 04 12:04 :17 EDT 2023 Body temperature 97.60 [degF] [facility] Sep 04 12:0 4:17 EDT 2023 Respiratory rate 18.00 /min [facility] Sep 04 12:0 4:17 EDT 2023 Systolic Blood Pressure 127.00 mm[Hg] SatOct 12 16:20:50 EDT 2023 Diastolic Blood Pressure 57.00 mm[Hg] SatOct 12 16:20:50 EDT 2023 Body weight 214.00 [lb_av] SatOct 12 16:20 :50 EDT 2023 Heart Rate 83.00 /min [place] Oct 12 16:20 :50 EDT 2023 Body temperature 97.20 [degF] [place] Oct 12 16:2 0:50 EDT 2023 Respiratory rate 18.00 /min [place] Oct 12 16:2 0:50 EDT 2023 Systolic Blood Pressure 111.00 mm[Hg] SatOct 06 19:06:00 EDT 2023 Diastolic Blood Pressure 58.00 mm[Hg] SatOct 06 19:06:00 EDT 2023 Heart Rate 66.00 /min SatOct 06 19:06 :00 EDT 2023 Body temperature 98.50 [degF] SatOct 06 19:0 6:00 EDT 2023 Respiratory rate 18.00 /min SatOct 06 19:0 6:00 EDT 2023 Pulse Oximetry 96.00 % SatOct 06 19:06 :00 EDT 2023 Systolic Blood Pressure 147.00 mm[Hg] [place] Sep 28 12:43:03 EDT 2023 Diastolic Blood Pressure 70.00 mm[Hg] [place] Sep 28 12:43:03 EDT 2023 Body weight 213.80 [lb_av] [place] Sep 28 12:43 :03 EDT 2023 Heart Rate 61.00 /min [place] Sep 28 12:43 :03 EDT 2023 Body temperature 97.70 [degF] [place] Sep 28 12:4 3:03 EDT 2023 Respiratory rate 18.00 /min [place] Sep 28 12:4 3:03 EDT 2023 Systolic Blood Pressure 138.00 mm[Hg] [facility] Sep 11 14:15:52 EDT 2023 Diastolic Blood Pressure 73.00 mm[Hg] [facility] Sep 11 14:15:52 EDT 2023 Body weight 213.00 [lb_av] SatSep 11 14:15 :52 EDT 2023 Heart Rate 62.00 /min SatSep 11 14:15 :52 EDT 2023 Body temperature 98.30 [degF] SatSep 11 14:1 5:52 EDT 2023 Respiratory rate 18.00 /min SatSep 11 14:1 5:52 EDT 2023 Systolic Blood Pressure 130.00 mm[Hg] SatAug 28 15:11:32 EDT 2023 Diastolic Blood Pressure 72.00 mm[Hg] [facility] Aug 28 15:11:32 EDT 2023 Body weight 218.60 [lb_av] SatAug 28 15:11 :32 EDT 2023 Heart Rate 64.00 /min SatAug 28 15:11 :32 EDT 2023 Body temperature 97.80 [degF] SatAug 28 15:1 1:32 EDT 2023 Respiratory rate 18.00 /min SatAug 28 15:1 1:32 EDT 2023 Systolic Blood Pressure 144.00 mm[Hg] SatAug 12 14:32:39 EDT 2023 Diastolic Blood Pressure 77.00 mm[Hg] SatAug 12 14:32:39 EDT 2023 Body weight 217.20 [lb_av] SatAug 12 14:32 :39 EDT 2023 Heart Rate 63.00 /min SatAug 12 14:32 :39 EDT 2023 Body temperature 97.70 [degF] SatAug 12 14:3 2:39 EDT 2023 Respiratory rate 18.00 /min SatAug 12 14:3 2:39 EDT 2023 Systolic Blood Pressure 141.00 mm[Hg] SatJul 29 14:15:22 EDT 2023 Diastolic Blood Pressure 68.00 mm[Hg] SatJul 29 14:15:22 EDT 2023 Body weight 247.50 [lb_av] SatJul 29 14:15 :22 EDT 2023 Heart Rate 98.00 /min SatJul 29 14:15 :22 ED2023 Body temperature 98.60 [degF] SatJul 29 14:1 5:22 ED2023 Respiratory rate 18.00 /min SatJul 29 14:1 5:22 EDT 2023 Systolic Blood Pressure 134.00 mm[Hg] SatJuly 16 15:31:00 EDT 2023 Diastolic Blood Pressure 65.00 mm[Hg] SatJuly 16 15:31:00 EDT 2023 Heart Rate 69.00 /min SatJuly 16 15:31 :00 EDT 2023 Body temperature 97.40 [degF] SatJuly 16 15:3 1:00 EDT 2023 Respiratory rate 18.00 /min SatJuly 16 15:3 1:00 EDT 2023 Systolic Blood Pressure 119.00 mm[Hg] SatJuly 12 14:20:42 EDT 2023 Diastolic Blood Pressure 70.00 mm[Hg] SatJuly 12 14:20:42 EDT 2023 Body weight 247.20 [lb_av] [facility] July 12 14:20 :42 EDT 2023 Heart Rate 95.00 /min SatJuly 12 14:20 :42 EDT 2023 Body temperature 98.40 [degF] [facility] July 12 14:2 0:42 EDT 2023 Respiratory rate 18.00 /min [facility] July 12 14:2 0:42 EDT 2023 Systolic Blood Pressure 125.00 mm[Hg] [facility] June 28 14:27:00 EDT 2023 Diastolic Blood Pressure 72.00 mm[Hg] [facility] June 28 14:27:00 EDT 2023 Body weight 222.80 [lb_av] [facility] June 28 14:27 :00 EDT 2023 Heart Rate 61.00 /min [facility] June 28 14:27 :00 EDT 2023 Body temperature 97.90 [degF] [facility] June 28 14:2 7:00 EDT 2023 Respiratory rate 18.00 /min [facility] June 28 14:2 7:00 EDT 2023 Systolic Blood Pressure 128.00 mm[Hg] SatJun 12 11:39:22 EDT 2023 Diastolic Blood Pressure 73.00 mm[Hg] SatJun 12 11:39:22 EDT 2023 Body weight 206.00 [lb_av] SatJun 12 11:39 :22 EDT 2023 Heart Rate 18.00 /min SatJun 12 11:39 :22 EDT 2023 Body temperature 97.60 [degF] SatJun 12 11:3 9:22 EDT 2023 Respiratory rate 18.00 /min SatJun 12 11:3 9:22 EDT 2023 Reason for Referral Past Medical History Resolved Concerns * Problem Displaced bimalleolar fracture of right lower leg, subsequent encounter for closed fracturewith routine healing* Code: * Start Date: SatNov 29 00:00:00 EDT 2022 * End Date: SatFeb 09 00:00:00 EST 2023 * Problem Unspecified fall, subsequent encounter* Code: * Start Date: SatNov 29 00:00:00 EDT 2022 * End Date: SatFeb 09 00:00:00 EST 2023 * Problem Unspecified dementia, unspecified severity, without behavioral disturbance, psychotic disturbance, mood disturbance, and anxiety* Code: * Start Date: SatNov 29 00:00:00 EDT 2022 * End Date: SatJan 31 00:00:00 EST 2022 * Problem Essential (primary) hypertension* Code: * Start Date: SatNov 29 00:00:00 EDT 2022 * End Date: SatNov 30 00:00:00 EDT 2022 * Problem Pneumonia, unspecified organism* Code: * Start Date: SatNov 29 00:00:00 EDT 2022 * End Date: SatFeb 09 00:00:00 EST 2023 * Problem Weakness* Code: * Start Date: SatNov 29 00:00:00 EDT 2022 * End Date: SatSep 09 00:00:00 EDT 2023 * Problem Polyneuropathy, unspecified* Code: * Start Date: SatDec 25 00:00:00 EDT 2022 * End Date: SatSep 09 00:00:00 EDT 2023 * Problem Infection following a procedure, other surgical site, subsequent encounter* Code: * Start Date: SatJan 30 00:00:00 EST 2022 * End Date: SatAug 24 00:00:00 EDT 2023 * Problem Methicillin resistant Staphylococcus aureus infection as the cause of diseases classified elsewhere* Code: * Start Date: SatJan 30 00:00:00 EST 2022 * End Date: SatFeb 09 00:00:00 EST 2023 * Problem Encounter for adjustment and management of vascular access device* Code: * Start Date: SatJan 30 00:00:00 EST 2022 * End Date: SatFeb 09 00:00:00 EST 2023 * Problem Unspecified dementia, unspecified severity, with mood disturbance* Code: * Start Date: SatJan 30 00:00:00 EST 2022 * End Date: SatFeb 09 00:00:00 EST 2023 * Problem Cellulitis of right lower limb* Code: * Start Date: SatJan 30 00:00:00 EST 2022 * End Date: SatFeb 09 00:00:00 EST 2023 * Problem Unspecified dementia, unspecified severity, with anxiety* Code: * Start Date: SatMar 09 00:00:00 EST 2023 * End Date: SatFeb 09 00:00:00 EST 2023 * Problem Pain in right hip* Code: * Start Date: SatMar 11 00:00:00 EST 2023 * End Date: SatFeb 09 00:00:00 EST 2023 * Problem Cognitive communication deficit* Code: * Start Date: SatMar 11 00:00:00 EST 2023 * End Date: SatFeb 09 00:00:00 EST 2023 * Problem Muscle weakness (generalized)* Code: * Start Date: SatMar 11 00:00:00 EST 2023 * End Date: SatFeb 09 00:00:00 EST 2023 * Problem Other fatigue* Code: * Start Date: SatMar 11 00:00:00 EST 2023 * End Date: SatFeb 09 00:00:00 EST 2023 * Problem Need for assistance with personal care* Code: * Start Date: SatMar 11 00:00:00 EST 2023 * End Date: SatFeb 09 00:00:00 EST 2023
--- OUTSIDE RECORDS SUMMARY | 2024-06-11 14:31 | XMS_ITS | Clinical Summary ---
Author Organization [facility] Address [address] [place] [address] Care Team Providers Care Car Trimmer Name Role Phone Jim Lu MD Primary Care Provider [phone] Telly Muro MD Unavailable [phone] Mariam Ross MD, Malachi Cook Unavailable [phone] Allergies No known active allergies Medications albuterol HFA (PROVENTIL HFA,VENTOLIN HFA,PROAIR HFA) 90 mcg/actuation inhaler Inhale 2 puffs every 6 hours Active atenolol (TENORMIN) 50 mg tablet Take 1 tablet (50 mg total) by mouth daily Active sertraline (ZOLOFT) 100 mg tablet TK 1 T PO QD 1 9 Active atorvastatin (LIPITOR) 40 mg tablet Take 1 tablet (40 mg total) by mouth daily 30 tablet 11 9 Active acetaminophen (TYLENOL) 500 mg tablet every 8 hours Active fluticasone propion-salmete roL (ADVAIR DISKUS) 500-50 mcg/dose diskus inhaler Inhale 1 puff 2 (two) times a day Rinse mouth with water after use. Do not swallow. Active tamsulosin (FLOMAX) 0.4 mg extended release capsule Take 1 capsule (0.4 mg total) by mouth exerciser horse before breakfast Active buPROPion SR (WELLBUTRIN SR) 100 mg 12 hr tablet Take 1 tablet (100 mg total) by mouth 2 (two) times a day Active gabapentin (NEURONTIN) 300 mg capsule Take 1 capsule (300 mg total) by mouth 2 (two) times a day Active nystatin powder Apply 1 Application topically 4 (four) times a day as needed Active HYDROcodone-zach taminophen (NORCO) 5-325 mg per tabletIndicatio ns:Pain Take 1 tablet by mouth every 4 (four) hours as needed for pain 30 tablet 3 Active aspirin 325 mg enteric coated tabletIndicatio ns:Deep Vein Thrombosis Prevention,prev ention of thrombosis Take 1 tablet (325 mg total) by mouth daily 30 tablet 3 Active doxycycline 100 mg tablet 4 Active Acidophilus Probiotic Blend 175 mg capsule Take 1 capsule by mouth 2 (two) times a day 4 Active memantine (NAMENDA) 5 mg tablet Take 1 tablet (5 mg total) by mouth 2 (two) times a day Active multivitamin tablet Take 1 tablet by mouth daily 4 Active Active Problems Problem Noted Date Diagnosed Date Recurrent major depressive disorder 01/22/2023 Neuropathy 01/22/2023 Closed displaced fracture of lateral malleolus of right fibula with routine healing, subsequent encounter 01/21/2023 Bimalleolar ankle fracture, right, closed, with malunion, subsequent encounter 12/23/2022 Displaced bimalleolar fractu re of right ankle, closed, with malunion, subsequent encounter 12/21/2022 Closed displaced bimalleolar fracture of right lower leg with routine healing 12/10/2022 Assessment & Plan (12/10/2022 11:45 AM CDT): Patient has a trimalleolar ankle fracture with displacement and angulation. It is produced a valgus deformity of the leg. This is likely to alter her weight- bearing mechanics and most likely open reduction internal fixation would be required. In our group Dr. Becerra's a foot ankle specialist who has expertise in percutaneous techniques it may be beneficial in this patient that otherwise is likely to have some poor wound healing. I would defer to his expertise pending pulmonary clearance later this week Anterior dislocation of right hip 11/01/2020 Assessment & Plan (11/01/2020 5:33 PM CDT): Patient sustained acute dislocation of the right hip. She most likely should not use electronic bed with waist flexed as it may predispose her to further dislocations. It is better to keep the body and poor neutral alignment. She may also find the use of a pillow when side lying to be helpful. Physical therapy was prescribed a worked on strengthening any of the hip muscles that had been strained in the dislocation and reinforced her posterior hip precautions Avulsion fracture of distal end of fibula 2020 Assessment & Plan (12/22/2020 4:01 PM CDT): Patient's avulsion fracture is essentially healed. At this stage she can discontinue use of the ankle support. She may find support hose helpful is a counter measure for swelling however and have insurance sales assistant therapy six more sessions. She is return the office on an as-needed basis. Assessment & Plan (11/22/2020 4:17 PM CDT): Patient has sufficient stability the ankle she would likely be well protected with a lace-up ankle support which was issued. She should work on [id number] exercises. Like to reassess her and four weeks Assessment & Plan (11/01/2020 4:02 PM CDT): Patient has a minimally displaced avulsion fracture of the tip of the fibula. There is no talar shifting. The patient was fitted for a short cast boot. She should check the skin daily and may weightbear as tolerated on the leg. She is return the office for follow-up films in three weeks and likely conversion to a lesser support Mild cognitive disorder 02/26/2020 Osteoarthritis of multiple joints 12/31/2019 Neuropathy 12/11/2019 Hyperlipidemia 12/09/2019 Mixed dementia 07/09/2019 Recurrent major depressive disorder 07/08/2019 Memory deficits 07/08/2019 Coronary artery disease invo lving [place] coronary artery of [place] heart without angina pectoris 12/19/2018 Dyslipidemia 11/06/2018 H/O TIA (transient ischemic attack) and stroke 0 11/06/2018 Chronic left-sided low back pain with left-sided sciatica 11/25/2017 Lumbosacral spondylosis without myelopathy 11/25 Assessment & Plan (08/30/2020 3:17 PM CDT): Patient is likely developing some sciatica. She may try a short course of nonsteroidals and Mobic was prescribed. The patient was also given referral to pain management in the event she is not making improvements with lesser measures. Assessment & Plan (09/01/2018 4:55 PM CDT): Patient's symptoms there is suggestive of neurogenic claudication. She has minimal arthritis in the hip. An concerned that some of her urinary incontinence could be from her spine as well and would recommend an MRI to evaluate her for spinal stenosis Sacroiliitis 11/25/2017 Primary osteoarthritis of left shoulder 09/18/19 18 Assessment & Plan (09/01/2018 4:55 PM CDT): Patient has advanced arthritis of left shoulder. It may be part of a cuff arthropathy pattern. She is not getting lasting relief with cortisone injections and would recommend evaluation by Dr. Salinas who performs shoulder replacement and reverse total shoulders as his expertise is likely needed Assessment & Plan (09/17/2017 3:05 PM CDT): Patient has advanced arthritis of the shoulder is likely facing shoulder replacement surgery in the not too distant future Rotator cuff tendinitis, left 09/17/2017 Assessment & Plan (09/17/2017 3:05 PM CDT): Patient was given a cortisone injection through a sterile field in the subacromial space after reviewing the treatment options she elected undergo a cortisone injection. She wants to avoid surgery for arthritic shoulder Arthritis of left hip 09/17/2017 Assessment & Plan (09/01/2018 4:56 PM CDT): Patient has mild arthritis on the left hip and does not likely account for the pains radiating down the leg or weakness that she gets in both of her legs. She likely has neurogenic claudication Assessment & Plan (09/17/2017 3:04 PM CDT): Patient has moderate arthritic changes of the hip. Typically hip arthritis is experience in the groin not over the outer aspect of the hip. She may have radicular symptoms from her lumbar spine in conjunction with her trochanteric bursitis Trochanteric bursitis of left hip 09/17/2017 Assessment & Plan (09/17/2017 3:04 PM CDT): Patient is having recurring trochanteric bursitis. After reviewing the treatment options she elected undergo cortisone injection for her bursitis. Her arthritis of the hip does not look severe enough to warrant hip replacement surgery as of yet Degenerative spondylolisthesis 09/17/2017 Assessment & Plan (09/17/2017 3:03 PM CDT): Patient has lumbar scoliosis with degenerative disc disease most pronounced at the L5-S1 level with a grade 1 spondylo at L4-5 and hypertrophic osteophytes. Patient was offered physical therapy but declined. A pain management referral was given. Long-term weight loss would likely be beneficial RLS (restless legs syndrome) 09/12/2017 Mild cognitive impairment 06/14/2017 Stage 3 chronic kidney disease 08/08/2015 Obstructive sleep apnea syndrome 09/14/2014 Overview (05/31/2016): HARSHAL on CPAP Chronic obstructive pulmonary disease 09/14/2014 Overview (05/31/2016): COPD (chronic obstructive pulmonary disease) Adiposity 09/14/2014 Overview (05/31/2016): Obesity Dyspnea on exertion 09/14/2014 Overview (05/31/2016): SOUTH (dyspnea on exertion) Osteoarthritis of hip 04/11/2012 Overview (09/12/2017): Overview: Assessment & Plan (11/22/2020 4:18 PM CDT): Intermittent catching the hip is likely secondary to her arthritis. It is not improving with conservative measures pain management or other consideration for hip replacement may be needed sooner S/P hip replacement 02/08/2012 Abnormal cardiovascular stress test 12/10/2011 Overview (05/31/2016): Abnormal stress test Abnormal electrocardiography 12/10/2011 Overview (05/31/2016): Abnormal EKG Primary hypertension 12/10/2011 Overview (05/31/2016): BENIGN HYPERTENSION Other chest pain 12/10/2011 Overview (06/01/2016): PRECORDIAL PAIN Preoperative state 12/10/2011 Overview (06/01/2016): Preop cardiovascular exam Pure hypercholesterolemia 12/10/2011 Overview (06/01/2016): PURE HYPERCHOLESTEROLEM Posterior calcaneal exostosis 07/11/2011 Overview (09/12/2017): Overview: Immunizations Immunization Administration Dates Next Due Influenza, Quadrivalent, Hig h Dose, Preservative Free, Intrr 12/24/2022 Influenza, Quadrivalent, Spl it, Preservative Free, Intramuscular 12/04/2019 Influenza, Trivalent, High D ose, Split, Preservative Free, Intramuscular 05/01/2019,12/16/2017 Pneumococcal Polysaccharide PPV23 01/25/2012 Tdap 05/01/2019 Surgical History Surgery Date Site/Laterality Comments OTHER SURGICAL HISTORY 02/25/2007 - 02/25/2008 : Cholecystectomy HYSTERECTOMY 02/25/1997 - 02/24/1998 Hysterectomy OTHER SURGICAL HISTORY 02/25/2011 - 02/25/2012 Achilles tendon and heel surgery TOTAL HIP ARTHROPLASTY Hip Replacement - (Added by TW Conv) CHOLECYSTECTOMY Cholecystectomy - (Added by TW Conv) HYSTERECTOMY Hysterectomy - (Added by TW Conv) SECTION JOINT REPLACEMENT ORIF ANKLE FRACTURE 12/21/2022 Right Medical History Medical History Date Comments Depression Depression Postcholecystectomy syndrome Pos t Cholecystectomy Syndrome - (Added by TW Conv) Reflux esophagitis Chronic Reflu x Esophagitis - (Added by TW Conv) Cerebral infarction (HCC) Stroke syndrome - (Added by TW Conv) Hypertension Stroke (HCC) Hyperlipidemia Anxiety Arthritis Asthma Obstructive sleep apnea syndrome 09/14/2014 Family History Medical History Relation Name Comments Cerebral aneurysm Father Srinivas Cerebral a neurysm; Cause of : Cerebral aneurysm Stroke Father Srinivas Cancer Mother Pancreatic Hypertension Mother Pancreatic Other Mother Pancreatic Pancreatic Canc er; Cause of : Pancreatic Cancer Other Sister 2 WPW; Relation Name Status Comments Father Srinivas Mother Pancreatic Sister 1 Alive Sister 2 Social History Tobacco Use Types Packs/Day Years Used Date Smoking Tobacco: Never Smokeless Tobacco: Never Tobacco Cessation:Counseling Given: Not Answered Alcohol Use Standard Drinks/Week Comments Not Currently 0 (1 standard drink = 0.6 oz pur e alcohol) occassionally [facility] Utilities Answer Date Recorded In the past 12 months has th e electric, gas, oil, or water company threatened to shut off services in your home? No 01/24/2023 Social Connection and Isolation Panel [NHANES] A nswer Date Recorded In a typical week, how many times do you talk on the phone with family, friends, or neighbors? Twice a week 12/26/19 How often do you get togethe r with friends or relatives? Twice a week 12/25/2022 How often do you attend [facility] ch or christianity services? 1 to 4 times per year 12/25/2022 Do you belong to any clubs o r organizations such as islam groups, unions, fraternal or athletic groups, or school groups? Yes 12/25/2022 How often do you attend meet ings of the clubs or organizations you belong to? Never 12/25/2022 Are you , , di vorced, , never , or living with a partner? 12/25/2022 AUDIT-C Answer Date Recorded Q1: How often do you have a drink containing alc ohol? Never 12/21/2022 Average Number of Drinks Not on file 023 Frequency of Binge Drinking Not on file 11/26 Overall Financial Resource Strain (CARDIA) Answe r Date Recorded How hard is it for you to pa y for the very basics like food, housing, medical care, and heating? Not hard at all 01/24/2023 PHQ-2 Answer Date Recorded PHQ-2 Score 0 05/03/2018 Hunger Vital Sign Answer Date Recorded Within the past 12 months, y ou worried that your food would run out before you got the money to buy more. Never true 10/31/20 23 Within the past 12 months, t he food you bought just didn't last and you didn't have money to get more. Never true 12/25/2022 PRAPARE - Transportation Answer Date Re corded In the past 12 months, has l ack of transportation kept you from medical appointments or from getting medications? No 12/28 In the past 12 months, has l ack of transportation kept you from meetings, work, or from getting things needed for daily living? No 01/24/2023 Housing Stability Vital Sign Answer Carlos e Recorded In the last 12 months, was t here a time when you were not able to pay the mortgage or rent on time? No 12/25/2022 In the last 12 months, how many places have you lived? 1 12/25/2022 In the last 12 months, was t here a time when you did not have a steady place to sleep or slept in a penitentiary (including now)? No 12/25/2022 Personal Safety Answer Date Recorded Have you ever been in or are you currently in a harmful physical or emotional relationship or is someone making you feel afraid or unsafe? Denies 01/21/2023 Comments No Sex and Gender Information Value Date Recorded Sex Assigned at Not on file Legal Sex Female 8:34 AM HOSPITALIST MEDICAL DIRECTOR Gender Identity Not on file Sexual Orientation Not on file Occupation Industry Job Start Date Job End Date retired Not on file Not on file Not on file Obstetrics History Last Filed Vital Signs Vital Sign Reading Time Taken Comments Blood Pressure 96/67 06/12/2023 2:58 PM CDT Pulse 61 06/12/2023 2:58 PM CDT Temperature 36.8 C (98.3 F) 01/30/2023 8:00 AM HOSPITALIST MEDICAL DIRECTOR Respiratory Rate 18 01/30/2023 8:00 AM HOSPITALIST MEDICAL DIRECTOR Oxygen Saturation 95% 01/30/2023 8:00 AM HOSPITALIST MEDICAL DIRECTOR Inhaled Oxygen Concentration - - Weight 93.6 kg (206 lb 6.4 oz) 06/12/2023 2:58 P M CDT Height 160 cm (5' 3 ) 06/12/2023 2:58 PM CDT Body Mass Index 36.56 06/12/2023 2:58 PM CDT Plan of Treatment Health Maintenance Due Date Last Done Comments Depression Screening 1944 Hepatitis B Screening 1962 Zoster Vaccine (1 of 2) 1994 Well Visit 65+ 2009 Pneumococcal vaccine 65+ (2 of 2 - PCV) 01/24/2013 01/25/2012 Osteoporosis Screening-Bone Density Scan 11/06/2015 11/05/2013 Fall Risk Assessment 01/31/2024 01/30/2023 Influenza Vaccine (Season Ended) 2024 12/24/2022, 12/08/2020, 12/04/2019, Additional history exists DTaP/Tdap/Td Vaccine (2 - Td or Tdap) 04/30/2029 05/01/2019 Medical Devices Implanted Type Area Hot Top Liner Helper Device Identifier Shelf Expiration Date Model / Serial / Lot [employer] 98mm 8 Hole Lock Ankle 1/3 Tube Plate Bone Stainless Steel [id number]-08 - [id number] Implanted:Qty: 1 on 12/21/2022 by Malachi Becerra Jr., MD at [facility] Right: Ankle [employer] AR-8943T-08 / / [employer] Low Profile Screws 3.5mm 12mm Modular Solid Hexalobe Self Tap Ar-8835-12 - [id number] Implanted:Qty: 1 on 12/21/2022 by Malachi Becerra Jr., MD at [facility] Right: Ankle [employer] AR-8835-12 / / [employer] Screw Kreulock Compression Ss 3.5x14mm [id number] - [id number] Implanted:Qty: 2 on 12/21/2022 by Malachi Becerra Jr., MD at [facility] Right: Ankle [employer] AR-8835CL-1 4 / / [employer] Screw Kreulock Compression Ss 3.5x20mm [id number] - [id number] Implanted:Qty: 1 on 12/21/2022 by Malachi Becerra Jr., MD at [facility] Right: Ankle [employer] AR-8835CL-2 0 / / [employer] 98mm 5 Hole Avulsion Hook Lock Ankle Lateral Plate Bone Stainless [id number] - [id number] Implanted:Qty: 1 on 12/21/2022 by Malachi Becerra Jr., MD at [facility] Right: Ankle [employer] AR-8943TH-0 5 / / [employer] Low Profile Screws 3.5mm 18mm Modular Solid Hexalobe Self Tap Ar-8835-18 - [id number] Implanted:Qty: 1 on 12/21/2022 by Malachi Becerra Jr., MD at [facility] Right: Ankle [employer] AR-8835-18 / / [employer] Low Profile Screws 3.5mm 50mm Self Drill Solid Modular Ankle Ar-8835-50 - [id number] Implanted:Qty: 2 on 12/21/2022 by Malachi Becerra Jr., MD at [facility] Right: Ankle [employer] AR-8835-50 / / [employer] Low Profile Screws 3.5mm 40mm Modular Solid Hexalobe Self Tap Ar-8835-40 - [id number] Implanted:Qty: 1 on 12/21/2022 by Malachi Becerra Jr., MD at [facility] Right: Ankle [employer] AR-8835-40 / / [employer] Low Profile Screws 3.5mm 26mm Modular Solid Hexalobe Self Tap Ar-8835-26 - [id number] Implanted:Qty: 1 on 12/21/2022 by Malachi Becerra Jr., MD at [facility] Right: Ankle [employer] AR-8835-26 / / [employer] Low Profile Screws 3.5mm 30mm Modular Solid Hexalobe Self Tap Ar-8835-30 - [id number] Implanted:Qty: 1 on 12/21/2022 by Malachi Becerra Jr., MD at [facility] Right: Ankle [employer] AR-8835-30 / / [employer] Screw Kreulock Compression Ss 3.5x28mm [id number] - [id number] Implanted:Qty: 1 on 12/21/2022 by Malachi Becerra Jr., MD at [facility] Right: Ankle [employer] AR-8835CL-2 8 / / [employer] Screw Kreulock Compression Ss 3.5x36mm [id number] - [id number] Implanted:Qty: 1 on 12/21/2022 by Malachi Becerra Jr., MD at [facility] Right: Ankle [employer] AR-8835CL-3 6 / / Procedures Procedure Name Priority Date/Time Associated Diagnosis Comments DEXA AXIAL SKELETON BONE DENSITY 1 OR MORE SITES Routine 11/05/2013 1:48 PM CDT from Last 3 Months or Most Recently Relevant to Health Maintenance Results * Dexa Axial Skeleton Bone Density 1 or 2 Site (11/05/2013 1:48 PM CDT) Anatomical Region Laterality Modality Body N/A Radiographic Debby ging 11/05/2013 1:48 PM CDT Narrative 11/05/2013 5:15 PM CDT EVAN CISSE M.D. MIGUEL ESTRADA, FINAL REPORT The radiology attending physician has personally reviewed this study, and has reviewed and/or edited this written report and agrees with it. ACC# Date Time Exam [id number] Nov 05, 2013 13:48:00 [id number] BONE DEXA (2 sites) EXAMINATION: BONE DENSITOMETRY OF THE SPINE AND HIP DATE OF STUDY: 11/05/2013 HISTORY: 68-year-old postmenopausal woman with hysterectomy and bilateral oophorectomy at age 36. She is not on anti-resorptive therapy. Evaluate bone mineral density. Additional risk factors for fracture: none. FINDINGS (SPINE): The bone mineral density of L1, L4 was assessed by dual-energy x-ray absorptiometry. The average bone mineral density within this region is 1.113 gm/sq-cm. This is 2.7 standard deviations above the mean of the average bone mineral density for age- and gender-matched subjects (the Z-score). It is 0.7 standard deviations above the mean peak bone mineral density in young adults (the T-score). FINDINGS (FEMORAL NECK): The bone mineral density of the left femoral neck was assessed by dual-energy x-ray absorptiometry. The average bone mineral density within the femoral neck region is 0.783 gm/sq-cm. This is 1.2 standard deviations above the mean of the average bone mineral density for age- and gender-matched subjects (the Z-score). It is 0.6 standard deviations below the mean peak bone mineral density in young adults (the T-score). FINDINGS (TOTAL HIP): The bone mineral density of the left hip was assessed by dual-energy x-ray absorptiometry. The average bone mineral density within the total hip region is 0.867 gm/sq-cm. This is 0.9 standard deviations above the mean of the average bone mineral density for age- and gender-matched subjects (the Z-score). It is 0.6 standard deviations below the mean peak bone mineral density in young adults (the T-score). SUMMARY OF CURRENT RESULTS: Region BMD T-score Z-score AP Spine (L1, L4) 1.113 0.7 2.7 Femoral Neck (Left) 0.783 -0.6 1.2 Total Hip (Left) 0.867 -0.6 0.9 IMPRESSION: - 1. The bone mineral density of the lumbar spine is normal. 2. The bone mineral density of the left femoral neck is normal. 3. The bone mineral density of the left total hip is normal. 4. Overall, the above findings are normal by WHO criteria. 5. Calculation of fracture risk using the FRAX model is not appropriate in certain settings. It was not performed in this patient because the patient met the following condition(s): normal bone density. General comments regarding interpretation of bone density measurements: a) In children, premenopausal woman and males under age 50 not at increased risk for fractures only Z-scores, not T-scores are used to indicate risk. A Z-score above -2.0 is defined as within the expected range for age and Z-score at or less than -2.0 is below the expected range for age . A Z-score below the expected range for age in a patient with recent fractures and/or chronic corticosteroid treatment is consistent with a diagnosis of osteoporosis. b) In post menopausal women and males over 50, comparison of the measured bone mineral density with the average value in young normal subjects (the T-score ) has been found to be useful in assessing fracture risk. Fracture risk approximately doubles for each 1.0 standard deviation (SD) in individual's hip or spine bone mineral density is below the average value of young normal subjects. The World Health Organization (WHO) has defined T-scores of -1.0 to -2.5 as diagnostic of low bone mass (OSTEOPENIA), and T-scores of -2.5 or lower to be diagnostic of OSTEOPOROSIS, based on the site of lowest bone density. Note that there will be a change in reporting format and reference databases as patients move from the younger population (group a) to the older population (group b) The National Osteoporosis Foundation (www.nof.org) recommends adequate intake of calcium and vitamin D and regular weight-bearing exercise in all patients. They recommend pharmacologic treatment in postmenopausal women and men age 50 and older presenting with any of the followin) Osteoporosis, after appropriate evaluation to exclude secondary causes. 2) A hip or vertebral (clinical or radiographic) fracture, regardless of the bone density. 3) Low bone mass (Osteopenia) and one or more of: other prior fractures, secondary causes associated with high risk of fracture (such as glucocorticoid use or total immobilization), or computed high risk of fracture (10-yr probability of hip fracture >= 3% or a 10-yr probability of any major osteoporosis-related fracture >= 20% based on the [place].-adapted WHO algorithm), available at http://www.shef.ac.uk/FRAX). Requested By: Dictated By: MIGUEL ESTRADA on Nov 05 2013 1:48P This document has been electronically signed by: EVAN CISSE M.D. on Nov 05 2013 5:15P [id number] Procedure Note Provider, MD Santana - 06/28/2016 EVAN CISSE M.D. MIGUEL ESTRADA, FINAL REPORT The radiology attending physician has personally reviewed this study, and has reviewed and/or edited this written report and agrees with it. ACC# Date Time Exam [id number] Nov 05, 2013 13:48:00 [id number] BONE DEXA (2 sites) EXAMINATION: BONE DENSITOMETRY OF THE SPINE AND HIP DATE OF STUDY: 11/05/2013 HISTORY: 68-year-old postmenopausal woman with hysterectomy and bilateral oophorectomy at age 36. She is not on anti-resorptive therapy. Evaluate bone mineral density. Additional risk factors for fracture: none. FINDINGS (SPINE): The bone mineral density of L1, L4 was assessed by dual-energy x-ray absorptiometry. The average bone mineral density within this region is 1.113 gm/sq-cm. This is 2.7 standard deviations above the mean of the average bone mineral density for age- and gender-matched subjects (the Z-score). It is 0.7 standard deviations above the mean peak bone mineral density in young adults (the T-score). FINDINGS (FEMORAL NECK): The bone mineral density of the left femoral neck was assessed by dual-energy x-ray absorptiometry. The average bone mineral density within the femoral neck region is 0.783 gm/sq-cm. This is 1.2 standard deviations above the mean of the average bone mineral density for age- and gender-matched subjects (the Z-score). It is 0.6 standard deviations below the mean peak bone mineral density in young adults (the T-score). FINDINGS (TOTAL HIP): The bone mineral density of the left hip was assessed by dual-energy x-ray absorptiometry. The average bone mineral density within the total hip region is 0.867 gm/sq-cm. This is 0.9 standard deviations above the mean of the average bone mineral density for age- and gender-matched subjects (the Z-score). It is 0.6 standard deviations below the mean peak bone mineral density in young adults (the T-score). SUMMARY OF CURRENT RESULTS: Region BMD T-score Z-score AP Spine (L1, L4) 1.113 0.7 2.7 Femoral Neck (Left) 0.783 -0.6 1.2 Total Hip (Left) 0.867 -0.6 0.9 IMPRESSION: - 1. The bone mineral density of the lumbar spine is normal. 2. The bone mineral density of the left femoral neck is normal. 3. The bone mineral density of the left total hip is normal. 4. Overall, the above findings are normal by WHO criteria. 5. Calculation of fracture risk using the FRAX model is not appropriate in certain settings. It was not performed in this patient because the patient met the following condition(s): normal bone density. General comments regarding interpretation of bone density measurements: a) In children, premenopausal woman and males under age 50 not at increased risk for fractures only Z-scores, not T-scores are used to indicate risk. A Z-score above -2.0 is defined as within the expected range for age and Z-score at or less than -2.0 is below the expected range for age . A Z-score below the expected range for age in a patient with recent fractures and/or chronic corticosteroid treatment is consistent with a diagnosis of osteoporosis. b) In post menopausal women and males over 50, comparison of the measured bone mineral density with the average value in young normal subjects (the T-score ) has been found to be useful in assessing fracture risk. Fracture risk approximately doubles for each 1.0 standard deviation (SD) in individual's hip or spine bone mineral density is below the average value of young normal subjects. The World Health Organization (WHO) has defined T-scores of -1.0 to -2.5 as diagnostic of low bone mass (OSTEOPENIA), and T-scores of -2.5 or lower to be diagnostic of OSTEOPOROSIS, based on the site of lowest bone density. Note that there will be a change in reporting format and reference databases as patients move from the younger population (group a) to the older population (group b) The National Osteoporosis Foundation (www.nof.org) recommends adequate intake of calcium and vitamin D and regular weight-bearing exercise in all patients. They recommend pharmacologic treatment in postmenopausal women and men age 50 and older presenting with any of the followin) Osteoporosis, after appropriate evaluation to exclude secondary causes. 2) A hip or vertebral (clinical or radiographic) fracture,regardless of the bone density. 3) Low bone mass (Osteopenia) and one or more of: other prior fractures, secondary causes associated with high risk of fracture (such as glucocorticoid use or total immobilization), or computed high risk of fracture (10-yr probability of hip fracture >= 3% or a 10-yr probability of any major osteoporosis-related fracture >= 20% based on the [place].-adapted WHO algorithm), available at http://www.shef.ac.uk/FRAX). Requested By: Dictated By: MIGUEL ESTRADA on Nov 05 2013 1:48P This document has been electronically signed by: EVAN CISSE M.D. on Nov 05 2013 5:15P [id number] Historical Provider MD DIAZ DXA PROCEDURES Final Result from Last 3 Months or Most Recently Relevant to Health [place] [address] [employer] MEDICARE FOR LIFE MEDICARE FOR LIFE Advance Directives For more information, please contact: [phone] * Full Code (Latest Code Status on File) Date Activated Date Inactivated Comments 01/22/2023 4:24 PM 01/30/2023 5:33 PM * Full Code Date Activated Date Inactivated Comments 01/21/2023 2:25 PM 01/22/2023 4:24 PM * Full Code Date Activated Date Inactivated Comments 12/21/2022 5:30 PM 12/25/2022 5:22 PM Healthcare Agents on File Name Relationship Healthcare Agent [facility] Communication Misael Haskins Daughter Health Care Agent Care Teams Car Trimmer Relationship Specialty Start Date End Date Jim Lu MD PCP - General Family Medicine 08/15/17 Telly Muro MD [address] [place] [address] Referring Physician Neurology 08/15/17 [place] [id number] [facility] [address] [place] [address] Surgeon Orthopedic Surgery 01/30/23
--- OUTSIDE RECORDS SUMMARY | 2024-06-11 14:31 | XMS_ITS | Clinical Summary ---
Author Organization [facility] Address [address] [place] [id number] Phone Care Team Providers Care Nurse Practitioner Manager Name Role Phone Unavailable Primary Care Provider Unavailabl e Medications citalopram (CELEXA) 20 MG tablet 1 daily 0 08/06/2015 Active albuterol HFA (PROAIR HFA) 108 (90 Base) MCG/ACT inhaler as needed 0 08/06/2015 Act terence lansoprazole (PREVACID) [address] capsule 1 daily 0 08/06/2015 Active simvastatin (ZOCOR) 40 MG tablet 1 daily 0 08/06/2015 Active buPROPion XL (WELLBUTRIN XL) 300 MG 24 hr tablet 1 qhs 0 08/06/2015 Active armodafinil (NUVIGIL) 150 MG tablet 1 daily as needed 0 08/06/2015 Active atenolol (TENORMIN) 50 MG tablet 2 daily 0 08/06/2015 Active traMADol (ULTRAM) 50 MG tablet 1 prn 0 08/06/2015 Active umeclidinium-tamiko anterol (ANORO ELLIPTA) 62.5-25 MCG/INH aerosol powder 1 daily 0 08/06/2015 Active Active Problems Problem Noted Date Diagnosed Date Chronic kidney disease, stage 3 (moderate) 08/07 Essential (primary) hypertension 08/08/2015 Other hyperlipidemia 08/08/2015 Overview (05/10/2018): Converted unresolved ICD9, potential mismatch. 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 08/08/2015 Family History Medical History Relation Comments Malignant neoplastic disease Mother Kidney disease Neg Hx Kidney stone Neg Hx Relation Status Comments Mother Social History Tobacco Use Types Packs/Day Years Used Date Smoking Tobacco: Never Assessed Comments Unknown Sex and Gender Information Value Date Recorded Sex Assigned at Not on file Legal Sex Female 9:27 AM MST Gender Identity Not on file Sexual Orientation Not on file Last Filed Vital Signs Vital Sign Reading Time Taken Comments Blood Pressure 120/70 11/19/2016 12:01 AM CDT Sitting, Right Pulse 60 08/08/2015 12:01 AM CDT Temperature 36.6 C (97.8 F) 11/19/2016 12:01 AM CDT Respiratory Rate - - Oxygen Saturation - - Inhaled Oxygen Concentration - - Weight 101 kg (222 lb) 11/19/2016 12:01 AM CDT Height 165.1 cm (5' 5 ) 11/19/2016 12:0 1 AM CDT Body Mass Index 36.94 11/19/2016 12:01 AM CDT Plan of Treatment Not on file
--- OUTSIDE RECORDS SUMMARY | 2024-06-11 14:31 | XMS_ITS | Encounter Summary ---
Author Organization [facility] Address [address] [place] [address] Phone Care Team Providers Care Real Estate Intern Name Role Phone Jim Lu MD Primary Care Provider + [phone] Jim Lu MD Primary Care Provider + [phone] Telly Muro MD Unavailable [phone] Mariam Ross MD, Malachi Cook Unavailable + [phone] Encounter Details Date Type Department Care Team (Latest Contact Info) Description 02/16/2017 Orders Only [facility] Scanning, Provider Social History Tobacco Use Types Packs/Day Years Used Date Smoking Tobacco: Never Alcohol Use Standard Drinks/Week Comments Yes 0 (1 standard drink = 0.6 oz pur e alcohol) Comments Unknown Sex and Gender Information Value Date Recorded Sex Assigned at Not on file Legal Sex Female 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 Gender Identity Not on file Sexual Orientation Not on file documented as of this encounter Plan of Treatment Not on file documented as of this encounter Procedures Procedure Name Priority Date/Time Associated Diagnosis Comments SCAN - RADIOLOGY/IMAGING 02/16/2017 documented in this encounter Results * SCAN - RADIOLOGY/IMAGING (02/16/2017) Anatomical Region Laterality Modality Other us Provider Scanning Final Result documented in this encounter Visit Diagnoses Not on filedocumented in this encounter Additional Health Concerns Infection Onset Date Last Indicated Resolved Time COVID19 Comment:Called radha GARNETT and no prior (prior to 12/21/22) record of positive covid testing recorded. H & P notes indicate she had covid prior to this date however no testing is found. Pt needs to stay on COVID percautions (airborne and contact) and can be re-evaluated to be recovered on 12/31/22. Darío BEAR IP 12/21/2022 12/21/2022 01/04/2023 3:[address] COVID: Recovered Comment:Added based on recent COVID infection. 01/04/2023 01/07/2023 04/04/2023 3:[address] MRSA Comment:Wound R Ankle - 01/22/2023 01/22/2023 01/22/202307/20 3:05 AM CDT documented as of this encounter Care Teams Real Estate Intern Relationship Specialty Start Date End Date Jim Lu MD PCP - General 12/10/11 08/14/17 Jim Lu MD PCP - General Family Medicine 08/15/17 Telly Muro MD [address] [place] [address] Referring Physician Neurology 08/15/17 [place] [id number] [facility] [address] [place] [address] Surgeon Orthopedic Surgery 01/30/23 documented as of this encounter
--- OUTSIDE RECORDS SUMMARY | 2024-06-11 14:31 | XMS_ITS | Referral Summary ---
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 She is return the office on an as-needed basis. Assessment & Plan (11/22/2020 4:17 PM CDT): Patient has sufficient stability the ankle she would likely be well protected with a lace-up ankle support which was issued. She should work on [id number]-[id number] exercises. Like to reassess her and four [...] deficits 07/08/2019 Coronary artery disease invo lving lime coronary artery of lime heart without angina pectoris 12/19/2018 Dyslipidemia 11/06/2018 [...] 05/01/2019,12/16/2017 Pneumococcal Polysaccharide PPV23 01/25/2012 Tdap 05/01/2019 Social History Tobacco Use Types Packs/Day Years Used Date Smoking Tobacco: Never Smokeless Tobacco: Never Tobacco Cessation:Counseling Given: Not Answered Alcohol Use Standard Drinks/Week Comments Not Currently 0 (1 standard drink = 0.6 oz pur e alcohol) occassionally [facility] Utilities Answer Date Recorded In the past 12 months has th [employer], gas, oil, or water [employer] threatened to shut off services in your home? No 01/24/2023 Social Connection and Isolation Panel [NHANES] A nswer Date Recorded In a typical week, how many times do you talk on the phone with family, friends, or neighbors? Twice a week 12/26/19 How often do you get togethe r with friends or relatives? Twice a week 12/25/2022 How often do you attend [facility] or restorationism services? 1 to 4 times per year 12/25/2022 Do you belong to any clubs o r organizations such as congregation groups, unions, fraternal or athletic groups, or [...] the money to buy more. Never true 12/26/19 23 Within the past 12 months, t [...] place to sleep or slept in a chcf (including now)? No 12/25/2022 Personal Safety Answer Date Recorded Have you ever been in or are you currently in a harmful physical or emotional relationship or is someone making you feel afraid or unsafe? 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 Gender Identity Not on file Sexual Orientation Not on file Occupation Industry Job Start Date Job End Date retired Not on file Not on file Not on file Last Filed Vital Signs Vital Sign Reading Time Taken Comments Blood Pressure 96/67 06/12/2023 2:58 PM CDT Pulse 61 06/12/2023 2:58 PM CDT Temperature 36.8 C (98.3 F) 01/30/2023 8:00 AM BEAM BUILDER HELPER Respiratory Rate 18 01/30/2023 8:00 AM BEAM BUILDER HELPER Oxygen Saturation 95% 01/30/2023 8:00 AM BEAM BUILDER HELPER Inhaled Oxygen Concentration - - Weight 93.6 kg (206 lb 6.4 oz) 06/12/2023 2:58 P M CDT Height 160 cm (5' 3 ) 06/12/2023 2:58 PM CDT Body Mass Index 36.56 06/12/2023 2:58 PM CDT Plan of Treatment Not on file Medical Devices Implanted Type Area Manager Sharepoint Device Identifier Shelf Expiration Date Model / Serial / Lot [employer] 98mm 8 Hole Lock Ankle /3 Tube Plate Bone Stainless Steel [id number]-[id number]-08 - [id number] Implanted:Qty: 1 on 12/21/2022 by Malachi Becerra Jr., MD at [facility] Right: Ankle [employer] AR-8943T-08 / / [employer] Low Profile Screws 3.5mm 12mm Modular Solid Hexalobe Self Tap Ar-8835-12 - [id number] Implanted:Qty: 1 on 12/21/2022 by Malachi Becerra Jr., MD at [facility] Right: Ankle [employer] AR-8835-12 / / [employer] Screw Kreulock Compression Ss 3.5x14mm [id number] - [id number] Implanted:Qty: 2 on 12/21/2022 by Malachi Becerra Jr., MD at [facility] Right: Ankle [employer] AR-8835CL-1 4 / / [employer] Screw Kreulock Compression Ss 3.5x20mm [id number] - [id number] Implanted:Qty: 1 on 12/21/2022 by Malachi Becerra Jr., MD at [facility] Right: Ankle [employer] AR-8835CL-2 0 / / [employer] 98mm 5 Hole Avulsion Hook Lock Ankle Lateral Plate Bone Stainless [id number] - [id number] Implanted:Qty: 1 on 12/21/2022 by Malachi Becerra Jr., MD at [facility] Right: Ankle [employer] AR-8943TH-0 5 / / [employer] Low Profile Screws 3.5mm 18mm Modular Solid Hexalobe Self Tap Ar-8835-18 - [id number] Implanted:Qty: 1 on 12/21/2022 by Malachi Becerra Jr., MD at [facility] Right: Ankle [employer] AR-8835-18 / / [employer] Low Profile Screws 3.5mm 50mm Self Drill Solid Modular Ankle Ar-8835-50 - [id number] Implanted:Qty: 2 on 12/21/2022 by Malachi Becerra Jr., MD at [facility] Right: Ankle [employer] AR-8835-50 / / [employer] Low Profile Screws 3.5mm 40mm Modular Solid Hexalobe Self Tap Ar-8835-40 - [id number] Implanted:Qty: 1 on 12/21/2022 by Malachi Becerra Jr., MD at [facility] Right: Ankle [employer] AR-8835-40 / / [employer] Low Profile Screws 3.5mm 26mm Modular Solid Hexalobe Self Tap Ar-8835-26 - [id number] Implanted:Qty: 1 on 12/21/2022 by Malahci Becerra Jr., MD at [facility] Right: Ankle [employer] AR-8835-26 / / [employer] Low Profile Screws 3.5mm 30mm Modular Solid Hexalobe Self Tap Ar-8835-30 - [id number] Implanted:Qty: 1 on 12/21/2022 by Malachi Becerra Jr., MD at [facility] Right: Ankle [employer] AR-8835-30 / / [employer] Screw Kreulock Compression Ss 3.5x28mm [id number] - [id number] Implanted:Qty: 1 on 12/21/2022 by Malachi Becerra Jr., MD at [facility] Right: Ankle [employer] AR-8835CL-2 8 / / [employer] Screw Kreulock Compression Ss 3.5x36mm [id number] - [id number] Implanted:Qty: 1 on 12/21/2022 by Malachi Becerra Jr., MD at [facility] Right: Ankle [employer] AR-8835CL-3 6 / [...] agrees with it. ACC# Date Time Exam [id number] Nov 05, 2013 13:48:00 [id number] BONE DEXA (2 sites) EXAMINATION: BONE DENSITOMETRY [...] CISSE M.D. on Nov 05 2013 5:15P [id number] Procedure Note Provider, MD Santana - 06/28/2016 EVAN CISSE M.D. MIGUEL ESTRADA, FINAL REPORT The radiology attending physician has personally reviewed this study, and has reviewed and/or edited this written report and agrees with it. ACC# Date Time Exam [id number] Nov 05, 2013 13:48:00 [id number] BONE DEXA (2 sites) EXAMINATION: BONE DENSITOMETRY [...] CISSE M.D. on Nov 05 2013 5:15P [id number] Historical Provider MD DIAZ DXA PROCEDURES Final Result from Last 3 Months or Most Recently Relevant to Health Maintenance Insurance MEDICARE FOR LIFE MEDICARE FOR LIFE MEDICARE FOR LIFE Advance Directives For more information, please contact: [phone] * Full Code (Latest Code Status on File) Date Activated Date Inactivated Comments 01/22/2023 4:24 PM 01/30/2023 5:33 PM * Full Code Date Activated Date Inactivated Comments 01/21/2023 2:25 PM 01/22/2023 4:24 PM * Full Code Date Activated Date Inactivated Comments 12/21/2022 5:30 PM 12/25/2022 5:22 PM Healthcare Agents on File Name Relationship Healthcare Agent Relationshi p Communication Misael Haskins Daughter Health Care Agent Care Teams Manager Database Administration Relationship Specialty Start Date End Date Jim Lu MD PCP - General Family Medicine 08/15/17 Telly Muro MD [address] [place] [address] Referring Physician Neurology 08/15/17 [place] [id number] [facility] [address] [place] [address] Surgeon Orthopedic Surgery 01/30/23
[2024-06-11 14:49] LABS: Estimated Glomerular Filt Rate 43
== END 2024-06-11 14:16 | disposition home or self-care (01) ==
PROVIDERS: PCP Family Medicine; Visit Provider Nurse Practitioner Adult Health
DX: R31.29 Other microscopic hematuria (principal)
CPT/HCPCS: 74178; Q9967

== ENCOUNTER 2024-10-23 11:11 | Inpatient (IN) | payer MEDICARE, OTHER, SELFPAY ==
[2024-10-23] VITALS (8 sets, daily range): BP systolic 107–155; BP diastolic 53–98; PULSE 52–56; RESP 12–20; TEMP 36.1–36.7; O2SAT 93–100; BMI 35.0
--- NOTE | ~2024-10-23 | XR_ITS ---
EXAMINATION: XR chest 1V 10/23/2024 12:37 INDICATION: Confusion TECHNIQUE:A single AP sitting frontal image of the chest was obtained. COMPARISON: 11/21/2022 FINDINGS: The lungs are clear. The cardiomediastinal silhouette is within normal limits. There are no pleural effusions. There is no pneumothorax suspected. Lung volumes are low. IMPRESSION: 1: NO ACUTE CARDIOPULMONARY DISEASE. Reviewed, dictated and finalized at location Q.
--- NOTE | ~2024-10-23 | CT_ITS ---
EXAMINATION: CT brain wo con DATE: 10/23/2024 12:36 INDICATION: Confusion TECHNIQUE: Computed tomography (CT) of the head was performed without intravenous contrast. The dose-length product was 681.00 mGy-cm. COMPARISON: 01/18/2023 FINDINGS: No acute intracranial hemorrhage. No mass effect. No midline shift. No hydrocephalus. There are several low density regions scattered throughout the periventricular and deep white matter which are favored to represent chronic ischemic white matter change. Cerebral atrophy appropriate for the patient's age. No skull fracture. Visualized paranasal sinuses and mastoid air cells are clear. IMPRESSION: 1. No acute intracranial hemorrhage. No mass effect. 2. Probable chronic ischemic white matter change. 3. Cerebral atrophy appropriate for the patient's age. Reviewed, dictated and finalized at location Q.
--- OUTSIDE RECORDS SUMMARY | 2024-10-23 11:13 | XMS_ITS ---
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 Name Role Phone Cindy Maher Nurse Practitioner Newton Lee Nurse Practitioner Jim Lu Primary Physician Allergies and Intolerances Name Onset Reaction Severity No Known Allergies 2022-11-29 19:47:00 Care Team Name Role NPI Start Date Cindy Maher Nurse Practitioner [id number] 2024-05 00:00:00 Newton Lee Nurse Practitioner [id number] 2022-0205 00:00:00 Jim Lu Primary Physician [id number] 5 00:00:00 Encounters Admissions Program Name Primary Diagnosis Admission Date Discharg e Date Assisted Living Area Emphysema, unspecified 2023-01-18 16:00:00 [facility] 2023-03-11 00:00:00 Past Medical History Active Concerns Problem Code Start Date End Date Displaced bimalleolar fracture of right lower leg, subsequent encounter for closed fracture with routine healing Displaced bimalleolar fracture of right lower leg, subsequent encounter for closed fracture with routine healing 2022-11-29 00:00:00 2024-02-10 00:00:00 Unspecified fall, subsequent encounter Unspecified fall, subsequent encounter 2022-11-29 00:00:00 2024-02-10 00:00:00 Presence of urogenital implants Presence of urogenital implants 2022-11-29 00:00:00 Retention of urine, unspecified Retention of urine, unspecified 2022-11-29 00:00:00 Unspecified dementia, unspecified severity, without behavioral disturbance, psychotic disturbance, mood disturbance, and anxiety Unspecified dementia, unspecified severity, without behavioral disturbance, psychotic disturbance, mood disturbance, and anxiety 2022-11-29 00:00:00 2023-01-31 00:00:00 Essential (primary) hypertension Essential (primary) hypertension 2022-11-29 00:00:00 2022-11-30 00:00:00 Hyperlipidemia, unspecified Hyperlipidemia, unspecified 2022-11-29 00:00:00 Depression, unspecified Depression, unspecified 2022-11-29 00:00:00 Anxiety disorder, unspecified Anxiety disorder, unspecified 2022-11-29 00:00:00 Chronic kidney disease, stage 3 unspecified Chronic kidney disease, stage 3 unspecified 2022-11-29 00:00:00 Gastro-esophageal reflux disease without esophagitis Gastro-esophageal reflux disease without esophagitis 2022-11-29 00:00:00 Obstructive sleep apnea (adult) (pediatric) Obstructive sleep apnea (adult) (pediatric) 2022-11-29 00:00:00 Emphysema, unspecified Emphysema, unspecified 17-12-04 00:00:00 Personal history of transient ischemic attack (TIA), and cerebral infarction without residual deficits Personal history of transient ischemic attack (TIA), and cerebral infarction without residual deficits 2022-11-29 00:00:00 Presence of right artificial hip joint Presence of right artificial hip joint 2022-11-29 00:00:00 Hypertensive chronic kidney disease with stage 1 through stage 4 chronic kidney disease, or unspecified chronic kidney disease Hypertensive chronic kidney disease with stage 1 through stage 4 chronic kidney disease, or unspecified chronic kidney disease 2022-11-29 00:00:00 Presence of other bone and tendon implants Presence of other bone and tendon implants 2022-11-29 00:00:00 Pneumonia, unspecified organism Pneumonia, unspecified organism 2022-11-29 00:00:00 2024-02-10 00:00:00 Chronic obstructive pulmonary disease with (acute) lower respiratory infection Chronic obstructive pulmonary disease with (acute) lower respiratory infection 2022-11-29 00:00:00 Ataxia, unspecified Ataxia, unspecified 00:00:00 Weakness Weakness 2022-11-29 00:00:00 Personal history of COVID-19 Personal history of COVID-19 2022-12-25 00:00:00 snf (current) use of aspirin snf (current) use of aspirin 2022-12-25 00:00:00 Solitary pulmonary nodule Solitary pulmonary nod ule 2022-12-25 00:00:00 Neuromuscular dysfunction of bladder, unspecified Neuromuscular dysfunction of bladder, unspecified 2022-12-25 00:00:00 Polyneuropathy, unspecified Polyneuropathy, unspecified 2022-12-25 00:00:00 2023-09-10 00:00:00 emt intermediate (current) use of opiate analgesic emt intermediate (current) use of opiate analgesic 2022-12-25 00:00:00 Subluxation of left ankle joint, subsequent encounter Subluxation of left ankle joint, subsequent encounter 2023-01-30 00:00:00 Infection following a procedure, other surgical site, subsequent encounter Infection following a procedure, other surgical site, subsequent encounter 2023-01-30 00:00:00 2023-08-25 00:00:00 Other specified postprocedural states Other specified postprocedural states 2023-01-30 00:00:00 Methicillin resistant Staphylococcus aureus infection as the cause of diseases classified elsewhere Methicillin resistant Staphylococcus aureus infection as the cause of diseases classified elsewhere 2023-01-30 00:00:00 2024-02-10 00:00:00 Encounter for adjustment and management of vascular access device Encounter for adjustment and management of vascular access device 2023-01-30 00:00:00 2024-02-10 00:00:00 emt intermediate (current) use of antibiotics emt intermediate (current) use of antibiotics 2023-01-30 00:00:00 Unspecified dementia, unspecified severity, with mood disturbance Unspecified dementia, unspecified severity, with mood disturbance 2023-01-30 00:00:00 2024-02-10 00:00:00 Presence of other specified devices Presence of other specified devices 2023-01-30 00:00:00 Cellulitis of right lower limb Cellulitis of right lower limb 2023-01-30 00:00:00 2024-02-10 00:00:00 Anemia, unspecified Anemia, unspecified 00:00:00 Unspecified dementia, unspecified severity, with anxiety Unspecified dementia, unspecified severity, with anxiety 2023-03-09 00:00:00 2024-02-10 00:00:00 Pain in right hip Pain in right hip 2023-03-11 00:00:00 Cognitive communication deficit Cognitive communication deficit 2023-03-11 00:00:00 Muscle weakness (generalized) Muscle weakness (generalized) 2023-03-11 00:00:00 Other fatigue Other fatigue 2023-03-11 00:00:00 Need for assistance with personal care Need for assistance with personal care 2023-03-11 00:00:00 Unspecified dementia, mild, with mood disturbance Unspecified dementia, mild, with mood disturbance 2023-03-09 00:00:00 Unspecified osteoarthritis, unspecified site Unspecified osteoarthritis, unspecified site 2023-03-09 00:00:00 Postmenopausal atrophic vaginitis Postmenopausal atrophic vaginitis 2023-03-09 00:00:00 Personal history of (healed) traumatic fracture Personal history of (healed) traumatic fracture 2023-03-09 00:00:00 Other abnormalities of gait and mobility Other abnormalities of gait and mobility 2023-03-11 00:00:00 [facility]_Social Services- Loree will be involved in goal development to the best of his or her ability. 2022-12-04 00:00:00 [facility]_Social Services- Loree has family/friends who are supportive. 2022-12-04 00:00:00 [facility]_Social Services- Loree has a dx of depression and is currently on an antidepressant. 2022-12-04 00:00:00 [facility]_Social Services- Loree has a diagnosis of dementia. 2022-12-04 00:00:00 [facility]_Social Services- Loree will be involved in discharge planning. 2022-12-04 00:00:00 [id number] Sole is receiving antidepressant drugs on a regular basis (11, 17) 2022-12-13 00:00:00 [facility]_Urinary Incontinence2 - Sole is frequentlyincontinent. 2022-12-13 00:00:00 [facility]_Pain - Sole is experiencing pain or is at highrisk for pain. 2022-12-13 00:00:00 [facility]_Skin Integrity - (Potential Alteration of)- Nancys at risk for developing impaired skin integrity. 2022-12-13 00:00:00 [facility]_ADLs - Sole has ADL selfcare deficit related to decreased mobility and muscle weakness 2022-12-13 00:00:00 [facility]_Falls - Sole is at risk for falls/injury asevidenced by: history of falls, cognitivestatus/behavior, vision status, continence,mobility, balance. 2022-12-13 00:00:00 [facility]_Social Services- Loree's mobility level is different than prior level due to current medical condition. 2022-12-04 00:00:00 [facility]_Social Services- Loree's wishes will be followed (Advanced Directive/Code Status). 2022-12-04 00:00:00 Alteration in nutrition/hydration R/T:Inadequate fluid intake-Required IV hydration during hospital stay 2022-11-30 00:00:00 [facility]_Skin Integrity - Sole has alteration in skinintegrity. Wound type:_surgical , woundlocation:_right ankle . 2023-02-28 00:00:00 [facility]_Infection - Sole is presenting with infection brittany at risk for infection. 2023-02-28 00:00:00 [facility]_IV Therapy - Sole is receiving IV therapy d/t _osteomyelitis .IV access: PICC line (X ), peripheral IV ( ), peripherallock ( ), central line ( ), medi-port ( ), midline ( ). 2023-02-28 00:00:00 [facility]_Pain - Sole is experiencing pain or is at highrisk for pain. 2023-02-12 00:00:00 [facility]_Skin Integrity - (Potential Alteration of)- Keyeis at risk for developing impaired skin integrity. 2023-02-12 00:00:00 [facility]_ADLs - Sole has ADL selfcare deficit related to decreased mobility and muscle weakness 2023-02-12 00:00:00 [facility]_Falls - Sole is at risk for falls/injury asevidenced by: history of falls, cognitivestatus/behavior, vision status, continence,mobility, balance. 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 2023-11-17 05:00:00 2024-10-15 20:10:00 Fluad Triv (65y up)(PF) 45 mcg (15 mcg x 3)/0.5 mL IM syringe 1 SYRINGE (ML) Intramuscular 1 Time Daily for 1 Day Indication: Vaccine 2023-12-05 05:00:00 2023-12-06 04:59:00 Blood Pressure Kit na KIT Other 2 Times Daily for 5 Days Indication: COVID symptom COVID monitoring 2023-12-09 18:00:00 2023-12-14 17:59:00 gabapentin 300 mg capsule 1 capsule CAPS ULE Oral 3 Times Daily Indication: neuropathy [employer]AG CUTTING MACHINE [employer]EDER supervision 0800, 1600, & 0000 2024-02-18 12:00:00 loperamide 2 mg tablet 1 TABLET Oral PRN Indication: diarrhea 1 tab PO after each episode of diarrhea, not to exceed 16mg in a 24-hour period 2024-03-23 06:00:00 Acidophilus capsule 1 capsule CAPSULE Or al 1 Time Daily Indication: diarrhea [employer]AG CUTTING MACHINE FE[employer]ER supervision x1 2024-05-19 05:00:00 2024-05-21 03:48:00 Acidophilus capsule 1 capsule CAPSULE Or al 1 Time Daily Indication: diarrhea RAG CUTTING MACHINE FEEDER supervision x2 2024-05-21 03:46:00 Comirnaty (12y up)(PF) 30 mcg/0.3 mL intramuscular syringe 0.3 ML SYRINGE (ML) Intramuscular 1 Time Daily for 1 Day Indication: vaccine 2024-06-29 11:00:00 2024-06-29 21:54:00 nitrofurantoin macrocrystaL 100 mg capsule 1 cap CAPSULE Oral 2 Times Daily for 7 Days Indication: ABT UTICNA supervision x1 x4 2024-07-18 05:00:00 2024-07-18 03:57:00 nitrofurantoin monohydrate/macrocrystals 100 mg capsule 1 capsule CAPSULE Oral 2 Times Daily for 7 Days Indication: ABT UTI [employer]AG CUTTING MACHINE FEEDER Supervision x1 x4 Give 1 capsule BID x 7 days 2024-07-18 11:00:00 2024-07-25 10:59:00 Comirnaty (12y up)(PF) 30 mcg/0.3 mL intramuscular syringe 1 SYRINGE (ML) Intramuscular 1 Time Daily for 1 Day Indication: COVID vaccination 2024-08-10 05:00:00 2024-08-09 11:27:00 Blood Pressure Cuff 1 EACH Other 2 Times Daily for 2 Days Indication: Vaccination monitoring 2024-08-10 17:00:00 2024-08-09 04:17:00 Blood Pressure Cuff 1 EACH Other 2 Times Daily for 3 Days Indication: Vaccination monitoring 2024-08-11 04:16:00 2024-08-09 13:39:00 Comirnaty (12y up)(PF) 30 mcg/0.3 mL intramuscular syringe 1 SYRINGE (ML) Intramuscular 1 Time Daily for 1 Day Indication: COVID vaccination 2024-08-09 11:24:00 2024-08-10 11:23:00 Blood Pressure Cuff 1 EACH Other 2 Times Daily for 3 Days Indication: Vaccination monitoring 2024-08-10 17:00:00 2024-08-13 16:59:00 nitrofurantoin macrocrystaL 100 mg capsule 1 capsule CAPSULE Oral 2 Times Daily for 7 Days Indication: UTI [employer]AG C[employer]TING MACHINE FE[employer]ER supervision x1, x4 2024-09-05 15:00:00 2024-09-12 14:59:00 Acidophilus capsule 1 capsule CAPSULE Or al 1 Time Daily for 14 Days Indication: probioticCNA supervision x4 2024-09-05 15:00:00 2024-09-19 14:59:00 ibuprofen 600 mg tablet 1 TABLET Oral Ev deepti 6 Hours for 3 Weeks Indication: Pain/ discomfort RAG C[employer]TING MACHINE [employer]ER supervision 2024-10-15 20:08:00 2024-10-22 23:52:00 ibuprofen 600 mg tablet 1 TABLET Oral VA N Every 6 Hours Indication: Pain/ discomfort 2024-11-05 05:00:00 2024-10-22 23:52:00 Problems Active Concerns Problem Code Start Date End Date Text Displaced bimalleolar fracture of right lower leg, subsequent encounter for closed fracture with routine healing Displaced bimalleolar fracture of right lower leg, subsequent encounter for closed fracture with routine healing 2022-11-29 00:00:00 2024-02-10 00:00:00 Unspecified fall, subsequent encounter Unspecified fall, subsequent encounter 2022-11-29 00:00:00 2024-02-10 00:00:00 Presence of urogenital implants Presence of urogenital implants 2022-11-29 00:00:00 Retention of urine, unspecified Retention of urine, unspecified 2022-11-29 00:00:00 Hyperlipidemia, unspecified Hyperlipidemia, unspecified 2022-11-29 00:00:00 Depression, unspecified Depression, unspecified 2022-11-29 00:00:00 Anxiety disorder, unspecified Anxiety disorder, unspecified 2022-11-29 00:00:00 Chronic kidney disease, stage 3 unspecified Chronic kidney disease, stage 3 unspecified 2022-11-29 00:00:00 Gastro-esophageal reflux disease without esophagitis Gastro-esophageal reflux disease without esophagitis 2022-11-29 00:00:00 Obstructive sleep apnea (adult) (pediatric) Obstructive sleep apnea (adult) (pediatric) 2022-11-29 00:00:00 Emphysema, unspecified Emphysema, unspecified 17-12-04 00:00:00 Personal history of transient ischemic attack (TIA), and cerebral infarction without residual deficits Personal history of transient ischemic attack (TIA), and cerebral infarction without residual deficits 2022-11-29 00:00:00 Presence of right artificial hip joint Presence of right artificial hip joint 2022-11-29 00:00:00 Hypertensive chronic kidney disease with stage 1 through stage 4 chronic kidney disease, or unspecified chronic kidney disease Hypertensive chronic kidney disease with stage 1 through stage 4 chronic kidney disease, or unspecified chronic kidney disease 2022-11-29 00:00:00 Presence of other bone and tendon implants Presence of other bone and tendon implants 2022-11-29 00:00:00 Pneumonia, unspecified organism Pneumonia, unspecified organism 2022-11-29 00:00:00 2024-02-10 00:00:00 Chronic obstructive pulmonary disease with (acute) lower respiratory infection Chronic obstructive pulmonary disease with (acute) lower respiratory infection 2022-11-29 00:00:00 Ataxia, unspecified Ataxia, unspecified 00:00:00 Weakness Weakness 2022-11-29 00:00:00 Personal history of COVID-19 Personal history of COVID-19 2022-12-25 00:00:00 emt intermediate (current) use of aspirin emt intermediate (current) use of aspirin 2022-12-25 00:00:00 Solitary pulmonary nodule Solitary pulmonary nod ule 2022-12-25 00:00:00 Neuromuscular dysfunction of bladder, unspecified Neuromuscular dysfunction of bladder, unspecified 2022-12-25 00:00:00 snf (current) use of opiate analgesic snf (current) use of opiate analgesic 2022-12-25 00:00:00 Subluxation of left ankle joint, subsequent encounter Subluxation of left ankle joint, subsequent encounter 2023-01-30 00:00:00 Other specified postprocedural states Other specified postprocedural states 2023-01-30 00:00:00 Methicillin resistant Staphylococcus aureus infection as the cause of diseases classified elsewhere Methicillin resistant Staphylococcus aureus infection as the cause of diseases classified elsewhere 2023-01-30 00:00:00 2024-02-10 00:00:00 Encounter for adjustment and management of vascular access device Encounter for adjustment and management of vascular access device 2023-01-30 00:00:00 2024-02-10 00:00:00 emt intermediate (current) use of antibiotics emt intermediate (current) use of antibiotics 2023-01-30 00:00:00 Unspecified dementia, unspecified severity, with mood disturbance Unspecified dementia, unspecified severity, with mood disturbance 2023-01-30 00:00:00 2024-02-10 00:00:00 Presence of other specified devices Presence of other specified devices 2023-01-30 00:00:00 Cellulitis of right lower limb Cellulitis of right lower limb 2023-01-30 00:00:00 2024-02-10 00:00:00 Anemia, unspecified Anemia, unspecified 00:00:00 Unspecified dementia, unspecified severity, with anxiety Unspecified dementia, unspecified severity, with anxiety 2023-03-09 00:00:00 2024-02-10 00:00:00 Pain in right hip Pain in right hip 2023-03-11 00:00:00 Cognitive communication deficit Cognitive communication deficit 2023-03-11 00:00:00 Muscle weakness (generalized) Muscle weakness (generalized) 2023-03-11 00:00:00 Other fatigue Other fatigue 2023-03-11 00:00:00 Need for assistance with personal care Need for assistance with personal care 2023-03-11 00:00:00 Unspecified dementia, mild, with mood disturbance Unspecified dementia, mild, with mood disturbance 2023-03-09 00:00:00 Unspecified osteoarthritis, unspecified site Unspecified osteoarthritis, unspecified site 2023-03-09 00:00:00 Postmenopausal atrophic vaginitis Postmenopausal atrophic vaginitis 2023-03-09 00:00:00 Personal history of (healed) traumatic fracture Personal history of (healed) traumatic fracture 2023-03-09 00:00:00 Other abnormalities of gait and mobility Other abnormalities of gait and mobility 2023-03-11 00:00:00 Social History Observation Description Date Sex Female 1945 00:00 :00 Sex Female Vital Signs Vital Sign Measurement Date Systolic Blood Pressure 111.0 mm[Hg] 20:17:51 Diastolic Blood Pressure 78.0 mm[Hg] 2024-09 20:17:51 Body weight 218.0 [lb_av] 2024-10-13 01:17 :51 Heart Rate 61.0 /min 2024-10-13 01:17 :51 Body temperature 97.5 [degF] 2024-10-13 01:1 7:51 Respiratory rate 18.0 /min 2024-10-13 01:1 7:51 Systolic Blood Pressure 126.0 mm[Hg] 20:34:32 Diastolic Blood Pressure 60.0 mm[Hg] 2024-09 20:34:32 Heart Rate 54.0 /min 2024-09-29 01:34 :32 Body weight 216.8 [lb_av] 2024-09-29 01:34 :32 Body temperature 97.3 [degF] 2024-09-29 01:3 4:32 Respiratory rate 18.0 /min 2024-09-29 01:3 4:32 Systolic Blood Pressure 129.0 mm[Hg] 13:57:58 Diastolic Blood Pressure 69.0 mm[Hg] 2024-08 13:57:58 Body weight 216.4 [lb_av] 2024-09-11 18:57 :58 Heart Rate 55.0 /min 2024-09-11 18:57 :58 Body temperature 97.6 [degF] 2024-09-11 18:5 7:58 Respiratory rate 18.0 /min 2024-09-11 18:5 7:58 Systolic Blood Pressure 107.0 mm[Hg] 13:42:05 Diastolic Blood Pressure 60.0 mm[Hg] 2024-08 13:42:05 Pulse Oximetry 90.0 % 2024-09-06 13:42 :05 Heart Rate 77.0 /min 2024-09-06 18:42 :05 Body temperature 98.1 [degF] 2024-09-06 18:4 2:05 Respiratory rate 18.0 /min 2024-09-06 18:4 2:05 Systolic Blood Pressure 126.0 mm[Hg] 13:37:03 Diastolic Blood Pressure 67.0 mm[Hg] 2024-08 13:37:03 Body weight 220.6 [lb_av] 2024-08-28 18:37 :03 Heart Rate 57.0 /min 2024-08-28 18:37 :03 Body temperature 97.4 [degF] 2024-08-28 18:3 7:03 Respiratory rate 20.0 /min 2024-08-28 18:3 7:03 Body temperature 98.4 [degF] 2024-08-13 13:4 1:04 Body temperature 98.9 [degF] 2024-08-13 02:4 1:23 Systolic Blood Pressure 108.0 mm[Hg] 12:53:44 Diastolic Blood Pressure 65.0 mm[Hg] 2024-07 12:53:44 Body weight 218.4 [lb_av] 2024-08-12 17:53 :44 Heart Rate 67.0 /min 2024-08-12 17:53 :44 Body temperature 97.9 [degF] 2024-08-12 17:5 3:44 Body temperature 97.9 [degF] 2024-08-12 17:5 3:44 Respiratory rate 18.0 /min 2024-08-12 17:5 3:44 Body temperature 97.3 [degF] 2024-08-12 01:3 0:31 Body temperature 97.9 [degF] 2024-08-11 15:0 7:22 Body temperature 97.2 [degF] 2024-08-11 02:4 4:51 Systolic Blood Pressure 110.0 mm[Hg] 13:17:40 Diastolic Blood Pressure 65.0 mm[Hg] 2024-07 13:17:40 Body weight 219.6 [lb_av] 2024-07-29 18:17 :40 Heart Rate 55.0 /min 2024-07-29 18:17 :40 Body temperature 98.5 [degF] 2024-07-29 18:1 7:40 Respiratory rate 18.0 /min 2024-07-29 18:1 7:40 Systolic Blood Pressure 124.0 mm[Hg] 15:40:28 Diastolic Blood Pressure 72.0 mm[Hg] 2024-06 15:40:28 Pulse Oximetry 92.0 % 2024-07-23 15:40 :28 Heart Rate 64.0 /min 2024-07-23 20:40 :28 Body temperature 98.2 [degF] 2024-07-23 20:4 0:28 Respiratory rate 18.0 /min 2024-07-23 20:4 0:28 Systolic Blood Pressure 144.0 mm[Hg] 12:35:44 Diastolic Blood Pressure 72.0 mm[Hg] 2024-06 12:35:44 Body weight 221.4 [lb_av] 2024-07-12 17:35 :44 Heart Rate 62.0 /min 2024-07-12 17:35 :44 Body temperature 98.0 [degF] 2024-07-12 17:3 5:44 Respiratory rate 18.0 /min 2024-07-12 17:3 5:44 Systolic Blood Pressure 158.0 mm[Hg] 16:04:00 Diastolic Blood Pressure 85.0 mm[Hg] 2024-06 16:04:00 Pulse Oximetry 97.0 % 2024-07-09 16:04 :00 Heart Rate 59.0 /min 2024-07-09 21:04 :00 Body temperature 97.9 [degF] 2024-07-09 21:0 4:00 Respiratory rate 18.0 /min 2024-07-09 21:0 4:00 Systolic Blood Pressure 150.0 mm[Hg] 13:32:03 Diastolic Blood Pressure 63.0 mm[Hg] 2024-06 13:32:03 Body weight 221.0 [lb_av] 2024-06-28 18:32 :03 Heart Rate 61.0 /min 2024-06-28 18:32 :03 Body temperature 98.4 [degF] 2024-06-28 18:3 2:03 Respiratory rate 18.0 /min 2024-06-28 18:3 2:03 Systolic Blood Pressure 148.0 mm[Hg] 18:23:48 Diastolic Blood Pressure 69.0 mm[Hg] 2024-05 18:23:48 Pulse Oximetry 95.0 % 2024-06-23 18:23 :48 Heart Rate 72.0 /min 2024-06-23 23:23 :48 Body temperature 98.6 [degF] 2024-06-23 23:2 3:48 Respiratory rate 18.0 /min 2024-06-23 23:2 3:48 Systolic Blood Pressure 131.0 mm[Hg] 10:46:35 Diastolic Blood Pressure 78.0 mm[Hg] 2024-05 10:46:35 Body weight 221.8 [lb_av] 2024-06-12 15:46 :35 Heart Rate 93.0 /min 2024-06-12 15:46 :35 Body temperature 98.1 [degF] 2024-06-12 15:4 6:35 Respiratory rate 20.0 /min 2024-06-12 15:4 6:35 Systolic Blood Pressure 144.0 mm[Hg] 13:22:59 Diastolic Blood Pressure 85.0 mm[Hg] 2024-05 13:22:59 Body weight 221.6 [lb_av] 2024-05-29 18:22 :59 Heart Rate 77.0 /min 2024-05-29 18:22 :59 Body temperature 97.9 [degF] 2024-05-29 18:2 2:59 Respiratory rate 18.0 /min 2024-05-29 18:2 2:59 Systolic Blood Pressure 136.0 mm[Hg] 10:25:07 Diastolic Blood Pressure 70.0 mm[Hg] 2024-04 10:25:07 Body weight 221.0 [lb_av] 2024-05-12 15:25 :07 Heart Rate 58.0 /min 2024-05-12 15:25 :07 Body temperature 97.5 [degF] 2024-05-12 15:2 5:07 Respiratory rate 18.0 /min 2024-05-12 15:2 5:07 Systolic Blood Pressure 113.0 mm[Hg] 14:43:00 Diastolic Blood Pressure 65.0 mm[Hg] 2024-04 14:43:00 Pulse Oximetry 92.0 % 2024-04-28 14:43 :00 Heart Rate 70.0 /min 2024-04-28 20:43 :00 Body temperature 97.3 [degF] 2024-04-28 20:4 3:00 Respiratory rate 18.0 /min 2024-04-28 20:4 3:00 Systolic Blood Pressure 110.0 mm[Hg] 11:09:43 Diastolic Blood Pressure 60.0 mm[Hg] 2024-04 11:09:43 Body weight 215.8 [lb_av] 2024-04-28 17:09 :43 Heart Rate 64.0 /min 2024-04-28 17:09 :43 Body temperature 97.9 [degF] 2024-04-28 17:0 9:43 Respiratory rate 18.0 /min 2024-04-28 17:0 9:43 Systolic Blood Pressure 131.0 mm[Hg] 12:51:00 Diastolic Blood Pressure 56.0 mm[Hg] 2024-03 12:51:00 Pulse Oximetry 97.0 % 2024-04-20 12:51 :00 Heart Rate 62.0 /min 2024-04-20 18:51 :00 Body temperature 97.6 [degF] 2024-04-20 18:5 1:00 Respiratory rate 20.0 /min 2024-04-20 18:5 1:00 Systolic Blood Pressure 134.0 mm[Hg] 16:31:07 Diastolic Blood Pressure 72.0 mm[Hg] 2024-03 16:31:07 Pulse Oximetry 95.0 % 2024-04-18 16:31 :07 Heart Rate 64.0 /min 2024-04-18 22:31 :07 Body temperature 98.1 [degF] 2024-04-18 22:3 1:07 Respiratory rate 18.0 /min 2024-04-18 22:3 1:07 Systolic Blood Pressure 131.0 mm[Hg] 10:35:04 Diastolic Blood Pressure 71.0 mm[Hg] 2024-03 10:35:04 Body weight 222.2 [lb_av] 2024-04-14 16:35 :04 Heart Rate 61.0 /min 2024-04-14 16:35 :04 Body temperature 97.7 [degF] 2024-04-14 16:3 5:04 Respiratory rate 18.0 /min 2024-04-14 16:3 5:04 Systolic Blood Pressure 97.0 mm[Hg] 13:50:00 Diastolic Blood Pressure 54.0 mm[Hg] 2024-03 13:50:00 Pulse Oximetry 96.0 % 2024-04-05 13:50 :00 Heart Rate 56.0 /min 2024-04-05 19:50 :00 Respiratory rate 18.0 /min 2024-04-05 19:5 0:00 Body temperature 98.0 [degF] 2024-04-05 19:5 0:00 Systolic Blood Pressure 147.0 mm[Hg] 10:13:10 Diastolic Blood Pressure 79.0 mm[Hg] 2024-03 10:13:10 Body weight 219.2 [lb_av] 2024-03-31 16:13 :10 Heart Rate 61.0 /min 2024-03-31 16:13 :10 Body temperature 97.7 [degF] 2024-03-31 16:1 3:10 Respiratory rate 18.0 /min 2024-03-31 16:1 3:10 Systolic Blood Pressure 111.0 mm[Hg] 13:05:07 Diastolic Blood Pressure 66.0 mm[Hg] 2024-02 13:05:07 Body weight 218.0 [lb_av] 2024-03-14 19:05 :07 Heart Rate 59.0 /min 2024-03-14 19:05 :07 Body temperature 97.2 [degF] 2024-03-14 19:0 5:07 Respiratory rate 20.0 /min 2024-03-14 19:0 5:07 Systolic Blood Pressure 105.0 mm[Hg] 12:19:03 Diastolic Blood Pressure 57.0 mm[Hg] 2024-02 12:19:03 Body weight 214.6 [lb_av] 2024-02-29 18:19 :03 Heart Rate 59.0 /min 2024-02-29 18:19 :03 Body temperature 97.3 [degF] 2024-02-29 18:1 9:03 Respiratory rate 20.0 /min 2024-02-29 18:1 9:03 Systolic Blood Pressure 137.0 mm[Hg] 13:49:49 Diastolic Blood Pressure 82.0 mm[Hg] 2024-01 13:49:49 Body weight 207.2 [lb_av] 2024-01-29 19:49 :49 Heart Rate 64.0 /min 2024-01-29 19:49 :49 Body temperature 98.4 [degF] 2024-01-29 19:4 9:49 Respiratory rate 18.0 /min 2024-01-29 19:4 9:49 Systolic Blood Pressure 122.0 mm[Hg] 14:22:38 Diastolic Blood Pressure 76.0 mm[Hg] 2023-12 14:22:38 Body weight 201.8 [lb_av] 2024-01-13 20:22 :38 Heart Rate 67.0 /min 2024-01-13 20:22 :38 Body temperature 97.8 [degF] 2024-01-13 20:2 2:38 Respiratory rate 18.0 /min 2024-01-13 20:2 2:38 Systolic Blood Pressure 110.0 mm[Hg] 13:55:29 Diastolic Blood Pressure 58.0 mm[Hg] 2023-12 13:55:29 Body weight 202.3 [lb_av] 2023-12-30 19:55 :29 Heart Rate 57.0 /min 2023-12-30 19:55 :29 Body temperature 98.3 [degF] 2023-12-30 19:5 5:29 Respiratory rate 18.0 /min 2023-12-30 19:5 5:29 Systolic Blood Pressure 134.0 mm[Hg] 13:39:36 Diastolic Blood Pressure 69.0 mm[Hg] 2023-11 13:39:36 Pulse Oximetry 95.0 % 2023-12-14 13:39 :36 Heart Rate 60.0 /min 2023-12-14 18:39 :36 Body temperature 97.9 [degF] 2023-12-14 18:3 9:36 Respiratory rate 18.0 /min 2023-12-14 18:3 9:36 Systolic Blood Pressure 137.0 mm[Hg] 21:17:19 Diastolic Blood Pressure 84.0 mm[Hg] 2023-11 21:17:19 Pulse Oximetry 95.0 % 2023-12-13 21:17 :19 Heart Rate 55.0 /min 2023-12-14 02:17 :19 Body temperature 97.8 [degF] 2023-12-14 02:1 7:19 Respiratory rate 20.0 /min 2023-12-14 02:1 7:19 Systolic Blood Pressure 127.0 mm[Hg] 12:30:57 Diastolic Blood Pressure 66.0 mm[Hg] 2023-11 12:30:57 Body weight 205.6 [lb_av] 2023-12-13 17:30 :57 Heart Rate 69.0 /min 2023-12-13 17:30 :57 Body temperature 97.6 [degF] 2023-12-13 17:3 0:57 Respiratory rate 20.0 /min 2023-12-13 17:3 0:57 Systolic Blood Pressure 127.0 mm[Hg] 12:25:09 Diastolic Blood Pressure 66.0 mm[Hg] 2023-11 12:25:09 Pulse Oximetry 97.0 % 2023-12-13 12:25 :09 Heart Rate 69.0 /min 2023-12-13 17:25 :09 Body temperature 97.6 [degF] 2023-12-13 17:2 5:09 Respiratory rate 20.0 /min 2023-12-13 17:2 5:09 Systolic Blood Pressure 128.0 mm[Hg] 13:33:06 Diastolic Blood Pressure 58.0 mm[Hg] 2023-11 13:33:06 Pulse Oximetry 94.0 % 2023-12-12 13:33 :06 Heart Rate 64.0 /min 2023-12-12 18:33 :06 Body temperature 98.1 [degF] 2023-12-12 18:3 3:06 Respiratory rate 18.0 /min 2023-12-12 18:3 3:06 Systolic Blood Pressure 127.0 mm[Hg] 20:01:40 Diastolic Blood Pressure 53.0 mm[Hg] 2023-11 20:01:40 Systolic Blood Pressure 130.0 mm[Hg] 20:01:40 Diastolic Blood Pressure 58.0 mm[Hg] 2023-11 20:01:40 Pulse Oximetry 96.0 % 2023-12-11 20:01 :40 Pulse Oximetry 93.0 % 2023-12-11 20:01 :40 Body temperature 98.4 [degF] 2023-12-12 01:0 1:40 Heart Rate 57.0 /min 2023-12-12 01:01 :40 Heart Rate 66.0 /min 2023-12-12 01:01 :40 Body temperature 98.1 [degF] 2023-12-12 01:0 1:40 Respiratory rate 18.0 /min 2023-12-12 01:0 1:40 Respiratory rate 18.0 /min 2023-12-12 01:0 1:40 Systolic Blood Pressure 109.0 mm[Hg] 00:18:40 Diastolic Blood Pressure 56.0 mm[Hg] 2023-11 00:18:40 Pulse Oximetry 96.0 % 2023-12-11 00:18 :40 Heart Rate 57.0 /min 2023-12-11 05:18 :40 Body temperature 97.5 [degF] 2023-12-11 05:1 8:40 Respiratory rate 18.0 /min 2023-12-11 05:1 8:40 Systolic Blood Pressure 144.0 mm[Hg] 13:50:15 Diastolic Blood Pressure 82.0 mm[Hg] 2023-11 13:50:15 Pulse Oximetry 93.0 % 2023-12-10 13:50 :15 Heart Rate 77.0 /min 2023-12-10 18:50 :15 Body temperature 98.4 [degF] 2023-12-10 18:5 0:15 Respiratory rate 18.0 /min 2023-12-10 18:4 8:59 Systolic Blood Pressure 144.0 mm[Hg] 08:00:00 Diastolic Blood Pressure 82.0 mm[Hg] 2023-11 08:00:00 Pulse Oximetry 93.0 % 2023-12-10 08:00 :00 Heart Rate 77.0 /min 2023-12-10 13:00 :00 Body temperature 98.4 [degF] 2023-12-10 13:0 0:00 Respiratory rate 18.0 /min 2023-12-10 13:0 0:00 Systolic Blood Pressure 102.0 mm[Hg] 21:51:05 Diastolic Blood Pressure 51.0 mm[Hg] 2023-11 21:51:05 Pulse Oximetry 94.0 % 2023-12-09 21:51 :05 Heart Rate 58.0 /min 2023-12-10 02:51 :05 Body temperature 97.9 [degF] 2023-12-10 02:5 1:05 Respiratory rate 18.0 /min 2023-12-10 02:5 1:05 Body temperature 97.8 [degF] 2023-12-08 16:1 1:47 Body temperature 97.3 [degF] 2023-12-07 20:1 3:35 Body temperature 98.1 [degF] 2023-12-07 19:5 4:55 Body temperature 97.5 [degF] 2023-12-06 21:1 1:24 Body temperature 98.1 [degF] 2023-12-06 18:4 0:21 Body temperature 98.3 [degF] 2023-12-06 07:0 2:38 Systolic Blood Pressure 130.0 mm[Hg] 12:13:01 Diastolic Blood Pressure 68.0 mm[Hg] 2023-11 12:13:01 Body weight 207.6 [lb_av] 2023-11-29 17:13 :01 Heart Rate 58.0 /min 2023-11-29 17:13 :01 Body temperature 97.6 [degF] 2023-11-29 17:1 3:01 Respiratory rate 20.0 /min 2023-11-29 17:1 3:01 Systolic Blood Pressure 125.0 mm[Hg] 10:53:30 Diastolic Blood Pressure 69.0 mm[Hg] 2023-10 10:53:30 Body weight 208.4 [lb_av] 2023-11-13 15:53 :30 Heart Rate 59.0 /min 2023-11-13 15:53 :30 Body temperature 98.1 [degF] 2023-11-13 15:5 3:30 Respiratory rate 18.0 /min 2023-11-13 15:5 3:30 Systolic Blood Pressure 133.0 mm[Hg] 11:04:17 Diastolic Blood Pressure 66.0 mm[Hg] 2023-10 11:04:17 Body weight 210.6 [lb_av] 2023-10-30 16:04 :17 Heart Rate 58.0 /min 2023-10-30 16:04 :17 Body temperature 97.6 [degF] 2023-10-30 16:0 4:17 Respiratory rate 18.0 /min 2023-10-30 16:0 4:17
--- OUTSIDE RECORDS SUMMARY | 2024-10-23 11:13 | XMS_ITS ---
Author Name Auto Generated, Auto Generated Organization [facility] ices Address [address] [place] [address] Care Team Providers Care Partner Manager Name Role Phone Cindy Maher Nurse Practitioner Newton Lee Nurse Practitioner [phone] Jim Lu Primary Physician Allergies and Intolerances Name Onset Reaction Severity No Known Allergies 2022-11-29 19:47:00 Care Team Name Role NPI Start Date Cindy Maher Nurse Practitioner [id number] 2024-05 00:00:00 Newton Lee Nurse Practitioner [id number] 2022-0205 00:00:00 Jim Lu Primary Physician [id number] 00:00:00 Encounters Admissions Program Name Primary [...] COVID-19 Personal history of COVID-19 2022-12-25 00:00:00 longterm (current) use of aspirin longterm (current) use of aspirin 2022-12-25 00:00:00 Solitary pulmonary nodule Solitary pulmonary nod ule 2022-12-25 00:00:00 Neuromuscular dysfunction of bladder, unspecified Neuromuscular dysfunction of bladder, unspecified 2022-12-25 00:00:00 Polyneuropathy, unspecified Polyneuropathy, unspecified 2022-12-25 00:00:00 2023-09-10 00:00:00 manager terminal (current) use of opiate analgesic manager terminal (current) use of opiate analgesic 2022-12-25 00:00:00 [...] vascular access device 2023-01-30 00:00:00 2024-02-10 00:00:00 manager terminal (current) use of antibiotics manager terminal (current) use of antibiotics 2023-01-30 00:00:00 Unspecified [...] abnormalities of gait and mobility 2023-03-11 00:00:00 Alteration in nutrition/hydration R/T:Inadequate fluid intake-Required IV hydration during hospital stay 2022-11-30 00:00:00 [facility]_Social Services- Loree's wishes will be followed (Advanced Directive/Code Status). 2022-12-04 00:00:00 [facility]_Social Services- Loree will be involved in goal development to the best of his or her ability. 2022-12-04 00:00:00 [facility]Social Services- Loree has family/friends who are supportive. 2022-12-04 00:00:00 [facility]Social Services- Loree has a dx of depression and is currently on an antidepressant. 2022-12-04 00:00:00 [facility]Social Services- Loree has a diagnosis of dementia. 2022-12-04 00:00:00 [facility]Social Services- Loree will be involved in discharge planning. 2022-12-04 00:00:00 [facility]Social Services- Loree's mobility level is different than prior level due to current medical condition. 2022-12-04 00:00:00 [facility]_Falls - Sole is at risk for falls/injury asevidenced by: history of falls, cognitivestatus/behavior, vision status, continence,mobility, balance. 2022-12-13 00:00:00 [facility]_ADLs Bhavik Whipple has ADL selfcare deficit related to decreased mobility and muscle weakness 2022-12-13 00:00:00 [facility]_Skin Integrity - (Potential Alteration of)- Magmarioeis at risk for developing impaired skin integrity. 2022-12-13 00:00:00 [facility]_Pain - Sole is experiencing pain or is at highrisk for pain. 2022-12-13 00:00:00 [facility]_Urinary Incontinence2 - Sole is frequentlyincontinent. 2022-12-13 00:00:00 [id number] Sole is receiving antidepressant drugs on a regular basis (11, 17) 2022-12-13 00:00:00 Alteration in nutrition/hydration R/T:Pressure injuries to Lorne buttocks & surgical incisions to R ankle 2023-02-01 00:00:00 [facility]_Falls - Sole is at risk for falls/injury asevidenced by: history of falls, cognitivestatus/behavior, vision status, continence,mobility, balance. 2023-02-12 00:00:00 [facility]_ADLs - Sole has ADL selfcare deficit related to decreased mobility and muscle weakness 2023-02-12 00:00:00 [facility]_Skin Integrity - (Potential Alteration of)- Maggieis at risk for developing impaired skin integrity. 2023-02-12 00:00:00 [facility]_Pain - Sole is experiencing pain or is at highrisk for pain. 2023-02-12 00:00:00 [facility]_IV Therapy - Sole is receiving IV therapy d/t _osteomyelitis .IV access: PICC line (X ), peripheral IV ( ), peripherallock ( ), central line ( ), medi-port ( ), midline ( ). 2023-02-28 00:00:00 [facility]_Infection - Sole is presenting with infection brittany at risk for infection. 2023-02-28 00:00:00 [facility]_Skin Integrity - Sole has alteration in skinintegrity. Wound type:_surgical , woundlocation:_right ankle . 2023-02-28 00:00:00 Immunizations Name Date Status influenza, trivalent, adjuvanted 2023-12-05 05:0 0:00 Completed COVID-19, mRNA, LNP-S, PF, lolis-sucrose, 30 mcg/ 0.3 mL 2024-06-29 05:00:00 Completed COVID-19, mRNA, LNP-S, PF, lolis-sucrose, 30 mcg/ 0.3 mL 2024-08-10 05:00:00 Completed Medications Medication Instructions Start Date End Date ibuprofen 600 mg tablet 1 TABLET Oral SC N Every 6 Hours Indication: Pain/ discomfort WOOD PATTERNMAKER supervision 2023-11-17 05:00:00 2024-10-15 20:10:00 Fluad Triv [...] ULE Oral 3 Times Daily Indication: neuropathy WOOD PATTERNMAKER supervision 0800, 1600, & 0000 2024-02-18 12:00:00 loperamide 2 mg tablet 1 TABLET Oral PRN Indication: diarrhea 1 tab PO after each episode of diarrhea, not to exceed 16mg in a 24-hour period 2024-03-23 06:00:00 Acidophilus capsule 1 capsule CAPSULE Or al 1 Time Daily Indication: diarrhea WOOD PATTERNMAKER supervision x1 2024-05-19 05:00:00 2024-05-21 03:48:00 Acidophilus capsule 1 capsule CAPSULE Or al 1 Time Daily Indication: diarrhea WOOD PATTERNMAKER supervision x2 2024-05-21 03:46:00 Comirnaty (12y up)(PF) [...] Daily for 7 Days Indication: ABT UTI WOOD PATTERNMAKER Supervision x1 x4 Give 1 capsule BID [...] Times Daily for 7 Days Indication: UTI WOOD PATTERNMAKER supervision x1, x4 2024-09-05 15:00:00 2024-09-12 14:59:00 Acidophilus capsule 1 capsule CAPSULE Or al 1 Time Daily for 14 Days Indication: probioticCNA supervision x4 2024-09-05 15:00:00 2024-09-19 14:59:00 ibuprofen 600 mg tablet 1 TABLET Oral Ev deepti 6 Hours for 3 Weeks Indication: Pain/ discomfort WOOD PATTERNMAKER supervision 2024-10-15 20:08:00 2024-10-22 23:52:00 ibuprofen 600 mg tablet 1 TABLET Oral SC N Every 6 Hours Indication: Pain/ discomfort [...] COVID-19 Personal history of COVID-19 2022-12-25 00:00:00 manager terminal (current) use of aspirin manager terminal (current) use of aspirin 2022-12-25 00:00:00 Solitary pulmonary nodule Solitary pulmonary nod ule 2022-12-25 00:00:00 Neuromuscular dysfunction of bladder, unspecified Neuromuscular dysfunction of bladder, unspecified 2022-12-25 00:00:00 longterm (current) use of opiate analgesic longterm (current) use of opiate analgesic 2022-12-25 00:00:00 [...] vascular access device 2023-01-30 00:00:00 2024-02-10 00:00:00 manager terminal (current) use of antibiotics manager terminal (current) use of antibiotics 2023-01-30 00:00:00 Unspecified [...]
--- OUTSIDE RECORDS SUMMARY | 2024-10-23 11:15 | XMS_ITS | Clinical Summary ---
Author Organization [facility] Address [address] [place] [id number] Phone Care Team Providers Care Languages And Literature Instructor Name Role Phone Unavailable Primary Care Provider [...] 12:01 AM CDT Height 165.1 cm (5' 5) 11/19/2016 12:0 1 AM CDT Body Mass Index 36.94 11/19/2016 12:01 AM CDT Plan of Treatment Not on file
--- OUTSIDE RECORDS SUMMARY | 2024-10-23 11:15 | XMS_ITS | Clinical Summary ---
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 She is return the office on an as-needed basis. Assessment & Plan (11/22/2020 4:17 PM CDT): Patient has sufficient stability the ankle she would likely be well protected with a lace-up ankle support which was issued. She should work on mhmeq-id-dwbacx exercises. Like to reassess her and four [...] deficits 07/08/2019 Coronary artery disease invo lving flandreau coronary artery of flandreau heart without angina pectoris 12/19/2018 Dyslipidemia 11/06/2018 [...] - (Added by TW Conv) Cerebral infarction Stroke syndr ome - (Added by TW Conv) Hypertension Stroke [...] = 0.6 oz pur e alcohol) occassionally [facility] Utilities Answer Date Recorded In the past 12 months has th e electric, gas, oil, or water [employer] threatened to shut off services in your home? No 01/24/2023 Social Connection and Isolation Panel Answer Date Recorded In a typical week, how many times do you talk on the phone with family, friends, or neighbors? Twice a week 12/26/19 How often do you get togethe r with friends or relatives? Twice a week 12/25/2022 How often do you attend caro center or islam services? 1 to 4 times per year 12/25/2022 Do you belong to any clubs o r organizations such as yazdanism groups, unions, fraternal or athletic groups, or [...] place to sleep or slept in a custodial (including now)? No 12/25/2022 Personal Safety Answer Date Recorded Have you ever been in or are you currently in a harmful physical or emotional relationship or is someone making you feel afraid or unsafe? 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 Gender Identity Not on file Sexual Orientation Not on file Occupation Industry Job Start Date Job End Date retired Not on file Not on file Not on file Obstetrics History Last Filed Vital Signs Vital Sign Reading Time Taken Comments Blood Pressure 96/67 06/12/2023 2:58 PM CDT Pulse 61 06/12/2023 2:58 PM CDT Temperature 36.8 C (98.3 F) 01/30/2023 8:00 AM GRINDER TENDER Respiratory Rate 18 01/30/2023 8:00 AM GRINDER TENDER Oxygen Saturation 95% 01/30/2023 8:00 AM GRINDER TENDER Inhaled Oxygen Concentration - - Weight 93.6 kg (206 lb 6.4 oz) 06/12/2023 2:58 P M CDT Height 160 cm (5' 3) 06/12/2023 2:58 PM CDT Body Mass Index 36.56 06/12/2023 2:58 PM CDT Plan of Treatment Health Maintenance Due Date Last Done Comments Depression Screening 1944 Hepatitis B Screening 1962 Zoster Vaccine (1 of 2) 1994 Well Visit 65+ 2009 Pneumococcal vaccine 65+ (2 of 2 - PCV) 01/24/2013 01/25/2012 Osteoporosis Screening-Bone Density Scan 11/06/2015 11/05/2013 Fall Risk Assessment 01/31/2024 01/30/2023 Influenza Vaccine (#1) 2024 3, 12/08/2020, 12/04/2019, Additional history exists DTaP/Tdap/Td Vaccine (2 - Td or Tdap) 04/30/2029 05/01/2019 Medical Devices Implanted Type Area Computer Systems Designer Device Identifier Shelf Expiration Date Model / Serial / Lot [employer] 98mm 8 Hole Lock Ankle 1/3 Tube Plate Bone Stainless Steel [id number]-[id number]-08 - [id number] Implanted:Qty: 1 on 12/21/2022 by Malachi Becerra Jr., MD at [facility] Right: Ankle [employer] AR-8943T-08 / / [employer] Low Profile Screws 3.5mm 12mm Modular Solid Hexalobe Self Tap Ar-8835-12 - [id number] Implanted:Qty: 1 on 12/21/2022 by Malachi Becerra Jr., MD at [facility] Right: Ankle [employer] AR-8835-12 / / [employer] Screw Kreulock Compression Ss 3.5x14mm [id number] - [id number] Implanted:Qty: 2 on 12/21/2022 by Malachi Becerra Jr., MD at [facility] Right: Ankle [employer] AR-8835CL-1 4 / / [employer] Screw Kreulock Compression Ss 3.5x20mm [id number] - [id number] Implanted:Qty: 1 on 12/21/2022 by Malachi Becerra Jr., MD at [facility] Right: Ankle [employer] AR-8835CL-2 0 / / [employer] 98mm 5 Hole Avulsion Hook Lock Ankle Lateral Plate Bone Stainless [id number] - [id number] Implanted:Qty: 1 on 12/21/2022 by Malachi Becerra Jr., MD at [facility] Right: Ankle [employer] AR-8943TH-0 5 / / [employer] Low Profile Screws 3.5mm 18mm Modular Solid Hexalobe Self Tap Ar-8835-18 - [id number] Implanted:Qty: 1 on 12/21/2022 by Malachi Becerra Jr., MD at [facility] Right: Ankle [employer] AR-8835-18 / / [employer] Low Profile Screws 3.5mm 50mm Self Drill Solid Modular Ankle Ar-8835-50 - [id number] Implanted:Qty: 2 on 12/21/2022 by Malachi Becerra Jr., MD at [facility] Right: Ankle [employer] AR-8835-50 / / [employer] Low Profile Screws 3.5mm 40mm Modular Solid Hexalobe Self Tap Ar-8835-40 - [id number] Implanted:Qty: 1 on 12/21/2022 by Malachi Becerra Jr., MD at [facility] Right: Ankle [employer] AR-8835-40 / / [employer] Low Profile Screws 3.5mm 26mm Modular Solid Hexalobe Self Tap Ar-8835-26 - [id number] Implanted:Qty: 1 on 12/21/2022 by Malachi Becerra Jr., MD at [facility] Right: Ankle [employer] AR-8835-26 / / [employer] Low Profile Screws 3.5mm 30mm Modular Solid Hexalobe Self Tap Ar-8835-30 - [id number] Implanted:Qty: 1 on 12/21/2022 by Malachi Becerra Jr., MD at [facility] Right: Ankle [employer] AR-8835-30 / / [employer] Screw Kreulock Compression Ss 3.5x28mm [id number] - [id number] Implanted:Qty: 1 on 12/21/2022 by Malachi Becerra Jr., MD at [facility] Right: Ankle [employer] AR-8835CL-2 8 / / [employer] Screw Kreulock Compression Ss 3.5x36mm [id number] - [id number] Implanted:Qty: 1 on 12/21/2022 by Malachi Becerra Jr., MD at [facility] Right: Ankle [employer] AR-8835CL-3 6 [...] agrees with it. ACC# Date Time Exam [id number] Nov 05, 2013 13:48:00 [id number] BONE DEXA (2 sites) EXAMINATION: BONE DENSITOMETRY [...] -2.0 is below the expected range for age. A Z-score below the expected range for age in a patient with recent fractures and/or chronic corticosteroid treatment is consistent with a diagnosis of osteoporosis. b) In post menopausal women and males over 50, comparison of the measured bone mineral density with the average value in young normal subjects (the T-score) has been found to be useful in [...] CISSE M.D. on Nov 05 2013 5:15P [id number] Procedure Note Provider, MD Santana - 06/28/2016 EVAN CISSE M.D. MIGUEL ESTRADA, FINAL REPORT The radiology attending physician has personally reviewed this study, and has reviewed and/or edited this written report and agrees with it. ACC# Date Time Exam [id number] Nov 05, 2013 13:48:00 [id number] BONE DEXA (2 sites) EXAMINATION: BONE DENSITOMETRY [...] -2.0 is below the expected range for age. A Z-score below the expected range for age in a patient with recent fractures and/or chronic corticosteroid treatment is consistent with a diagnosis of osteoporosis. b) In post menopausal women and males over 50, comparison of the measured bone mineral density with the average value in young normal subjects (the T-score) has been found to be useful in [...] CISSE M.D. on Nov 05 2013 5:15P [id number] [facility] Provider MD DIAZ DXA PROCEDURES Final Result from Last 3 Months or Most Recently Relevant to Health Maintenance [place] [address] [employer] MEDICARE FOR LIFE MEDICARE FOR LIFE Advance Directives For more information, please contact: [phone] * Full Code (Latest Code Status on [...] Haskins Daughter Health Care Agent Care Teams Palliative Senior Np Relationship Specialty Start Date End Date Jim Lu MD PCP - General Family Medicine 08/15/17 Telly Muro MD [address] [place] [address] Referring Physician Neurology 08/15/17 [place] [id number] [facility] [address] [place] [address] Surgeon Orthopedic Surgery 01/30/23
--- OUTSIDE RECORDS SUMMARY | 2024-10-23 11:15 | XMS_ITS | Encounter Summary ---
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 [address] [place] [address] Surgeon Orthopedic Surgery 01/30/23 documented as of this encounter
--- NOTE | 2024-10-23 11:25 | ECG_ITS ---
Test Date: 2024-10-23 11:26:47 Measurements Intervals [place] Rate: 53 P: 53 GA: 166 QRS: 49 QRSD: 90 T: 54 QT: 399 QTc: 377 Interpretive Statements SINUS BRADYCARDIA BORDERLINE ST-T WAVE ABNORMALITY- ANT/HIGH LAT LEADS BORDERLINE ECG No previous ECG available for comparison Electronically Signed On 10-23-2024 12:08:02 CDT by Jonh Peters D.O.
[2024-10-23 11:45] LABS: Hematocrit 40.2 % (37.0-47.0); Hemoglobin 12.4 g/dL (12.0-15.0); Immature Granulocyte Percent A 0.3 % (0-0.5); Lymphocytes Absolute Auto 1.45 K/mm3 (0.9-3.2); Mean Corpuscular HGB Conc 30.8 g/dl (32-36); Mean Corpuscular Hemoglobin 29.2 pg (26-34); Mean Corpuscular Volume 94.8 fl (80-100); Nucleated Red Blood Cells Absolute Auto 0.000 K/mm3 (0.0-0.012); Nucleated Red Blood Cells Perc 0.0 % (0.0-0.2); Platelet Count Result 152 k/mm3 (150-375); Red Blood Count 4.24 M/mm3 (4.2-5.4); White Blood Count 7.0 K/mm3 (4.5-10.0)
[2024-10-23 11:57] LABS: INR 1.0; Prothrombin Time 13.8 Seconds (11.1-14.7)
[2024-10-23 11:58] LABS: Partial Thromboplastin Time 29.4 Seconds (22.3-36.8)
[2024-10-23 12:13] LABS: Alanine Aminotransferase 20 U/L (6-35); Albumin Level 4.0 g/dL (3.5-5.1); Alkaline Phosphatase 63 U/L (38-126); Anion Gap 13 mmol/L (4-12); Aspartate Amino Transferase 36 U/L (14-36); Bilirubin,Total 0.6 mg/dL (0.2-1.3); Blood Urea Nitrogen 48 mg/dL (7-17); Calcium 10.1 mg/dL (8.4-10.2); Carbon Dioxide 21 mmol/L (22-30); Chloride 108 mmol/L (98-107); Estimated CRCL calculation 20 ml/min; Estimated Glomerular Filt Rate 19; Glucose 110 mg/dL (65-110); Potassium 4.5 mmol/L (3.4-5.0); Sodium 142 mmol/L (137-145); Total Protein 7.2 g/dL (6.3-8.2)
--- NOTE | 2024-10-23 12:13 | ED.AMS ---
HPI - Altered Mental Status General Chief Complaint: Altered Mental Status Stated Complaint: AMS x 3 days Time Seen by Provider: 10/23/24 12:04 Source: patient Mode of arrival: ambulatory Limitations: altered mental status History of Present Illness HPI narrative: 79 years old white female came from prison with an more confusion than usual for the last 3 days. Associated with nausea and intermittent vomiting. Patient's daughter at the bedside who provided the history. Related Data Allergies Allergy/AdvReac Type Severity Reaction Status Date / Time No Known Allergies Allergy Mild Verified 10/23/24 13:05 Review of Systems Review of Systems: All systems reviewed & are unremarkable except as noted in HPI and below PMFSH Past Medical History Medical History Microhematuria Dementia Chronic kidney disease, stage 3 Transient ischemic attack Obstructive sleep apnea No longer using CPAP following weight loss. Gastroesophageal reflux disease Hyperlipidemia Degenerative disc disease Pulmonary emphysema Anxiety Arthritis Asthma Hypertension Depression Surgical History Surgical History History of cardiac catheterization (2011) Reportedly unremarkable. History of section History of tubal ligation History of hysterectomy History of benign breast biopsy History of right hip replacement History of cholecystectomy History of tonsillectomy Family History Family History Mother Hypertension Family history of pancreatic cancer Father Cerebrovascular accident Sibling Heart disease Bdqbh-Pizgddxaz-Ptvpr (WPW) syndrome A-fib Low O2 saturation Social History Social History Social History: Surrogate medical decision maker: Misael Garrettt (son) or Mini Bledsoe (daughter). Code status: Full code. Smoking status: Never smoker Second hand tobacco smoke exposure: Yes Alcohol intake: never Alcohol use details: No alcohol since around age 29. Substance use: never Substance use type: does not use Lack of Transportation: No Lack of Food: Never True Current Housing: I Have Housing Concerned About Future Housing: No Difficulty Paying Gas/Electric Bills: No Difficulty Paying for Meds: No Currently Unemployed: No Education: Associate Degree Difficulty w/ Childcare or Family Care: No Additional living arrangements comments: . Lives in assisted living. She has 7 children, 5 biologic and 2 adopted. 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 Spiritual care concerns: No Exam Narrative: General appearance: Well-developed, well-nourished Skin: Normal color Head: Normocephalic, nontraumatic Eyes: Clear conjunctiva ENT: Oropharynx normal, ears normal, nose normal Neck: Supple, nontender Chest and respiratory: Airway patent, no respiratory distress, no accessory muscle use Heart: Bradycardia Abdomen: Soft, nontender, no organomegaly, quiet bowel sounds Vascular: Normal peripheral pulses, normal capillary refill. Musculoskeletal: Normal range of motion, nontender back Neurologic: Alert and oriented to her name and the name of the president only otherwise disoriented Course Vital Signs Vital signs: Vital Signs Temperature 36.7 C 10/23/24 11:25 Pulse Rate 52 L 10/23/24 11:25 Respiratory Rate 18 10/23/24 11:25 Blood Pressure 107/66 10/23/24 11:25 Pulse Oximetry 93 10/23/24 11:25 Oxygen Delivery Room Air 10/23/24 11:25 Temperature 36.7 C 10/23/24 11:25 Pulse Rate 52 L 10/23/24 12:42 Respiratory Rate 12 10/23/24 12:42 Blood Pressure 120/75 10/23/24 12:42 Pulse Oximetry 94 10/23/24 12:42 Oxygen Delivery Room Air 10/23/24 12:14 MDM - Altered Mental Status MDM Narrative Medical decision making narrative: Patient came to the ED with more confusion than usual Vital signs showing a I heart rate of 52 per minute Physical examination is remarkable for disorientation otherwise insignificant Differential diagnosis include electrolyte imbalance, dehydration, urinary tract infection, CVA Blood workup today showed creatinine of 2.4, BUN 48 which is new compared to the previous readings Urinalysis positive for infection Chest x-ray showed no acute abnormality Differential Diagnosis Differential diagnosis: Likely other (As above) Medical Records Attestation: I reviewed the patient's medical records. Lab Data Attestation: I reviewed the patient's lab results. 10/23/24 11:40 10/23/24 11:40 Labs: Lab Results 10/23/24 10/23/24 Range/Units 11:40 12:12 WBC 7.0 (4.5-10.0) K/mm3 RBC 4.24 (4.2-5.4) M/mm3 Hgb 12.4 (12.0-15.0) g/dL Hct 40.2 (37.0-47.0) % MCV 94.8 (80-100) fl MCH 29.2 (26-34) pg MCHC 30.8 L (32-36) g/dl RDW 13.2 (11.5-14.5) % Plt Count 152 (150-375) k/mm3 MPV 11.5 H (7.4-10.4) fl Immature Gran % (Auto) 0.3 (0-0.5) % Neut % (Auto) 64.1 (45.5-73.1) % Lymph % (Auto) 20.8 (18.3-44.2) % Preston % (Auto) 8.7 H (2.6-8.5) % Eos % (Auto) 5.7 H (0-4.4) % Baso % (Auto) 0.4 (0.2-1.2) % Lymph # (Auto) 1.45 (0.9-3.2) K/mm3 Preston # (Auto) 0.6 (0.1-0.6) K/mm3 Eos # (Auto) 0.4 H (0-0.3) K/mm3 Baso # (Auto) 0.0 (0.0-0.1) K/mm3 Abs Immat Gran (auto) 0.02 (0.00-0.031) K/mm3 Absolute Neuts (auto) 4.5 (1.3-6.7) K/mm3 Absolute Nucleated RBC 0.000 (0.0-0.012) K/mm3 Nucleated RBC % 0.0 (0.0-0.2) % PT 13.8 (11.1-14.7) Seconds INR 1.0 APTT 29.4 (22.3-36.8) Seconds Sodium 142 (137-145) mmol/L Potassium 4.5 (3.4-5.0) mmol/L Chloride 108 H (98-107) mmol/L Carbon Dioxide 21 L (22-30) mmol/L Anion Gap 13 H (4-12) mmol/L BUN 48 H D (7-17) mg/dL Creatinine 2.45 H (0.7-1.0) mg/dL Estim Creat Clear Calc 20 ml/min Estimated GFR 19 L (59 - ) Glucose 110 (65-110) mg/dL Lactic Acid 2.2 H (0.7-2.0) mmol/L Calcium 10.1 (8.4-10.2) mg/dL Total Bilirubin 0.6 (0.2-1.3) mg/dL AST 36 (14-36) U/L ALT 20 (6-35) U/L Alkaline Phosphatase 63 (38-126) U/L Total Protein 7.2 (6.3-8.2) g/dL Albumin 4.0 (3.5-5.1) g/dL Urine Color Yellow (Yellow) Urine Appearance Turbid H (Clear) Urine pH 5.5 (5.0-9.0) Ur Specific Pipestem 1.014 (1.001-1.035) Urine Protein 2+ H (Negative) mg/dL Urine Glucose (UA) Negative (Negative) mg/dL Urine Ketones Negative (Negative) mg/dL Ur Blood (Man) 1+ H (Negative) Urine Nitrate Negative (Negative) Urine Bilirubin Negative (Negative) Urine Urobilinogen 0.2 (<2.0) mg/dL Add Ur Microanalysis Reviewed Leukocyte Esterase Rfl 3+ H (Negative) KIRILL/UL Urine RBC 0-2 (0-2) /hpf Urine WBC >100 H (0-3) /hpf Ur Squamous Epith Cells Occasional (Few) /hpf Urine Bacteria None seen /hpf Urine Casts 3-5 Discharge Plan Discharge Clinical Impression: DEMETRIO (acute kidney injury), Urinary tract infection Patient Disposition: Still a Patient Condition: Stable Patient Language: Malay Prescriptions: No Action budesonide-formoterol 80-4.5 mcg/actuation HFA aerosol inhaler 2 puff inhalation Q12H PRN (Reason: sob or wheezing) Qty: 10.2 3RF tiotropium bromide 2.5 mcg/actuation mist 1 inh inhalation .twice a day Qty: 4 0RF nystatin 100,000 unit/gram powder 1 applic topical QID PRN (Reason: rash) Qty: 60 0RF Pro-Stat AWC 17-100 gram-kcal/30 mL liquid 30 ea PO DAILY Qty: 3548 2RF Rx Instructions: 30ml daily Arginaid 4.5 gram-156 mg/9.2 gram powder in packet See Rx Instructions PO DAILY Qty: 56 2RF Rx Instructions: 1 pack daily orally daily; multivitamin Tablet 1 tablet PO DAILY Qty: 90 2RF albuterol sulfate 90 mcg/actuation HFA aerosol inhaler 1 inh inhalation Q6H PRN (Reason: shortness of breath or wheezing) Qty: 8.5 2RF gabapentin 300 mg capsule 300 mg PO TID Qty: 270 1RF L.acidoph,saliva-B.bif-S.therm [Acidophilus Probiotic Blend] 175 mg capsule 1 cap PO DAILY Qty: 90 1RF atorvastatin 40 mg tablet 40 mg PO DAILY Qty: 90 2RF acetaminophen [Tylenol Extra Strength] 500 mg tablet 500 mg PO Q8H 90 Days Qty: 270 2RF atenolol 50 mg tablet 50 mg PO DAILY Qty: 90 2RF sertraline 100 mg tablet 100 mg PO DAILY Qty: 90 2RF tamsulosin 0.4 mg capsule 0.4 mg PO DAILY Qty: 90 2RF aspirin 325 mg tablet 325 mg PO DAILY Qty: 90 2RF bupropion HCl 100 mg tablet 100 mg PO BID Qty: 180 2RF estradiol 0.01 % (0.1 mg/gram) cream 1 g vaginal 3XW Qty: 42.5 3RF nystatin 100,000 unit/gram powder 1 applic topical BID Qty: 60 1RF hydrocodone-acetaminophen 5-325 mg tablet 1 tablet PO Q4H PRN (Reason: severe pain (scale score 7-10)) Qty: 30 0RF Follow-up/Referrals: Jim Lu MD [Primary Care Provider, Family Practice]
--- OUTSIDE RECORDS SUMMARY | 2024-10-23 12:20 | XMS_ITS ---
Author Name Auto Generated, Auto Generated Organization [facility] ices Address [address] [place] [address] Care Team Providers Care Meteorology Professor Name Role Phone Cindy Maher Nurse Practitioner [phone] [place] Lee Nurse Practitioner Jim Lu Primary Physician Allergies and Intolerances Name Onset Reaction Severity No Known Allergies 2022-11-29 19:47:00 Care Team Name Role NPI Start Date Cindy Maher Nurse Practitioner [id number] 2024-05 00:00:00 Newton Lee Nurse Practitioner [id number] 2022-0205 00:00:00 Jim Lu Primary Physician [id number] 00:00:00 Encounters Admissions Program Name Primary [...] COVID-19 Personal history of COVID-19 2022-12-25 00:00:00 prison (current) use of aspirin prison (current) use of aspirin 2022-12-25 00:00:00 Solitary pulmonary nodule Solitary pulmonary nod ule 2022-12-25 00:00:00 Neuromuscular dysfunction of bladder, unspecified Neuromuscular dysfunction of bladder, unspecified 2022-12-25 00:00:00 Polyneuropathy, unspecified Polyneuropathy, unspecified 2022-12-25 00:00:00 2023-09-10 00:00:00 meterman (current) use of opiate analgesic meterman (current) use of opiate analgesic 2022-12-25 00:00:00 [...] vascular access device 2023-01-30 00:00:00 2024-02-10 00:00:00 meterman (current) use of antibiotics meterman (current) use of antibiotics 2023-01-30 00:00:00 Unspecified [...] abnormalities of gait and mobility 2023-03-11 [facility]00 [facility] will be followed (Advanced Directive/Code Status). 2022-12-04 00:00:00 [facility] will be involved in goal development to the best of his or her ability. 2022-12-04 00:00:00 [facility]e has family/friends who are supportive. [...] vision status, continence,mobility, balance. 2022-12-13 00:00:00 LSS_ADLs - Sole has ADL selfcare deficit related to decreased mobility and muscle weakness 2022-12-13 00:00:00 LSS_Skin Integrity - (Potential Alteration of)- Magmarioeis at risk for developing impaired skin integrity. 2022-12-13 00:00:00 LSS_Pain - Sole is experiencing pain or is at highrisk for pain. 2022-12-13 00:00:00 LSS_Urinary Incontinence2 - Sole is frequentlyincontinent. 2022-12-13 00:00:00 [id number] Sole is receiving antidepressant drugs on a [...] type:_surgical , woundlocation:_right ankle . 2023-02-28 00:00:00 Alteration in nutrition/hydration R/T:Inadequate fluid intake-Required IV hydration during hospital stay 2022-11-30 00:00:00 Immunizations Name Date Status influenza, trivalent, adjuvanted 2023-12-05 05:0 0:00 Completed COVID-19, mRNA, LNP-S, PF, lolis-sucrose, 30 mcg/ 0.3 mL 2024-06-29 05:00:00 Completed COVID-19, mRNA, LNP-S, PF, lolis-sucrose, 30 mcg/ 0.3 mL 2024-08-10 05:00:00 Completed Medications Medication Instructions Start Date End Date ibuprofen 600 mg tablet 1 TABLET Oral PA N Every 6 Hours Indication: Pain/ discomfort NURSING SCHEDULER supervision 2023-11-17 05:00:00 2024-10-15 20:10:00 Fluad Triv [...] ULE Oral 3 Times Daily Indication: neuropathy NURSING SCHEDULER supervision 0800, 1600, & 0000 2024-02-18 12:00:00 loperamide 2 mg tablet 1 TABLET Oral PRN Indication: diarrhea 1 tab PO after each episode of diarrhea, not to exceed 16mg in a 24-hour period 2024-03-23 06:00:00 Acidophilus capsule 1 capsule CAPSULE Or al 1 Time Daily Indication: diarrhea NURSING SCHEDULER supervision x1 2024-05-19 05:00:00 2024-05-21 03:48:00 Acidophilus capsule 1 capsule CAPSULE Or al 1 Time Daily Indication: diarrhea NURSING SCHEDULER supervision x2 2024-05-21 03:46:00 Comirnaty (12y up)(PF) [...] Daily for 7 Days Indication: ABT UTI NURSING SCHEDULER Supervision x1 x4 Give 1 capsule BID [...] Times Daily for 7 Days Indication: UTI NURSING SCHEDULER supervision x1, x4 2024-09-05 15:00:00 2024-09-12 14:59:00 Acidophilus capsule 1 capsule CAPSULE Or al 1 Time Daily for 14 Days Indication: probioticCNA supervision x4 2024-09-05 15:00:00 2024-09-19 14:59:00 ibuprofen 600 mg tablet 1 TABLET Oral Ev deepti 6 Hours for 3 Weeks Indication: Pain/ discomfort NURSING SCHEDULER supervision 2024-10-15 20:08:00 2024-10-22 23:52:00 ibuprofen 600 mg tablet 1 TABLET Oral PA N Every 6 Hours Indication: Pain/ discomfort [...] COVID-19 Personal history of COVID-19 2022-12-25 00:00:00 meterman (current) use of aspirin meterman (current) use of aspirin 2022-12-25 00:00:00 Solitary pulmonary nodule Solitary pulmonary nod ule 2022-12-25 00:00:00 Neuromuscular dysfunction of bladder, unspecified Neuromuscular dysfunction of bladder, unspecified 2022-12-25 00:00:00 prison (current) use of opiate analgesic prison (current) use of opiate analgesic 2022-12-25 00:00:00 [...] vascular access device 2023-01-30 00:00:00 2024-02-10 00:00:00 meterman (current) use of antibiotics meterman (current) use of antibiotics 2023-01-30 00:00:00 Unspecified [...]
--- OUTSIDE RECORDS SUMMARY | 2024-10-23 12:20 | XMS_ITS ---
Author Name Auto Generated, Auto Generated Organization [facility] ices Address [address] [place] [address] Care Team Providers Care Coater Helper Name Role Phone Cindy Maher Nurse Practitioner Newton Lee Nurse Practitioner Jim Lu Primary Physician Allergies and Intolerances Name Onset Reaction Severity No Known Allergies 2022-11-29 19:47:00 Care Team Name Role NPI Start Date Cindy Maher Nurse Practitioner [id number] 2024-05 00:00:00 Newton Lee Nurse Practitioner [id number] 2022-0205 00:00:00 Jim Lu Primary Physician [id number] 00:00:00 Encounters Admissions Program Name Primary [...] COVID-19 Personal history of COVID-19 2022-12-25 00:00:00 [facility] (current) use of aspirin [facility] (current) use of aspirin 2022-12-25 00:00:00 Solitary pulmonary nodule Solitary pulmonary nod ule 2022-12-25 00:00:00 Neuromuscular dysfunction of bladder, unspecified Neuromuscular dysfunction of bladder, unspecified 2022-12-25 00:00:00 Polyneuropathy, unspecified Polyneuropathy, unspecified 2022-12-25 00:00:00 2023-09-10 00:00:00 termite control representative (current) use of opiate analgesic termite control representative (current) use of opiate analgesic 2022-12-25 00:00:00 [...] vascular access device 2023-01-30 00:00:00 2024-02-10 00:00:00 termite control representative (current) use of antibiotics termite control representative (current) use of antibiotics 2023-01-30 00:00:00 Unspecified [...] IV hydration during hospital stay 2022-11-30 00:00:00 [facility]- Loree's wishes will be followed (Advanced Directive/Code Status). 2022-12-04 00:00:00 [facility]- Loree will be involved in [...] Incontinence2 - Sole is frequentlyincontinent. 2022-12-13 00:00:00 [id number] Sole is receiving antidepressant drugs on a [...] ibuprofen 600 mg tablet 1 TABLET Oral LA N Every 6 Hours Indication: Pain/ discomfort PULP GRINDER AND BLENDER supervision 2023-11-17 05:00:00 2024-10-15 20:10:00 Fluad Triv [...] ULE Oral 3 Times Daily Indication: neuropathy PULP GRINDER AND BLENDER supervision 0800, 1600, & 0000 2024-02-18 12:00:00 loperamide 2 mg tablet 1 TABLET Oral PRN Indication: diarrhea 1 tab PO after each episode of diarrhea, not to exceed 16mg in a 24-hour period 2024-03-23 06:00:00 Acidophilus capsule 1 capsule CAPSULE Or al 1 Time Daily Indication: diarrhea PULP GRINDER AND BLENDER supervision x1 2024-05-19 05:00:00 2024-05-21 03:48:00 Acidophilus capsule 1 capsule CAPSULE Or al 1 Time Daily Indication: diarrhea PULP GRINDER AND BLENDER supervision x2 2024-05-21 03:46:00 Comirnaty (12y up)(PF) [...] Daily for 7 Days Indication: ABT UTI PULP GRINDER AND BLENDER Supervision x1 x4 Give 1 capsule BID [...] Times Daily for 7 Days Indication: UTI PULP GRINDER AND BLENDER supervision x1, x4 2024-09-05 15:00:00 2024-09-12 14:59:00 Acidophilus capsule 1 capsule CAPSULE Or al 1 Time Daily for 14 Days Indication: probioticCNA supervision x4 2024-09-05 15:00:00 2024-09-19 14:59:00 ibuprofen 600 mg tablet 1 TABLET Oral Ev deepti 6 Hours for 3 Weeks Indication: Pain/ discomfort PULP GRINDER AND BLENDER supervision 2024-10-15 20:08:00 2024-10-22 23:52:00 ibuprofen 600 mg tablet 1 TABLET Oral LA N Every 6 Hours Indication: Pain/ discomfort [...] COVID-19 Personal history of COVID-19 2022-12-25 00:00:00 termite control representative (current) use of aspirin termite control representative (current) use of aspirin 2022-12-25 00:00:00 Solitary pulmonary nodule Solitary pulmonary nod ule 2022-12-25 00:00:00 Neuromuscular dysfunction of bladder, unspecified Neuromuscular dysfunction of bladder, unspecified 2022-12-25 00:00:00 [facility] (current) use of opiate analgesic [facility] (current) use of opiate analgesic 2022-12-25 00:00:00 [...] vascular access device 2023-01-30 00:00:00 2024-02-10 00:00:00 termite control representative (current) use of antibiotics termite control representative (current) use of antibiotics 2023-01-30 00:00:00 Unspecified [...]
--- OUTSIDE RECORDS SUMMARY | 2024-10-23 12:22 | XMS_ITS | Clinical Summary ---
Author Organization [facility] Address [address] [place] [phone] Phone Care Team Providers Care Paper Finisher Name Role Phone Unavailable Primary Care Provider [...]
--- OUTSIDE RECORDS SUMMARY | 2024-10-23 12:22 | XMS_ITS | Clinical Summary ---
Author Organization [facility] Address [address] [place] [address] Care Team Providers Care Scout Leaser Name Role Phone Jim Lu MD Primary Care Provider + [phone] Telly Muro MD Unavailable [phone] Mariam Ross MD, Malachi Cook Unavailable [phone] Allergies No known active allergies Medications albuterol [...] 1 capsule (0.4 mg total) by mouth surgical rn before breakfast Active buPROPion SR (WELLBUTRIN SR) [...] counter measure for swelling however and have virology teacher therapy six more sessions. She is return the office on an as-needed basis. Assessment & Plan (11/22/2020 4:17 PM CDT): Patient has sufficient stability the ankle she would likely be well protected with a lace-up ankle support which was issued. She should work on oumjl-hf-vbhqnj exercises. Like to reassess her and four [...] deficits 07/08/2019 Coronary artery disease invo lving [place] coronary artery of [place] heart without angina pectoris 12/19/2018 Dyslipidemia 11/06/2018 [...] 0.6 oz pur e alcohol) occassionally [facility] Utilities Answer Date Recorded In the past 12 months has th e electric, gas, oil, or water [employer] threatened to shut off services in your home? No 01/24/2023 Social Connection and Isolation Panel Answer Date Recorded In a typical week, how many times do you talk on the phone with family, friends, or neighbors? Twice a week 12/26/19 How often do you get togethe r with friends or relatives? Twice a week 12/25/2022 How often do you attend [facility] or adventist services? 1 to 4 times per year 12/25/2022 Do you belong to any clubs o r organizations such as bahai groups, unions, fraternal or athletic groups, or [...] place to sleep or slept in a fci (including now)? No 12/25/2022 Personal Safety Answer Date Recorded Have you ever been in or are you currently in a harmful physical or emotional relationship or is someone making you feel afraid or unsafe? Denies 01/21/2023 Comments No Sex and Gender Information Value Date Recorded Sex Assigned at Not on file Legal Sex Female 8:34 AM RUBY ON RAILS ENGINEER Gender Identity Not on file Sexual Orientation Not on file Occupation Industry Job Start Date Job End Date retired Not on file Not on file Not on file Obstetrics History Last Filed Vital Signs Vital Sign Reading Time Taken Comments Blood Pressure 96/67 06/12/2023 2:58 PM CDT Pulse 61 06/12/2023 2:58 PM CDT Temperature 36.8 C (98.3 F) 01/30/2023 8:00 AM RUBY ON RAILS ENGINEER Respiratory Rate 18 01/30/2023 8:00 AM RUBY ON RAILS ENGINEER Oxygen Saturation 95% 01/30/2023 8:00 AM RUBY ON RAILS ENGINEER Inhaled Oxygen Concentration - - Weight 93.6 [...] 04/30/2029 05/01/2019 Medical Devices Implanted Type Area Cold Roll Packer Sheet Iron Device Identifier Shelf Expiration Date Model / Serial / Lot [employer] 98mm 8 Hole Lock Ankle 1/3 Tube Plate Bone Stainless Steel [id number]-[id number]-08 - [id number] Implanted:Qty: 1 on 12/21/2022 by Malachi Becerra Jr., MD at [facility] Right: Ankle [employer] AR-8943T-08 / / [employer] Low Profile Screws 3.5mm 12mm Modular Solid Hexalobe Self Tap Ar-8835-12 - [id number] Implanted:Qty: 1 on 12/21/2022 by Malachi Becerra Jr., MD at [facility] Right: Ankle [employer] AR-8835-12 / / [employer] Screw Kreulock Compression Ss 3.5x14mm [id number] - [id number] Implanted:Qty: 2 on 12/21/2022 by Malachi Becerra Jr., MD at [facility] Right: Ankle [employer] AR-8835CL-1 4 / / [employer] Screw Kreulock Compression Ss 3.5x20mm [id number] - [id number] Implanted:Qty: 1 on 12/21/2022 by Malachi Becerra Jr., MD at [facility] Right: Ankle [employer] AR-8835CL-2 0 / / [employer] 98mm 5 Hole Avulsion Hook Lock Ankle Lateral Plate Bone Stainless [id number] - [id number] Implanted:Qty: 1 on 12/21/2022 by Malachi Becerra Jr., MD at [facility] Right: Ankle [employer] AR-8943TH-0 5 / / [employer] Low Profile Screws 3.5mm 18mm Modular Solid Hexalobe Self Tap Ar-8835-18 - [id number] Implanted:Qty: 1 on 12/21/2022 by Malachi Becerra Jr., MD at [facility] Right: Ankle [employer] AR-8835-18 / / [employer] Low Profile Screws 3.5mm 50mm Self Drill Solid Modular Ankle Ar-8835-50 - [id number] Implanted:Qty: 2 on 12/21/2022 by Malachi Becerra Jr., MD at [facility] Right: Ankle [employer] AR-8835-50 / / [employer] Low Profile Screws 3.5mm 40mm Modular Solid Hexalobe Self Tap Ar-8835-40 - [id number] Implanted:Qty: 1 on 12/21/2022 by Malachi Becerra Jr., MD at [facility] Right: Ankle [employer] AR-8835-40 / / [employer] Low Profile Screws 3.5mm 26mm Modular Solid Hexalobe Self Tap Ar-8835-26 - [id number] Implanted:Qty: 1 on 12/21/2022 by Malachi Becerra Jr., MD at [facility] Right: Ankle [employer] AR-8835-26 / / [employer] Low Profile Screws 3.5mm 30mm Modular Solid Hexalobe Self Tap Ar-8835-30 - [id number] Implanted:Qty: 1 on 12/21/2022 by Malachi Becerra Jr., MD at [facility] Right: Ankle [employer] AR-8835-30 / / [employer] Screw Kreulock Compression Ss 3.5x28mm [id number] - [id number] Implanted:Qty: 1 on 12/21/2022 by Malachi Becerra Jr., MD at [facility] Right: Ankle [employer] AR-8835CL-2 8 / / [employer] Screw Kreulock Compression Ss 3.5x36mm [id number] - [id number] Implanted:Qty: 1 on 12/21/2022 by Malachi Becerra Jr., MD at [facility] Right: Ankle [employer] AR-8835CL-3 6 / [...] agrees with it. ACC# Date Time Exam [id number] Nov 05, 2013 13:48:00 [id number] BONE DEXA (2 sites) EXAMINATION: BONE DENSITOMETRY [...] CISSE M.D. on Nov 05 2013 5:15P [id number] Procedure Note Provider, MD Santana - 06/28/2016 EVAN CISSE M.D. MIGUEL ESTRADA, FINAL REPORT The radiology attending physician has personally reviewed this study, and has reviewed and/or edited this written report and agrees with it. ACC# Date Time Exam [id number] Nov 05, 2013 13:48:00 [id number] BONE DEXA (2 sites) EXAMINATION: BONE DENSITOMETRY [...] CISSE M.D. on Nov 05 2013 5:15P [id number] [facility] Provider MD DIAZ DXA PROCEDURES Final Result from Last 3 Months or Most Recently Relevant to Health Maintenance Insurance MEDICARE [facility] Address: [facility] [address] [place] [address] Payoff MEDICARE FOR LIFE MEDICARE FOR LIFE Advance Directives For more information, please contact: [phone] * Full Code (Latest Code Status on [...] Haskins Daughter Health Care Agent Care Teams Scout Leaser Relationship Specialty Start Date End Date Jim Lu MD PCP - General Family Medicine 08/15/17 Telly Muro MD [address] [place] [address] Referring Physician Neurology 08/15/17 [place] [address] [facility] [address] [place] [address] Surgeon Orthopedic Surgery 01/30/23
--- OUTSIDE RECORDS SUMMARY | 2024-10-23 12:22 | XMS_ITS | Encounter Summary ---
Author Organization [facility] Address [address] [place] [address] Phone Care Team Providers Care Product Marketer Name Role Phone Jim Lu MD Primary Care Provider [phone] Jim Lu MD Primary Care Provider + [phone] Telly Muro MD Unavailable [phone] Mariam Ross MD, Malachi Cook Unavailable + [phone] Encounter Details Date Type Department Care Team [...] on file Legal Sex Female 8:34 AM CONCRETE MASON Gender Identity Not on file Sexual Orientation [...] documented as of this encounter Care Teams Product Marketer Relationship Specialty Start Date End Date Jim Lu MD PCP - General 12/10/11 08/14/17 Jim Lu MD PCP - General Family Medicine 08/15/17 Telly Muro MD [address] [place] [address] Referring Physician Neurology 08/15/17 [place] [id number] [facility] [address] [place] [address] Surgeon Orthopedic Surgery 01/30/23 documented as of this encounter
--- NOTE | 2024-10-23 12:28 | PC.NURSE ---
Pt to radiology at this time.
[2024-10-23 12:31] LABS: Add Urine Microscopic? YES; Appearance Urine Turbid (Clear); Glucose Urine UA Negative (Negative); Leukocyte Esterase Ur 3+ LEU/UL (Negative); Need Manual Microscopic Reviewed; Nitrate Urine Negative (Negative); Specific Grav Ur 1.014 (1.001-1.035)
--- NOTE | 2024-10-23 13:20 | PC.NURSE ---
per EDP Dr. Morrow, no blood cultures are needed
[2024-10-23] MEDS: SODIUM CHLORIDE 0.9% IV 1,000 ML 999 ML IV CONT (13:21)
[2024-10-23] MEDS: cefTRIAXone 1 GM in SODIUM CHLORIDE 0.9% IV 50 ML 100 ML IVPB (13:21)
--- NOTE | 2024-10-23 14:17 | P.HP_ITS ---
H&P: HPI History of Present Illness Date/Time: 10/23/24 14:17 Chief Complaint: Altered mental status Narrative: 79-year-old patient presents the hospital with altered mental status from a prison. Per the prison she has been more confused over the last 3 days. Patient is aware that she is more confused than normal. She is having trouble with word finding. She is getting frustrated. She denies dysuria, or weakness. She states that her family would probably say that she is more weak today and she has been. Patient complains of no pain. Lab work in the ED shows chloride of 108 carbon dioxide of 21, anion gap 13, BUN of 48 creatinine of 2.45 baseline being 1.2, GFR 19 lactic acid 2 2, urine is turbid with 3+ leukocyte esterase, negative for nitrates over [address] shows no acute process. Chest x-ray shows no acute process. EKG shows sinus Robby with heart rate of 53. Patient will be admitted for UTI and has been started on Rocephin Review of Systems Review of Systems: ROS unobtainable: Yes unobtainable due to mental status PMFSH Past Medical History Medical History Microhematuria Dementia Chronic kidney disease, stage 3 Transient ischemic attack Obstructive sleep apnea No longer using CPAP following weight loss. Gastroesophageal reflux disease Hyperlipidemia Degenerative disc disease Pulmonary emphysema Anxiety Arthritis Asthma Hypertension Depression Surgical History Surgical History History of cardiac catheterization (2011) Reportedly unremarkable. History of section History of tubal ligation History of hysterectomy History of benign breast biopsy History of right hip replacement History of cholecystectomy History of tonsillectomy Family History Family History Mother Hypertension Family history of pancreatic cancer Father Cerebrovascular accident Sibling Heart disease Rvizd-Ocmzvmzhx-Zlikv (WPW) syndrome A-fib Low O2 saturation Social History Social History Social History: Surrogate medical decision maker: Misael Hayes (son) or Mini Bledsoe (daughter). Code status: Full code. Smoking status: Never smoker Second hand tobacco smoke exposure: Yes Alcohol intake: never Alcohol use details: No alcohol since around age 29. Substance use: never Substance use type: does not use Lack of Transportation: No Lack of Food: Never True Current Housing: I Have Housing Concerned About Future Housing: No Difficulty Paying Gas/Electric Bills: No Difficulty Paying for Meds: No Currently Unemployed: No Education: Associate Degree Difficulty w/ Childcare or Family Care: No Additional living arrangements comments: . Lives in assisted living. She has 7 children, 5 biologic and 2 adopted. 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 Spiritual care concerns: No Meds Home Medications and Allergies Home Medications ?Medication ?Instructions ?Recorded ?Confirmed ?Type albuterol sulfate 90 mcg/actuation 1 inh inhalation Q6 H PRN shortness 11/04/23 10/23/24 Rx aerosol inhaler of breath or wheezing #8.5 g roma L.acidophil,salivari-Bifido 1 cap PO DAILY #90 caps 10/23/24 Rx bifidum-Strep thermoph 175 mg capsule (Acidophilus Probiotic Blend) gabapentin 300 mg capsule 300 mg PO TID #270 caps 05/2710/23/24 Rx acetaminophen 500 mg tablet 500 mg PO Q8H fever or dayanna n 90 08/12/24 10/23/24 Rx (Tylenol Extra Strength) days #270 tabs aspirin 325 mg tablet 325 mg PO DAILY #90 tabs 10/23/24 Rx atenolol 50 mg tablet 50 mg PO DAILY #90 tabs 07/2610/23/24 Rx atorvastatin 40 mg tablet 40 mg PO DAILY #90 tabs 07/2610/23/24 Rx bupropion HCl 100 mg tablet 100 mg PO BID #180 tabs 10/23/24 Rx sertraline 100 mg tablet 100 mg PO DAILY #90 tabs 10/23/24 Rx tamsulosin 0.4 mg capsule 0.4 mg PO DAILY #90 caps 10/23/24 Rx estradiol 0.01% (0.1 mg/gram) 1 g vaginal 3XW #42.5 gr ams 10/15/24 10/23/24 Rx vaginal cream cholecalciferol (vitamin D3) 125 125 mcg PO DAILY 09/2610/23/24 History mcg (5,000 unit) tablet (Vitamin D3) hydrocodone 5 mg-acetaminophen 325 1 tablet PO Q4H PRN severe pain 10/23/24 10/23/24 Rx mg tablet (scale score 7-10) #30 tabs loperamide 2 mg tablet 2 mg PO Q6H PRN loose stool 10/23/24 10/23/24 History nystatin 100,000 unit/gram topical 1 applic topical QI D PRN rash 10/23/24 10/23/24 History powder Allergies Allergy/AdvReac Type Severity Reaction Status Date / Time day Allergy Mild Anaphylaxis Verified 10/23/24 15:58 Vital Signs Vital Signs - 24 hr 10/23/24 11:25 10/23/24 12:14 10/23/24 12:16 Temperature 98.1 F Pulse Rate 52 L 52 L Respiratory Rate 18 Blood Pressure 107/66 Pulse Oximetry 93 94 Oxygen Delivery Room Air Room Air 10/23/24 12:42 10/23/24 13:40 Temperature Pulse Rate 52 L 53 L Respiratory Rate 12 18 Blood Pressure 120/75 117/98 H Pulse Oximetry 94 98 Oxygen Delivery Exam Narrative: General: well appearing, appears stated age. HEENT: normocephalic, atraumatic. Mucous membranes moist. EOMI, PERRLA, bilateral sclera anicteric, no conjunctival injection. Neck supple without JVD, lymphadenopathy, or bruit. Respiratory: clear to ascultation bilaterally. No rales/rhonic/wheezes. Cardiovascular: Regular rate and rhythm, normal S1-S2 upon ascultation. No murmurs, rubs, or clicks. PMI is nondisplaced, capillary refill less than 3 second. Abdomen: Soft, round, no pulsatile masses, nondistended and nontender. No rebound, no guarding. No CVA tenderness, no hepatosplenomegaly. Bowel sounds present to all four quadrants. No high pitch or tinkling sounds, resonant to percussion. Extremities: No cyanosis, clubbing, or edema present. Pulses are palpable 2/2. Active ROM to all four extremities. Neuro: Alert and orientated x 2. PERRLA. Cranial nerves 2-12 intact without focal deficit. Skin: Warm, dry, and intact, without rash, erythema, or lesion. Psych: pleasant, cooperative, normal speech, normal affect, no hallucinations, no dysarthia H&P: Results Labs Labs: Short CBC 10/23/24 Range/Units 11:40 WBC 7.0 (4.5-10.0) K/mm3 Hgb 12.4 (12.0-15.0) g/dL Hct 40.2 (37.0-47.0) % Plt Count 152 (150-375) k/mm3 BMP 10/23/24 11:40 Sodium 142 Potassium 4.5 Chloride 108 H Carbon Dioxide 21 L BUN 48 H D Creatinine 2.45 H Glucose 110 Calcium 10.1 Liver Function 10/23/24 Range/Units 11:40 Total Bilirubin 0.6 (0.2-1.3) mg/dL AST 36 (14-36) U/L ALT 20 (6-35) U/L Alkaline Phosphatase 63 (38-126) U/L Albumin 4.0 (3.5-5.1) g/dL Urine 10/23/24 Range/Units 12:12 Urine Color Yellow (Yellow) Urine Appearance Turbid H (Clear) Urine pH 5.5 (5.0-9.0) Ur Specific [place] 1.014 (1.001-1.035) Urine Protein 2+ H (Negative) mg/dL Urine Glucose (UA) Negative (Negative) mg/dL Assessment and Plan Assessment and plan (1) Altered mental status: Qualifiers: Altered mental status type: delirium Qualified Code(s): R41.0 - Disorientation, unspecified Code(s): R41.82 - Altered mental status, unspecified Status: Acute Assessment and Plan: Likely due to infectious process versus dementia Head CT negative for acute finding (2) Urinary tract infection: Code(s): N39.0 - Urinary tract infection, site not specified Status: Acute Assessment and Plan: IV Rocephin IV fluid Culture and sensitivity pending (3) DEMETRIO (acute kidney injury): Code(s): N17.9 - Acute kidney failure, unspecified Status: Acute Assessment and Plan: On CKD stage 3 IVF Avoid nephrotoxic medications BMP in the morning (4) Lactic acid acidosis: Code(s): E87.20 - Acidosis, unspecified Status: Acute Assessment and Plan: Lactic acid went up after fluid bolus Repeat lactic acid in a.m. 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: Code(s): I25.811 - Atherosclerosis of [place] coronary artery of transplanted heart without angina pectoris Status: Acute Assessment and Plan: Continue atenolol, Lipitor, and aspirin (7) Hyperlipidemia: Code(s): E78.5 - Hyperlipidemia, unspecified Status: Acute Assessment and Plan: Continue statin (8) Dementia: Code(s): F03.90 - Unspecified dementia, unspecified severity, without behavioral disturbance, psychotic disturbance, mood disturbance, and anxiety Status: Acute Assessment and Plan: Continue Wellbutrin and Zoloft Quality VTE Prophylaxis VTE prophylaxis: mechanical ordered and pharmacologic ordered Hospitalist MIPS Advance Care Plan I have confirmed that the patient's Advanced Care Plan is present, code status is documented, or surrogate decision maker is listed in patient medical record.: Yes Medication Reconciliation I have utilized all available resources to obtain, update and review the patients current medications (includes all prescriptions, OTC, herbals, cannabis, and nutritional supplements).: Yes
--- NOTE | 2024-10-23 15:28 | ADMGEN ---
This patient, Loree Hayes, was admitted to Medical Room 258-01. Patient/family oriented to hospital policies and general routines including ID bracelet, bed and alarms, visiting hours, pain management, procedures, bathroom and other care routines, personal items, smoking policy, room service/diet, and visiting hours. Information on how to activate the Rapid Response Team has been discussed. Patient/Family are encouraged to report perceived risks to care and to ask questions if they do not understand what they are told or what they should do.
[2024-10-23] MEDS: SODIUM CHLORIDE 0.9% IV 1,000 ML 125 ML IV CONT (15:46)
[2024-10-24] MEDS: SODIUM CHLORIDE 0.9% IV 1,000 ML 125 ML IV CONT ×3 (00:25→16:31)
[2024-10-24] MEDS: GABAPENTIN 300 MG CAPSULE PO ×4 (00:25→21:08)
[2024-10-24 04:28] LABS: Hematocrit 37.5 % (37.0-47.0); Hemoglobin 11.4 g/dL (12.0-15.0); Immature Granulocyte Percent A 0.3 % (0-0.5); Lymphocytes Absolute Auto 1.68 K/mm3 (0.9-3.2); Mean Corpuscular HGB Conc 30.4 g/dl (32-36); Mean Corpuscular Hemoglobin 29.4 pg (26-34); Mean Corpuscular Volume 96.6 fl (80-100); Nucleated Red Blood Cells Absolute Auto 0.000 K/mm3 (0.0-0.012); Nucleated Red Blood Cells Perc 0.0 % (0.0-0.2); Platelet Count Result 119 k/mm3 (150-375); Red Blood Count 3.88 M/mm3 (4.2-5.4); White Blood Count 6.5 K/mm3 (4.5-10.0)
[2024-10-24 04:51] LABS: Anion Gap 9 mmol/L (4-12); Blood Urea Nitrogen 34 mg/dL (7-17); Calcium 9.3 mg/dL (8.4-10.2); Carbon Dioxide 17 mmol/L (22-30); Chloride 114 mmol/L (98-107); Estimated CRCL calculation 31 ml/min; Estimated Glomerular Filt Rate 33; Glucose 84 mg/dL (65-110); Potassium 4.4 mmol/L (3.4-5.0); Sodium 140 mmol/L (137-145)
[2024-10-24 05:51] VITALS: BP 145/60; PULSE 60; RESP 20; TEMP 36.7; O2SAT 98
[2024-10-24 07:58] VITALS: PULSE 60
[2024-10-24] MEDS: ATORVASTATIN 40 MG TABLET PO (07:59)
[2024-10-24] MEDS: SERTRALINE HCL 50 MG TABLET 100 MG PO (07:59)
[2024-10-24] MEDS: ASPIRIN 325 MG TABLET PO (07:59)
[2024-10-24] MEDS: TAMSULOSIN HCL 0.4 MG CAPSULE PO (07:59)
[2024-10-24 08:00] VITALS: BP 149/74; PULSE 60; RESP 14; TEMP 36.5; O2SAT 99
[2024-10-24] MEDS: ENOXAPARIN 30 MG/0.3 ML SYRINGE SUB-Q (08:00)
[2024-10-24] MEDS: cefTRIAXone 1 GM in SODIUM CHLORIDE 0.9% IV 50 ML 100 ML IVPB (08:00)
[2024-10-24 08:27] VITALS: O2SAT 95
--- NOTE | 2024-10-24 13:32 | P.PNIM_ITS ---
Progress Note: A&P Assessment and Plan (1) Altered mental status: Qualifiers: Altered mental status type: delirium Qualified Code(s): R41.0 - Disorientation, unspecified Code(s): R41.82 - Altered mental status, unspecified Status: Acute Assessment and Plan: Likely due to infectious process versus dementia Head CT negative for acute finding still intermittently confused but over all improved (2) Urinary tract infection: Code(s): N39.0 - Urinary tract infection, site not specified Status: Acute Assessment and Plan: IV Rocephin IV fluid Culture and sensitivity pending continue IV antibiotics (3) DEMETRIO (acute kidney injury): Code(s): N17.9 - Acute kidney failure, unspecified Status: Acute Assessment and Plan: On CKD stage 3 IVF Avoid nephrotoxic medications BMP in the morning cr/bun 1.5 (down from 2.45) (4) Lactic acid acidosis: Code(s): E87.20 - Acidosis, unspecified Status: Acute Assessment and Plan: Lactic acid went up after fluid bolus Repeat lactic acid in a.m. improved this am-0.9 (5) Essential (primary) hypertension: Code(s): I10 - Essential (primary) hypertension Status: Acute Assessment and Plan: Continue atenolol (6) Coronary artery disease involving [place] artery of transplanted heart without angina pectoris: Code(s): I25.811 - Atherosclerosis of [place] coronary artery of transplanted heart without angina pectoris Status: Acute Assessment and Plan: Continue atenolol, Lipitor, and aspirin (7) Hyperlipidemia: Code(s): E78.5 - Hyperlipidemia, unspecified Status: Acute Assessment and Plan: Continue statin (8) Dementia: Code(s): F03.90 - Unspecified dementia, unspecified severity, without behavioral disturbance, psychotic disturbance, mood disturbance, and anxiety Status: Acute Assessment and Plan: Continue Wellbutrin and Zoloft Time Spent With Patient Time with patient: 25 - 35 minutes Subjective Date/time seen: 10/24/24 13:32 Interval history: 79-year-old admitted to the hospital with altered mental status from a group home. She had been more confused in the last few days Lab work in the ED shows chloride of 108 carbon dioxide of 21, anion gap 13, BUN of 48 creatinine of 2.45 baseline being 1.2, GFR 19 lactic acid 2 2, urine is turbid with 3+ leukocyte esterase, negative for nitrates over [address] shows no acute process. Chest x-ray shows no acute process. EKG shows sinus Robby with heart rate of 53. Patient will be admitted for UTI and has been started on Rocephin. Pt is seen and examined. lactic went down, cr/bun improved. She is still a bit confused but easily re oriented. She is c/o back pain. Has pain meds if needed. Review of Systems Review of Systems: ROS unobtainable: Yes unobtainable due to mental status Exam Narrative: General: well appearing, appears stated age. HEENT: normocephalic, atraumatic. Mucous membranes moist. EOMI, PERRLA, bilateral sclera anicteric, no conjunctival injection. Neck supple without JVD, lymphadenopathy, or bruit. Respiratory: clear to ascultation bilaterally. No rales/rhonic/wheezes. Cardiovascular: Regular rate and rhythm, normal S1-S2 upon ascultation. No murmurs, rubs, or clicks. PMI is nondisplaced, capillary refill less than 3 second. Abdomen: Soft, round, no pulsatile masses, nondistended and nontender. No rebound, no guarding. No CVA tenderness, no hepatosplenomegaly. Bowel sounds present to all four quadrants. No high pitch or tinkling sounds, resonant to percussion. Extremities: No cyanosis, clubbing, or edema present. Pulses are palpable 2/2. Active ROM to all four extremities. Neuro: Alert and orientated x 2. PERRLA. Cranial nerves 2-12 intact without focal deficit. Skin: Warm, dry, and intact, without rash, erythema, or lesion. Psych: pleasant, cooperative, normal speech, normal affect Const: General: comfortable Objective Data Vital Signs Vital Signs: Vital Signs - 24 hr 10/23/24 13:40 10/23/24 15:21 10/23/24 16:37 Temperature 97.0 F L Pulse Rate 53 L 55 L Respiratory Rate 18 18 Blood Pressure 117/98 H 116/53 L Pulse Oximetry 98 99 Oxygen Delivery Room Air 10/23/24 20:00 10/23/24 20:52 10/24/24 05:51 Temperature 97.2 F L 98.1 F Pulse Rate 56 L 60 Respiratory Rate 14 20 20 Blood Pressure 155/82 H 145/60 H Pulse Oximetry 100 100 98 Oxygen Delivery Room Air 10/24/24 07:58 10/24/24 08:00 10/24/24 08:00 Temperature 97.7 F Pulse Rate 60 60 Respiratory Rate 14 Blood Pressure 149/74 H Pulse Oximetry 99 Oxygen Delivery Room Air 10/24/24 08:27 Temperature Pulse Rate Respiratory Rate Blood Pressure Pulse Oximetry 95 Oxygen Delivery Room Air Intake/Output Intake/Output: Intake & Output 10/21/24 10/22/24 10/23/24 10/24/24 23:59 23:59 23:59 23:59 Intake Total 2050 2630 Output Total 200 900 Balance 1850 1730 Meds/Results Medications: Active Medications Generic Name Dose Route Start Last Admin Trade Name Freq PRN Reason Stop Dose Admin Acetaminophen 650 mg 10/23/24 13:06 Acetaminophen 325 Mg Tablet PO Q4H PRN Mild Pain (1-3) or Fever Hydrocodone Bitart/Acetaminophen 1 tab 10/23/24 23:17 Hydrocodone/Acetaminophen (*Crx) 5-325 Mg Tablet PO Q4H PRN severe pain (scale score 7-10) Albuterol 1 puff 10/23/24 21:10 Albuterol Sulfate (*Sp) Aerosol 1 Puff INHALATION Q6HRT PRN Shortness Of Breath Or Wheezing Aspirin 325 mg 10/24/24 09:00 10/24/24 07:59 Aspirin 325 Mg Tablet PO 325 mg DAILY MARGARET Administration Atenolol 50 mg 10/24/24 09:00 10/24/24 07:58 Atenolol 50 Mg Tablet PO 50 mg DAILY MARGARET Administration Atorvastatin Calcium 40 mg 10/24/24 09:00 10/24/24 07:59 Atorvastatin 40 Mg Tablet PO 40 mg DAILY MARGARET Administration Bupropion HCl 100 mg 10/23/24 21:35 10/24/24 09:47 Bupropion Hcl 100 Mg Tablet PO 100 mg Q12HR MARGARET Administration Enoxaparin Sodium 30 mg 10/24/24 09:00 10/24/24 08:00 Enoxaparin 30 Mg/0.3 Ml Syringe SUB-Q 30 mg DAILY MARGARET Administration Gabapentin 300 mg 10/23/24 22:00 10/24/24 13:29 Gabapentin 300 Mg Capsule PO 300 mg Q8HR MARGARET Administration Ceftriaxone Sodium 1 gm/ 50 mls @ 100 mls/hr 10/23/24 13:00 10/24/24 08:30 Sodium Chloride IVPB Infused QAM MARGARET Infusion Sodium Chloride 1,000 mls @ 125 mls/hr 10/23/24 13:10 10/24/24 08:47 Normal Saline Iv IV CONT 125 mls/hr .Q8H MARGARET Administration Sertraline HCl 100 mg 10/24/24 09:00 10/24/24 07:59 Sertraline Hcl 50 Mg Tablet PO 100 mg DAILY MARGARET Administration Tamsulosin HCl 0.4 mg 10/24/24 09:00 10/24/24 07:59 Tamsulosin Hcl 0.4 Mg Capsule PO 0.4 mg DAILY MARGARET Administration Radiology Results: ITS Impressions Head CT 10/23/24 12:38 IMPRESSION: 1. No acute intracranial hemorrhage. No mass effect. 2. Probable chronic ischemic white matter change. 3. Cerebral atrophy appropriate for the patient's age. Chest X-Ray 10/23/24 12:41 IMPRESSION: 1: NO ACUTE CARDIOPULMONARY DISEASE. Labs Labs: Laboratory Results - last 24 hr 10/23/24 10/24/24 20:32 04:21 WBC 6.5 RBC 3.88 L Hgb 11.4 L Hct 37.5 MCV 96.6 MCH 29.4 MCHC 30.4 L RDW 13.2 Plt Count 119 L MPV 11.3 H Immature Gran % (Auto) 0.3 Neut % (Auto) 58.8 Lymph % (Auto) 25.8 [place] % (Auto) 9.0 H Eos % (Auto) 5.8 H Baso % (Auto) 0.3 Lymph # (Auto) 1.68 [place] # (Auto) 0.6 Eos # (Auto) 0.4 H Baso # (Auto) 0.0 Abs Immat Gran (auto) 0.02 Absolute Neuts (auto) 3.8 Absolute Nucleated RBC 0.000 Nucleated RBC % 0.0 Sodium 140 Potassium 4.4 Chloride 114 H Carbon Dioxide 17 L Anion Gap 9 BUN 34 H D Creatinine 1.53 H Estim Creat Clear Calc 31 Estimated GFR 33 L Glucose 84 Lactic Acid 2.7 H 0.9 Calcium 9.3 Quality VTE Prophylaxis VTE prophylaxis: mechanical ordered and pharmacologic ordered
[2024-10-24 14:00] VITALS: BP 152/83; PULSE 62; RESP 18; TEMP 36.3; O2SAT 98
[2024-10-24] MEDS: LIDOCAINE 5% PATCH 1 PATCH TRANSDERM (15:24)
[2024-10-24 20:12] VITALS: BP 157/90; PULSE 61; RESP 20; TEMP 36.6; O2SAT 100
[2024-10-25 05:47] VITALS: BP 145/77; PULSE 60; RESP 18; TEMP 37; O2SAT 96
[2024-10-25] MEDS: GABAPENTIN 300 MG CAPSULE PO ×3 (06:03→21:29)
[2024-10-25 08:56] VITALS: PULSE 60
[2024-10-25] MEDS: ASPIRIN 325 MG TABLET PO (08:56)
[2024-10-25] MEDS: TAMSULOSIN HCL 0.4 MG CAPSULE PO (08:56)
[2024-10-25] MEDS: cefTRIAXone 1 GM in SODIUM CHLORIDE 0.9% IV 50 ML 100 ML IVPB (08:57)
[2024-10-25] MEDS: SERTRALINE HCL 50 MG TABLET 100 MG PO (08:57)
[2024-10-25] MEDS: ATORVASTATIN 40 MG TABLET PO (08:57)
[2024-10-25] MEDS: LIDOCAINE 5% PATCH 1 PATCH TRANSDERM (09:10)
[2024-10-25] MEDS: ENOXAPARIN 30 MG/0.3 ML SYRINGE SUB-Q (09:11)
--- NOTE | 2024-10-25 10:34 | P.PNIM_ITS ---
Progress Note: A&P Assessment and Plan (1) Altered mental status: Qualifiers: Altered mental status type: delirium Qualified Code(s): R41.0 - Disorientation, unspecified Code(s): R41.82 - Altered mental status, unspecified Status: Acute Assessment and Plan: Likely due to infectious process versus dementia Head CT negative for acute finding still intermittently confused but over all improved 10/25- stable. (2) Urinary tract infection: Code(s): N39.0 - Urinary tract infection, site not specified Status: Acute Assessment and Plan: IV Rocephin IV fluid Culture and sensitivity pending continue IV antibiotics (3) EDMETRIO (acute kidney injury): Code(s): N17.9 - Acute kidney failure, unspecified Status: Acute Assessment and Plan: On CKD stage 3 IVF Avoid nephrotoxic medications BMP in the morning cr/bun 1.5 (down from 2.45) (4) Lactic acid acidosis: Code(s): E87.20 - Acidosis, unspecified Status: Acute Assessment and Plan: Lactic acid went up after fluid bolus Repeat lactic acid in a.m. improved this am-0.9 (5) Essential (primary) hypertension: Code(s): I10 - Essential (primary) hypertension Status: Acute Assessment and Plan: Continue atenolol (6) Coronary artery disease involving [place] artery of transplanted heart without angina pectoris: Code(s): I25.811 - Atherosclerosis of [place] coronary artery of transplanted heart without angina pectoris Status: Acute Assessment and Plan: Continue atenolol, Lipitor, and aspirin (7) Hyperlipidemia: Code(s): E78.5 - Hyperlipidemia, unspecified Status: Acute Assessment and Plan: Continue statin (8) Dementia: Code(s): F03.90 - Unspecified dementia, unspecified severity, without behavioral disturbance, psychotic disturbance, mood disturbance, and anxiety Status: Acute Assessment and Plan: Continue Wellbutrin and Zoloft Time Spent With Patient Time with patient: 25 - 35 minutes Subjective Date/time seen: 10/25/24 10:34 Interval history: 79-year-old admitted to the hospital with altered mental status from a skilled nursing. She had been more confused in the last few days Lab work in the ED shows chloride of 108 carbon dioxide of 21, anion gap 13, BUN of 48 creatinine of 2.45 baseline being 1.2, GFR 19 lactic acid 2 2, urine is turbid with 3+ leukocyte esterase, negative for nitrates over [address] shows no acute process. Chest x-ray shows no acute process. EKG shows sinus Robby with heart rate of 53. Patient will be admitted for UTI and has been started on Rocephin. Pt is seen and examined. lactic went down, cr/bun improved. She is still a bit confused but easily re oriented. She is c/o back pain. Has pain meds if needed. 10/25 pt is seen and examined during morning round. Lidocaine patch ordered for back pain. Review of Systems Review of Systems: ROS unobtainable: Yes unobtainable due to mental status Exam Narrative: General: well appearing, appears stated age. HEENT: normocephalic, atraumatic. Mucous membranes moist. EOMI, PERRLA, bilateral sclera anicteric, no conjunctival injection. Neck supple without JVD, lymphadenopathy, or bruit. Respiratory: clear to ascultation bilaterally. No rales/rhonic/wheezes. Cardiovascular: Regular rate and rhythm, normal S1-S2 upon ascultation. No murmurs, rubs, or clicks. PMI is nondisplaced, capillary refill less than 3 second. Abdomen: Soft, round, no pulsatile masses, nondistended and nontender. No rebound, no guarding. No CVA tenderness, no hepatosplenomegaly. Bowel sounds present to all four quadrants. No high pitch or tinkling sounds, resonant to percussion. Extremities: No cyanosis, clubbing, or edema present. Pulses are palpable 2/2. Active ROM to all four extremities. Neuro: Alert and orientated x 2. PERRLA. Cranial nerves 2-12 intact without focal deficit. Skin: Warm, dry, and intact, without rash, erythema, or lesion. Psych: pleasant, cooperative, normal speech, normal affect Const: General: comfortable Objective Data Vital Signs Vital Signs: Vital Signs - 24 hr 10/24/24 14:00 10/24/24 20:00 10/24/24 20:12 Temperature 97.3 F L 98 F Pulse Rate 62 61 Respiratory Rate 18 20 Blood Pressure 152/83 H 157/90 H Pulse Oximetry 98 100 Oxygen Delivery Room Air 10/25/24 05:47 10/25/24 08:56 Temperature 98.6 F Pulse Rate 60 60 Respiratory Rate 18 Blood Pressure 145/77 H Pulse Oximetry 96 Oxygen Delivery Intake/Output Intake/Output: Intake & Output 10/22/24 10/23/24 10/24/24 10/25/24 23:59 23:59 23:59 23:59 Intake Total 2050 4168.7 320 Output Total 200 1400 700 Balance 1850 2768.7 -380 Meds/Results Medications: Active Medications Generic Name Dose Route Start Last Admin Trade Name Freq PRN Reason Stop Dose Admin Acetaminophen 650 mg 10/23/24 13:06 Acetaminophen 325 Mg Tablet PO Q4H PRN Mild Pain (1-3) or Fever Hydrocodone Bitart/Acetaminophen 1 tab 10/23/24 23:17 Hydrocodone/Acetaminophen (*Crx) 5-325 Mg Tablet PO Q4H PRN severe pain (scale score 7-10) Albuterol 1 puff 10/23/24 21:10 Albuterol Sulfate (*Sp) Aerosol 1 Puff INHALATION Q6HRT PRN Shortness Of Breath Or Wheezing Aspirin 325 mg 10/24/24 09:00 10/25/24 08:56 Aspirin 325 Mg Tablet PO 325 mg DAILY MARGARET Administration Atenolol 50 mg 10/24/24 09:00 10/25/24 08:56 Atenolol 50 Mg Tablet PO 50 mg DAILY MARGARET Administration Atorvastatin Calcium 40 mg 10/24/24 09:00 10/25/24 08:57 Atorvastatin 40 Mg Tablet PO 40 mg DAILY MARGARET Administration Bupropion HCl 100 mg 10/23/24 21:35 10/25/24 08:56 Bupropion Hcl 100 Mg Tablet PO 100 mg Q12HR MARGARET Administration Enoxaparin Sodium 30 mg 10/24/24 09:00 10/25/24 09:11 Enoxaparin 30 Mg/0.3 Ml Syringe SUB-Q 30 mg DAILY MARGARET Administration Gabapentin 300 mg 10/23/24 22:00 10/25/24 06:03 Gabapentin 300 Mg Capsule PO 300 mg Q8HR MARGARET Administration Ceftriaxone Sodium 1 gm/ 50 mls @ 100 mls/hr 10/23/24 13:00 10/25/24 08:57 Sodium Chloride IVPB 100 mls/hr QAM MARGARET Administration Sodium Chloride 1,000 mls @ 125 mls/hr 10/23/24 13:10 10/24/24 16:31 Normal Saline Iv IV CONT 125 mls/hr .Q8H MARGARET Administration Lidocaine 1 patch 10/24/24 14:50 10/25/24 09:10 Lidocaine 5% Patch TRANSDERM 1 patch DAILY MARGARET Administration Ondansetron HCl 4 mg 10/24/24 14:48 Ondansetron Inj 4 Mg/2 Ml Vial IV PUSH Q4H PRN Nausea And Vomiting Sertraline HCl 100 mg 10/24/24 09:00 10/25/24 08:57 Sertraline Hcl 50 Mg Tablet PO 100 mg DAILY MARGARET Administration Tamsulosin HCl 0.4 mg 10/24/24 09:00 10/25/24 08:56 Tamsulosin Hcl 0.4 Mg Capsule PO 0.4 mg DAILY MARGARET Administration Radiology Results: ITS Impressions Head CT 10/23/24 12:38 IMPRESSION: 1. No acute intracranial hemorrhage. No mass effect. 2. Probable chronic ischemic white matter change. 3. Cerebral atrophy appropriate for the patient's age. Chest X-Ray 10/23/24 12:41 IMPRESSION: 1: NO ACUTE CARDIOPULMONARY DISEASE. Quality VTE Prophylaxis VTE prophylaxis: mechanical ordered and pharmacologic ordered
[2024-10-25 14:00] VITALS: BP 151/75; PULSE 56; RESP 16; TEMP 36.5; O2SAT 98
[2024-10-25 20:45] VITALS: BP 157/61; PULSE 57; RESP 18; TEMP 36.3; O2SAT 98
[2024-10-25] MEDS: SODIUM CHLORIDE 0.9% IV 1,000 ML 125 ML IV CONT (21:26)
[2024-10-26 04:38] LABS: Hematocrit 35.8 % (37.0-47.0); Hemoglobin 11.1 g/dL (12.0-15.0); Mean Corpuscular HGB Conc 31.0 g/dl (32-36); Mean Corpuscular Hemoglobin 29.3 pg (26-34); Mean Corpuscular Volume 94.5 fl (80-100); Platelet Count Result 125 k/mm3 (150-375); Red Blood Count 3.79 M/mm3 (4.2-5.4); White Blood Count 6.1 K/mm3 (4.5-10.0)
[2024-10-26 05:02] LABS: Alanine Aminotransferase 14 U/L (6-35); Albumin Level 3.5 g/dL (3.5-5.1); Alkaline Phosphatase 61 U/L (38-126); Anion Gap 8 mmol/L (4-12); Aspartate Amino Transferase 31 U/L (14-36); Bilirubin,Total 0.5 mg/dL (0.2-1.3); Blood Urea Nitrogen 13 mg/dL (7-17); Calcium 9.0 mg/dL (8.4-10.2); Carbon Dioxide 20 mmol/L (22-30); Chloride 113 mmol/L (98-107); Estimated CRCL calculation 58 ml/min; Estimated Glomerular Filt Rate > 60; Glucose 94 mg/dL (65-110); Potassium 3.9 mmol/L (3.4-5.0); Sodium 141 mmol/L (137-145); Total Protein 6.4 g/dL (6.3-8.2)
[2024-10-26 06:00] VITALS: BP 160/90; PULSE 100; RESP 18; TEMP 36.9; O2SAT 96
[2024-10-26] MEDS: SODIUM CHLORIDE 0.9% IV 1,000 ML 125 ML IV CONT (06:04)
[2024-10-26] MEDS: GABAPENTIN 300 MG CAPSULE PO ×3 (06:04→21:44)
[2024-10-26 08:22] VITALS: PULSE 77
[2024-10-26] MEDS: TAMSULOSIN HCL 0.4 MG CAPSULE PO (08:22)
[2024-10-26] MEDS: ASPIRIN 325 MG TABLET PO (08:22)
[2024-10-26] MEDS: SERTRALINE HCL 50 MG TABLET 100 MG PO (08:22)
[2024-10-26] MEDS: ATORVASTATIN 40 MG TABLET PO (08:22)
[2024-10-26] MEDS: ENOXAPARIN 30 MG/0.3 ML SYRINGE SUB-Q (08:23)
[2024-10-26] MEDS: cefTRIAXone 1 GM in SODIUM CHLORIDE 0.9% IV 50 ML 100 ML IVPB (08:24)
[2024-10-26] MEDS: LIDOCAINE 5% PATCH 1 PATCH TRANSDERM (08:24)
--- NOTE | 2024-10-26 10:45 | P.PNIM_ITS ---
Progress Note: A&P Assessment and Plan (1) Altered mental status: Qualifiers: Altered mental status type: delirium Qualified Code(s): R41.0 - Disorientation, unspecified Code(s): R41.82 - Altered mental status, unspecified Status: Acute Assessment and Plan: Likely due to infectious process versus dementia Head CT negative for acute finding still intermittently confused but over all improved 10/25- stable. 10/26 improving (2) Urinary tract infection: Code(s): N39.0 - Urinary tract infection, site not specified Status: Acute Assessment and Plan: IV Rocephin IV fluid Culture and sensitivity pending continue IV antibiotics (3) DEMETRIO (acute kidney injury): Code(s): N17.9 - Acute kidney failure, unspecified Status: Acute Assessment and Plan: On CKD stage 3 IVF Avoid nephrotoxic medications BMP in the morning cr/bun 1.5 (down from 2.45) (4) Lactic acid acidosis: Code(s): E87.20 - Acidosis, unspecified Status: Acute Assessment and Plan: Lactic acid went up after fluid bolus Repeat lactic acid in a.m. improved this am-0.9 (5) Essential (primary) hypertension: Code(s): I10 - Essential (primary) hypertension Status: Acute Assessment and Plan: Continue atenolol (6) Coronary artery disease involving [place] artery of transplanted heart without angina pectoris: Code(s): I25.811 - Atherosclerosis of [place] coronary artery of transplanted heart without angina pectoris Status: Acute Assessment and Plan: Continue atenolol, Lipitor, and aspirin (7) Hyperlipidemia: Code(s): E78.5 - Hyperlipidemia, unspecified Status: Acute Assessment and Plan: Continue statin L (8) Dementia: Code(s): F03.90 - Unspecified dementia, unspecified severity, without behavioral disturbance, psychotic disturbance, mood disturbance, and anxiety Status: Acute Assessment and Plan: Continue Wellbutrin and Zoloft Time Spent With Patient Time with patient: 25 - 35 minutes Subjective Date/time seen: 10/26/24 10:45 Interval history: 79-year-old admitted to the hospital with altered mental status from a [facility]. She had been more confused in the last few days Lab work in the ED shows chloride of 108 carbon dioxide of 21, anion gap 13, BUN of 48 creatinine of 2.45 baseline being 1.2, GFR 19 lactic acid 2 2, urine is turbid with 3+ leukocyte esterase, negative for nitrates over [address] shows no acute process. Chest x-ray shows no acute process. EKG shows sinus Robby with heart rate of 53. Patient will be admitted for UTI and has been started on Rocephin. Pt is seen and examined. lactic went down, cr/bun improved. She is still a bit confused but easily re oriented. She is c/o back pain. Has pain meds if needed. 10/25 pt is seen and examined during morning round. Lidocaine patch ordered for back pain. 10/26 resting with eyes closed. PT/OT ordered. Pt is from [facility]. Labs better today, eating and drinking ok, IV fluids stopped. Review of Systems Review of Systems: ROS unobtainable: Yes unobtainable due to mental status Exam Narrative: General: well appearing, appears stated age. HEENT: normocephalic, atraumatic. Mucous membranes moist. EOMI, PERRLA, bilateral sclera anicteric, no conjunctival injection. Neck supple without JVD, lymphadenopathy, or bruit. Respiratory: clear to ascultation bilaterally. No rales/rhonic/wheezes. Cardiovascular: Regular rate and rhythm, normal S1-S2 upon ascultation. No murmurs, rubs, or clicks. PMI is nondisplaced, capillary refill less than 3 second. Abdomen: Soft, round, no pulsatile masses, nondistended and nontender. No rebound, no guarding. No CVA tenderness, no hepatosplenomegaly. Bowel sounds present to all four quadrants. No high pitch or tinkling sounds, resonant to percussion. Extremities: No cyanosis, clubbing, or edema present. Pulses are palpable 2/2. Active ROM to all four extremities. Neuro: Alert and orientated x 2. PERRLA. Cranial nerves 2-12 intact without focal deficit. Skin: Warm, dry, and intact, without rash, erythema, or lesion. Psych: pleasant, cooperative, normal speech, normal affect Const: General: comfortable Objective Data Vital Signs Vital Signs: Vital Signs - 24 hr 10/25/24 14:00 10/25/24 20:00 10/25/24 20:45 Temperature 97.7 F 97.4 F L Pulse Rate 56 L 57 L Respiratory Rate 16 18 Blood Pressure 151/75 H 157/61 H Pulse Oximetry 98 98 Oxygen Delivery Room Air 10/26/24 06:00 10/26/24 08:00 10/26/24 08:22 Temperature 98.4 F Pulse Rate 100 77 Respiratory Rate 18 Blood Pressure 160/90 H Pulse Oximetry 96 Oxygen Delivery Room Air Intake/Output Intake/Output: Intake & Output 10/23/24 10/24/24 10/25/24 10/26/24 23:59 23:59 23:59 23:59 Intake Total 2050 4168.7 2103 1250 Output Total 200 1400 1300 1200 Balance 1850 2768.7 803 50 Meds/Results Medications: Active Medications Generic Name Dose Route Start Last Admin Trade Name Freq PRN Reason Stop Dose Admin Acetaminophen 650 mg 10/23/24 13:06 Acetaminophen 325 Mg Tablet PO Q4H PRN Mild Pain (1-3) or Fever Hydrocodone Bitart/Acetaminophen 1 tab 10/23/24 23:17 Hydrocodone/Acetaminophen (*Crx) 5-325 Mg Tablet PO Q4H PRN severe pain (scale score 7-10) Albuterol 1 puff 10/23/24 21:10 Albuterol Sulfate (*Sp) Aerosol 1 Puff INHALATION Q6HRT PRN Shortness Of Breath Or Wheezing Aspirin 325 mg 10/24/24 09:00 10/26/24 08:22 Aspirin 325 Mg Tablet PO 325 mg DAILY MARGARET Administration Atenolol 50 mg 10/24/24 09:00 10/26/24 08:22 Atenolol 50 Mg Tablet PO 50 mg DAILY MARGARET Administration Atorvastatin Calcium 40 mg 10/24/24 09:00 10/26/24 08:22 Atorvastatin 40 Mg Tablet PO 40 mg DAILY MARGARET Administration Bupropion HCl 100 mg 10/23/24 21:35 10/26/24 08:22 Bupropion Hcl 100 Mg Tablet PO 100 mg Q12HR MARGARET Administration Enoxaparin Sodium 30 mg 10/24/24 09:00 10/26/24 08:23 Enoxaparin 30 Mg/0.3 Ml Syringe SUB-Q 30 mg DAILY MARGARET Administration Gabapentin 300 mg 10/23/24 22:00 10/26/24 06:04 Gabapentin 300 Mg Capsule PO 300 mg Q8HR MARGARET Administration Ceftriaxone Sodium 1 gm/ 50 mls @ 100 mls/hr 10/23/24 13:00 10/26/24 08:24 Sodium Chloride IVPB 100 mls/hr QAM MARGARET Administration Lidocaine 1 patch 10/24/24 14:50 10/26/24 08:24 Lidocaine 5% Patch TRANSDERM 1 patch DAILY MARGARET Administration Ondansetron HCl 4 mg 10/24/24 14:48 Ondansetron Inj 4 Mg/2 Ml Vial IV PUSH Q4H PRN Nausea And Vomiting Sertraline HCl 100 mg 10/24/24 09:00 10/26/24 08:22 Sertraline Hcl 50 Mg Tablet PO 100 mg DAILY MARGARET Administration Tamsulosin HCl 0.4 mg 10/24/24 09:00 10/26/24 08:22 Tamsulosin Hcl 0.4 Mg Capsule PO 0.4 mg DAILY MARGARET Administration Radiology Results: ITS Impressions Head CT 10/23/24 12:38 IMPRESSION: 1. No acute intracranial hemorrhage. No mass effect. 2. Probable chronic ischemic white matter change. 3. Cerebral atrophy appropriate for the patient's age. Chest X-Ray 10/23/24 12:41 IMPRESSION: 1: NO ACUTE CARDIOPULMONARY DISEASE. Labs Labs: Laboratory Results - last 24 hr 10/26/24 10/26/24 04:15 04:16 WBC 6.1 RBC 3.79 L Hgb 11.1 L Hct 35.8 L MCV 94.5 MCH 29.3 MCHC 31.0 L RDW 13.0 Plt Count 125 L MPV 11.2 H Sodium 141 Potassium 3.9 Chloride 113 H Carbon Dioxide 20 L Anion Gap 8 BUN 13 D Creatinine 0.79 Estim Creat Clear Calc 58 Estimated GFR > 60 Glucose 94 Calcium 9.0 Total Bilirubin 0.5 AST 31 ALT 14 Alkaline Phosphatase 61 Total Protein 6.4 Albumin 3.5 Quality VTE Prophylaxis VTE prophylaxis: mechanical ordered and pharmacologic ordered
[2024-10-26 13:54] VITALS: BP 149/80; PULSE 85; RESP 18; TEMP 36.2; O2SAT 98
[2024-10-26 21:28] VITALS: BP 155/89; PULSE 62; RESP 16; TEMP 37; O2SAT 98
[2024-10-27 04:47] LABS: Hematocrit 34.7 % (37.0-47.0); Hemoglobin 10.9 g/dL (12.0-15.0); Immature Platelet Fraction Pct 3.9 % (0.9-11.2); Mean Corpuscular HGB Conc 31.4 g/dl (32-36); Mean Corpuscular Hemoglobin 29.4 pg (26-34); Mean Corpuscular Volume 93.5 fl (80-100); Platelet Count Result 140 k/mm3 (150-375); Red Blood Count 3.71 M/mm3 (4.2-5.4); White Blood Count 6.3 K/mm3 (4.5-10.0)
[2024-10-27 05:14] LABS: Alanine Aminotransferase 15 U/L (6-35); Albumin Level 3.3 g/dL (3.5-5.1); Alkaline Phosphatase 61 U/L (38-126); Anion Gap 6 mmol/L (4-12); Aspartate Amino Transferase 32 U/L (14-36); Bilirubin,Total 0.6 mg/dL (0.2-1.3); Blood Urea Nitrogen 12 mg/dL (7-17); Calcium 9.1 mg/dL (8.4-10.2); Carbon Dioxide 22 mmol/L (22-30); Chloride 111 mmol/L (98-107); Estimated CRCL calculation 52 ml/min; Estimated Glomerular Filt Rate 60; Glucose 92 mg/dL (65-110); Potassium 3.7 mmol/L (3.4-5.0); Sodium 139 mmol/L (137-145); Total Protein 6.1 g/dL (6.3-8.2)
[2024-10-27 05:34] VITALS: BP 129/71; PULSE 60; RESP 16; TEMP 36.9; O2SAT 94
[2024-10-27] MEDS: GABAPENTIN 300 MG CAPSULE PO ×2 (05:51→13:07)
[2024-10-27] MEDS: ASPIRIN 325 MG TABLET PO (08:30)
[2024-10-27] MEDS: SERTRALINE HCL 50 MG TABLET 100 MG PO (08:30)
[2024-10-27] MEDS: TAMSULOSIN HCL 0.4 MG CAPSULE PO (08:30)
[2024-10-27 08:31] VITALS: PULSE 58
[2024-10-27] MEDS: ENOXAPARIN 40 MG/0.4 ML SYRINGE SUB-Q (08:31)
[2024-10-27] MEDS: ATORVASTATIN 40 MG TABLET PO (08:31)
[2024-10-27] MEDS: LIDOCAINE 5% PATCH 1 PATCH TRANSDERM (08:31)
[2024-10-27 08:32] VITALS: BP 154/70; PULSE 58; O2SAT 95
--- NOTE | 2024-10-27 09:54 | WPDCDIQUERY2 ---
CDI Query Clarification Request Altered mental status has been documented in progress notes. Please clarify the acuity of alteration in mental status: ? Acute ? Chronic ? Acute and chronic ? Unable to determine ? Other, please specify Please clarify the underlying possible/probable/suspected cause for the altered mental status in the progress notes: ? Encephalopathy (metabolic, COVID, hepatic, hypoxic, uremic, Wernic[place], other) ? Neurologic condition (CVA/TIA/NPH/seizure) ? Electrolyte/metabolic imbalance/dehydration ? Infectious process (i.e. meningitis/encephalitis) ? Psychiatric condition ? Respiratory condition ? Dementia ? Other, please specify ? Unknown/unable to determine Assessment and Plan (1) Altered mental status: Qualifiers: Altered mental status type: delirium Qualified Code(s): R41.0 - Disorientation, unspecified Code(s): R41.82 - Altered mental status, unspecified Status: Acute Assessment and Plan: Likely due to infectious process versus dementia Head CT negative for acute finding still intermittently confused but over all improved 10/25- stable. 10/26 improving (2) Urinary tract infection: Code(s): N39.0 - Urinary tract infection, site not specified Status: Acute Assessment and Plan: IV Rocephin IV fluid Culture and sensitivity pending (8) Dementia: Code(s): F03.90 - Unspecified dementia, unspecified severity, without behavioral disturbance, psychotic disturbance, mood disturbance, and anxiety Status: Acute Assessment and Plan: Continue Wellbutrin and Zoloft Head CT IMPRESSION: 1. No acute intracranial hemorrhage. No mass effect. 2. Probable chronic ischemic white matter change. 3. Cerebral atrophy appropriate for the patient's age. <Claudia Verde RN - Last Filed: 10/27/24 09:55> Provider Comments acute <Jocelyne Schmitt APRN - Last Filed: 10/27/24 10:35>
--- NOTE | 2024-10-27 13:55 | P.DS_ITS ---
DS: Admitting Diagnosis Discharge Date 10/27 Admitting Diagnosis ams DS: Discharge Diagnosis Discharge Diagnosis (1) Altered mental status: Qualifiers: Altered mental status type: delirium Qualified Code(s): R41.0 - Disorientation, unspecified Code(s): R41.82 - Altered mental status, unspecified Status: Acute (2) Urinary tract infection: Code(s): N39.0 - Urinary tract infection, site not specified Status: Acute (3) DEMETRIO (acute kidney injury): Code(s): N17.9 - Acute kidney failure, unspecified Status: Acute (4) Lactic acid acidosis: Code(s): E87.20 - Acidosis, unspecified Status: Acute (5) Essential (primary) hypertension: Code(s): I10 - Essential (primary) hypertension Status: Acute (6) Coronary artery disease involving [place] artery of transplanted heart without angina pectoris: Code(s): I25.811 - Atherosclerosis of [place] coronary artery of transplanted heart without angina pectoris Status: Acute (7) Hyperlipidemia: Code(s): E78.5 - Hyperlipidemia, unspecified Status: Acute (8) Dementia: Code(s): F03.90 - Unspecified dementia, unspecified severity, without behavioral disturbance, psychotic disturbance, mood disturbance, and anxiety Status: Acute DS: Summary Hospital Course Hospital Course: 79-year-old admitted to the hospital with altered mental status from a care home. She had been more confused in the last few days Lab work in the ED shows chloride of 108 carbon dioxide of 21, anion gap 13, BUN of 48 creatinine of 2.45 baseline being 1.2, GFR 19 lactic acid 2 2, urine is turbid with 3+ leukocyte esterase, negative for nitrates over [address] shows no acute process. Chest x-ray shows no acute process. EKG shows sinus Robby with heart rate of 53. Patient will be admitted for UTI and has been started on Rocephin. #ams Likely due to infectious process versus dementia Head CT negative for acute finding WAs on rocephin -downgraded to PO antibiotics- Augmentin- will need more doses to compete the course (ua was not convincing but will treat as UTI because pt improved significantly). Status at Discharge Functional status at discharge: uses cane/walker Overall status at discharge: patient is progressing back to baseline Time Spent with Patient Time attestation: Total time spent providing and/or coordinating discharge services: Time spent: Greater than 30 minutes Exam Narrative: General: well appearing, appears stated age. HEENT: normocephalic, atraumatic. Mucous membranes moist. EOMI, PERRLA, bilateral sclera anicteric, no conjunctival injection. Neck supple without JVD, lymphadenopathy, or bruit. Respiratory: clear to ascultation bilaterally. No rales/rhonic/wheezes. Cardiovascular: Regular rate and rhythm, normal S1-S2 upon ascultation. No murmurs, rubs, or clicks. PMI is nondisplaced, capillary refill less than 3 second. Abdomen: Soft, round, no pulsatile masses, nondistended and nontender. No rebound, no guarding. No CVA tenderness, no hepatosplenomegaly. Bowel sounds present to all four quadrants. No high pitch or tinkling sounds, resonant to percussion. Extremities: No cyanosis, clubbing, or edema present. Pulses are palpable 2/2. Active ROM to all four extremities. Neuro: Alert and orientated x 2. PERRLA. Cranial nerves 2-12 intact without focal deficit. Skin: Warm, dry, and intact, without rash, erythema, or lesion. Psych: pleasant, cooperative, normal speech, normal affect Const: General: comfortable DS: Data Data Completed and Pending Completed studies during hospitalization: ct head Labs on day of discharge: Labs from last 24 hours 10/27/24 04:20 WBC 6.3 RBC 3.71 L Hgb 10.9 L Hct 34.7 L MCV 93.5 MCH 29.4 MCHC 31.4 L RDW 12.9 Plt Count 140 L MPV 11.1 H % Immature Plt Fraction 3.9 Sodium 139 Potassium 3.7 Chloride 111 H Carbon Dioxide 22 Anion Gap 6 BUN 12 Creatinine 0.90 Estim Creat Clear Calc 52 Estimated GFR 60 Glucose 92 Calcium 9.1 Total Bilirubin 0.6 AST 32 ALT 15 Alkaline Phosphatase 61 Total Protein 6.1 L Albumin 3.3 L Discharge Plan Discharge Attending physician on discharge: Marti Meier Discharging Clinician: Jocelyne Schmitt Patient Disposition: [facility] Activity: june shower Diet: heart healthy Discharge Instructions: You were admitted for altered mental status- UTI was suspected, so you were started on IV antibiotics which later were switched to oral. Please continue for total of 5 more doses (1 tab [id number]) Patient Instructions: Antibiotic Form Patient Language: Lithuanian Stand Alone Forms: General Discharge Information Follow-up/Referrals: Jim Lu MD [Primary Care Provider, [facility]] - 2 Weeks Discharge Medications: New amoxicillin-pot clavulanate 875-125 mg tablet 1 tablet PO Q12H Qty: 5 0RF Continued cholecalciferol (vitamin D3) [Vitamin D3] 125 mcg (5,000 unit) tablet 125 mcg PO DAILY loperamide 2 mg tablet 2 mg PO Q6H PRN (Reason: loose stool) nystatin 100,000 unit/gram powder 1 applic topical QID PRN (Reason: rash) Rx Instructions: apply to abdominal folds and groin albuterol sulfate 90 mcg/actuation HFA aerosol inhaler 1 inh inhalation Q6H PRN (Reason: shortness of breath or wheezing) Qty: 8.5 2RF gabapentin 300 mg capsule 300 mg PO TID Qty: 270 1RF L.acidoph,saliva-B.bif-S.therm [Acidophilus Probiotic Blend] 175 mg capsule 1 cap PO DAILY Qty: 90 1RF atorvastatin 40 mg tablet 40 mg PO DAILY Qty: 90 2RF acetaminophen [Tylenol Extra Strength] 500 mg tablet 500 mg PO Q8H 90 Days Qty: 270 2RF atenolol 50 mg tablet 50 mg PO DAILY Qty: 90 2RF sertraline 100 mg tablet 100 mg PO DAILY Qty: 90 2RF tamsulosin 0.4 mg capsule 0.4 mg PO DAILY Qty: 90 2RF aspirin 325 mg tablet 325 mg PO DAILY Qty: 90 2RF bupropion HCl 100 mg tablet 100 mg PO BID Qty: 180 2RF estradiol 0.01 % (0.1 mg/gram) cream 1 g vaginal 3XW Qty: 42.5 3RF hydrocodone-acetaminophen 5-325 mg tablet 1 tablet PO Q4H PRN (Reason: severe pain (scale score 7-10)) Qty: 30 0RF Date of admission: 10/24/24 14:01 Primary Care Provider: Jim Lu Admitting Provider: Artis Toney Attending physician on admission: Artis Toney Condition: Stable Quality VTE Prophylaxis VTE prophylaxis: mechanical ordered and pharmacologic ordered Hospitalist MIPS Heart Failure (Exclusion) Patient has history of Heart Transplant or Left Ventricular Assistive Device?: No IF YES, STOP HERE Heart Failure (Qualifier) Patient has current or prior documentation of LVEF less than or equal to 40%, or mod/servere depressed LVSF?: No IF NO, STOP HERE
[2024-10-27 14:00] VITALS: BP 133/74; PULSE 60; RESP 16; TEMP 36.6; O2SAT 98
== END 2024-10-27 19:44 | DRG 690 ==
LOC: ANHED 13:11 → ANH2MED 13:36
PROVIDERS: Emergency Medicine; Nurse Practitioner Gerontology; Admitting Provider General Practice; Emergency Provider Emergency Medicine; PCP Family Medicine; Visit Provider Nurse Practitioner
DX: N39.0 Urinary tract infection, site not specified (principal); N17.9 Acute kidney failure, unspecified; N18.30 Chronic kidney disease, stage 3 unspecified; I12.9 Hypertensive chronic kidney disease with stage 1 through stage 4 chronic kidney disease, or unspecified chronic kidney disease; K21.9 Gastro-esophageal reflux disease without esophagitis; E78.5 Hyperlipidemia, unspecified; M19.90 Unspecified osteoarthritis, unspecified site; G47.33 Obstructive sleep apnea (adult) (pediatric); F32.A Depression, unspecified; F41.9 Anxiety disorder, unspecified; F03.90 Unspecified dementia, unspecified severity, without behavioral disturbance, psychotic disturbance, mood disturbance, and anxiety; Z79.82 Long term (current) use of aspirin
CPT/HCPCS: 36415; 70450; 71045; 80048; 80053; 81001; 83605; 85025; 85027; 85055; 85610; 85730; 87086; 93005; 96361; 96365; 96372; 96375; 97162; 97165; 99285; A9270; G0378; J0696; J1650; J7030

== ENCOUNTER 2024-11-11 21:47 | Emergency (ER) | payer MEDICARE, OTHER, SELFPAY ==
--- NOTE | ~2024-11-11 | CT_ITS ---
CT HEAD NON-CONTRAST CT C-SPINE Clinical History: fall Comparison: CT brain 10/23/2024 CT brain and C-spine 01/18/2023 Technique: Unenhanced axial images skull base to vertex. Coronal, sagittal reformats. Axial images thoracic inlet to skull base. Sagittal and coronal reformats. CT images acquired with automatic exposure control for dose reduction DLP: 681 mGy-cm Findings: Head: Global atrophy. Chronic white matter microvascular ischemic changes. Empty sella, usually no consequence unless hormonal abnormality. Sulci, ventricles: Unremarkable. No intracerebral hemorrhage. No evidence acute territorial infarct. No mass effect, midline shift, intra-/extra-axial fluid collection. Bony calvarium intact. Left frontal calvarial hemangioma unchanged. Visualized paranasal sinuses: Clear. Mastoid air cells: Clear. C-spine: No acute fracture or listhesis. Moderate degenerative changes. Disc spaces maintained. Prevertebral soft tissues within normal limits. Visualized lung apices: Scarring. Visualized thyroid: Unremarkable. No enlarged cervical nodes. IMPRESSION: HEAD: 1. No acute intracranial findings. C-SPINE: 1. No acute fracture. Reviewed, dictated and finalized at location R. IMPRESSION: HEAD: 1. No acute intracranial findings. C-SPINE: 1. No acute fracture.
--- NOTE | ~2024-11-11 | XR_ITS ---
EXAMINATION: XR chest 1V, 11/11/2024 22:35 CDT HISTORY: ams COMPARISON: No comparisons available. Technique: Single view. Findings: The lungs are clear, no effusion. No pneumothorax. Mild cardiomegaly. Mediastinal and hilar contours are within normal limits. Bony thorax no acute abnormality. Impression: No acute cardiopulmonary abnormality. Reviewed, dictated and finalized at location A. Impression: No acute cardiopulmonary abnormality.
--- NOTE | ~2024-11-11 | XR_ITS ---
EXAMINATION: XR hip LT 2V w AP pelvis, 11/11/2024 22:35 CDT HISTORY: pt fell this evening COMPARISON: No comparisons available. Findings: No acute fracture or malalignment. Right hip arthroplasty. Severe left-sided degenerative changes. Soft tissues unremarkable. Impression: No acute fracture or malalignment. Reviewed, dictated and finalized at location A. Impression: No acute fracture or malalignment.
--- NOTE | ~2024-11-11 | CT_ITS ---
EXAMINATION: CT chest abdomen pelvis wo con DATE: 11/11/2024 22:36 INDICATION: Left chest pain. Fall. TECHNIQUE: Computed tomography (CT) of the chest, abdomen, and pelvis was performed without intravenous contrast. Automated exposure control and iterative reconstruction technique were employed. The dose-length product was 1620.55 mGy-cm. COMPARISON: CT abdomen and pelvis 06/11/2024, chest CT 07/10/2023 FINDINGS: CHEST CT: The lungs demonstrate mild atelectasis. There is a 6 mm nodule in left lower lobe, stable from 07/10/2023, likely benign. There is a trace left pleural effusion. There is left atrial enlargement of the heart. There are coronary artery calcifications. No pericardial effusion. There is severe thoracic spo ndylosis. There is levoscoliosis of thoracolumbar spine. There are old healed left rib fractures. ABDOMEN/PELVIS CT: There is a 5 mm cyst in the liver. There are changes of cholecystectomy. The spleen, pancreas, adrenal glands, and kidneys are normal. There is no urolithiasis. There is diverticulosis of the colon without evidence of diverticulitis. The appendix is normal. There are no dilated loops of bowel. There are no pathologically enlarged lymph nodes. There is no free intraperitoneal fluid. There is a total right hip arthroplasty. There is severe lumbar spondylosis. There is dextroscoliosis of lumbar spine. IMPRESSION: 1. Trace left pleural effusion. Reviewed, dictated and finalized at location E.
[2024-11-11 21:48] VITALS: BP 125/90; PULSE 57; RESP 16; TEMP 37; O2SAT 100
[2024-11-11 22:02] VITALS: BP 125/90; PULSE 57; RESP 16; TEMP 37; O2SAT 95
--- NOTE | 2024-11-11 22:04 | ED_ITS ---
HPI - Fall General Chief Complaint: Fall Stated Complaint: PELVIC PAIN W/ LEG SHORTENING S/P FALL Time Seen by Provider: 11/11/24 21:53 Source: patient and family (daughter) Mode of arrival: EMS Limitations: dementia History of Present Illness HPI Narrative: Patient with PMH dementia presents with report of a fall. She reports falling on her buttocks but got up after the fall. Did not strike her head, denies loss of consciousness. Complaining of low back/tailbone pain and pain at anterior inferior left ribs at the time of my exam. Had complained of hip pain earlier. 09/03 in severity. Daughter notes she is essentially wheelchair bound. Takes only a few steps with PT, essentially non ambulatory. Patient had told daughter she was in the bathroom trying to clean up after a bowel movement. EMS was concerned about leg shortening after the fall. On ASA. History of a hip replacement and history of hip dislocation, daughter thinks they might have been contralateral hips for each condition, unsure. Notes her mother has had increasing confusion recently. Recently treated for a UTI, finished Abx course. Related Data Home Medications ?Medication ?Instructions ?Recorded ?Confirmed ?Last Taken ?Type cholecalciferol (vitamin D3) 125 125 mcg PO DAILY 09/2610/23/24 Unknown History mcg (5,000 unit) tablet (Vitamin D3) loperamide 2 mg tablet 2 mg PO Q6H PRN loose stool 10/23/24 10/23/24 Unknown History nystatin 100,000 unit/gram topical 1 applic topical QI D PRN rash 10/23/24 10/23/24 Unknown History powder Allergies Allergy/AdvReac Type Severity Reaction Status Date / Time day Allergy Mild Anaphylaxis Verified 10/23/24 15:58 [facility] Past Medical History Medical History Microhematuria Dementia Chronic kidney disease, stage 3 Transient ischemic attack Obstructive sleep apnea No longer using CPAP following weight loss. Gastroesophageal reflux disease Hyperlipidemia Degenerative disc disease Pulmonary emphysema Anxiety Arthritis Asthma Hypertension Depression Surgical History Surgical History History of cardiac catheterization (2011) Reportedly unremarkable. History of section History of tubal ligation History of hysterectomy History of benign breast biopsy History of right hip replacement History of cholecystectomy History of tonsillectomy Family History Family History Mother Hypertension Family history of pancreatic cancer Father Cerebrovascular accident Sibling Heart disease Hsebj-Oomqskfru-Jkicq (WPW) syndrome A-fib Low O2 saturation Social History Social History (Updated 11/12/24 @ 23:54 by Destiny Sutherland MD) Social History: . She has 7 children, 5 biologic and 2 adopted. Surrogate medical decision maker: Misael Hayes (son) or Mini Bledsoe (daughter). Code status: Full code. Smoking status: Never smoker Second hand tobacco smoke exposure: Yes Alcohol intake: never Alcohol use details: No alcohol since around age 29. 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 Spiritual care concerns: No Exam 2 Narrative: GENERAL: Well-appearing, well-nourished, and in no acute distress. HEAD: Normocephalic, atraumatic. EYES: Non injected, non icteric ENT: Nares clear, no rhinorrhea or epistaxis. Gross auditory acuity intact. NECK: Supple. No meningismus. CHEST: Speaking in full sentences. No respiratory distress. No reproducible pain when inferior ribs/sternum is palpated. No brusing or crepitus/subcutaneous emphysema. Lungs diminished bilaterally, possibly due to body habitus versus effort HEART: Regular rate and rhythm. . ABDOMEN: Obese but Soft, nondistended. No rigidity or guarding. Not peritoneal. No ecchymosis appreciated. EXTREMITIES: Left leg does appear slightly shortened and externally rotated. BACK/Pelvis: No instability to compression of hips SKIN: Warm, dry, no rash. NEURO: No focal deficits. Alert. Not a good historian, tries to Answer questions but daughter notes that she is not always given correct information. . Following commands. Normal speech without aphasia or dysarthria. PSYCH: Normal mood and affect. Course Vital Signs Vital signs: Vital Signs Temperature 98.6 F 11/11/24 21:48 Pulse Rate 57 L 11/11/24 21:48 Respiratory Rate 16 11/11/24 21:48 Blood Pressure 125/90 11/11/24 21:48 Pulse Oximetry 100 11/11/24 21:48 Oxygen Delivery Room Air 11/11/24 21:48 Temperature 98.6 F 11/11/24 22:02 Pulse Rate 62 11/12/24 01:37 Respiratory Rate 17 11/12/24 01:37 Blood Pressure 137/68 11/12/24 01:37 Pulse Oximetry 98 11/12/24 01:37 Oxygen Delivery Room Air 11/11/24 21:48 MDM - Fall MDM Narrative Medical decision making narrative: Patient presents after a fall. States she fell on her butt and complaingng of pain there as well as low back though it was reported she got up after the fall. EMS had concerns for leg shortening on their exam and she does appear shortened and externally rotated on my exam though not complaining of hip pain currently (had initially) and no TTP or instability of hips. In the emergency department she is afebrile with vital signs notable for mild bradycardia. Normocytic anemia, stable from previous. Urinalysis is abnormal; given the degree of white blood cells and 3+ leukocyte esterase, reasonable to treat. Reflex Culture is pending. Previous cultures showed no growth. Will give first dose of antibiotic and rest of coure prescribed. Imaging negative for acute process. Daughter updated. Discussed treating for UTI. She concurs. Will supplement her regimen at baseline with additional NSAID and lidocaine patches. Differential Diagnosis Differential diagnosis: Likely compression fracture and other (rib fracture; hip fracture; UTI; PNA; intrathoracic/intra-abdominal injury) Lab Data Attestation: I reviewed the patient's lab results. 11/11/24 22:56 11/11/24 22:56 Labs: Lab Results 11/11/24 11/11/24 Range/Units 22:56 23:28 WBC 5.8 (4.5-10.0) K/mm3 RBC 3.83 L (4.2-5.4) M/mm3 Hgb 11.2 L (12.0-15.0) g/dL Hct 35.9 L (37.0-47.0) % MCV 93.7 (80-100) fl MCH 29.2 (26-34) pg MCHC 31.2 L (32-36) g/dl RDW 13.2 (11.5-14.5) % Plt Count 155 (150-375) k/mm3 MPV 10.6 H (7.4-10.4) fl Immature Gran % (Auto) 0.3 (0-0.5) % Neut % (Auto) 56.1 (45.5-73.1) % Lymph % (Auto) 24.3 (18.3-44.2) % Braxton % (Auto) 11.2 H (2.6-8.5) % Eos % (Auto) 7.6 H (0-4.4) % Baso % (Auto) 0.5 (0.2-1.2) % Lymph # (Auto) 1.41 (0.9-3.2) K/mm3 Braxton # (Auto) 0.7 H (0.1-0.6) K/mm3 Eos # (Auto) 0.4 H (0-0.3) K/mm3 Baso # (Auto) 0.0 (0.0-0.1) K/mm3 Abs Immat Gran (auto) 0.02 (0.00-0.031) K/mm3 Absolute Neuts (auto) 3.3 (1.3-6.7) K/mm3 Absolute Nucleated RBC 0.000 (0.0-0.012) K/mm3 Nucleated RBC % 0.0 (0.0-0.2) % PT 14.4 (11.1-14.7) Seconds INR 1.1 APTT 30.6 (22.3-36.8) Seconds Sodium 138 (137-145) mmol/L Potassium 3.9 (3.4-5.0) mmol/L Chloride 102 (98-107) mmol/L Carbon Dioxide 30 (22-30) mmol/L Anion Gap 6 (4-12) mmol/L BUN 14 (7-17) mg/dL Creatinine 0.88 (0.7-1.0) mg/dL Estim Creat Clear Calc 56 ml/min Estimated GFR > 60 (59 - ) Glucose 111 H (65-110) mg/dL Lactic Acid 1.5 (0.7-2.0) mmol/L Calcium 9.7 (8.4-10.2) mg/dL Total Bilirubin 0.9 (0.2-1.3) mg/dL AST 33 (14-36) U/L ALT 20 (6-35) U/L Alkaline Phosphatase 99 (38-126) U/L Total Creatine Kinase 62 (30-135) U/L Troponin I < 0.012 (0.000-0.034) ng/mL Total Protein 6.9 (6.3-8.2) g/dL Albumin 3.8 (3.5-5.1) g/dL TSH 3.640 (0.465-4.680) uIU/mL Urine Color Yellow (Yellow) Urine Appearance Cloudy H (Clear) Urine pH 5.5 (5.0-9.0) Ur Specific Spencer 1.010 (1.001-1.035) Urine Protein Negative (Negative) mg/dL Urine Glucose (UA) Negative (Negative) mg/dL Urine Ketones Negative (Negative) mg/dL Ur Blood (Man) Negative (Negative) Urine Nitrate Negative (Negative) Urine Bilirubin Negative (Negative) Urine Urobilinogen 0.2 (<2.0) mg/dL Add Ur Microanalysis Reviewed Leukocyte Esterase Rfl 3+ H (Negative) KIRILL/UL Urine RBC 0-2 (0-2) /hpf Urine WBC 21-50 H (0-3) /hpf Ur Squamous Epith Cells Few (Few) /hpf Urine Bacteria Rare /hpf Urine Casts 0-2 Urine Yeast (Budding) Present H (None) /hpf Salicylates < 1.0 L (2-20) mg/dL Urine Opiates Screen Negative (Negative) Urine Methadone Screen Negative (Negative) Acetaminophen < 10 L (10-30) ug/mL Ur Barbiturates Screen Negative (Negative) Ur Phencyclidine Scrn Negative (Negative) Ur Amphetamine Screen Negative (Negative) U Benzodiazepines Scrn Negative (Negative) Urine Cocaine Screen Negative (Negative) U Cannabinoids Screen Negative (Negative) Ethyl Alcohol < 10 (<10) mg/dL Imaging Data Attestation: I personally reviewed and interpreted this imaging study as follows: My impression: Equivocal hip Xray on my independent interpretation as 2 views look reassuring but questionable bony erosion on another view Radiologist's impression: CT Head Stat Rad: No acute intracranial hemorrhage. No midline shift or mass effect. The territorial lees-white matter differentiation is maintained throughout. Age-related cerebral volume loss. Periventricular and subcortical white matter hypoattenuation, consistent chronic microangiopathy. CT C Spine w/o contrast: The vertebral body heights are maintained. The craniocervical junction is intact. The atlanto dens interval is maintained. Dens intact. There is no spondylolisthesis. Multilevel cervical spondylosis and degenerative disc disease. Straightening of lordosis. Impression: No acute fracture subluxation of cervical spine. CT Chest Stat Rad: No pulmonary contusion or pneumothorax. No acute fractures CT abdomen pelvis: No traumatic visceral injury. No acute fractures. XR HIP & PELVIS 2-3 views: Left hip osteoarthritis with mild-moderate superolateral joint space narrowing. No fracture of the pelvis or left hip. Right hip arthroplasty. ECG Data EKG #1: Attestation: I personally reviewed and interpreted this ECG as follows: ECG completion date: 11/11/24 ECG completion time: 22:45 Interpretation: Sinus bradycardia at a rate of 58 beats per minute. MO interval 173. QRS 89. QT/QTC 428/421. Good R-wave progression across the precordial leads. T-wave inversion in V3, possibly due to lead placement. Discharge Plan Discharge Clinical Impression: Fall, Normocytic anemia, Abnormal urinalysis, Chest pain, Musculoskeletal back pain Patient Disposition: [facility] Living Condition: Stable Instructions: Antibiotic Form, Chest Pain (DC), Fall Prevention for Older Adults (ED), Low Back Strain (ED), Acute Low Back Pain (ED), Anemia (ED), Lower Back Exercises (ED), Urinary Tract Infection in Older Adults (ED) Additional Instructions: As we discussed, the urinalysis did not show an obvious UTI but had enough abnormalities that it is reasonable to treat for one. Received first dose of antibiotic in the ED and the rest of the course if prescribed. No evidence of any broken bones or bleeding in the brain or internally. Labs look good/stable. Patient will likely continue to be sore and achy over the next few days. She is already on what appears to be both narcotic medication as well as having additional acetaminophen prescribed. Acetaminophen/Tylenol (maximum 4000 mg per day) is safe to take with NSAIDs (ibuprofen/Motrin) for pain relief. Lidocaine patch may also help. Follow-up with primary care physician. Return to the ER if you have increased pain in your back, you develop lower extremity weakness/numbness/paralysis, you have numbness or tingling in your private parts, or you are unable to control your ability to urinate/stool. Patient Language: Maldivian Prescriptions: New lidocaine 4 % adhesive patch,medicated 1 patch topical DAILY PRN (Reason: pain) Qty: 10 0RF ibuprofen 600 mg tablet 600 mg PO TID PRN (Reason: pain) Qty: 20 0RF sulfamethoxazole-trimethoprim [Bactrim DS] 800-160 mg tablet 1 tablet PO Q12H 5 Days Qty: 9 0RF Rx Instructions: rec'd first dose in ED 11/12 01:00 No Action cholecalciferol (vitamin D3) [Vitamin D3] 125 mcg (5,000 unit) tablet 125 mcg PO DAILY loperamide 2 mg tablet 2 mg PO Q6H PRN (Reason: loose stool) nystatin 100,000 unit/gram powder 1 applic topical QID PRN (Reason: rash) Rx Instructions: apply to abdominal folds and groin amoxicillin-pot clavulanate 875-125 mg tablet 1 tablet PO Q12H Qty: 5 0RF gabapentin 300 mg capsule 300 mg PO TID Qty: 270 1RF L.acidoph,saliva-B.bif-S.therm [Acidophilus Probiotic Blend] 175 mg capsule 1 cap PO DAILY Qty: 90 1RF atorvastatin 40 mg tablet 40 mg PO DAILY Qty: 90 2RF acetaminophen [Tylenol Extra Strength] 500 mg tablet 500 mg PO Q8H 90 Days Qty: 270 2RF atenolol 50 mg tablet 50 mg PO DAILY Qty: 90 2RF sertraline 100 mg tablet 100 mg PO DAILY Qty: 90 2RF tamsulosin 0.4 mg capsule 0.4 mg PO DAILY Qty: 90 2RF aspirin 325 mg tablet 325 mg PO DAILY Qty: 90 2RF bupropion HCl 100 mg tablet 100 mg PO BID Qty: 180 2RF estradiol 0.01 % (0.1 mg/gram) cream 1 g vaginal 3XW Qty: 42.5 3RF hydrocodone-acetaminophen 5-325 mg tablet 1 tablet PO Q4H PRN (Reason: severe pain (scale score 7-10)) Qty: 30 0RF albuterol sulfate 90 mcg/actuation HFA aerosol inhaler 1 inh inhalation Q6H PRN (Reason: shortness of breath or wheezing) Qty: 8.5 2RF Follow-up/Referrals: Jim Lu MD [Primary Care Provider, [facility]] Stand Alone Forms: Detention Discharge Time of Disposition: 00:57
--- NOTE | 2024-11-11 22:15 | ECG_ITS ---
Test Date: 2024-11-11 22:45:14 Measurements Intervals [place] Rate: 58 P: 61 [place]: 173 QRS: 58 QRSD: 89 T: 37 QT: 428 QTc: 421 Interpretive Statements SINUS BRADYCARDIA ANTEROSEPTAL T-WAVE ABNORMALITY, CONSIDER ISCHEMIA ABNORMAL ECG Compared to ECG 10/23/2024 11:26:47 T-wave abnormality now present Electronically Signed On 11-12-2024 07:59:01 CDT by Cameron Moore M.D.
--- NOTE | 2024-11-11 22:30 | PC.NURSE ---
Pt to Xray at this time @ 2220
--- NOTE | 2024-11-11 22:55 | PC.NURSE ---
ALPHONSO from EDP Sutherland to wait to obtain urine until xrays are read in order to determine if pt needs a straight cath or pratt.
[2024-11-11 23:02] LABS: Hematocrit 35.9 % (37.0-47.0); Hemoglobin 11.2 g/dL (12.0-15.0); Immature Granulocyte Percent A 0.3 % (0-0.5); Lymphocytes Absolute Auto 1.41 K/mm3 (0.9-3.2); Mean Corpuscular HGB Conc 31.2 g/dl (32-36); Mean Corpuscular Hemoglobin 29.2 pg (26-34); Mean Corpuscular Volume 93.7 fl (80-100); Nucleated Red Blood Cells Absolute Auto 0.000 K/mm3 (0.0-0.012); Nucleated Red Blood Cells Perc 0.0 % (0.0-0.2); Platelet Count Result 155 k/mm3 (150-375); Red Blood Count 3.83 M/mm3 (4.2-5.4); White Blood Count 5.8 K/mm3 (4.5-10.0)
[2024-11-11 23:12] LABS: Acetaminophen < 10 ug/mL (10-30); Salicylate < 1.0 mg/dL (2-20)
[2024-11-11 23:20] LABS: Alanine Aminotransferase 20 U/L (6-35); Albumin Level 3.8 g/dL (3.5-5.1); Alkaline Phosphatase 99 U/L (38-126); Anion Gap 6 mmol/L (4-12); Aspartate Amino Transferase 33 U/L (14-36); Bilirubin,Total 0.9 mg/dL (0.2-1.3); Blood Urea Nitrogen 14 mg/dL (7-17); Calcium 9.7 mg/dL (8.4-10.2); Carbon Dioxide 30 mmol/L (22-30); Chloride 102 mmol/L (98-107); Creatine Kinase 62 U/L (30-135); Estimated CRCL calculation 56 ml/min; Estimated Glomerular Filt Rate > 60; Glucose 111 mg/dL (65-110); Potassium 3.9 mmol/L (3.4-5.0); Sodium 138 mmol/L (137-145); Total Protein 6.9 g/dL (6.3-8.2)
[2024-11-11 23:24] LABS: INR 1.1; Prothrombin Time 14.4 Seconds (11.1-14.7)
[2024-11-11 23:25] LABS: Partial Thromboplastin Time 30.6 Seconds (22.3-36.8)
[2024-11-11 23:35] LABS: Troponin I < 0.012 ng/mL (0.000-0.034)
[2024-11-11 23:46] LABS: Add Urine Microscopic? YES; Appearance Urine Cloudy (Clear); Budding Yeast Urine Present /hpf; Glucose Urine UA Negative (Negative); Leukocyte Esterase Ur 3+ LEU/UL (Negative); Need Manual Microscopic Reviewed; Nitrate Urine Negative (Negative); Non Pathogenic Casts 0-2; Specific Grav Ur 1.010 (1.001-1.035)
[2024-11-11 23:54] LABS: Thyroid Stimulating Hormone 3.640 uIU/mL (0.465-4.680)
[2024-11-11 23:58] LABS: Cannabinoid Screen Urine Negative (Negative)
[2024-11-12] MEDS: KETOROLAC 30 MG/ML VIAL (*BKC) IV PUSH (01:12)
[2024-11-12] MEDS: SULFAMETHOXAZOLE/TRIMETHOPRIM 800/160 MG DS TABLET 1 TAB PO (01:12)
[2024-11-12 01:20] VITALS: BP 137/99; PULSE 63; RESP 19; O2SAT 98
[2024-11-12 01:37] VITALS: BP 137/68; PULSE 62; RESP 17; O2SAT 98
== END 2024-11-12 02:09 ==
PROVIDERS: Emergency Provider Student in an Organized Health Care Education/Training Program; PCP Family Medicine
DX: D64.9 Anemia, unspecified (principal); R07.9 Chest pain, unspecified; R82.90 Unspecified abnormal findings in urine; M54.50 Low back pain, unspecified; I12.9 Hypertensive chronic kidney disease with stage 1 through stage 4 chronic kidney disease, or unspecified chronic kidney disease; N18.30 Chronic kidney disease, stage 3 unspecified; F03.90 Unspecified dementia, unspecified severity, without behavioral disturbance, psychotic disturbance, mood disturbance, and anxiety; Z86.73 Personal history of transient ischemic attack (TIA), and cerebral infarction without residual deficits; E78.5 Hyperlipidemia, unspecified; Z79.899 Other long term (current) drug therapy
CPT/HCPCS: 36415; 70450; 71045; 71250; 72125; 73502; 74176; 80053; 80143; 80179; 80307; 81001; 82077; 82550; 83605; 84443; 84484; 85025; 85610; 85730; 87086; 87186; 93005; 96374; 99284; A9270; J1885